=== PATIENT | female | born 1995 | race African-American/Black ===

== ENCOUNTER 2020-11-17 15:39 | Inpatient (IN) | payer OTHER, SELFPAY ==
--- NOTE | ~2020-11-17 | XR_ITS ---
EXAMINATION: XR SHOULDER, LEFT XR WRIST, LEFT CLINICAL INFORMATION: Left shoulder and wrist pain, status post restraints. Limited range of motion. COMPARISON: None TECHNIQUE: Left shoulder, 2 views Left wrist, 2 views FINDINGS: Left shoulder: Alignment is normal at the glenohumeral and acromioclavicular joints. The bones, joints and soft tissues have a normal appearance. No arthritic deformity, fracture or subluxation. The visualized left lung is clear. The visualized left-sided ribs are intact. Left wrist: Bones, joints and soft tissues are normal. No carpal bone fracture or subluxation. No focal soft tissue swelling. XR/XR wrist LT 2V IMPRESSION: * Normal left shoulder. * Normal left wrist. No acute fracture or malalignment.
--- NOTE | ~2020-11-17 | XR_ITS ---
EXAMINATION: XR KNEE, LEFT CLINICAL INFORMATION: Pain COMPARISON: None TECHNIQUE: Four views of the left knee. FINDINGS: Bones and soft tissues are normal. No fracture or joint effusion. Alignment is anatomic. Joint spaces are well maintained. No abnormal soft tissue calcification. XR/XR knee LT 3V IMPRESSION: Normal left knee.
--- NOTE | ~2020-11-17 | CT_ITS ---
EXAMINATION: CT BRAIN AND CERVICAL SPINE WITHOUT CONTRAST CLINICAL INFORMATION: Fall, head trauma. COMPARISON: None TECHNIQUE: 5 mm thin axial and reformatted 2 mm thin sagittal and coronal images of brain were obtained. Subsequently axial 2 mm thin and reformatted 2 mm thin sagittal coronal images of cervical spine were obtained. DLP 1301 FINDINGS: BRAIN: There is no acute intra-axial, extra-axial bleed, masses, collection or midline shift. There is no acute infarction evolution. There is no edema. The lateral ventricles are symmetrical in cortex size and configuration without enlargement. Bone windows reveal no calvarial abnormality except for diffuse thickening of the inner cortex.. There is no scalp soft tissue abnormality either. There is a small polyp or retention cyst in right maxillary sinus. CERVICAL SPINE: There is mild straightening of cervical lordosis. The vertebral heights, alignment and disc heights are normal. The craniovertebral junction and the C1-C2 alignment is normal. The thyroid lobes are symmetrical and normal. The central trachea and the bronchial airway widely patent. The lung apices are clear. Bilateral parotid and submandibular glands are normal. Bilateral TM joints are symmetrical and normal. The prevertebral and paravertebral soft tissues are normal. CT/CT head/brain wo con IMPRESSION: No acute intracranial process seen. Diffuse thickening of the inner table cortex of the calvarium. Mild straightening of cervical lordosis cervical spine without any visible acute fracture, dislocation or subluxation seen.
--- NOTE | ~2020-11-17 | XR_ITS ---
EXAMINATION: XR SHOULDER, LEFT XR WRIST, LEFT CLINICAL INFORMATION: Left shoulder and wrist pain, status post restraints. Limited range of motion. COMPARISON: None TECHNIQUE: Left shoulder, 2 views Left wrist, 2 views FINDINGS: Left shoulder: Alignment is normal at the glenohumeral and acromioclavicular joints. The bones, joints and soft tissues have a normal appearance. No arthritic deformity, fracture or subluxation. The visualized left lung is clear. The visualized left-sided ribs are intact. Left wrist: Bones, joints and soft tissues are normal. No carpal bone fracture or subluxation. No focal soft tissue swelling. XR/XR shoulder LT min 2V IMPRESSION: * Normal left shoulder. * Normal left wrist. No acute fracture or malalignment.
--- NOTE | ~2020-11-17 | CT_ITS ---
EXAMINATION: CT BRAIN AND CERVICAL SPINE WITHOUT CONTRAST CLINICAL INFORMATION: Fall, head trauma. COMPARISON: None TECHNIQUE: 5 mm thin axial and reformatted 2 mm thin sagittal and coronal images of brain were obtained. Subsequently axial 2 mm thin and reformatted 2 mm thin sagittal coronal images of cervical spine were obtained. DLP 1301 FINDINGS: BRAIN: There is no acute intra-axial, extra-axial bleed, masses, collection or midline shift. There is no acute infarction evolution. There is no edema. The lateral ventricles are symmetrical in cortex size and configuration without enlargement. Bone windows reveal no calvarial abnormality except for diffuse thickening of the inner cortex.. There is no scalp soft tissue abnormality either. There is a small polyp or retention cyst in right maxillary sinus. CERVICAL SPINE: There is mild straightening of cervical lordosis. The vertebral heights, alignment and disc heights are normal. The craniovertebral junction and the C1-C2 alignment is normal. The thyroid lobes are symmetrical and normal. The central trachea and the bronchial airway widely patent. The lung apices are clear. Bilateral parotid and submandibular glands are normal. Bilateral TM joints are symmetrical and normal. The prevertebral and paravertebral soft tissues are normal. CT/CT cervical spine wo con IMPRESSION: No acute intracranial process seen. Diffuse thickening of the inner table cortex of the calvarium. Mild straightening of cervical lordosis cervical spine without any visible acute fracture, dislocation or subluxation seen.
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
[2020-11-17 16:00] VITALS: PULSE 136; O2SAT 97; BMI 42.9
[2020-11-17 16:51] LABS: UPreg QC Valid YES; Urine Pregnancy NEGATIVE (NEGATIVE)
[2020-11-17 16:55] LABS: Amphetamine Screen Urine Not Detected (Not Detect); Barbiturates, Urine Not Detected (Not Detect); Benzodiazepines Screen Urine Not Detected (Not Detect); Cannabinoid Screen Urine Not Detected (Not Detect); Cocaine Screen Urine Not Detected (Not Detect); Fentanyl, urine POSITIVE (Not Detect); Opiate Screen Urine Not Detected (Not Detect); Phencyclidine Screen Urine Not Detected (Not Detect)
[2020-11-17 16:56] LABS: COVID-19 Test Negative (Negative)
--- NOTE | 2020-11-17 17:52 | PHA.MEDREC ---
Pharmacy Consult ? Medication Reconciliation Pharmacy has completed the medication reconciliation. Patient is unsure when her last dose of haloperidol decanoate and medroxyprogesterone. Marta Davis, AdamsD
[2020-11-17] MEDS: Benztropine Mesylate 1 MG TABLET PO (19:14)
[2020-11-17] MEDS: chlorproMAZINE HCl 25 MG TABLET 150 MG PO (19:14)
--- NOTE | 2020-11-17 23:33 | PC.NURSE ---
Patient is in bed appears sleeping, no distress observed/reported, patient was seen earlier by Care Team, disposition is section 12 inpatient bed search,, medication compliant, behavior not concerning at this time but may escalate, will continue to monitor
--- NOTE | 2020-11-18 | ECG_ITS ---
Test Reason : MEDCCLEARANCE Blood Pressure : / mmHG Vent. Rate : 095 BPM Atrial Rate : 095 BPM P-R Int : 148 ms QRS Dur : 066 ms QT Int : 374 ms P-R-T Axes : 047 029 030 degrees QTc Int : 469 ms Normal sinus rhythm Normal ECG No previous ECGs available Referred By: [facility] Electronically Signed By:REINALDO DOCKERY
--- NOTE | 2020-11-18 06:26 | PC.NURSE ---
Patient slept through the night, no distress observed/reported, VSS, disposition is section 12 inpatient bed search, labs pending patient not compliant, behavior appropriate at this time, will continue to monitor.
[2020-11-18 06:34] VITALS: RESP 17
--- NOTE | 2020-11-18 07:10 | PC.NURSE ---
patient appears to remain at rest at present respirations even and unlabored patient appears in no distress
[2020-11-18] MEDS: Sertraline HCL 100 MG TABLET 200 MG PO (10:00)
[2020-11-18] MEDS: Benztropine Mesylate 1 MG TABLET PO ×2 (10:00→22:03)
[2020-11-18] MEDS: Naltrexone HCl 50 MG TABLET PO (10:00)
[2020-11-18 10:15] LABS: MANUAL DIFF FLAG NO
[2020-11-18 10:17] LABS: Basophils Percent Auto 0.4 % (0-2); Eosinophils Absolute Auto 0.1 X10*3/uL (0.0-0.4); Eosinophils Percent Auto 2.1 % (0-4); Hematocrit 37.5 % (37-47); Hemoglobin 12.2 g/dl (12.0-16.0); Imm Gran Abs Auto 0.03 X10*3/uL (0.00-0.03); Imm Gran Pct Auto 0.6 % (0.0-0.4); Lymphocytes Absolute Auto 1.7 X10*3/uL (1.2-4.9); Lymphocytes Percent Auto 33.9 % (20-40); Mean Corpuscular HGB Conc 32.5 g/dl (31.0-35.0); Mean Corpuscular Hemoglobin 27.4 pg (27.0-33.0); Mean Corpuscular Volume 84.3 fL (80-98); Mean Platelet Volume 8.9 fL (9.4-12.3); Monocytes Absolute Auto 0.4 X10*3/uL (0.1-1.2); Monocytes Percent Auto 7.4 % (2-11); Neutrophils Absolute Auto 2.9 X10*3/uL (2.0-8.3); Neutrophils Percent Auto 55.6 % (45-73); Platelet Count 250 X10*3/uL (160-400); Red Blood Count 4.45 X10*6/uL (4.20-5.50); Red Cell Distribution Width 13.8 % (11.0-16.0); White Blood Count 5.1 X10*3/uL (4.8-10.8)
[2020-11-18 10:38] VITALS: BP 137/100; PULSE 107; RESP 14; TEMP 36.8; O2SAT 97
[2020-11-18 10:38] LABS: Alanine Aminotransferase 20 U/L (0-31); Alkaline Phosphatase 64 U/L (39-117); Anion Gap 11 (12-20); Aspartate Amino Transferase 24 U/L (5-31); Bilirubin Total 0.4 mg/dL (0.0-1.0); Blood Urea Nitrogen 11 mg/dL (9-16); Carbon Dioxide 21 mmol/L (22-29); Chloride 110 mmol/L (96-108); Creatinine Clr Calc Pharmacy 105.1; Estimated Glomerular Filt Rate > 60; Glucose Random 104 mg/dL (60-115); Sodium 138 mmol/L (135-145); Total Protein 7.2 g/dL (6.5-8.0)
[2020-11-18] MEDS: HaloperidoL 5 MG TABLET 10 MG PO ×2 (11:53→18:31)
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
[2020-11-18] MEDS: hydrOXYzine HCL 50 MG TABLET PO (18:29)
--- NOTE | 2020-11-18 18:56 | PC.NURSE ---
Patient in room, banging head against wall. Able to be redirected with staff support. Staff sitting with patient at this time. Patient accepted PRN medication effects pending.
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
[2020-11-18] MEDS: chlorproMAZINE HCl 25 MG TABLET 150 MG PO (22:03)
[2020-11-18] MEDS: OXcarbazepine 300 MG TABLET PO (22:03)
[2020-11-19 06:00] VITALS: TEMP 37
[2020-11-19] MEDS: Sertraline HCL 100 MG TABLET 200 MG PO (08:43)
[2020-11-19] MEDS: OXcarbazepine 300 MG TABLET PO ×2 (08:43→20:05)
[2020-11-19] MEDS: Benztropine Mesylate 1 MG TABLET PO ×2 (08:43→20:05)
[2020-11-19] MEDS: Naltrexone HCl 50 MG TABLET PO (08:43)
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
[2020-11-19] MEDS: chlorproMAZINE HCl 25 MG TABLET 150 MG PO (20:05)
[2020-11-20 06:00] VITALS: RESP 16
[2020-11-20] MEDS: Naltrexone HCl 50 MG TABLET PO (09:13)
[2020-11-20] MEDS: Sertraline HCL 100 MG TABLET 200 MG PO (09:13)
[2020-11-20] MEDS: Benztropine Mesylate 1 MG TABLET PO ×2 (09:13→21:52)
[2020-11-20] MEDS: OXcarbazepine 300 MG TABLET PO ×2 (09:13→21:52)
--- NOTE | 2020-11-20 13:55 | HO.PSYCHPN ---
Subjective Subjective Date of Service: 11/20/20 Reason For Visit: Psychosis Interim History: pt reports she is doing all right. more awake and alert than yesterday, but does not appear much more interested in engaging with MD. denies any side effects from medications. states she is eating and sleeping OK, getting along with peers OK. adds she is definitely feeling better than when she came in. per staff, visible on eves. cooperative. incr latency of speech. Mental Status Exam Mental Status Exam Narrative: A&O. Lying down, unkempt appearance, overweight. fair eye contact, more attentive, less somnolent. No Tics or Tremors. No abnormal involuntary movements. difficult to engage. Non-pressured speech, more spontaneous with regular rate and rhythm, normal volume and prosody. No prolonged speech latency or dysarthria. affect is more flexible. Has cognitive impairment r/t alcohol syndrome. Insight/ Judgment limited, questionable historian. Diagnostics Vital Signs (24Hr): Vital Signs - 24 hr 11/20/20 06:00 Respiratory Rate 16 Body Mass Index 42.9 Labs Results: 11/18/20 10:11 11/18/20 10:11 Medications Medications Current Medications Acetaminophen (Acetaminophen 325 Mg Tablet) 650 mg PO Q6H PRN PRN Reason: Headache/Pain Mild Scale (1-3) Al Hydroxide/Mg Hydroxide (Magnesium Hydrox/Alum Hydrox 30 Ml Oral.Susp) 30 ml PO Q6H PRN PRN Reason: Heartburn/Nausea Benztropine Mesylate (Benztropine Mesylate 1 Mg Tablet) 1 mg PO BID [facility] Last Admin: 11/20/20 09:13 Dose: 1 mg Documented by: Chlorpromazine HCl (Chlorpromazine Hcl 25 Mg Tablet) 50 mg PO BEDTIME PRN PRN Reason: Insomnia Chlorpromazine HCl (Chlorpromazine Hcl 100 Mg Tablet) 150 mg PO BEDTIME [facility] Last Admin: 11/19/20 20:24 Dose: Not Given Documented by: Haloperidol (Haloperidol 5 Mg Tablet) 10 mg PO BID PRN PRN Reason: Agitation Last Admin: 11/18/20 18:31 Dose: 10 mg Documented by: Hydroxyzine HCl (Hydroxyzine Hcl 50 Mg Tablet) 50 mg PO Q6H PRN PRN Reason: Anxiety Last Admin: 11/18/20 18:29 Dose: 50 mg Documented by: Magnesium Hydroxide (Milk Of Magnesia 30 Ml Oral.Susp) 30 ml PO DAILY PRN PRN Reason: Constipation Naltrexone HCl (Naltrexone Hcl 50 Mg Tablet) 50 mg PO DAILY [facility] Last Admin: 11/20/20 09:13 Dose: 50 mg Documented by: Oxcarbazepine (Oxcarbazepine 300 Mg Tablet) 300 mg PO BID [facility] Last Admin: 11/20/20 09:13 Dose: 300 mg Documented by: Sertraline HCl (Sertraline Hcl 100 Mg Tablet) 200 mg PO DAILY [facility] Last Admin: 11/20/20 09:13 Dose: 200 mg Documented by: Trazodone HCl (Trazodone Hcl 50 Mg Tablet) 50 mg PO BEDTIME PRN PRN Reason: Insomnia Allergies Allergies Allergy/AdvReac Type Severity Reaction Status Date / Time No Known Allergies Allergy Unverified 11/06/19 19:53 [No Known Allergies*] Assessment & Plan Assessment & Plan (1) Borderline personality disorder: Status: Acute Code(s): F60.3 - Borderline personality disorder (2) Schizoaffective disorder, depressive type: Status: Acute Code(s): F25.1 - Schizoaffective disorder, depressive type (3) alcohol syndrome: Status: Acute Code(s): Q86.0 - alcohol syndrome (dysmorphic) Assessment and Plan: Pt is a 25 y.o. Female who carries a dx of schizoaffective do, depressive type, alcohol syndrome, BPD. She does not appear to be a reliable historian but does report feeling worsening sx of depression and irritability. She presents with negative affect, low energy, withdrawn, and agitation. She currently denies assaultive ideation or HI. She endorses urges to self harm but does not have plan or intent, hx of head banging and hitting herself. She reportedly was not adherent with meds but pt denies this, collateral hx needed. Psychiatrist is Dr. Marcial David. On haldol dec, recently increased to 150 mg. Pt states she does not want to change her current med regimen, wants to add a medication to target sx of agitation, mood instability. Plan: started trileptal 300 mg BID for mood stability, reviewed risks and benefits. Continue OP med regimen and monitor for benefit. She is utilizing her PRNs with apparent benefit. Monitor response to medications. Monitor for safety in the milieu. Discharge on stabilization. Patient seen. Chart reviewed. Discussed with team. Obtain collateral contact info?as needed Greater than 50% of the session was spent on counseling and/or coordination of care Reason for contiued inpatient stay Substantial Risk for: harm to others, inability to function and med/psych decompensation
[2020-11-20] MEDS: chlorproMAZINE HCl 100 MG TABLET PO (21:52)
[2020-11-20] MEDS: chlorproMAZINE HCl 25 MG TABLET 50 MG PO (21:52)
[2020-11-21] MEDS: Sertraline HCL 100 MG TABLET 200 MG PO (09:26)
[2020-11-21] MEDS: OXcarbazepine 300 MG TABLET PO ×2 (09:28→19:59)
[2020-11-21] MEDS: Naltrexone HCl 50 MG TABLET PO (09:28)
[2020-11-21] MEDS: Benztropine Mesylate 1 MG TABLET PO ×2 (09:28→19:58)
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
[2020-11-21] MEDS: chlorproMAZINE HCl 25 MG TABLET 50 MG PO (19:58)
[2020-11-21] MEDS: hydrOXYzine HCL 50 MG TABLET PO (19:58)
[2020-11-21] MEDS: chlorproMAZINE HCl 100 MG TABLET PO (19:59)
[2020-11-21 20:21] VITALS: BP 134/88; PULSE 97; RESP 16; TEMP 36.6; O2SAT 100
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
[2020-11-22 09:30] VITALS: BP 130/80; PULSE 109; RESP 18; TEMP 36.8; O2SAT 96
[2020-11-22] MEDS: Benztropine Mesylate 1 MG TABLET PO ×2 (09:31→21:39)
[2020-11-22] MEDS: Sertraline HCL 100 MG TABLET 200 MG PO (09:31)
[2020-11-22] MEDS: Naltrexone HCl 50 MG TABLET PO (09:31)
[2020-11-22] MEDS: OXcarbazepine 300 MG TABLET PO ×2 (09:31→21:39)
--- NOTE | 2020-11-22 11:34 | PC.NURSE ---
Pt refused flu shot
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
[2020-11-22 18:00] VITALS: BP 143/98; PULSE 99; RESP 20; TEMP 36.6; O2SAT 99
[2020-11-22] MEDS: chlorproMAZINE HCl 100 MG TABLET PO (21:39)
[2020-11-22] MEDS: chlorproMAZINE HCl 25 MG TABLET 50 MG PO (21:40)
[2020-11-23 06:00] VITALS: PULSE 108; RESP 18; TEMP 36.8; O2SAT 98
[2020-11-23] MEDS: Sertraline HCL 100 MG TABLET 200 MG PO (09:07)
[2020-11-23] MEDS: OXcarbazepine 300 MG TABLET PO ×2 (09:07→21:15)
[2020-11-23] MEDS: Naltrexone HCl 50 MG TABLET PO (09:07)
[2020-11-23] MEDS: Benztropine Mesylate 1 MG TABLET PO ×2 (09:07→21:15)
--- NOTE | 2020-11-23 13:34 | P.PNPSI_ITS ---
Subjective Subjective Date of Service: 11/23/20 Reason For Visit: Psychosis Interim History: pt visited twice, mid-morning and late morning, sleeping soundly both times. MD felt it would be more therapeutic to allow patient to sleep than to rouse her. sitter in the room. per staff, med-compliant. was in her room most of the morning yesterday, then out for the rest of the day. playing board games with peers. removed strings from her mask once again and tied them tightly around her wrist; ligature was removed by nursing staff. later pt produced a staple and threatened to swallow it. the staple was also obtaine [facility] nursing staff and removed from the milieu. Mental Status Exam Mental Status Exam Narrative: asleep, lying in bed, unkempt appearance, overweight. No abnormal involuntary movements. snoring softly. Diagnostics Vital Signs (24Hr): Vital Signs - 24 hr 11/22/20 18:00 11/23/20 06:00 Temperature 98 F 98.2 F Pulse Rate 99 108 H Respiratory Rate 20 18 Blood Pressure 143/98 H Pulse Oximetry 99 98 Body Mass Index 42.9 Labs Results: 11/18/20 10:11 11/18/20 10:11 Medications Medications Current Medications Acetaminophen (Acetaminophen 325 Mg Tablet) 650 mg PO Q6H PRN PRN Reason: Headache/Pain Mild Scale (1-3) Al Hydroxide/Mg Hydroxide (Magnesium Hydrox/Alum Hydrox 30 Ml Oral.Susp) 30 ml PO Q6H PRN PRN Reason: Heartburn/Nausea Benztropine Mesylate (Benztropine Mesylate 1 Mg Tablet) 1 mg PO BID [facility] Last Admin: 11/23/20 09:07 Dose: 1 mg Documented by: Chlorpromazine HCl (Chlorpromazine Hcl 25 Mg Tablet) 50 mg PO BEDTIME PRN PRN Reason: Insomnia Chlorpromazine HCl (Chlorpromazine Hcl 100 Mg Tablet) 100 mg PO BEDTIME [facility] Last Admin: 11/22/20 21:39 Dose: 100 mg Documented by: Chlorpromazine HCl (Chlorpromazine Hcl 25 Mg Tablet) 50 mg PO BEDTIME [facility] Last Admin: 11/22/20 21:40 Dose: 50 mg Documented by: Haloperidol (Haloperidol 5 Mg Tablet) 10 mg PO BID PRN PRN Reason: Agitation Last Admin: 11/18/20 18:31 Dose: 10 mg Documented by: Hydroxyzine HCl (Hydroxyzine Hcl 50 Mg Tablet) 50 mg PO Q6H PRN PRN Reason: Anxiety Last Admin: 11/21/20 19:58 Dose: 50 mg Documented by: Magnesium Hydroxide (Milk Of Magnesia 30 Ml Oral.Susp) 30 ml PO DAILY PRN PRN Reason: Constipation Naltrexone HCl (Naltrexone Hcl 50 Mg Tablet) 50 mg PO DAILY [facility] Last Admin: 11/23/20 09:07 Dose: 50 mg Documented by: Oxcarbazepine (Oxcarbazepine 300 Mg Tablet) 300 mg PO BID [facility] Last Admin: 11/23/20 09:07 Dose: 300 mg Documented by: Sertraline HCl (Sertraline Hcl 100 Mg Tablet) 200 mg PO DAILY [facility] Last Admin: 11/23/20 09:07 Dose: 200 mg Documented by: Trazodone HCl (Trazodone Hcl 50 Mg Tablet) 50 mg PO BEDTIME PRN PRN Reason: Insomnia Allergies Allergies Allergy/AdvReac Type Severity Reaction Status Date / Time No Known Allergies Allergy Unverified 11/06/19 19:53 [No Known Allergies*] Assessment & Plan Assessment & Plan (1) Borderline personality disorder: Status: Acute Code(s): F60.3 - Borderline personality disorder (2) Schizoaffective disorder, depressive type: Status: Acute Code(s): F25.1 - Schizoaffective disorder, depressive type (3) alcohol syndrome: Status: Acute Code(s): Q86.0 - alcohol syndrome (dysmorphic) Assessment and Plan: Pt is a 25 y.o. Female who carries a dx of schizoaffective do, depressive type, alcohol syndrome, BPD. She does not appear to be a reliable historian but does report feeling worsening sx of depression and irritability. She presents with negative affect, low energy, withdrawn, and agitation. She currently denies assaultive ideation or HI. She endorses urges to self harm but does not have plan or intent, hx of head banging and hitting herself. She reportedly was not adherent with meds but pt denies this, collateral hx needed. Psychiatrist is Dr. Marcial David. On haldol dec, recently increased to 150 mg. Pt states she does not want to change her current med regimen, wants to add a medication to target sx of agitation, mood instability. 11/21 had episode of head-banging, fist pounding, and tied string around neck in response to not being allowed to use her phone. placed on 1:1 for safety 11/21. refused to have discussion with MD about safety on 11/22 and later on 11/22 tied ligature around her wrist and threatened to eat a staple. remains unstable, making self-harming gestures. continue 1:1. Plan: started trileptal 300 mg BID for mood stability, reviewed risks and benefits. Continue OP med regimen and monitor for benefit. She is utilizing her PRNs with apparent benefit. Monitor response to medications. Monitor for safety in the milieu. Discharge on stabilization. Patient seen. Chart reviewed. Discussed with team. Obtain collateral contact info?as needed Greater than 50% of the session was spent on counseling and/or coordination of care Reason for contiued inpatient stay Substantial Risk for: harm to self and harm to others
[2020-11-23] MEDS: HaloperidoL 5 MG TABLET 10 MG PO (18:16)
[2020-11-23] MEDS: hydrOXYzine HCL 50 MG TABLET PO (18:16)
[2020-11-23 20:59] VITALS: BP 146/84; PULSE 103; TEMP 37; O2SAT 100
[2020-11-23] MEDS: chlorproMAZINE HCl 100 MG TABLET PO (21:16)
[2020-11-23] MEDS: chlorproMAZINE HCl 25 MG TABLET 50 MG PO (21:16)
[2020-11-24] MEDS: traZODone HCL 50 MG TABLET PO (01:37)
[2020-11-24] MEDS: chlorproMAZINE HCl 25 MG TABLET 50 MG PO ×2 (01:37→21:44)
[2020-11-24] MEDS: Sertraline HCL 100 MG TABLET 200 MG PO (10:49)
[2020-11-24] MEDS: OXcarbazepine 300 MG TABLET PO ×2 (10:50→21:44)
[2020-11-24] MEDS: Naltrexone HCl 50 MG TABLET PO (10:50)
[2020-11-24] MEDS: Benztropine Mesylate 1 MG TABLET PO ×2 (10:50→21:44)
[2020-11-24 11:14] VITALS: BP 126/77; PULSE 112; RESP 16; TEMP 36.7; O2SAT 97
--- NOTE | 2020-11-24 14:04 | HO.PSYCHPN ---
Subjective Subjective Date of Service: 11/24/20 Reason For Visit: Psychosis Interim History: MD visited pt twice, mid-morning and late morning, pt sleeping soundly both times.? MD felt it would be more therapeutic to allow patient to sleep than to rouse her.? sitter in the room.? per staff, med-compliant.? was in her room most of the morning yesterday, then out for the rest of the day.? at dinner time was reaching over the nursing station trying to grab items from the desk. put a bottle cap in her mouth and said she was trying to kill herself. later relinquished the cap. Mental Status Exam Mental Status Exam Narrative: asleep, lying in bed, unkempt appearance, overweight. No abnormal involuntary movements. snoring softly. Diagnostics Vital Signs (24Hr): Vital Signs - 24 hr 11/23/20 20:59 11/24/20 11:14 Temperature 98.6 F 98.0 F Pulse Rate 103 H 112 H Respiratory Rate 16 Blood Pressure 146/84 H 126/77 Pulse Oximetry 100 97 Body Mass Index 42.9 Labs Results: 11/18/20 10:11 11/18/20 10:11 Medications Medications Current Medications Acetaminophen (Acetaminophen 325 Mg Tablet) 650 mg PO Q6H PRN PRN Reason: Headache/Pain Mild Scale (1-3) Al Hydroxide/Mg Hydroxide (Magnesium Hydrox/Alum Hydrox 30 Ml Oral.Susp) 30 ml PO Q6H PRN PRN Reason: Heartburn/Nausea Benztropine Mesylate (Benztropine Mesylate 1 Mg Tablet) 1 mg PO BID [facility] Last Admin: 11/24/20 10:50 Dose: 1 mg Documented by: Chlorpromazine HCl (Chlorpromazine Hcl 25 Mg Tablet) 50 mg PO BEDTIME PRN PRN Reason: Insomnia Last Admin: 11/24/20 01:37 Dose: 50 mg Documented by: Chlorpromazine HCl (Chlorpromazine Hcl 100 Mg Tablet) 100 mg PO BEDTIME [facility] Last Admin: 11/23/20 21:16 Dose: 100 mg Documented by: Chlorpromazine HCl (Chlorpromazine Hcl 25 Mg Tablet) 50 mg PO BEDTIME [facility] Last Admin: 11/23/20 21:16 Dose: 50 mg Documented by: Haloperidol (Haloperidol 5 Mg Tablet) 10 mg PO BID PRN PRN Reason: Agitation Last Admin: 11/23/20 18:16 Dose: 10 mg Documented by: Hydroxyzine HCl (Hydroxyzine Hcl 50 Mg Tablet) 50 mg PO Q6H PRN PRN Reason: Anxiety Last Admin: 11/23/20 18:16 Dose: 50 mg Documented by: Magnesium Hydroxide (Milk Of Magnesia 30 Ml Oral.Susp) 30 ml PO DAILY PRN PRN Reason: Constipation Naltrexone HCl (Naltrexone Hcl 50 Mg Tablet) 50 mg PO DAILY [facility] Last Admin: 11/24/20 10:50 Dose: 50 mg Documented by: Oxcarbazepine (Oxcarbazepine 300 Mg Tablet) 300 mg PO BID [facility] Last Admin: 11/24/20 10:50 Dose: 300 mg Documented by: Sertraline HCl (Sertraline Hcl 100 Mg Tablet) 200 mg PO DAILY [facility] Last Admin: 11/24/20 10:49 Dose: 200 mg Documented by: Trazodone HCl (Trazodone Hcl 50 Mg Tablet) 50 mg PO BEDTIME PRN PRN Reason: Insomnia Last Admin: 11/24/20 01:37 Dose: 50 mg Documented by: Allergies Allergies Allergy/AdvReac Type Severity Reaction Status Date / Time No Known Allergies Allergy Unverified 11/06/19 19:53 [No Known Allergies*] Assessment & Plan Assessment & Plan (1) Borderline personality disorder: Status: Acute Code(s): F60.3 - Borderline personality disorder (2) Schizoaffective disorder, depressive type: Status: Acute Code(s): F25.1 - Schizoaffective disorder, depressive type (3) alcohol syndrome: Status: Acute Code(s): Q86.0 - alcohol syndrome (dysmorphic) Assessment and Plan: Pt is a 25 y.o. Female who carries a dx of schizoaffective do, depressive type, alcohol syndrome, BPD. She does not appear to be a reliable historian but does report feeling worsening sx of depression and irritability. She presents with negative affect, low energy, withdrawn, and agitation. She currently denies assaultive ideation or HI. She endorses urges to self harm but does not have plan or intent, hx of head banging and hitting herself. She reportedly was not adherent with meds but pt denies this, collateral hx needed. Psychiatrist is Dr. Marcial David. On haldol dec, recently increased to 150 mg. Pt states she does not want to change her current med regimen, wants to add a medication to target sx of agitation, mood instability. 11/21 had episode of head-banging, fist pounding, and tied string around neck in response to not being allowed to use her phone. placed on 1:1 for safety 11/21. refused to have discussion with MD about safety on 11/22 and later on 11/22 tied ligature around her wrist and threatened to eat a staple. remains unstable, making self-harming gestures. continue 1:1. Plan: started trileptal 300 mg BID for mood stability, reviewed risks and benefits. Continue OP med regimen and monitor for benefit. She is utilizing her PRNs with apparent benefit. Monitor response to medications. Monitor for safety in the milieu. Discharge on stabilization. Patient seen. Chart reviewed. Discussed with team. Obtain collateral contact info?as needed check labs 11/25. Greater than 50% of the session was spent on counseling and/or coordination of care Reason for contiued inpatient stay Substantial Risk for: harm to self, harm to others, inability to function and rapid decompensation
[2020-11-24] MEDS: hydrOXYzine HCL 50 MG TABLET PO (16:32)
[2020-11-24] MEDS: HaloperidoL 5 MG TABLET 10 MG PO (16:32)
[2020-11-24 18:00] VITALS: BP 126/76; PULSE 98; TEMP 36.8; O2SAT 97
[2020-11-24] MEDS: chlorproMAZINE HCl 100 MG TABLET PO (21:44)
[2020-11-25 06:08] LABS: MANUAL DIFF FLAG NO
[2020-11-25 06:13] LABS: Basophils Percent Auto 0.3 % (0-2); Eosinophils Absolute Auto 0.2 X10*3/uL (0.0-0.4); Eosinophils Percent Auto 3.7 % (0-4); Hematocrit 34.8 % (37-47); Hemoglobin 11.6 g/dl (12.0-16.0); Imm Gran Abs Auto 0.02 X10*3/uL (0.00-0.03); Imm Gran Pct Auto 0.3 % (0.0-0.4); Lymphocytes Absolute Auto 2.6 X10*3/uL (1.2-4.9); Mean Corpuscular HGB Conc 33.3 g/dl (31.0-35.0); Mean Corpuscular Hemoglobin 28.1 pg (27.0-33.0); Mean Corpuscular Volume 84.3 fL (80-98); Monocytes Absolute Auto 0.6 X10*3/uL (0.1-1.2); Monocytes Percent Auto 9.8 % (2-11); Neutrophils Absolute Auto 2.3 X10*3/uL (2.0-8.3); Neutrophils Percent Auto 39.9 % (45-73); Platelet Count 226 X10*3/uL (160-400); Red Blood Count 4.13 X10*6/uL (4.20-5.50); Red Cell Distribution Width 13.8 % (11.0-16.0); White Blood Count 5.7 X10*3/uL (4.8-10.8)
[2020-11-25 06:32] LABS: Anion Gap 11 (12-20); Blood Urea Nitrogen 10 mg/dL (9-16); Calcium 8.8 mg/dL (8.4-10.2); Carbon Dioxide 20 mmol/L (22-29); Chloride 111 mmol/L (96-108); Creatinine Clr Calc Pharmacy 128.3; Estimated Glomerular Filt Rate > 60; Glucose Random 129 mg/dL (60-115); Sodium 138 mmol/L (135-145)
[2020-11-25 06:34] LABS: Alanine Aminotransferase 20 U/L (0-31); Albumin Level 3.6 g/dL (3.5-5.0); Alkaline Phosphatase 61 U/L (39-117); Aspartate Amino Transferase 19 U/L (5-31); Bilirubin Direct < 0.2 mg/dL (0.0-0.5); Bilirubin Total 0.2 mg/dL (0.0-1.0); Total Protein 6.6 g/dL (6.5-8.0)
[2020-11-25] MEDS: Sertraline HCL 100 MG TABLET 200 MG PO (08:18)
[2020-11-25] MEDS: Benztropine Mesylate 1 MG TABLET PO ×2 (08:18→20:52)
[2020-11-25] MEDS: Naltrexone HCl 50 MG TABLET PO (08:18)
[2020-11-25] MEDS: OXcarbazepine 300 MG TABLET PO (08:18)
--- NOTE | 2020-11-25 12:17 | HO.PSYCHPN ---
Subjective Subjective Date of Service: 11/25/20 Reason For Visit: Psychosis Interim History: pt found sleeping in her room mid-morning. easily rousable to voice, appeared to be less somnolent than in previous days. sitter in room. pt able to say she has not had any SI/SIBI today. reports her mood changes so quickly it is hard for her to give any warning or to control it. indicates she will attempt to contact staff should her mood begin to become troubled, to try to ask for help before she hurts herself or anyone else. willing to give a try to releasing the 1:1. per staff, limited responses to staff. c/o 09/28 depression. denies SI-HI days yesterday. denied AVH. isolative to room. alma unable to describe her mood, withdrawn. slept from 11 pm on. Mental Status Exam Mental Status Exam Narrative: lying in bed unkempt appearance, overweight. fair eye contact, attentive, not terribly somnolent. No Tics or Tremors. No abnormal involuntary movements. difficult to engage. Non-pressured speech, regular rate and rhythm, normal volume and decreased prosody. No prolonged speech latency or dysarthria. affect is constricted. denies SI/SIBI. Has cognitive impairment r/t alcohol syndrome. Insight/ Judgment limited, questionable historian. Diagnostics Vital Signs (24Hr): Vital Signs - 24 hr 11/24/20 18:00 Temperature 98.2 F Pulse Rate 98 Blood Pressure 126/76 Pulse Oximetry 97 Body Mass Index 42.9 Labs Results: 11/25/20 05:57 11/25/20 05:57 Labs: Laboratory Results - last 48 hr 11/25/20 11/25/20 11/25/20 05:57 05:57 05:57 WBC 5.7 RBC 4.13 L Hgb 11.6 L Hct 34.8 L MCV 84.3 MCH 28.1 MCHC 33.3 RDW 13.8 Plt Count 226 MPV 9.0 L Immature Gran % (Auto) 0.3 Neut % (Auto) 39.9 L Lymph % (Auto) 46.0 H [place] % (Auto) 9.8 Eos % (Auto) 3.7 Baso % (Auto) 0.3 Lymph # (Auto) 2.6 [place] # (Auto) 0.6 Eos # (Auto) 0.2 Baso # (Auto) 0.0 Abs Immat Gran (auto) 0.02 Absolute Neuts (auto) 2.3 Absolute Nucleated RBC 0.000 Nucleated RBC % (auto) 0.0 Sodium 138 Potassium 4.0 Chloride 111 H Carbon Dioxide 20 L Anion Gap 11 L BUN 10 Creatinine 0.82 Estim Creat Clear Calc 128.3 Estimated GFR > 60 Random Glucose 129 H Calcium 8.8 Total Bilirubin 0.2 Direct Bilirubin < 0.2 AST 19 ALT 20 Alkaline Phosphatase 61 Total Protein 6.6 Albumin 3.6 Medications Medications Current Medications Acetaminophen (Acetaminophen 325 Mg Tablet) 650 mg PO Q6H PRN PRN Reason: Headache/Pain Mild Scale (1-3) Al Hydroxide/Mg Hydroxide (Magnesium Hydrox/Alum Hydrox 30 Ml Oral.Susp) 30 ml PO Q6H PRN PRN Reason: Heartburn/Nausea Benztropine Mesylate (Benztropine Mesylate 1 Mg Tablet) 1 mg PO BID [facility] Last Admin: 11/25/20 08:18 Dose: 1 mg Documented by: Chlorpromazine HCl (Chlorpromazine Hcl 25 Mg Tablet) 50 mg PO BEDTIME PRN PRN Reason: Insomnia Last Admin: 11/24/20 01:37 Dose: 50 mg Documented by: Chlorpromazine HCl (Chlorpromazine Hcl 100 Mg Tablet) 100 mg PO BEDTIME [facility] Last Admin: 11/24/20 21:44 Dose: 100 mg Documented by: Chlorpromazine HCl (Chlorpromazine Hcl 25 Mg Tablet) 50 mg PO BEDTIME [facility] Last Admin: 11/24/20 21:44 Dose: 50 mg Documented by: Haloperidol (Haloperidol 5 Mg Tablet) 10 mg PO BID PRN PRN Reason: Agitation Last Admin: 11/24/20 16:32 Dose: 10 mg Documented by: Hydroxyzine HCl (Hydroxyzine Hcl 50 Mg Tablet) 50 mg PO Q6H PRN PRN Reason: Anxiety Last Admin: 11/24/20 16:32 Dose: 50 mg Documented by: Magnesium Hydroxide (Milk Of Magnesia 30 Ml Oral.Susp) 30 ml PO DAILY PRN PRN Reason: Constipation Naltrexone HCl (Naltrexone Hcl 50 Mg Tablet) 50 mg PO DAILY [facility] Last Admin: 11/25/20 08:18 Dose: 50 mg Documented by: Oxcarbazepine (Oxcarbazepine 300 Mg Tablet) 300 mg PO BID [facility] Last Admin: 11/25/20 08:18 Dose: 300 mg Documented by: Sertraline HCl (Sertraline Hcl 100 Mg Tablet) 200 mg PO DAILY [facility] Last Admin: 11/25/20 08:18 Dose: 200 mg Documented by: Trazodone HCl (Trazodone Hcl 50 Mg Tablet) 50 mg PO BEDTIME PRN PRN Reason: Insomnia Last Admin: 11/24/20 01:37 Dose: 50 mg Documented by: Allergies Allergies Allergy/AdvReac Type Severity Reaction Status Date / Time No Known Allergies Allergy Unverified 11/06/19 19:53 [No Known Allergies*] Assessment & Plan Assessment & Plan (1) Borderline personality disorder: Status: Acute Code(s): F60.3 - Borderline personality disorder (2) Schizoaffective disorder, depressive type: Status: Acute Code(s): F25.1 - Schizoaffective disorder, depressive type (3) alcohol syndrome: Status: Acute Code(s): Q86.0 - alcohol syndrome (dysmorphic) Assessment and Plan: Pt is a 25 y.o. Female who carries a dx of schizoaffective do, depressive type, alcohol syndrome, BPD. She does not appear to be a reliable historian but does report feeling worsening sx of depression and irritability. She presents with negative affect, low energy, withdrawn, and agitation. She currently denies assaultive ideation or HI. She endorses urges to self harm but does not have plan or intent, hx of head banging and hitting herself. She reportedly was not adherent with meds but pt denies this, collateral hx needed. Psychiatrist is Dr. Marcial David. On haldol dec, recently increased to 150 mg. Pt states she does not want to change her current med regimen, wants to add a medication to target sx of agitation, mood instability. 11/21 had episode of head-banging, fist pounding, and tied string around neck in response to not being allowed to use her phone. placed on 1:1 for safety 11/21. refused to have discussion with MD about safety on 11/22 and later on 11/22 tied ligature around her wrist and threatened to eat a staple. 11/23 threatened efrem put a bottle cap in her mouth in an attempt to choke herself. Plan: started trileptal 300 mg BID for mood stability, reviewed risks and benefits. Continue OP med regimen and monitor for benefit. She is utilizing her PRNs with apparent benefit. trileptal level drawn 11/25, pending. other labs 11/25 not concerning. increase trileptal to 450 BID as of 11/25. Greater than 50% of the session was spent on counseling and/or coordination of care Reason for contiued inpatient stay Substantial Risk for: harm to self, harm to others, inability to function and rapid decompensation
[2020-11-25] MEDS: chlorproMAZINE HCl 25 MG TABLET 50 MG PO ×2 (20:52→21:30)
[2020-11-25] MEDS: chlorproMAZINE HCl 100 MG TABLET PO (20:52)
[2020-11-25] MEDS: OXcarbazepine 150 MG TABLET 450 MG PO (20:57)
[2020-11-25] MEDS: HaloperidoL 5 MG TABLET 10 MG PO (21:30)
--- NOTE | 2020-11-25 22:35 | PC.NURSE ---
At approx. 2130 staff was sitting and talking with pt as pt asked for another jakob and then hid under the covers after receiving it, refusing to come out from under covers per staff request. Pt was then found to be tieing the jakob around her neck. Other staff was notified and security was called to assist; jakob able to be removed, no injuries noted to patient, no difficult breathing reported by pt or noted by staff. Security and staff spoke with pt for some time, prn medications given to pt. Pt also lightly banged her head against the wall a couple of times, no injuries noted. At this time pt was placed back on 1:1 safety status. Shortly after security and other staff left the room, staff was alerted again to the patient trying to swallow the cap from a hospital-provided bottle of lotion; pt coughed cap up, no choking witnessed. At this time security was called to unit again and assisted staff in working with the patient. Pt identified that psych/discussion groups are helpful for her when hospitalized, specifically meditation groups. Staff member sitting with pt offered to play a meditation for pt on their phone which pt was happy and agreeable to. She declined any additional offers for medications at this time. Security was able to leave the unit. Pt was calm and cooperative with staff member listening to meditation. No further incidents. All of pt's belongings were removed from pt's room. Dr. Sullivan notified of incident, pt remains on 1:1.
--- NOTE | 2020-11-26 06:54 | PC.NURSE ---
Addition to charge nurse note; before attempt to strangle self with gown. Pt had asked staff on checks for scissors to cut mask elastic around neck. Behavioral counslor alerted nurse , elatis was cut. Pt was then put on 1:1 for safety. that is when pt tied gown around neck.
[2020-11-26] MEDS: Sertraline HCL 100 MG TABLET 200 MG PO (10:13)
[2020-11-26] MEDS: Benztropine Mesylate 1 MG TABLET PO ×2 (10:13→23:20)
[2020-11-26] MEDS: Naltrexone HCl 50 MG TABLET PO (10:13)
--- NOTE | 2020-11-26 10:26 | P.PNPSI_ITS ---
Subjective Subjective Date of Service: 11/27/20 Reason For Visit: Psychosis Subjective Notes: Conditional Voluntary Interim History: Pt with 1:1 sitter. Pt had incident last night when she wrapped around string around neck very tightly. This morning pt reports she is not sure why she did that. She later asks this expert medical writer not to ask more questions as she does not want to talk about incident. When asked about whether intent was to end life, pt reports I don't know. When asked if she was currently suicidal, pt stated yes and no. When asked to elaborate, but stated I don't know. Pt denied AH/VH. Pt somewhat guarded but appeared calm and in some control. Pt reports that haldol was helpful when given as PRN and would like it schedule. She also reports nausea in morning before and at times after eating. 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 Likely has hx concussion due to head banging but denies LOC. -Denies hx of cardiac issues Yes Unobtainable due to mental condition (refusing to answer questions or participate in exam) Mental Status Exam Mental Status Exam Narrative: Appearance: casually groomed, fair hygiene in NAD Behavior:superficially cooperative psychomotor:no agitation or retardation noted Speech:clear, some delayed response, soft tone, spontaneous Thought process:mostly linear Thought content:feeling tired, with nausea, not wanting to talk about incident Mood: okay Affect: constricted SI: yes and no but would not elaborate. denied any plan or intent at that mo ment HI:none VH/AH:possible internally preoccupied Delusions:no overt delusional content but not offering much information Insight/judgment:impaired x 2 Memory/cog: alert, impaired secondary to psychiatric symptoms. Diagnostics Vital Signs (24Hr): Body Mass Index 42.9 Labs Results: 11/25/20 05:57 11/25/20 05:57 Medications Medications Current Medications Acetaminophen (Acetaminophen 325 Mg Tablet) 650 mg PO Q6H PRN PRN Reason: Headache/Pain Mild Scale (1-3) Last Admin: 11/27/20 05:59 Dose: 650 mg Documented by: Al Hydroxide/Mg Hydroxide (Magnesium Hydrox/Alum Hydrox 30 Ml Oral.Susp) 30 ml PO Q6H PRN PRN Reason: Heartburn/Nausea Benztropine Mesylate (Benztropine Mesylate 1 Mg Tablet) 1 mg PO BID [facility] Last Admin: 11/27/20 08:55 Dose: 1 mg Documented by: Chlorpromazine HCl (Chlorpromazine Hcl 25 Mg Tablet) 50 mg PO BEDTIME PRN PRN Reason: Insomnia Last Admin: 11/25/20 21:30 Dose: 50 mg Documented by: Chlorpromazine HCl (Chlorpromazine Hcl 100 Mg Tablet) 100 mg PO BEDTIME [facility] Last Admin: 11/26/20 23:20 Dose: 100 mg Documented by: Chlorpromazine HCl (Chlorpromazine Hcl 25 Mg Tablet) 50 mg PO BEDTIME [facility] Last Admin: 11/26/20 23:21 Dose: 50 mg Documented by: Famotidine (Famotidine 20 Mg Tablet) 20 mg PO BID [facility] Last Admin: 11/27/20 08:55 Dose: 20 mg Documented by: Haloperidol (Haloperidol 5 Mg Tablet) 5 mg PO BID [facility] Last Admin: 11/27/20 08:55 Dose: 5 mg Documented by: Hydroxyzine HCl (Hydroxyzine Hcl 50 Mg Tablet) 50 mg PO Q6H PRN PRN Reason: Anxiety Last Admin: 11/24/20 16:32 Dose: 50 mg Documented by: Magnesium Hydroxide (Milk Of Magnesia 30 Ml Oral.Susp) 30 ml PO DAILY PRN PRN Reason: Constipation Naltrexone HCl (Naltrexone Hcl 50 Mg Tablet) 50 mg PO DAILY [facility] Last Admin: 11/27/20 08:55 Dose: 50 mg Documented by: Oxcarbazepine (Oxcarbazepine 150 Mg Tablet) 450 mg PO BID [facility] Last Admin: 11/27/20 08:55 Dose: 450 mg Documented by: Sertraline HCl (Sertraline Hcl 100 Mg Tablet) 200 mg PO DAILY [facility] Last Admin: 11/27/20 08:55 Dose: 200 mg Documented by: Trazodone HCl (Trazodone Hcl 50 Mg Tablet) 50 mg PO BEDTIME PRN PRN Reason: Insomnia Last Admin: 11/24/20 01:37 Dose: 50 mg Documented by: Allergies Allergies Allergy/AdvReac Type Severity Reaction Status Date / Time No Known Allergies Allergy Unverified 11/06/19 19:53 [No Known Allergies*] Assessment & Plan Assessment & Plan (1) Borderline personality disorder: Status: Acute Code(s): F60.3 - Borderline personality disorder (2) Schizoaffective disorder, depressive type: Status: Acute Code(s): F25.1 - Schizoaffective disorder, depressive type (3) alcohol syndrome: Status: Acute Code(s): Q86.0 - alcohol syndrome (dysmorphic) Assessment and Plan: Pt is a 25 y.o. Female who carries a dx of schizoaffective do, depressive type, alcohol syndrome, BPD. She does not appear to be a reliable historian but does report feeling worsening sx of depression and irritability. She presents with negative affect, low energy, withdrawn, and agitation. She currently denies assaultive ideation or HI. She endorses urges to self harm but does not have plan or intent, hx of head banging and hitting herself. She reportedly was not adherent with meds but pt denies this, collateral hx needed. Psychiatrist is Dr. Marcial David. On haldol dec, recently increased to 150 mg. Pt states she does not want to change her current med regimen, wants to add a medication to target sx of agitation, mood instability. 11/21 had episode of head-banging, fist pounding, and tied string around neck in response to not being allowed to use her phone. placed on 1:1 for safety 11/21. refused to have discussion with MD about safety on 11/22 and later on 11/22 tied ligature around her wrist and threatened to eat a staple. 11/23 threatened efrem put a bottle cap in her mouth in an attempt to choke herself. Plan: started trileptal 300 mg BID for mood stability, reviewed risks and benefits. Continue OP med regimen and monitor for benefit. She is utilizing her PRNs with apparent benefit. trileptal level drawn 11/25, pending. other labs 11/25 not concerning. increase trileptal to 450 BID as of 11/25. Scheduled Haldol 10mg po qhs. Greater than 50% of the session was spent on counseling and/or coordination of care Reason for contiued inpatient stay Substantial Risk for: harm to others
[2020-11-26] MEDS: OXcarbazepine 150 MG TABLET 450 MG PO ×2 (11:33→23:27)
[2020-11-26] MEDS: Famotidine 20 MG TABLET PO ×2 (17:47→23:21)
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
[2020-11-26] MEDS: OLANZapine 10 MG VIAL IM (22:50)
[2020-11-26] MEDS: chlorproMAZINE HCl 100 MG TABLET PO (23:20)
[2020-11-26] MEDS: chlorproMAZINE HCl 25 MG TABLET 50 MG PO (23:21)
[2020-11-26] MEDS: HaloperidoL 5 MG TABLET PO (23:21)
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
[2020-11-27] MEDS: Acetaminophen 325 MG TABLET 650 MG PO ×2 (05:59→18:44)
[2020-11-27] MEDS: Naltrexone HCl 50 MG TABLET PO (08:55)
[2020-11-27] MEDS: Benztropine Mesylate 1 MG TABLET PO ×2 (08:55→20:59)
[2020-11-27] MEDS: Famotidine 20 MG TABLET PO ×2 (08:55→20:59)
[2020-11-27] MEDS: OXcarbazepine 150 MG TABLET 450 MG PO ×2 (08:55→20:58)
[2020-11-27] MEDS: Sertraline HCL 100 MG TABLET 200 MG PO (08:55)
[2020-11-27] MEDS: HaloperidoL 5 MG TABLET PO ×2 (08:55→20:59)
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
[2020-11-27] MEDS: chlorproMAZINE HCl 25 MG TABLET 50 MG PO (20:58)
[2020-11-27] MEDS: chlorproMAZINE HCl 100 MG TABLET PO (20:59)
[2020-11-28] MEDS: traZODone HCL 50 MG TABLET PO (02:02)
[2020-11-28] MEDS: hydrOXYzine HCL 50 MG TABLET PO (02:02)
--- NOTE | 2020-11-28 10:31 | PC.ADMIT ---
Patient approached regarding morning medications. Refused vital signs, did not take medications at this time. You ask too many questions . Irritable.
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
[2020-11-28] MEDS: OXcarbazepine 150 MG TABLET 450 MG PO ×2 (10:43→21:59)
[2020-11-28] MEDS: Famotidine 20 MG TABLET PO (10:43)
[2020-11-28] MEDS: Sertraline HCL 100 MG TABLET 200 MG PO (10:44)
[2020-11-28] MEDS: Benztropine Mesylate 1 MG TABLET PO ×2 (10:44→21:59)
[2020-11-28] MEDS: HaloperidoL 5 MG TABLET PO ×3 (10:45→21:59)
[2020-11-28] MEDS: Naltrexone HCl 50 MG TABLET PO (10:45)
[2020-11-28 13:31] LABS: Oxcarbazepine 8.9 mcg/mL (8.0-35.0)
[2020-11-28] MEDS: chlorproMAZINE HCl 25 MG TABLET 50 MG PO (21:59)
[2020-11-28] MEDS: chlorproMAZINE HCl 100 MG TABLET PO (21:59)
[2020-11-29] MEDS: HaloperidoL 5 MG TABLET PO ×3 (08:37→19:55)
[2020-11-29] MEDS: OXcarbazepine 150 MG TABLET 450 MG PO ×2 (08:37→19:56)
[2020-11-29] MEDS: Benztropine Mesylate 1 MG TABLET PO ×2 (08:37→19:54)
[2020-11-29] MEDS: Sertraline HCL 100 MG TABLET 200 MG PO (08:37)
[2020-11-29] MEDS: Naltrexone HCl 50 MG TABLET PO (08:37)
[2020-11-29] MEDS: Famotidine 20 MG TABLET PO ×2 (08:38→19:55)
[2020-11-29 09:30] VITALS: RESP 17
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
[2020-11-29] MEDS: chlorproMAZINE HCl 25 MG TABLET 50 MG PO (19:55)
[2020-11-29] MEDS: chlorproMAZINE HCl 100 MG TABLET PO (19:55)
[2020-11-29] MEDS: Magnesium Hydrox/Alum Hydrox 30 ML ORAL.SUSP PO (19:59)
[2020-11-30] MEDS: hydrOXYzine HCL 50 MG TABLET PO (00:11)
[2020-11-30] MEDS: traZODone HCL 50 MG TABLET PO (00:12)
[2020-11-30] MEDS: Famotidine 20 MG TABLET PO ×2 (11:13→20:46)
[2020-11-30] MEDS: Sertraline HCL 100 MG TABLET 200 MG PO (11:13)
[2020-11-30] MEDS: OXcarbazepine 150 MG TABLET 450 MG PO ×2 (11:13→20:46)
[2020-11-30] MEDS: Benztropine Mesylate 1 MG TABLET PO ×2 (11:14→20:46)
[2020-11-30] MEDS: Naltrexone HCl 50 MG TABLET PO (11:14)
[2020-11-30] MEDS: HaloperidoL 5 MG TABLET PO ×3 (11:14→20:47)
[2020-11-30 11:29] VITALS: RESP 16
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
[2020-11-30] MEDS: chlorproMAZINE HCl 25 MG TABLET 50 MG PO (20:46)
[2020-11-30] MEDS: chlorproMAZINE HCl 100 MG TABLET PO (20:46)
[2020-12-01 06:00] VITALS: BP 121/66; PULSE 102; TEMP 36.8; O2SAT 97
[2020-12-01] MEDS: Sertraline HCL 100 MG TABLET 200 MG PO (11:17)
[2020-12-01] MEDS: OXcarbazepine 150 MG TABLET 450 MG PO ×2 (11:17→21:05)
[2020-12-01] MEDS: Benztropine Mesylate 1 MG TABLET PO ×2 (11:18→21:06)
[2020-12-01] MEDS: HaloperidoL 5 MG TABLET PO ×3 (11:18→21:06)
[2020-12-01] MEDS: Naltrexone HCl 50 MG TABLET PO (11:18)
[2020-12-01] MEDS: Famotidine 20 MG TABLET PO ×2 (11:18→21:05)
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
[2020-12-01 18:00] VITALS: BP 121/66; PULSE 104; TEMP 36.8; O2SAT 97
[2020-12-01] MEDS: chlorproMAZINE HCl 25 MG TABLET 50 MG PO ×2 (21:05→21:33)
[2020-12-01] MEDS: chlorproMAZINE HCl 100 MG TABLET PO (21:05)
[2020-12-01] MEDS: hydrOXYzine HCL 50 MG TABLET PO (21:33)
[2020-12-01] MEDS: traZODone HCL 50 MG TABLET PO (21:33)
[2020-12-02 06:00] VITALS: BP 120/78; PULSE 116; RESP 16; TEMP 36.6; O2SAT 96
[2020-12-02] MEDS: Naltrexone HCl 50 MG TABLET PO (09:26)
[2020-12-02] MEDS: Benztropine Mesylate 1 MG TABLET PO ×2 (09:26→20:41)
[2020-12-02] MEDS: Famotidine 20 MG TABLET PO ×2 (09:26→20:41)
[2020-12-02] MEDS: OXcarbazepine 150 MG TABLET 450 MG PO ×2 (09:26→20:40)
[2020-12-02] MEDS: Sertraline HCL 100 MG TABLET 200 MG PO (09:26)
[2020-12-02] MEDS: HaloperidoL 5 MG TABLET PO ×3 (09:27→20:41)
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
[2020-12-02] MEDS: chlorproMAZINE HCl 25 MG TABLET 50 MG PO (20:41)
[2020-12-02] MEDS: chlorproMAZINE HCl 100 MG TABLET PO (20:41)
[2020-12-03] MEDS: hydrOXYzine HCL 50 MG TABLET PO ×2 (01:42→20:00)
[2020-12-03] MEDS: traZODone HCL 50 MG TABLET PO (01:42)
[2020-12-03] MEDS: OXcarbazepine 150 MG TABLET 450 MG PO ×2 (10:07→21:51)
[2020-12-03] MEDS: Sertraline HCL 100 MG TABLET 200 MG PO (10:08)
[2020-12-03] MEDS: HaloperidoL 5 MG TABLET PO ×3 (10:08→20:00)
[2020-12-03] MEDS: Naltrexone HCl 50 MG TABLET PO (10:08)
[2020-12-03] MEDS: Benztropine Mesylate 1 MG TABLET PO ×2 (10:08→21:13)
[2020-12-03] MEDS: Famotidine 20 MG TABLET PO ×2 (10:08→21:13)
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
[2020-12-03] MEDS: chlorproMAZINE HCl 25 MG TABLET 50 MG PO (21:13)
[2020-12-03] MEDS: chlorproMAZINE HCl 100 MG TABLET PO (21:13)
[2020-12-04 07:45] VITALS: BP 133/88; PULSE 109; RESP 18; TEMP 36.7; O2SAT 97
[2020-12-04] MEDS: Famotidine 20 MG TABLET PO ×2 (08:25→22:10)
[2020-12-04] MEDS: Naltrexone HCl 50 MG TABLET PO (08:25)
[2020-12-04] MEDS: Benztropine Mesylate 1 MG TABLET PO ×2 (08:25→22:10)
[2020-12-04] MEDS: Sertraline HCL 100 MG TABLET 200 MG PO (08:25)
[2020-12-04] MEDS: OXcarbazepine 150 MG TABLET 450 MG PO ×2 (09:09→22:09)
[2020-12-04] MEDS: HaloperidoL 5 MG TABLET PO ×2 (16:03→22:10)
--- NOTE | 2020-12-04 17:02 | P.PNPSI_ITS ---
Subjective Subjective Date of Service: 12/04/20 Reason For Visit: Psychosis Interim History: Patient seen and discussed with team. Patient evaluated this morning and upon interview she reports Im doing good. Says sleep was good. Has been refusing recent change in trileptal from 450 mg BID to 300 mg QAM and 600 mg QHS because she says she didnt know about it. Says she slept well last night on the trileptal 450 mg QHS when used with PRN hydroxyzine, would like this scheduled. On evening shift of 12/03 she reportedly took the plastic out of her surgical mask and had thoughts of self harming but was able to ask staff for help, requested that they remove any items in her room that could be used for self harm. She is requesting that the social work lecturer set up a family meeting with her and Shayla, her adult foster caregiver, as she has not spoken to Shayla yet and would like the SW to help mediate. Also says she needs a new day program, feels it would be too painful to return. Lastly she reports she wants to step down to [facility] upon discharge. Complains of dry mouth with medications but no other questions or concerns. In the milieu, patient is safe and appropriate in behavior, playing monopoly with peers. Denies SI/SIB/HI upon inquiry. Denies irritability or assaultive ideation. Says she feels safe. Mental Status Exam Mental Status Exam Narrative: A&O. in hospital attire, overweight, unkempt appearance. Poor eye contact, attentive. No Tics or Tremors. No abnormal involuntary movements. Calm, cooperative, engaged. Non-pressured speech, spontaneous with regular rate and rhythm, normal volume and prosody. No prolonged speech latency or dysarthria. Mood is ?alright,? affect is blunted. Denies SI/SIB/HI upon inquiry. Denies A/VH or delusional thought content. Thoughts are concrete, linear. Has cognitive impairment. Insight/ Judgment limited but adequate. Diagnostics Vital Signs (24Hr): Vital Signs - 24 hr 12/04/20 07:45 Temperature 98.1 F Pulse Rate 109 H Respiratory Rate 18 Blood Pressure 133/88 Pulse Oximetry 97 Body Mass Index 42.9 Labs Results: 11/25/20 05:57 11/25/20 05:57 Imaging Radiology Impressions: ITS Impressions Shoulder X-Ray 11/27/20 11:39 IMPRESSION: * Normal left shoulder. * Normal left wrist. No acute fracture or malalignment. Wrist X-Ray 11/27/20 11:39 IMPRESSION: * Normal left shoulder. * Normal left wrist. No acute fracture or malalignment. Medications Medications Current Medications Acetaminophen (Acetaminophen 325 Mg Tablet) 650 mg PO Q6H PRN PRN Reason: Headache/Pain Mild Scale (1-3) Last Admin: 11/27/20 18:44 Dose: 650 mg Documented by: Al Hydroxide/Mg Hydroxide (Magnesium Hydrox/Alum Hydrox 30 Ml Oral.Susp) 30 ml PO Q6H PRN PRN Reason: Heartburn/Nausea Last Admin: 11/29/20 19:59 Dose: 30 ml Documented by: Benztropine Mesylate (Benztropine Mesylate 1 Mg Tablet) 1 mg PO BID [facility] Last Admin: 12/04/20 08:25 Dose: 1 mg Documented by: Chlorpromazine HCl (Chlorpromazine Hcl 25 Mg Tablet) 50 mg PO BEDTIME PRN PRN Reason: Insomnia Last Admin: 12/01/20 21:33 Dose: 50 mg Documented by: Chlorpromazine HCl (Chlorpromazine Hcl 100 Mg Tablet) 100 mg PO BEDTIME [facility] Last Admin: 12/03/20 21:13 Dose: 100 mg Documented by: Chlorpromazine HCl (Chlorpromazine Hcl 25 Mg Tablet) 50 mg PO BEDTIME [facility] Last Admin: 12/03/20 21:13 Dose: 50 mg Documented by: Famotidine (Famotidine 20 Mg Tablet) 20 mg PO BID [facility] Last Admin: 12/04/20 08:25 Dose: 20 mg Documented by: Haloperidol (Haloperidol 5 Mg Tablet) 5 mg PO 1500 [facility] Last Admin: 12/04/20 16:03 Dose: 5 mg Documented by: Haloperidol (Haloperidol 5 Mg Tablet) 5 mg PO BEDTIME [facility] Last Admin: 12/03/20 20:00 Dose: 5 mg Documented by: Haloperidol Decanoate (Haloperidol Decanoate 50 Mg/Ml Ampul) 150 mg IM Q28D [facility] Hydroxyzine HCl (Hydroxyzine Hcl 50 Mg Tablet) 50 mg PO Q6H PRN PRN Reason: Anxiety Last Admin: 12/03/20 20:00 Dose: 50 mg Documented by: Hydroxyzine HCl (Hydroxyzine Hcl 50 Mg Tablet) 50 mg PO BEDTIME [facility] Magnesium Hydroxide (Milk Of Magnesia 30 Ml Oral.Susp) 30 ml PO DAILY PRN PRN Reason: Constipation Naltrexone HCl (Naltrexone Hcl 50 Mg Tablet) 50 mg PO DAILY [facility] Last Admin: 12/04/20 08:25 Dose: 50 mg Documented by: Patient Own (Medication (Biotene)) 1 each BUCCAL BID PRN PRN Reason: Dry Mouth Oxcarbazepine (Oxcarbazepine 150 Mg Tablet) 450 mg PO BID [facility] Sertraline HCl (Sertraline Hcl 100 Mg Tablet) 200 mg PO DAILY [facility] Last Admin: 12/04/20 08:25 Dose: 200 mg Documented by: Allergies Allergies Allergy/AdvReac Type Severity Reaction Status Date / Time No Known Allergies Allergy Unverified 11/06/19 19:53 [No Known Allergies*] Assessment & Plan Assessment & Plan (1) Borderline personality disorder: Status: Acute Code(s): F60.3 - Borderline personality disorder (2) Schizoaffective disorder, depressive type: Status: Acute Code(s): F25.1 - Schizoaffective disorder, depressive type (3) alcohol syndrome: Status: Acute Code(s): Q86.0 - alcohol syndrome (dysmorphic) Assessment and Plan: Pt is a 25 y.o. Female who carries a dx of schizoaffective do, depressive type, alcohol syndrome, BPD. She does not appear to be a reliable historian but does report feeling worsening sx of depression and irritability. She presents with negative affect, low energy, withdrawn, and agitation. She currently denies assaultive ideation or HI. She endorses urges to self harm but does not have plan or intent, hx of head banging and hitting herself. She reportedly was not adherent with meds but pt denies this, collateral hx needed. Psychiatrist is Dr. Marcial David. On haldol dec, recently increased to 150 mg. Pt states she does not want to change her current med regimen, wants to add a medication to target sx of agitation, mood instability. 11/21 had episode of head-banging, fist danie nding, and tied string around neck in response to not being allowed to use her phone. placed on 1:1 for safety 11/21. refused to have discussion with MD about safety on 11/22 and later on 11/22 tied ligature around her wrist and threatened to eat a staple. 11/23 threatened to put a bottle cap in her mouth in an attempt to choke herself. Plan: started trileptal 300 mg BID for mood stability, reviewed risks and benefits. Continue OP med regimen and monitor for benefit. She is utilizing her PRNs with apparent benefit. trileptal level drawn 11/25 8.9 (target range 8-35), other labs 11/25 not concer jeni. increased trileptal to 450 BID as of 11/25; to reduce daytime sedation will change dosing to 300 mg QAM and 600 mg QHS. haldol decanoate 150 mg next due 12/10; ordered. Scheduled Haldol 5 mg po TID; due to daytime sedation and recent increase in haldol decanoate dosing, will reduce daytime haldol dosing from thrice daily to twice daily, 5 mg each. will plan to discontinue PO haldol entirely in favor of decanoate formulation. Weekend coverage: start biotene PRN for dry mouth. Continue trileptal at 450 mg BID for mood stability, as she has been refusing change to 300 mg QAM and 600 mg QHS. Says she slept well with addition of hydroxyzine PRN, will schedule as she would like to try taking this nightly. Energy is okay today. Says she feels safe. Greater than 50% of the session was spent on counseling and/or coordination of care Reason for contiued inpatient stay Substantial Risk for: harm to self, harm to others and med/psych decompensation
[2020-12-04] MEDS: Magnesium Hydrox/Alum Hydrox 30 ML ORAL.SUSP PO (18:27)
[2020-12-04] MEDS: chlorproMAZINE HCl 25 MG TABLET 50 MG PO (22:10)
[2020-12-04] MEDS: hydrOXYzine HCL 50 MG TABLET PO (22:10)
[2020-12-04] MEDS: chlorproMAZINE HCl 100 MG TABLET PO (22:10)
[2020-12-05] MEDS: Sertraline HCL 100 MG TABLET 200 MG PO (10:00)
[2020-12-05] MEDS: Naltrexone HCl 50 MG TABLET PO (10:01)
[2020-12-05] MEDS: Famotidine 20 MG TABLET PO ×2 (10:01→23:29)
[2020-12-05] MEDS: OXcarbazepine 150 MG TABLET 450 MG PO ×2 (10:01→23:28)
[2020-12-05] MEDS: Benztropine Mesylate 1 MG TABLET PO ×2 (10:01→23:28)
[2020-12-05 10:07] VITALS: RESP 16
[2020-12-05] MEDS: hydrOXYzine HCL 50 MG TABLET PO ×2 (13:23→23:28)
[2020-12-05 13:32] VITALS: BP 123/80; PULSE 121; RESP 16; TEMP 36.7; O2SAT 97
--- NOTE | 2020-12-05 14:41 | HO.PSYCHPN ---
Subjective Subjective Date of Service: 12/05/20 Reason For Visit: Psychosis Interim History: Patient seen and discussed with team. Patient evaluated this morning and upon interview she reports she is feeling bad, unable to attribute this to any triggers or precipitating factors, I just woke up like this. Says sleep was okay, no nightmares, continues to report benefit on hydroxyzine for sleep. Unable to identify coping skills other than talking to her 1:1 sitter. Continues to report urges to self harm but on 12/03 she was able to advocate for items that she could use to harm herself to be removed from her room after removing plastic from her surgical mask with plan to self harm. Appetite is good. Denies having questions or concerns with her medications. In the milieu, patient is safe but isolative and withdrawn in behavior. Denies irritability or assaultive ideation. Says she feels safe. Mental Status Exam Mental Status Exam Narrative: A&O. in hospital attire, overweight, unkempt appearance. Poor eye contact, attentive. No Tics or Tremors. No abnormal involuntary movements. Calm, cooperative, engaged. Non-pressured speech, spontaneous with regular rate and rhythm, normal volume and prosody. No prolonged speech latency or dysarthria. Mood is ?bad,? affect is blunted. Endorses urges to self harm but denies SI/HI upon inquiry. Denies A/VH or delusional thought content. Thoughts are concrete, linear. Has cognitive impairment. Insight/ Judgment limited but adequate. Diagnostics Vital Signs (24Hr): Vital Signs - 24 hr 12/05/20 10:07 12/05/20 13:32 Temperature 98.0 F Pulse Rate 121 H Respiratory Rate 16 16 Blood Pressure 123/80 Pulse Oximetry 97 Body Mass Index 42.9 Labs Results: 11/25/20 05:57 11/25/20 05:57 Imaging Radiology Impressions: ITS Impressions Shoulder X-Ray 11/27/20 11:39 IMPRESSION: * Normal left shoulder. * Normal left wrist. No acute fracture or malalignment. Wrist X-Ray 11/27/20 11:39 IMPRESSION: * Normal left shoulder. * Normal left wrist. No acute fracture or malalignment. Medications Medications Current Medications Acetaminophen (Acetaminophen 325 Mg Tablet) 650 mg PO Q6H PRN PRN Reason: Headache/Pain Mild Scale (1-3) Last Admin: 11/27/20 18:44 Dose: 650 mg Documented by: Al Hydroxide/Mg Hydroxide (Magnesium Hydrox/Alum Hydrox 30 Ml Oral.Susp) 30 ml PO Q6H PRN PRN Reason: Heartburn/Nausea Last Admin: 12/04/20 18:27 Dose: 30 ml Documented by: Benztropine Mesylate (Benztropine Mesylate 1 Mg Tablet) 1 mg PO BID [facility] Last Admin: 12/05/20 10:01 Dose: 1 mg Documented by: Chlorpromazine HCl (Chlorpromazine Hcl 25 Mg Tablet) 50 mg PO BEDTIME PRN PRN Reason: Insomnia Last Admin: 12/01/20 21:33 Dose: 50 mg Documented by: Chlorpromazine HCl (Chlorpromazine Hcl 100 Mg Tablet) 100 mg PO BEDTIME [facility] Last Admin: 12/04/20 22:10 Dose: 100 mg Documented by: Chlorpromazine HCl (Chlorpromazine Hcl 25 Mg Tablet) 50 mg PO BEDTIME [facility] Last Admin: 12/04/20 22:10 Dose: 50 mg Documented by: Famotidine (Famotidine 20 Mg Tablet) 20 mg PO BID [facility] Last Admin: 12/05/20 10:01 Dose: 20 mg Documented by: Haloperidol (Haloperidol 5 Mg Tablet) 5 mg PO 1500 [facility] Last Admin: 12/04/20 16:03 Dose: 5 mg Documented by: Haloperidol (Haloperidol 5 Mg Tablet) 5 mg PO BEDTIME [facility] Last Admin: 12/04/20 22:10 Dose: 5 mg Documented by: Haloperidol Decanoate (Haloperidol Decanoate 50 Mg/Ml Ampul) 150 mg IM Q28D [facility] Hydroxyzine HCl (Hydroxyzine Hcl 50 Mg Tablet) 50 mg PO Q6H PRN PRN Reason: Anxiety Last Admin: 12/05/20 13:23 Dose: 50 mg Documented by: Hydroxyzine HCl (Hydroxyzine Hcl 50 Mg Tablet) 50 mg PO BEDTIME [facility] Last Admin: 12/04/20 22:10 Dose: 50 mg Documented by: Magnesium Hydroxide (Milk Of Magnesia 30 Ml Oral.Susp) 30 ml PO DAILY PRN PRN Reason: Constipation Naltrexone HCl (Naltrexone Hcl 50 Mg Tablet) 50 mg PO DAILY [facility] Last Admin: 12/05/20 10:01 Dose: 50 mg Documented by: Patient Own (Medication (Biotene)) 1 each BUCCAL BID PRN PRN Reason: Dry Mouth Oxcarbazepine (Oxcarbazepine 150 Mg Tablet) 450 mg PO BID [facility] Last Admin: 12/05/20 10:01 Dose: 450 mg Documented by: Sertraline HCl (Sertraline Hcl 100 Mg Tablet) 200 mg PO DAILY [facility] Last Admin: 12/05/20 10:00 Dose: 200 mg Documented by: Allergies Allergies Allergy/AdvReac Type Severity Reaction Status Date / Time No Known Allergies Allergy Unverified 11/06/19 19:53 [No Known Allergies*] Assessment & Plan Assessment & Plan (1) Borderline personality disorder: Status: Acute Code(s): F60.3 - Borderline personality disorder (2) Schizoaffective disorder, depressive type: Status: Acute Code(s): F25.1 - Schizoaffective disorder, depressive type (3) alcohol syndrome: Status: Acute Code(s): Q86.0 - alcohol syndrome (dysmorphic) Assessment and Plan: Pt is a 25 y.o. Female who carries a dx of schizoaffective do, depressive type, alcohol syndrome, BPD. She does not appear to be a reliable historian but does report feeling worsening sx of depression and irritability. She presents with negative affect, low energy, withdrawn, and agitation. She currently denies assaultive ideation or HI. She endorses urges to self harm but does not have plan or intent, hx of head banging and hitting herself. She reportedly was not adherent with meds but pt denies this, collateral hx needed. Psychiatrist is Dr. Marcial David. On haldol dec, recently increased to 150 mg. Pt states she does not want to change her current med regimen, wants to add a medication to target sx of agitation, mood instability. 11/21 had episode of head-banging, fist pounding, and tied string around neck in response to not being allowed to use her phone. placed on 1:1 for safety 11/21. refused to have discussion with MD about safety on 11/22 and later on 11/22 tied ligature around her wrist and threatened to eat a staple. 11/23 threatened to put a bottle cap in her mouth in an attempt to choke herself. Plan: started trileptal 300 mg BID for mood stability, reviewed risks and benefits. Continue OP med regimen and monitor for benefit. She is utilizing her PRNs with apparent benefit. trileptal level drawn 11/25 8.9 (target range 8-35), other labs 11/25 not concerning. increased trileptal to 450 BID as of 11/25; to reduce daytime sedation will change dosing to 300 mg QAM and 600 mg QHS. haldol decanoate 150 mg next due 12/10; ordered. Scheduled Haldol 5 mg po TID; due to daytime sedation and recent increase in haldol decanoate dosing, will reduce daytime haldol dosing from thrice daily to twice daily, 5 mg each. will plan to discontinue PO haldol entirely in favor of decanoate formulation. Weekend coverage: Continue trileptal at 450 mg BID as pt refused change to 300 mg QAM and 600 mg QHS. Continue hydroxzyine scheduled as adjunct for sleep, anxiety. Pt is requesting for to help with setting up family meeting, obtaining new day program, and helping with referral to [facility] upon discharge. Continues on 1:1 safety checks today due to urges to self harm. Greater than 50% of the session was spent on counseling and/or coordination of care Reason for contiued inpatient stay Substantial Risk for: harm to self, harm to others and med/psych decompensation
[2020-12-05] MEDS: HaloperidoL 5 MG TABLET PO ×2 (16:03→23:29)
[2020-12-05] MEDS: chlorproMAZINE HCl 100 MG TABLET PO (23:28)
[2020-12-05] MEDS: chlorproMAZINE HCl 25 MG TABLET 50 MG PO (23:29)
[2020-12-06] MEDS: hydrOXYzine HCL 50 MG TABLET PO ×3 (01:19→20:22)
[2020-12-06] MEDS: chlorproMAZINE HCl 25 MG TABLET 50 MG PO ×3 (01:19→20:21)
[2020-12-06 11:00] VITALS: BP 121/71; PULSE 130; RESP 18; TEMP 36.6; O2SAT 96
[2020-12-06] MEDS: Sertraline HCL 100 MG TABLET 200 MG PO (11:10)
[2020-12-06] MEDS: Naltrexone HCl 50 MG TABLET PO (11:10)
[2020-12-06] MEDS: Benztropine Mesylate 1 MG TABLET PO ×2 (11:11→20:21)
[2020-12-06] MEDS: OXcarbazepine 150 MG TABLET 450 MG PO ×2 (11:12→20:21)
[2020-12-06] MEDS: Famotidine 20 MG TABLET PO ×2 (11:13→20:21)
--- NOTE | 2020-12-06 11:28 | P.PNPSI_ITS ---
Subjective Subjective Date of Service: 12/06/20 Reason For Visit: Psychosis Interim History: pt found sleeping in her bed, rousable to speech. MD explained rationale for med changes on sunday, noted her objection to them and their subsequent change back. MD also noted other med changes to encourage her being awake during the day rather than at night. pt then stated she was not in the mood to meet with MD and asked MD to terminate the interview and leave, which MD did. per staff, remains on 1:1. isolative days. did not have a good day yesterday, had reported to 1:1 staff that she was feeling depressed. denies SI/SIBI, however. up at midnight, showered. fell asleep at 0200. up at 0745 this morning, back asleep at time of report. Mental Status Exam Mental Status Exam Narrative: lying in bed, unkempt appearance, overweight. Poor eye contact, attentive. No Tics or Tremors. No abnormal involuntary movements. difficult to engage. Mood is not good, affect is constricted. Has cognitive impairment r/t alcohol syndrome. Insight/ Judgment limited, questionable historian. no SI/HI/AVH expressed. Diagnostics Vital Signs (24Hr): Vital Signs - 24 hr 12/05/20 13:32 12/06/20 11:00 Temperature 98.0 F 97.9 F Pulse Rate 121 H 130 H Respiratory Rate 16 18 Blood Pressure 123/80 121/71 Pulse Oximetry 97 96 Body Mass Index 42.9 Labs Results: 11/25/20 05:57 11/25/20 05:57 Imaging Radiology Impressions: ITS Impressions Shoulder X-Ray 11/27/20 11:39 IMPRESSION: * Normal left shoulder. * Normal left wrist. No acute fracture or malalignment. Wrist X-Ray 11/27/20 11:39 IMPRESSION: * Normal left shoulder. * Normal left wrist. No acute fracture or malalignment. Medications Medications Current Medications Acetaminophen (Acetaminophen 325 Mg Tablet) 650 mg PO Q6H PRN PRN Reason: Headache/Pain Mild Scale (1-3) Last Admin: 11/27/20 18:44 Dose: 650 mg Documented by: Al Hydroxide/Mg Hydroxide (Magnesium Hydrox/Alum Hydrox 30 Ml Oral.Susp) 30 ml PO Q6H PRN PRN Reason: Heartburn/Nausea Last Admin: 12/04/20 18:27 Dose: 30 ml Documented by: Benztropine Mesylate (Benztropine Mesylate 1 Mg Tablet) 1 mg PO BID [facility] Last Admin: 12/06/20 11:11 Dose: 1 mg Documented by: Chlorpromazine HCl (Chlorpromazine Hcl 25 Mg Tablet) 50 mg PO BEDTIME PRN PRN Reason: Insomnia Last Admin: 12/06/20 01:19 Dose: 50 mg Documented by: Chlorpromazine HCl (Chlorpromazine Hcl 100 Mg Tablet) 100 mg PO BEDTIME [facility] Last Admin: 12/05/20 23:28 Dose: 100 mg Documented by: Chlorpromazine HCl (Chlorpromazine Hcl 25 Mg Tablet) 50 mg PO BEDTIME [facility] Last Admin: 12/05/20 23:29 Dose: 50 mg Documented by: Famotidine (Famotidine 20 Mg Tablet) 20 mg PO BID [facility] Last Admin: 12/06/20 11:13 Dose: 20 mg Documented by: Haloperidol (Haloperidol 5 Mg Tablet) 5 mg PO 1500 [facility] Last Admin: 12/05/20 16:03 Dose: 5 mg Documented by: Haloperidol (Haloperidol 5 Mg Tablet) 5 mg PO BEDTIME [facility] Last Admin: 12/05/20 23:29 Dose: 5 mg Documented by: Haloperidol Decanoate (Haloperidol Decanoate 50 Mg/Ml Ampul) 150 mg IM Q28D [facility] Hydroxyzine HCl (Hydroxyzine Hcl 50 Mg Tablet) 50 mg PO Q6H PRN PRN Reason: Anxiety Last Admin: 12/06/20 01:19 Dose: 50 mg Documented by: Hydroxyzine HCl (Hydroxyzine Hcl 50 Mg Tablet) 50 mg PO BEDTIME [facility] Last Admin: 12/05/20 23:28 Dose: 50 mg Documented by: Magnesium Hydroxide (Milk Of Magnesia 30 Ml Oral.Susp) 30 ml PO DAILY PRN PRN Reason: Constipation Naltrexone HCl (Naltrexone Hcl 50 Mg Tablet) 50 mg PO DAILY [facility] Last Admin: 12/06/20 11:10 Dose: 50 mg Documented by: Patient Own (Medication (Biotene)) 1 each BUCCAL BID PRN PRN Reason: Dry Mouth Oxcarbazepine (Oxcarbazepine 150 Mg Tablet) 450 mg PO BID [facility] Last Admin: 12/06/20 11:12 Dose: 450 mg Documented by: Sertraline HCl (Sertraline Hcl 100 Mg Tablet) 200 mg PO DAILY [facility] Last Admin: 12/06/20 11:10 Dose: 200 mg Documented by: Allergies Allergies Allergy/AdvReac Type Severity Reaction Status Date / Time No Known Allergies Allergy Unverified 11/06/19 19:53 [No Known Allergies*] Assessment & Plan Assessment & Plan (1) Borderline personality disorder: Status: Acute Code(s): F60.3 - Borderline personality disorder (2) Schizoaffective disorder, depressive type: Status: Acute Code(s): F25.1 - Schizoaffective disorder, depressive type (3) alcohol syndrome: Status: Acute Code(s): Q86.0 - alcohol syndrome (dysmorphic) Assessment and Plan: Pt is a 25 y.o. Female who carries a dx of schizoaffective do, depressive type, alcohol syndrome, BPD. She does not appear to be a reliable historian but does report feeling worsening sx of depression and irritability. She presents with negative affect, low energy, withdrawn, and agitation. She currently denies assaultive ideation or HI. She endorses urges to self harm but does not have guille n or intent, hx of head banging and hitting herself. She reportedly was not adherent with meds but pt denies this, collateral hx needed. Psychiatrist is Dr. Marcial David. On haldol dec, recently increased to 150 mg. Pt states she does not want to change her current med regimen, wants to add a medication to target sx of agitation, mood instability. 11/21 had episode of head-banging, fist pounding, and tied string around neck in response to not being allowed to use her phone. placed on 1:1 for safety 11/21. refused to have discussion with MD about safety on 11/22 and later on 11/22 tied ligature around her wrist and threatened to eat a staple. 11/23 threatened to put a bottle cap in her mouth in an attempt to choke herself. Plan: started trileptal 300 mg BID for mood stability, reviewed risks and benefits. Continue OP med regimen and monitor for benefit. She is utilizing her PRNs with apparent benefit. trileptal level drawn 11/25 8.9 (target range 8-35), other labs 11/25 not concerning. increased trileptal to 450 BID as of 11/25. haldol decanoate 150 mg next due 12/10; ordered. Scheduled Haldol 5 mg po TID; due to daytime sedation and recent increase in haldol decanoate dosing, will reduce daytime haldol dosing from thrice daily to twice daily, 5 mg each. will plan to discontinue PO haldol entirely in favor of decanoate formulation. trial of Q5 min checks as pt is future-oriented, thinking about discharge and future living setting. Greater than 50% of the session was spent on counseling and/or coordination of care Reason for contiued inpatient stay Substantial Risk for: harm to self and harm to others
[2020-12-06] MEDS: HaloperidoL 5 MG TABLET PO ×2 (15:54→20:21)
[2020-12-06] MEDS: chlorproMAZINE HCl 100 MG TABLET PO (20:21)
--- NOTE | 2020-12-06 20:54 | PC.NURSE ---
Patient punching self in arms and legs, reporting elevated anxiety and depression and some thoughts to self harm. Patient given scheduled medications and prn medications. Patient placed back on 1:1 for safety.
--- NOTE | 2020-12-07 10:21 | PC.NURSE ---
Patient refused medication upon approach, stated not right now . Rolled over in bed, did not respond to verbal prompting/encouragement.
[2020-12-07] MEDS: OXcarbazepine 150 MG TABLET 450 MG PO ×2 (11:16→20:34)
[2020-12-07] MEDS: buPROPion HCl XL 150 MG TAB.ER.24H PO (11:17)
[2020-12-07] MEDS: Sertraline HCL 100 MG TABLET 200 MG PO (11:17)
[2020-12-07] MEDS: Famotidine 20 MG TABLET PO ×2 (11:17→20:33)
[2020-12-07] MEDS: Benztropine Mesylate 1 MG TABLET PO ×2 (11:17→20:34)
[2020-12-07] MEDS: Naltrexone HCl 50 MG TABLET PO (11:17)
--- NOTE | 2020-12-07 13:11 | P.PNPSI_ITS ---
Subjective Subjective Date of Service: 12/07/20 Reason For Visit: Psychosis Interim History: substantial conversation had with pt today, without a doubt the longest time spent conversing with this pt since admission. pt reports her mood over the past couple of days has been particularly bad, but she is feeling better today. unable to supply any more reason for her self-harming behavior yesterday. reviews discharge plan with her, her plan to attend a [facility] after D/C and then to start to work with a different day program from what she was engaged with before. also discuss her sense that her mood is not particularly reactive, despite the events of yesterday, and that the mood stabilizer is currently at adequate dosing. she described persistent depressed mood, however, and agreed to start wellbutrin. R/B were discussed, including Sz, anxiety, agitation, insomnia. upcoming haldol decanoate also discussed, which she denied was set at 150 mg Q4 wks but which she rather said was up to her to be either 100 or 150. she asked that the dosing be changed to 100 mg for now, which was done. also informed labs would be drawn this . no other notable complaints or requests. per staff, put back on 1:1 from Q5 min checks after started head banging and hitting self in the face. excessive daytime sleeping. sad and withdrawn. denied SI/HI during the day, reported anxiety 8/10 and depression 9/10 later. not eating breakfast, eating about 60% of lunch and dinner. Mental Status Exam Mental Status Exam Narrative: lying in bed, unkempt appearance, overweight. fair eye contact, attentive. No Tics or Tremors. No abnormal involuntary movements. easier to engage than yesterday. Mood is depressed, affect is constricted. Has cognitive impairment r/t alcohol syndrome. Insight/ Judgment limited, questionable historian. no SI/HI/AVH expressed. Diagnostics Vital Signs (24Hr): Body Mass Index 42.9 Labs Results: 11/25/20 05:57 11/25/20 05:57 Imaging Radiology Impressions: ITS Impressions Shoulder X-Ray 11/27/20 11:39 IMPRESSION: * Normal left shoulder. * Normal left wrist. No acute fracture or malalignment. Wrist X-Ray 11/27/20 11:39 IMPRESSION: * Normal left shoulder. * Normal left wrist. No acute fracture or malalignment. Medications Medications Current Medications Acetaminophen (Acetaminophen 325 Mg Tablet) 650 mg PO Q6H PRN PRN Reason: Headache/Pain Mild Scale (1-3) Last Admin: 11/27/20 18:44 Dose: 650 mg Documented by: Al Hydroxide/Mg Hydroxide (Magnesium Hydrox/Alum Hydrox 30 Ml Oral.Susp) 30 ml PO Q6H PRN PRN Reason: Heartburn/Nausea Last Admin: 12/04/20 18:27 Dose: 30 ml Documented by: Benztropine Mesylate (Benztropine Mesylate 1 Mg Tablet) 1 mg PO BID [facility] Last Admin: 12/07/20 11:17 Dose: 1 mg Documented by: Bupropion HCl (Bupropion Hcl Xl 150 Mg Tab.Er.24h) 150 mg PO DAILY [facility] Chlorpromazine HCl (Chlorpromazine Hcl 25 Mg Tablet) 50 mg PO BEDTIME PRN PRN Reason: Insomnia Last Admin: 12/06/20 20:21 Dose: 50 mg Documented by: Chlorpromazine HCl (Chlorpromazine Hcl 100 Mg Tablet) 100 mg PO BEDTIME [facility] Last Admin: 12/06/20 20:21 Dose: 100 mg Documented by: Chlorpromazine HCl (Chlorpromazine Hcl 25 Mg Tablet) 50 mg PO BEDTIME [facility] Last Admin: 12/06/20 20:21 Dose: 50 mg Documented by: Famotidine (Famotidine 20 Mg Tablet) 20 mg PO BID [facility] Last Admin: 12/07/20 11:17 Dose: 20 mg Documented by: Haloperidol (Haloperidol 5 Mg Tablet) 5 mg PO 1500 [facility] Last Admin: 12/06/20 15:54 Dose: 5 mg Documented by: Haloperidol (Haloperidol 5 Mg Tablet) 5 mg PO BEDTIME [facility] Last Admin: 12/06/20 20:21 Dose: 5 mg Documented by: Haloperidol Decanoate (Haloperidol Decanoate 50 Mg/Ml Ampul) 100 mg IM Q28D [facility] Hydroxyzine HCl (Hydroxyzine Hcl 50 Mg Tablet) 50 mg PO Q6H PRN PRN Reason: Anxiety Last Admin: 12/06/20 20:22 Dose: 50 mg Documented by: Hydroxyzine HCl (Hydroxyzine Hcl 50 Mg Tablet) 50 mg PO BEDTIME [facility] Last Admin: 12/06/20 20:22 Dose: 50 mg Documented by: Magnesium Hydroxide (Milk Of Magnesia 30 Ml Oral.Susp) 30 ml PO DAILY PRN PRN Reason: Constipation Naltrexone HCl (Naltrexone Hcl 50 Mg Tablet) 50 mg PO DAILY [facility] Last Admin: 12/07/20 11:17 Dose: 50 mg Documented by: Patient Own (Medication (Biotene)) 1 each BUCCAL BID PRN PRN Reason: Dry Mouth Oxcarbazepine (Oxcarbazepine 150 Mg Tablet) 450 mg PO BID [facility] Last Admin: 12/07/20 11:16 Dose: 450 mg Documented by: Sertraline HCl (Sertraline Hcl 100 Mg Tablet) 200 mg PO DAILY [facility] Last Admin: 12/07/20 11:17 Dose: 200 mg Documented by: Allergies Allergies Allergy/AdvReac Type Severity Reaction Status Date / Time No Known Allergies Allergy Unverified 11/06/19 19:53 [No Known Allergies*] Assessment & Plan Assessment & Plan (1) Borderline personality disorder: Status: Acute Code(s): F60.3 - Borderline personality disorder (2) Schizoaffective disorder, depressive type: Status: Acute Code(s): F25.1 - Schizoaffective disorder, depressive type (3) alcohol syndrome: Status: Acute Code(s): Q86.0 - alcohol syndrome (dysmorphic) Assessment and Plan: Pt is a 25 y.o. Female who carries a dx of schizoaffective do, depressive type, alcohol syndrome, BPD. She does not appear to be a reliable historian but does report feeling worsening sx of depression and irritability. She presents with negative affect, low energy, withdrawn, and agitation. She currently denies assaultive ideation or HI. She endorses urges to self harm but does not have plan or intent, hx of head banging and hitting herself. She reportedly was not adherent with meds but pt denies this, collateral hx needed. Psychiatrist is Dr. Marcial David. On haldol dec, recently increased to 150 mg. Pt states she does not want to change her current med regimen, wants to add a medication to target sx of agitation, mood instability. 11/21 had episode of head-banging, fist pounding, and tied string around neck in response to not being allowed to use her phone. placed on 1:1 for safety 11/21. refused to have discussion with MD about safety on 11/22 and later on 11/22 tied ligature around her wrist and threatened to eat a staple. 11/23 threatened to put a bottle cap in her mouth in an attempt to choke herself. Plan: started trileptal 300 mg BID for mood stability, reviewed risks and benefits. Continue OP med regimen and monitor for benefit. She is utilizing her PRNs with apparent benefit. trileptal level drawn 11/25 8.9 (target range 8-35), other labs 11/25 not concerning. increased trileptal to 450 BID as of 11/25. haldol decanoate 150 mg next due 12/10; ordered. pt then said dosing is at her discretion and asked for 100 mg, so order changed to 100 mg. Scheduled Haldol 5 mg po TID; due to daytime sedation and recent increase in haldol decanoate dosing, reduced daytime haldol dosing from thrice daily to twice daily, 5 mg each. will plan to discontinue PO haldol entirely in favor of decanoate formulation. wellbutrin XL 150 started for depression. increase to 300 mg daily as of 12/10. trial of Q5 min checks 12/06 ended quickly once pt began head-banging and hitting self in face the same day. labs 12/09. I spent minutes with the patient and/or on the patient floor today, greater than?50% of which was spent counseling/coordinating care. Reason for contiued inpatient stay Substantial Risk for: harm to self, harm to others, inability to function and rapid decompensation
[2020-12-07] MEDS: HaloperidoL 5 MG TABLET PO ×2 (15:37→20:34)
--- NOTE | 2020-12-07 16:11 | PC.NURSE ---
Patient approached insurance writer reporting hip discomfort. Reports I have a hard time explaining but it doesn't feel right . Reports it happened in the past about 1 year ago when I was on M5. They were going to order some tests but I don't know what . States it feels like it could give out or buckle when walking. Dr. Moran notified via tiger text.
--- NOTE | 2020-12-07 17:07 | P.CONIM_ITS ---
History of Present Illness Data of Consult Service Date: 12/07/20 Requesting physician: Warren Moran Primary Care Provider: Lolita Physician [facility] Social History Household Members: Caregiver Household Members Other:: 1 Housing: House Do you presently have visiting nurse or other home services: Yes (once a month) Patient Tobacco Use Status: Never used Tobacco Smoked in Last 30 Days: No e-Cigarette/Vaping Use: Never Used Patient Interested in Nicotine Replacement: No Use of substances other than those prescribed or required for medical reasons: No Currently Displaying Signs/Symptoms of Drug Intoxication Withdrawal: No Any prior treatment program specific to substance use: No Have you been hit, kicked, punched, or otherwise hurt by someone within the past year? If so, by whom?: No Do you feel safe in your current relationship?: Yes Is there a partner from a previous relationship who is making you feel unsafe now?: No Are you made to feel afraid or neglected: No Advance Directives: No Advance Directives Information Provided: Yes Healthcare Proxy: No Guardian: No Do you have thoughts of harming others: None Do you have a plan to hurt others: No Plan Recently lost weight without trying: No Eating poorly because of decreased appetite: No Nutrition Risks: No Nutritional Risk Patient : No : No Poor oral hygiene: No service: No Sexual orientation: Did not discuss. Meds Allergies Allergy/AdvReac Type Severity Reaction Status Date / Time No Known Allergies Allergy Unverified 11/06/19 19:53 [No Known Allergies*] Active Medications: Current Medications Acetaminophen (Acetaminophen 325 Mg Tablet) 650 mg PO Q6H PRN PRN Reason: Headache/Pain Mild Scale (1-3) Last Admin: 11/27/20 18:44 Dose: 650 mg Documented by: Al Hydroxide/Mg Hydroxide (Magnesium Hydrox/Alum Hydrox 30 Ml Oral.Susp) 30 ml PO Q6H PRN PRN Reason: Heartburn/Nausea Last Admin: 12/04/20 18:27 Dose: 30 ml Documented by: Benztropine Mesylate (Benztropine Mesylate 1 Mg Tablet) 1 mg PO BID [facility] Last Admin: 12/07/20 11:17 Dose: 1 mg Documented by: Bupropion HCl (Bupropion Hcl Xl 150 Mg Tab.Er.24h) 150 mg PO DAILY [facility] Chlorpromazine HCl (Chlorpromazine Hcl 25 Mg Tablet) 50 mg PO BEDTIME PRN PRN Reason: Insomnia Last Admin: 12/06/20 20:21 Dose: 50 mg Documented by: Chlorpromazine HCl (Chlorpromazine Hcl 100 Mg Tablet) 100 mg PO BEDTIME [facility] Last Admin: 12/06/20 20:21 Dose: 100 mg Documented by: Chlorpromazine HCl (Chlorpromazine Hcl 25 Mg Tablet) 50 mg PO BEDTIME [facility] Last Admin: 12/06/20 20:21 Dose: 50 mg Documented by: Famotidine (Famotidine 20 Mg Tablet) 20 mg PO BID [facility] Last Admin: 12/07/20 11:17 Dose: 20 mg Documented by: Haloperidol (Haloperidol 5 Mg Tablet) 5 mg PO 1500 [facility] Last Admin: 12/07/20 15:37 Dose: 5 mg Documented by: Haloperidol (Haloperidol 5 Mg Tablet) 5 mg PO BEDTIME [facility] Last Admin: 12/06/20 20:21 Dose: 5 mg Documented by: Haloperidol Decanoate (Haloperidol Decanoate 50 Mg/Ml Ampul) 100 mg IM Q28D [facility] Hydroxyzine HCl (Hydroxyzine Hcl 50 Mg Tablet) 50 mg PO Q6H PRN PRN Reason: Anxiety Last Admin: 12/06/20 20:22 Dose: 50 mg Documented by: Hydroxyzine HCl (Hydroxyzine Hcl 50 Mg Tablet) 50 mg PO BEDTIME [facility] Last Admin: 12/06/20 20:22 Dose: 50 mg Documented by: Magnesium Hydroxide (Milk Of Magnesia 30 Ml Oral.Susp) 30 ml PO DAILY PRN PRN Reason: Constipation Naltrexone HCl (Naltrexone Hcl 50 Mg Tablet) 50 mg PO DAILY [facility] Last Admin: 12/07/20 11:17 Dose: 50 mg Documented by: Patient Own (Medication (Biotene)) 1 each BUCCAL BID PRN PRN Reason: Dry Mouth Oxcarbazepine (Oxcarbazepine 150 Mg Tablet) 450 mg PO BID [facility] Last Admin: 12/07/20 11:16 Dose: 450 mg Documented by: Sertraline HCl (Sertraline Hcl 100 Mg Tablet) 200 mg PO DAILY [facility] Last Admin: 12/07/20 11:17 Dose: 200 mg Documented by: Home Medications Medication Instructions Recorded Confirmed Last Taken Type benztropine 1 mg tablet 1 tab PO BID 09/29/21 09/29/21 Unknown History chlorpromazine 50 mg tablet 50 mg PO BEDTIME PRN 11/17/20 11/17/20 Unknown History chlorpromazine 50 mg tablet 150 mg PO BEDTIME 11/17/20 11/17/20 Unknown History haloperidol 10 mg tablet 1 tab PO BID PRN 11/17/20 11/17/20 Unknown History haloperidol decanoate 50 mg/mL 3 ml IM QMONTH 11/17/20 11/17/20 Unknown History intramuscular solution medroxyprogesterone 150 mg/mL 1 ml IM [id number] 11/17/20 11/17/20 Unknown History intramuscular suspension naltrexone 50 mg tablet 1 tab PO BEDTIME 11/17/20 11/17/20 Unknown History sertraline 100 mg tablet 2 tab PO QAM 11/17/20 11/17/20 Unknown History Physical Exam Vital Signs and Narrative: Vital Signs: Last Vital Signs Temp 97.9 F 12/06/20 11:00 Pulse 130 H 12/06/20 11:00 Resp 18 12/06/20 11:00 BP 121/71 12/06/20 11:00 Pulse Ox 96 12/06/20 11:00 Body Mass Index 42.9 Results Labs CBC and Chem 7: 11/25/20 05:57 11/25/20 05:57
--- NOTE | 2020-12-07 17:54 | PC.NURSE ---
Patient appears agitated. Visible in milieu for brief period. Retreated to room, laying down at this time. Psych counselor approached this bid writer stating she seemed to be agitating patient requested change in 1:1. Change accommodated. Multiple attempts to engage patient were made to no avail. Patient offered 1:1, PRN medication, coloring, game, Monopoly all of which patient refused. I just want to be left alone . Patient stated sometimes it is difficult to describe how she is feeling. Support and validation offered. 1:1 maintained.
[2020-12-07] MEDS: chlorproMAZINE HCl 25 MG TABLET 50 MG PO (20:34)
[2020-12-07] MEDS: chlorproMAZINE HCl 100 MG TABLET PO (20:34)
[2020-12-07] MEDS: hydrOXYzine HCL 50 MG TABLET PO (20:35)
--- NOTE | 2020-12-07 22:19 | PC.NURSE ---
refused HS vital signs
[2020-12-08] MEDS: Famotidine 20 MG TABLET PO ×2 (10:18→22:02)
[2020-12-08] MEDS: Sertraline HCL 100 MG TABLET 200 MG PO (10:18)
[2020-12-08] MEDS: Naltrexone HCl 50 MG TABLET PO (10:18)
[2020-12-08] MEDS: buPROPion HCl XL 150 MG TAB.ER.24H PO (10:19)
[2020-12-08] MEDS: OXcarbazepine 150 MG TABLET 450 MG PO ×2 (10:19→21:56)
[2020-12-08] MEDS: Benztropine Mesylate 1 MG TABLET PO ×2 (10:19→21:56)
--- NOTE | 2020-12-08 13:14 | P.PNPSI_ITS ---
Subjective Subjective Date of Service: 12/08/20 Reason For Visit: Psychosis Interim History: pt found to be sleeping in her room. she was easily roused by 1:1 staff calling her name. she was sleepy but attempted to engage with MD. she denied any side effects or problems from starting wellbutrin. she indicated her mood was OK and did not express any SI or HI. she declined to change her medications to attempt to reduce daytime sleepiness. she had no other questions or complaints for MD. per staff, showered yesterday. started wellbutrin. denies anx/dep/SI in the morning. afternoon was scratching at herself and attempting to tie mask strings around neck. eves playing monopoly, which she appeared to enjoy. slept from 0300 through the morning. Mental Status Exam Mental Status Exam Narrative: lying in bed, unkempt appearance, overweight. somnolent. poor eye contact, inattentive. No Tics or Tremors. No abnormal involuntary movements. easier to engage than prior. reports mood is OK. affect is constricted. Has cognitive impairment r/t alcohol syndrome. Insight/ Judgment limited, questionable historian. no SI/HI/AVH expressed. Diagnostics Vital Signs (24Hr): Body Mass Index 42.9 Labs Results: 11/25/20 05:57 11/25/20 05:57 Imaging Radiology Impressions: ITS Impressions Shoulder X-Ray 11/27/20 11:39 IMPRESSION: * Normal left shoulder. * Normal left wrist. No acute fracture or malalignment. Wrist X-Ray 11/27/20 11:39 IMPRESSION: * Normal left shoulder. * Normal left wrist. No acute fracture or malalignment. Medications Medications Current Medications Acetaminophen (Acetaminophen 325 Mg Tablet) 650 mg PO Q6H PRN PRN Reason: Headache/Pain Mild Scale (1-3) Last Admin: 11/27/20 18:44 Dose: 650 mg Documented by: Al Hydroxide/Mg Hydroxide (Magnesium Hydrox/Alum Hydrox 30 Ml Oral.Susp) 30 ml PO Q6H PRN PRN Reason: Heartburn/Nausea Last Admin: 12/04/20 18:27 Dose: 30 ml Documented by: Benztropine Mesylate (Benztropine Mesylate 1 Mg Tablet) 1 mg PO BID [facility] Last Admin: 12/08/20 10:19 Dose: 1 mg Documented by: Bupropion HCl (Bupropion Hcl Xl 150 Mg Tab.Er.24h) 150 mg PO DAILY [facility] Last Admin: 12/08/20 10:19 Dose: 150 mg Documented by: Chlorpromazine HCl (Chlorpromazine Hcl 25 Mg Tablet) 50 mg PO BEDTIME PRN PRN Reason: Insomnia Last Admin: 12/06/20 20:21 Dose: 50 mg Documented by: Chlorpromazine HCl (Chlorpromazine Hcl 100 Mg Tablet) 100 mg PO BEDTIME [facility] Last Admin: 12/07/20 20:34 Dose: 100 mg Documented by: Chlorpromazine HCl (Chlorpromazine Hcl 25 Mg Tablet) 50 mg PO BEDTIME [facility] Last Admin: 12/07/20 20:34 Dose: 50 mg Documented by: Famotidine (Famotidine 20 Mg Tablet) 20 mg PO BID [facility] Last Admin: 12/08/20 10:18 Dose: 20 mg Documented by: Haloperidol (Haloperidol 5 Mg Tablet) 5 mg PO 1500 [facility] Last Admin: 12/07/20 15:37 Dose: 5 mg Documented by: Haloperidol (Haloperidol 5 Mg Tablet) 5 mg PO BEDTIME [facility] Last Admin: 12/07/20 20:34 Dose: 5 mg Documented by: Haloperidol Decanoate (Haloperidol Decanoate 50 Mg/Ml Ampul) 100 mg IM Q28D [facility] Hydroxyzine HCl (Hydroxyzine Hcl 50 Mg Tablet) 50 mg PO Q6H PRN PRN Reason: Anxiety Last Admin: 12/06/20 20:22 Dose: 50 mg Documented by: Hydroxyzine HCl (Hydroxyzine Hcl 50 Mg Tablet) 50 mg PO BEDTIME [facility] Last Admin: 12/07/20 20:35 Dose: 50 mg Documented by: Magnesium Hydroxide (Milk Of Magnesia 30 Ml Oral.Susp) 30 ml PO DAILY PRN PRN Reason: Constipation Naltrexone HCl (Naltrexone Hcl 50 Mg Tablet) 50 mg PO DAILY [facility] Last Admin: 12/08/20 10:18 Dose: 50 mg Documented by: Patient Own (Medication (Biotene)) 1 each BUCCAL BID PRN PRN Reason: Dry Mouth Oxcarbazepine (Oxcarbazepine 150 Mg Tablet) 450 mg PO BID [facility] Last Admin: 12/08/20 10:19 Dose: 450 mg Documented by: Sertraline HCl (Sertraline Hcl 100 Mg Tablet) 200 mg PO DAILY [facility] Last Admin: 12/08/20 10:18 Dose: 200 mg Documented by: Allergies Allergies Allergy/AdvReac Type Severity Reaction Status Date / Time No Known Allergies Allergy Unverified 11/06/19 19:53 [No Known Allergies*] Assessment & Plan Assessment & Plan (1) Borderline personality disorder: Status: Acute Code(s): F60.3 - Borderline personality disorder (2) Schizoaffective disorder, depressive type: Status: Acute Code(s): F25.1 - Schizoaffective disorder, depressive type (3) alcohol syndrome: Status: Acute Code(s): Q86.0 - alcohol syndrome (dysmorphic) Assessment and Plan: Pt is a 25 y.o. Female who carries a dx of schizoaffective do, depressive type, alcohol syndrome, BPD. She does not appear to be a reliable historian but does report feeling worsening sx of depression and irritability. She presents with negative affect, low energy, withdrawn, and agitation. She currently denies assaultive ideation or HI. She endorses urges to self harm but does not have plan or intent, hx of head banging and hitting herself. She reportedly was not adherent with meds but pt denies this, collateral hx needed. Psychiatrist is Dr. Marcial David. On haldol dec, recently increased to 150 mg. Pt states she does not want to change her current med regimen, wants to add a medication to target sx of agitation, mood instability. 11/21 had episode of head-banging, fist pounding, and tied string around neck in response to not being allowed to use her phone. placed on 1:1 for safety 11/21. refused to have discussion with MD about safety on 11/22 and later on 11/22 tied ligature around her wrist and threatened to eat a staple. 11/23 threatened to put a bottle cap in her mouth in an attempt to choke herself. Plan: started trileptal 300 mg BID for mood stability, reviewed risks and benefits. Continue OP med regimen and monitor for benefit. She is utilizing her PRNs with apparent benefit. trileptal level drawn 11/25 8.9 (target range 8-35), other labs 11/25 not concerning. increased trileptal to 450 BID as of 11/25. haldol decanoate 150 mg next due 12/10; ordered. pt then said dosing is at her discretion and asked for 100 mg, so order changed to 100 mg. Scheduled Haldol 5 mg po TID; due to daytime sedation and recent increase in haldol decanoate dosing, reduced daytime haldol dosing from thrice daily to twice daily, 5 mg each. will plan to discontinue PO haldol entirely in favor of decanoate formulation. wellbutrin XL 150 started 12/07 for depression. increase to 300 mg daily as of 12/10. trial of Q5 min checks 12/06 ended quickly once pt began head-banging and hitting self in face the same day. labs 12/09. I spent minutes with the patient and/or on the patient floor today, greater than?50% of which was spent counseling/coordinating care. Reason for contiued inpatient stay Substantial Risk for: harm to self, harm to others, inability to function and rapid decompensation
[2020-12-08] MEDS: HaloperidoL 5 MG TABLET PO ×2 (15:46→21:56)
[2020-12-08] MEDS: hydrOXYzine HCL 50 MG TABLET PO (21:56)
[2020-12-08] MEDS: chlorproMAZINE HCl 25 MG TABLET 50 MG PO (21:56)
[2020-12-08] MEDS: chlorproMAZINE HCl 100 MG TABLET PO (21:56)
--- NOTE | 2020-12-08 23:34 | PC.NURSE ---
As pt was playing Monopoly in the kitchen as change of shift approached, t/w informed all present in the kitchen that staff would be closing the common areas for bedtime. Pt loudly objected, We aren't closing down. Pt then muttered, If he tries to close this down, I'm going to punch him in the face. T/w informed pt that violence on this unit is not acceptable. Pt became belligerent and said, Shut the fuck up! You're going to have to put me in restraints tonight. However, pt did go to bed without further incident.
[2020-12-09 07:21] LABS: MANUAL DIFF FLAG NO
[2020-12-09 07:23] LABS: Basophils Percent Auto 0.3 % (0-2); Eosinophils Absolute Auto 0.3 X10*3/uL (0.0-0.4); Eosinophils Percent Auto 4.1 % (0-4); Hematocrit 34.6 % (37-47); Hemoglobin 11.8 g/dl (12.0-16.0); Imm Gran Abs Auto 0.04 X10*3/uL (0.00-0.03); Imm Gran Pct Auto 0.7 % (0.0-0.4); Lymphocytes Absolute Auto 2.7 X10*3/uL (1.2-4.9); Lymphocytes Percent Auto 43.5 % (20-40); Mean Corpuscular HGB Conc 34.1 g/dl (31.0-35.0); Mean Corpuscular Hemoglobin 28.5 pg (27.0-33.0); Mean Corpuscular Volume 83.6 fL (80-98); Mean Platelet Volume 8.6 fL (9.4-12.3); Monocytes Absolute Auto 0.7 X10*3/uL (0.1-1.2); Monocytes Percent Auto 11.7 % (2-11); Neutrophils Absolute Auto 2.4 X10*3/uL (2.0-8.3); Neutrophils Percent Auto 39.7 % (45-73); Platelet Count 224 X10*3/uL (160-400); Red Blood Count 4.14 X10*6/uL (4.20-5.50); Red Cell Distribution Width 13.2 % (11.0-16.0); White Blood Count 6.1 X10*3/uL (4.8-10.8)
[2020-12-09 07:39] LABS: Anion Gap 12 (12-20); Blood Urea Nitrogen 10 mg/dL (9-16); Calcium 9.1 mg/dL (8.4-10.2); Carbon Dioxide 22 mmol/L (22-29); Chloride 108 mmol/L (96-108); Cholesterol 189 mg/dL; Creatinine Clr Calc Pharmacy 122.3; Estimated Glomerular Filt Rate > 60; Glucose Random 125 mg/dL (60-115); HDL Cholesterol 25 mg/dL; Potassium 4.1 mmol/L (3.3-5.1); Sodium 138 mmol/L (135-145); Triglycerides 533 mg/dL
[2020-12-09 08:16] LABS: Estimated Average Glucose 126 mg/dL
[2020-12-09] MEDS: Famotidine 20 MG TABLET PO ×2 (10:12→21:10)
[2020-12-09] MEDS: Naltrexone HCl 50 MG TABLET PO (10:13)
[2020-12-09] MEDS: OXcarbazepine 150 MG TABLET 450 MG PO ×2 (10:13→21:10)
[2020-12-09] MEDS: Sertraline HCL 100 MG TABLET 200 MG PO (10:13)
[2020-12-09] MEDS: buPROPion HCl XL 150 MG TAB.ER.24H PO (10:14)
[2020-12-09] MEDS: Benztropine Mesylate 1 MG TABLET PO ×2 (10:14→21:10)
--- NOTE | 2020-12-09 13:36 | P.PNPSI_ITS ---
Subjective Subjective Date of Service: 12/09/20 Reason For Visit: Psychosis Interim History: pt reports she is doing fine today, declines to discuss the events of yesterday evening. appears irritable, seemed to think this song writer was being obtuse when he suggested that she might have worse or better emotional state depending on the time of the day. asked about mood stability in light of the behavior last night and pt stated she thought her mood state was fine and did not want to increase trileptal. MD stated he would review level drawn today. pt agreed with plan to increase wellbutrin dosing to 300 mg daily as of tomorrow. Mental Status Exam Mental Status Exam Narrative: lying in bed, unkempt appearance, overweight. awake and alert. good eye contact, attentive. No Tics or Tremors. No abnormal involuntary movements. stand-offish; difficult to engage. reports mood is fine. affect is constricted. Has cognitive impairment r/t alcohol syndrome. Insight/ Judgment limited, questionable historian. no SI/HI/AVH expressed. Diagnostics Vital Signs (24Hr): Body Mass Index 42.9 Labs Results: 12/09/20 07:17 12/09/20 07:17 Labs: Laboratory Results - last 48 hr 12/09/20 12/09/20 12/09/20 07:17 07:17 07:17 WBC 6.1 RBC 4.14 L Hgb 11.8 L Hct 34.6 L MCV 83.6 MCH 28.5 MCHC 34.1 RDW 13.2 Plt Count 224 MPV 8.6 L Immature Gran % (Auto) 0.7 H Neut % (Auto) 39.7 L Lymph % (Auto) 43.5 H [place] % (Auto) 11.7 H Eos % (Auto) 4.1 H Baso % (Auto) 0.3 Lymph # (Auto) 2.7 [place] # (Auto) 0.7 Eos # (Auto) 0.3 Baso # (Auto) 0.0 Abs Immat Gran (auto) 0.04 H Absolute Neuts (auto) 2.4 Absolute Nucleated RBC 0.000 Nucleated RBC % (auto) 0.0 Sodium 138 Potassium 4.1 Chloride 108 Carbon Dioxide 22 Anion Gap 12 BUN 10 Creatinine 0.86 Estim Creat Clear Calc 122.3 Estimated GFR > 60 Random Glucose 125 H Estimat Average Glucose 126 Hemoglobin A1c % 6.0 Calcium 9.1 Triglycerides 533 Cholesterol 189 LDL Cholesterol, Calc TNP HDL Cholesterol 25 Imaging Radiology Impressions: ITS Impressions Shoulder X-Ray 11/27/20 11:39 IMPRESSION: * Normal left shoulder. * Normal left wrist. No acute fracture or malalignment. Wrist X-Ray 11/27/20 11:39 IMPRESSION: * Normal left shoulder. * Normal left wrist. No acute fracture or malalignment. Medications Medications Current Medications Acetaminophen (Acetaminophen 325 Mg Tablet) 650 mg PO Q6H PRN PRN Reason: Headache/Pain Mild Scale (1-3) Last Admin: 11/27/20 18:44 Dose: 650 mg Documented by: Al Hydroxide/Mg Hydroxide (Magnesium Hydrox/Alum Hydrox 30 Ml Oral.Susp) 30 ml PO Q6H PRN PRN Reason: Heartburn/Nausea Last Admin: 12/04/20 18:27 Dose: 30 ml Documented by: Benztropine Mesylate (Benztropine Mesylate 1 Mg Tablet) 1 mg PO BID [facility] Last Admin: 12/09/20 10:14 Dose: 1 mg Documented by: Bupropion HCl (Bupropion Hcl Xl 150 Mg Tab.Er.24h) 150 mg PO DAILY [facility] Last Admin: 12/09/20 10:14 Dose: 150 mg Documented by: Chlorpromazine HCl (Chlorpromazine Hcl 25 Mg Tablet) 50 mg PO BEDTIME PRN PRN Reason: Insomnia Last Admin: 12/06/20 20:21 Dose: 50 mg Documented by: Chlorpromazine HCl (Chlorpromazine Hcl 100 Mg Tablet) 100 mg PO BEDTIME [facility] Last Admin: 12/08/20 21:56 Dose: 100 mg Documented by: Chlorpromazine HCl (Chlorpromazine Hcl 25 Mg Tablet) 50 mg PO BEDTIME [facility] Last Admin: 12/08/20 21:56 Dose: 50 mg Documented by: Famotidine (Famotidine 20 Mg Tablet) 20 mg PO BID [facility] Last Admin: 12/09/20 10:12 Dose: 20 mg Documented by: Haloperidol (Haloperidol 5 Mg Tablet) 5 mg PO 1500 [facility] Last Admin: 12/08/20 15:46 Dose: 5 mg Documented by: Haloperidol (Haloperidol 5 Mg Tablet) 5 mg PO BEDTIME [facility] Last Admin: 12/08/20 21:56 Dose: 5 mg Documented by: Haloperidol Decanoate (Haloperidol Decanoate 50 Mg/Ml Ampul) 100 mg IM Q28D [facility] Hydroxyzine HCl (Hydroxyzine Hcl 50 Mg Tablet) 50 mg PO Q6H PRN PRN Reason: Anxiety Last Admin: 12/06/20 20:22 Dose: 50 mg Documented by: Hydroxyzine HCl (Hydroxyzine Hcl 50 Mg Tablet) 50 mg PO BEDTIME [facility] Last Admin: 12/08/20 21:56 Dose: 50 mg Documented by: Magnesium Hydroxide (Milk Of Magnesia 30 Ml Oral.Susp) 30 ml PO DAILY PRN PRN Reason: Constipation Naltrexone HCl (Naltrexone Hcl 50 Mg Tablet) 50 mg PO DAILY [facility] Last Admin: 12/09/20 10:13 Dose: 50 mg Documented by: Patient Own (Medication (Biotene)) 1 each BUCCAL BID PRN PRN Reason: Dry Mouth Oxcarbazepine (Oxcarbazepine 150 Mg Tablet) 450 mg PO BID [facility] Last Admin: 12/09/20 10:13 Dose: 450 mg Documented by: Sertraline HCl (Sertraline Hcl 100 Mg Tablet) 200 mg PO DAILY [facility] Last Admin: 12/09/20 10:13 Dose: 200 mg Documented by: Allergies Allergies Allergy/AdvReac Type Severity Reaction Status Date / Time No Known Allergies Allergy Unverified 11/06/19 19:53 [No Known Allergies*] Assessment & Plan Assessment & Plan (1) Borderline personality disorder: Status: Acute Code(s): F60.3 - Borderline personality disorder (2) Schizoaffective disorder, depressive type: Status: Acute Code(s): F25.1 - Schizoaffective disorder, depressive type (3) alcohol syndrome: Status: Acute Code(s): Q86.0 - alcohol syndrome (dysmorphic) Assessment and Plan: Pt is a 25 y.o. Female who carries a dx of schizoaffective do, depressive type, alcohol syndrome, BPD. She does not appear to be a reliable historian but does report feeling worsening sx of depression and irritability. She presents with negative affect, low energy, withdrawn, and agitation. She currently denies assaultive ideation or HI. She endorses urges to self harm but does not have plan or intent, hx of head banging and hitting herself. She reportedly was not adherent with meds but pt denies this, collateral hx needed. Psychiatrist is Dr. Marcial David. On haldol dec, recently increased to 150 mg. Pt states she does not want to change her current med regimen, wants to add a medication to target sx of agitation, mood instability. 11/21 had episode of head-banging, fist pounding, and tied string around neck in response to not being allowed to use her phone. placed on 1:1 for safety 11/21. refused to have discussion with MD about safety on 11/22 and later on 11/22 tied ligature around her wrist and threatened to eat a staple. 11/23 threatened to put a bottle cap in her mouth in an attempt to choke herself. Plan: started trileptal 300 mg BID for mood stability, reviewed risks and benefits. Continue OP med regimen and monitor for benefit. She is utilizing her PRNs with apparent benefit. trileptal level drawn 11/25 8.9 (target range 8-35), other labs 11/25 not concerning. increased trileptal to 450 BID as of 11/25. level drawn 12/09 - results pending. haldol decanoate 150 mg next due 12/10; ordered. pt then said dosing is at her discretion and asked for 100 mg, so order changed to 100 mg. Scheduled Haldol 5 mg po TID; due to daytime sedation and recent increase in haldol decanoate dosing, reduced daytime haldol dosing from thrice daily to twice daily, 5 mg each. will plan to discontinue PO haldol entirely in favor of decanoate formulation. wellbutrin XL 150 started 12/07 for depression. increase to 300 mg daily as of 12/10. trial of Q5 min checks 12/06 ended quickly once pt began head-banging and hitting self in face the same day. labs 12/09 unremarkable. I spent minutes with the patient and/or on the patient floor today, greater than?50% of which was spent counseling/coordinating care. Reason for contiued inpatient stay Substantial Risk for: harm to self, harm to others, inability to function and rapid decompensation
[2020-12-09] MEDS: HaloperidoL 5 MG TABLET PO ×2 (15:51→21:10)
[2020-12-09] MEDS: hydrOXYzine HCL 50 MG TABLET PO (21:10)
[2020-12-09] MEDS: chlorproMAZINE HCl 25 MG TABLET 50 MG PO (21:10)
[2020-12-09] MEDS: chlorproMAZINE HCl 100 MG TABLET PO (21:10)
--- NOTE | 2020-12-10 06:37 | PC.NURSE ---
Pt reported a constant feeling of needing to swallow. Denied hypersalivation, reporting instead dry mouth. Denied pain or feeling that her throat is swollen, denied difficulty breathing. Pt did report at times feeling her food was getting stuck in her throat and not passing easily through her esophagus, causing her to feel that she needed to chew her food more and eat slower to prevent herself from choking. Pt denied pain on palpation of lymph nodes, no swelling noted on palpation. Pt stated that she has had this problem for a long time.
[2020-12-10] MEDS: Benztropine Mesylate 1 MG TABLET PO ×2 (09:40→22:04)
[2020-12-10] MEDS: Naltrexone HCl 50 MG TABLET PO (09:40)
[2020-12-10] MEDS: buPROPion HCl XL 300 MG TAB.ER.24H PO (09:40)
[2020-12-10] MEDS: Sertraline HCL 100 MG TABLET 200 MG PO (09:40)
[2020-12-10] MEDS: OXcarbazepine 150 MG TABLET 450 MG PO ×2 (09:40→22:05)
[2020-12-10] MEDS: Famotidine 20 MG TABLET PO ×2 (09:40→22:05)
[2020-12-10 11:57] VITALS: RESP 16
--- NOTE | 2020-12-10 12:25 | HO.PSYCHPN ---
Subjective Subjective Date of Service: 12/10/20 Reason For Visit: Psychosis Interim History: Pt in bed. Pt reports doing fine. Pt reports she wants to be in bed in morning and only going out in 2nd shift. Pt denies SI/HI. Pt reports planning to play monopoly after. She reports sleeping well. Pt taking medications as prescribed. Somewhat guarded. Pt denies AH/VH. Triglycerides elevated-533- ordered serum amylase,lipase, cbc, cmp, crp r/o acute pancreatitis- consult to hospitalist pending Medication Compliance: Yes Side effects from medications: No Attending Groups: No Review of Systems Acute medical concerns: Yes elevated triglycerides on 12/09 533- hospitalist consult, preliminary blood work ordered for amylase, lipase, crp, cbc, cmp r/o acute pancreatitis. Review of Systems Review of Systems Yes all other systems are reviewed and are negative and Unobtainable due to mental condition (refusing to answer questions or participate in exam) Reports behavioral changes Psychiatric: Reports behavioral changes, Reports irritability, Reports mood swings, Reports paranoia, Reports homicidal ideation and Reports suicidal ideation (denies) Mental Status Exam Mental Status Exam Narrative: lying in bed, unkempt appearance, overweight. awake and alert. good eye contact, attentive. No Tics or Tremors. No abnormal involuntary movements. superficially cooperative. reports mood is fine. affect is constricted. Has cognitive impairment r/t alcohol syndrome. Insight/ Judgment limited. no SI/HI/AVH expressed. Diagnostics Vital Signs (24Hr): Vital Signs - 24 hr 12/10/20 11:57 Respiratory Rate 16 Body Mass Index 42.9 Labs Results: 12/09/20 07:17 12/09/20 07:17 Labs: Laboratory Results - last 48 hr 12/09/20 12/09/20 12/09/20 07:17 07:17 07:17 WBC 6.1 RBC 4.14 L Hgb 11.8 L Hct 34.6 L MCV 83.6 MCH 28.5 MCHC 34.1 RDW 13.2 Plt Count 224 MPV 8.6 L Immature Gran % (Auto) 0.7 H Neut % (Auto) 39.7 L Lymph % (Auto) 43.5 H [place] % (Auto) 11.7 H Eos % (Auto) 4.1 H Baso % (Auto) 0.3 Lymph # (Auto) 2.7 [place] # (Auto) 0.7 Eos # (Auto) 0.3 Baso # (Auto) 0.0 Abs Immat Gran (auto) 0.04 H Absolute Neuts (auto) 2.4 Absolute Nucleated RBC 0.000 Nucleated RBC % (auto) 0.0 Sodium 138 Potassium 4.1 Chloride 108 Carbon Dioxide 22 Anion Gap 12 BUN 10 Creatinine 0.86 Estim Creat Clear Calc 122.3 Estimated GFR > 60 Random Glucose 125 H Estimat Average Glucose 126 Hemoglobin A1c % 6.0 Calcium 9.1 Triglycerides 533 Cholesterol 189 LDL Cholesterol, Calc TNP HDL Cholesterol 25 Imaging Radiology Impressions: ITS Impressions Shoulder X-Ray 11/27/20 11:39 IMPRESSION: * Normal left shoulder. * Normal left wrist. No acute fracture or malalignment. Wrist X-Ray 11/27/20 11:39 IMPRESSION: * Normal left shoulder. * Normal left wrist. No acute fracture or malalignment. Medications Medications Current Medications Acetaminophen (Acetaminophen 325 Mg Tablet) 650 mg PO Q6H PRN PRN Reason: Headache/Pain Mild Scale (1-3) Last Admin: 11/27/20 18:44 Dose: 650 mg Documented by: Al Hydroxide/Mg Hydroxide (Magnesium Hydrox/Alum Hydrox 30 Ml Oral.Susp) 30 ml PO Q6H PRN PRN Reason: Heartburn/Nausea Last Admin: 12/04/20 18:27 Dose: 30 ml Documented by: Benztropine Mesylate (Benztropine Mesylate 1 Mg Tablet) 1 mg PO BID [facility] Last Admin: 12/10/20 09:40 Dose: 1 mg Documented by: Bupropion HCl (Bupropion Hcl Xl 300 Mg Tab.Er.24h) 300 mg PO DAILY [facility] Last Admin: 12/10/20 09:40 Dose: 300 mg Documented by: Chlorpromazine HCl (Chlorpromazine Hcl 25 Mg Tablet) 50 mg PO BEDTIME PRN PRN Reason: Insomnia Last Admin: 12/06/20 20:21 Dose: 50 mg Documented by: Chlorpromazine HCl (Chlorpromazine Hcl 100 Mg Tablet) 100 mg PO BEDTIME [facility] Last Admin: 12/09/20 21:10 Dose: 100 mg Documented by: Chlorpromazine HCl (Chlorpromazine Hcl 25 Mg Tablet) 50 mg PO BEDTIME [facility] Last Admin: 12/09/20 21:10 Dose: 50 mg Documented by: Famotidine (Famotidine 20 Mg Tablet) 20 mg PO BID [facility] Last Admin: 12/10/20 09:40 Dose: 20 mg Documented by: Haloperidol (Haloperidol 5 Mg Tablet) 5 mg PO 1500 [facility] Last Admin: 12/09/20 15:51 Dose: 5 mg Documented by: Haloperidol (Haloperidol 5 Mg Tablet) 5 mg PO BEDTIME [facility] Last Admin: 12/09/20 21:10 Dose: 5 mg Documented by: Haloperidol Decanoate (Haloperidol Decanoate 50 Mg/Ml Ampul) 100 mg IM Q28D [facility] Hydroxyzine HCl (Hydroxyzine Hcl 50 Mg Tablet) 50 mg PO Q6H PRN PRN Reason: Anxiety Last Admin: 12/06/20 20:22 Dose: 50 mg Documented by: Hydroxyzine HCl (Hydroxyzine Hcl 50 Mg Tablet) 50 mg PO BEDTIME [facility] Last Admin: 12/09/20 21:10 Dose: 50 mg Documented by: Magnesium Hydroxide (Milk Of Magnesia 30 Ml Oral.Susp) 30 ml PO DAILY PRN PRN Reason: Constipation Naltrexone HCl (Naltrexone Hcl 50 Mg Tablet) 50 mg PO DAILY [facility] Last Admin: 12/10/20 09:40 Dose: 50 mg Documented by: Patient Own (Medication (Biotene)) 1 each BUCCAL BID PRN PRN Reason: Dry Mouth Last Admin: 12/09/20 16:58 Dose: 1 each Documented by: Oxcarbazepine (Oxcarbazepine 150 Mg Tablet) 450 mg PO BID [facility] Last Admin: 12/10/20 09:40 Dose: 450 mg Documented by: Sertraline HCl (Sertraline Hcl 100 Mg Tablet) 200 mg PO DAILY [facility] Last Admin: 12/10/20 09:40 Dose: 200 mg Documented by: Allergies Allergies Allergy/AdvReac Type Severity Reaction Status Date / Time No Known Allergies Allergy Unverified 11/06/19 19:53 [No Known Allergies*] Assessment & Plan Assessment & Plan (1) Borderline personality disorder: Status: Acute Code(s): F60.3 - Borderline personality disorder (2) Schizoaffective disorder, depressive type: Status: Acute Code(s): F25.1 - Schizoaffective disorder, depressive type (3) alcohol syndrome: Status: Acute Code(s): Q86.0 - alcohol syndrome (dysmorphic) Assessment and Plan: Pt is a 25 y.o. Female who carries a dx of schizoaffective do, depressive type, alcohol syndrome, BPD. She does not appear to be a reliable historian but does report feeling worsening sx of depression and irritability. She presents with negative affect, low energy, withdrawn, and agitation. She currently denies assaultive ideation or HI. She endorses urges to self harm but does not have plan or intent, hx of head banging and hitting herself. She reportedly was not adherent with meds but pt denies this, collateral hx needed. Psychiatrist is Dr. Marcial David. On haldol dec, recently increased to 150 mg. Pt states she does not want to change her current med regimen, wants to add a medication to target sx of agitation, mood instability. 11/21 had episode of head-banging, fist pounding, and tied string around neck in response to not being allowed to use her phone. placed on 1:1 for safety 11/21. refused to have discussion with MD about safety on 11/22 and later on 11/22 tied ligature around her wrist and threatened to eat a staple. 11/23 threatened to put a bottle cap in her mouth in an attempt to choke herself. Plan: started trileptal 300 mg BID for mood stability, reviewed risks and benefits. Continue OP med regimen and monitor for benefit. She is utilizing her PRNs with apparent benefit. trileptal level drawn 11/25 8.9 (target range 8-35), other labs 11/25 not concerning. increased trileptal to 450 BID as of 11/25. level drawn 12/09 - results pending. haldol decanoate 150 mg next due 12/10; ordered. pt then said dosing is at her discretion and asked for 100 mg, so order changed to 100 mg. Scheduled Haldol 5 mg po TID; due to daytime sedation and recent increase in haldol decanoate dosing, reduced daytime haldol dosing from thrice daily to twice daily, 5 mg each. will plan to discontinue PO haldol entirely in favor of decanoate formulation. wellbutrin XL 150 started 12/07 for depression. increase to 300 mg daily as of 12/10. trial of Q5 min checks 12/06 ended quickly once pt began head-banging and hitting self in face the same day. 12/10- hypertriglycerides 533, ordered amylase, lipase, crp, cbc w diff, cmp r/o acute pancreatitis, consult to hospitalist pending I spent minutes with the patient and/or on the patient floor today, greater than?50% of which was spent counseling/coordinating care. Reason for contiued inpatient stay Substantial Risk for: harm to self and harm to others
[2020-12-10 13:17] LABS: Basophils Percent Auto 0.6 % (0-2); Eosinophils Absolute Auto 0.2 X10*3/uL (0.0-0.4); Eosinophils Percent Auto 3.6 % (0-4); Hematocrit 37.4 % (37-47); Hemoglobin 12.4 g/dl (12.0-16.0); Imm Gran Abs Auto 0.02 X10*3/uL (0.00-0.03); Imm Gran Pct Auto 0.4 % (0.0-0.4); Lymphocytes Absolute Auto 1.9 X10*3/uL (1.2-4.9); MANUAL DIFF FLAG NO; Mean Corpuscular HGB Conc 33.2 g/dl (31.0-35.0); Mean Corpuscular Hemoglobin 27.6 pg (27.0-33.0); Mean Corpuscular Volume 83.3 fL (80-98); Mean Platelet Volume 9.1 fL (9.4-12.3); Monocytes Absolute Auto 0.5 X10*3/uL (0.1-1.2); Monocytes Percent Auto 9.7 % (2-11); Neutrophils Absolute Auto 2.1 X10*3/uL (2.0-8.3); Neutrophils Percent Auto 44.7 % (45-73); Platelet Count 247 X10*3/uL (160-400); Red Blood Count 4.49 X10*6/uL (4.20-5.50); Red Cell Distribution Width 13.2 % (11.0-16.0); White Blood Count 4.7 X10*3/uL (4.8-10.8)
[2020-12-10 13:34] LABS: Alanine Aminotransferase 21 U/L (0-31); Alkaline Phosphatase 70 U/L (39-117); Anion Gap 10 (12-20); Aspartate Amino Transferase 21 U/L (5-31); Bilirubin Total 0.3 mg/dL (0.0-1.0); Blood Urea Nitrogen 10 mg/dL (9-16); Calcium 9.4 mg/dL (8.4-10.2); Carbon Dioxide 22 mmol/L (22-29); Chloride 109 mmol/L (96-108); Creatinine Clr Calc Pharmacy 119.5; Estimated Glomerular Filt Rate > 60; Glucose Random 158 mg/dL (60-115); Lipase 24 U/L (8-78); Potassium 4.1 mmol/L (3.3-5.1); Sodium 137 mmol/L (135-145); Total Protein 7.4 g/dL (6.5-8.0)
[2020-12-10 13:38] LABS: Amylase 65 U/L (28-100)
--- NOTE | 2020-12-10 14:15 | P.CONHOSP_ITS ---
History of Present Illness Data of Consult Service Date: 12/10/20 Primary Care Provider: Unknown Physician HPI Reason for consult: medical evaluation 25 year old morbidly obese, borderline personality, schizophrenia. She has been in the unit since 11/18 and consult is requested gabriela of report of patient having left hip pain. At the time of my evaluation, she offered no complaint of hip pain and rather stated sometimes she feels like food get stock in her throat and this has been ongoing for more than a year and has not changed. She has no trouble eating. As for hip pain, she says it bothers her sometimes, not today, she has been up and ambulating without difficulty. Review of Systems Review of Systems: Gen: no fever Resp: no sob, no cough CV: no chest, no CARLOS, no leg edema GI: No n/v, no abd pain Neuro: No confusion, SI MSK: No hip pain at the moment. Yes all other systems are reviewed and are negative [facility] Medical History (Updated 12/10/20 @ 14:17 by Jairon Nugent MD) Borderline personality disorder alcohol syndrome Obesities, morbid Schizoaffective disorder Schizoaffective disorder, depressive type Pertinent family history: she offered no family history of diabetes, heart disease or chronic mental illness Social History Household Members: Caregiver Household Members Other:: 1 Housing: House Do you presently have visiting nurse or other home services: Yes (once a month) Patient Tobacco Use Status: Never used Tobacco Smoked in Last 30 Days: No e-Cigarette/Vaping Use: Never Used Patient Interested in Nicotine Replacement: No Use of substances other than those prescribed or required for medical reasons: No Currently Displaying Signs/Symptoms of Drug Intoxication Withdrawal: No Any prior treatment program specific to substance use: No Have you been hit, kicked, punched, or otherwise hurt by someone within the past year? If so, by whom?: No Do you feel safe in your current relationship?: Yes Is there a partner from a previous relationship who is making you feel unsafe now?: No Are you made to feel afraid or neglected: No Advance Directives: No Advance Directives Information Provided: Yes Healthcare Proxy: No Guardian: No Do you have thoughts of harming others: None Do you have a plan to hurt others: No Plan Recently lost weight without trying: No Eating poorly because of decreased appetite: No Nutrition Risks: No Nutritional Risk Patient : No : No Poor oral hygiene: No service: No Sexual orientation: Did not discuss. Meds Allergies Allergy/AdvReac Type Severity Reaction Status Date / Time No Known Allergies Allergy Unverified 11/06/19 19:53 [No Known Allergies*] Active Medications: Current Medications Acetaminophen (Acetaminophen 325 Mg Tablet) 650 mg PO Q6H PRN PRN Reason: Headache/Pain Mild Scale (1-3) Last Admin: 11/27/20 18:44 Dose: 650 mg Documented by: Al Hydroxide/Mg Hydroxide (Magnesium Hydrox/Alum Hydrox 30 Ml Oral.Susp) 30 ml PO Q6H PRN PRN Reason: Heartburn/Nausea Last Admin: 12/04/20 18:27 Dose: 30 ml Documented by: Benztropine Mesylate (Benztropine Mesylate 1 Mg Tablet) 1 mg PO BID [facility] Last Admin: 12/10/20 09:40 Dose: 1 mg Documented by: Bupropion HCl (Bupropion Hcl Xl 300 Mg Tab.Er.24h) 300 mg PO DAILY [facility] Last Admin: 12/10/20 09:40 Dose: 300 mg Documented by: Chlorpromazine HCl (Chlorpromazine Hcl 25 Mg Tablet) 50 mg PO BEDTIME PRN PRN Reason: Insomnia Last Admin: 12/06/20 20:21 Dose: 50 mg Documented by: Chlorpromazine HCl (Chlorpromazine Hcl 100 Mg Tablet) 100 mg PO BEDTIME [facility] Last Admin: 12/09/20 21:10 Dose: 100 mg Documented by: Chlorpromazine HCl (Chlorpromazine Hcl 25 Mg Tablet) 50 mg PO BEDTIME [facility] Last Admin: 12/09/20 21:10 Dose: 50 mg Documented by: Famotidine (Famotidine 20 Mg Tablet) 20 mg PO BID [facility] Last Admin: 12/10/20 09:40 Dose: 20 mg Documented by: Haloperidol (Haloperidol 5 Mg Tablet) 5 mg PO 1500 [facility] Last Admin: 12/09/20 15:51 Dose: 5 mg Documented by: Haloperidol (Haloperidol 5 Mg Tablet) 5 mg PO BEDTIME [facility] Last Admin: 12/09/20 21:10 Dose: 5 mg Documented by: Haloperidol Decanoate (Haloperidol Decanoate 50 Mg/Ml Ampul) 100 mg IM Q28D [facility] Hydroxyzine HCl (Hydroxyzine Hcl 50 Mg Tablet) 50 mg PO Q6H PRN PRN Reason: Anxiety Last Admin: 12/06/20 20:22 Dose: 50 mg Documented by: Hydroxyzine HCl (Hydroxyzine Hcl 50 Mg Tablet) 50 mg PO BEDTIME [facility] Last Admin: 12/09/20 21:10 Dose: 50 mg Documented by: Magnesium Hydroxide (Milk Of Magnesia 30 Ml Oral.Susp) 30 ml PO DAILY PRN PRN Reason: Constipation Naltrexone HCl (Naltrexone Hcl 50 Mg Tablet) 50 mg PO DAILY [facility] Last Admin: 12/10/20 09:40 Dose: 50 mg Documented by: Patient Own (Medication (Biotene)) 1 each BUCCAL BID PRN PRN Reason: Dry Mouth Last Admin: 12/09/20 16:58 Dose: 1 each Documented by: Oxcarbazepine (Oxcarbazepine 150 Mg Tablet) 450 mg PO BID [facility] Last Admin: 12/10/20 09:40 Dose: 450 mg Documented by: Sertraline HCl (Sertraline Hcl 100 Mg Tablet) 200 mg PO DAILY [facility] Last Admin: 12/10/20 09:40 Dose: 200 mg Documented by: Home Medications Medication Instructions Recorded Confirmed Last Taken Type benztropine 1 mg tablet 1 tab PO BID 11/17/20 11/17/20 Unknown History chlorpromazine 50 mg tablet 50 mg PO BEDTIME PRN 11/17/20 11/17/20 Unknown History chlorpromazine 50 mg tablet 150 mg PO BEDTIME 11/17/20 11/17/20 Unknown History haloperidol 10 mg tablet 1 tab PO BID PRN 11/17/20 11/17/20 Unknown History haloperidol decanoate 50 mg/mL 3 ml IM QMONTH 11/17/20 11/17/20 Unknown History intramuscular solution medroxyprogesterone 150 mg/mL 1 ml IM [id number] 11/17/20 11/17/20 Unknown History intramuscular suspension naltrexone 50 mg tablet 1 tab PO BEDTIME 11/17/20 11/17/20 Unknown History sertraline 100 mg tablet 2 tab PO QAM 11/17/20 11/17/20 Unknown History Physical Exam Vital Signs and Narrative: Vital Signs: Last Vital Signs Temp 97.9 F 12/06/20 11:00 Pulse 130 H 12/06/20 11:00 Resp 16 12/10/20 11:57 BP 121/71 12/06/20 11:00 Pulse Ox 96 12/06/20 11:00 Body Mass Index 42.9 Constitutional: Alert, in no distress, overweight. Mental Status: Oriented to person, place and time. Eyes: Pupils are equal, round and reactive to light. Ear, Nose and Throat: Oropharynx clear, mucous membranes moist. Ears and nose without eformities. Trachea midline Respiratory: Clear to auscultation. No wheezing, rales or rhonchi. Cardiovascular: S1 S2 regular. No murmurs, rubs or gallops. Gastrointestinal: Abdomen soft, non-tender, non-distended. Normal bowel sounds.? Neurologic: Cranial nerves II-XII grossly intact. No focal neurological deficit s. Moves all extremities spontaneously.? MSK: normal hip movment Skin: No rashes or lesions.? Musculoskeletal: No cyanosis or clubbing. Psychiatric: Normal mood and affect? Results Labs CBC and Chem 7: 12/10/20 13:09 12/10/20 13:09 Labs: Laboratory Results - last 24 hr 12/10/20 12/10/20 13:09 13:09 MCV 83.3 MCH 27.6 MCHC 33.2 RDW 13.2 Plt Count 247 MPV 9.1 L Immature Gran % (Auto) 0.4 Neut % (Auto) 44.7 L Lymph % (Auto) 41.0 H [place] % (Auto) 9.7 Eos % (Auto) 3.6 Baso % (Auto) 0.6 Lymph # (Auto) 1.9 [place] # (Auto) 0.5 Eos # (Auto) 0.2 Baso # (Auto) 0.0 Abs Immat Gran (auto) 0.02 Absolute Neuts (auto) 2.1 Absolute Nucleated RBC 0.000 Nucleated RBC % (auto) 0.0 Anion Gap 10 L Estim Creat Clear Calc 119.5 Estimated GFR > 60 Random Glucose 158 H Calcium 9.4 Total Bilirubin 0.3 AST 21 ALT 21 Alkaline Phosphatase 70 Total Protein 7.4 Albumin 4.0 Amylase 65 Lipase 24 Assessment and Plan (1) Schizoaffective disorder, depressive type: Status: Acute (2) Borderline personality disorder: Status: Acute / with morbesity, schizophrenia, personality desorder, presently admitted to inpatient 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 c/o of occasional hip and feeling of food getting stuck in throat 1/hip pain occasional--possibly arthritis, presently no issue and should be watch and if continues to be an issues, get xray 2/occasional food getting stuck, chronic issues, and not affecting eating should be on PPI and can be evaluated further on outpatient basis by GI
--- NOTE | 2020-12-10 17:10 | PC.NURSE ---
PT asking to switch her haldol deconate to 150mg. provider notified
[2020-12-10 18:40] VITALS: BP 137/90; PULSE 121; RESP 18; TEMP 37.1; O2SAT 97
--- NOTE | 2020-12-10 18:41 | PC.NURSE ---
PT reported feeling weird medically , was unable to explain what she meant. PT states that she feels like she just ran a marathon, vital signs assessed, pt noted to be tachycardic and hypertensive. PT given water, fluids encouraged. Provider notified.
--- NOTE | 2020-12-10 19:23 | PM.EVENT ---
Event Note Date of Service: 12/10/20 Event Note: Pt reports vague sx of not feeling good but unable to articulate what was physically concerning her. Says she is feeling weak but denies blurred vision, able to ambulate. Denies dizziness, ataxia, diaphoresis. Vitals wnl except HR, 121, however this has been consistently elevated. Denies feeling anxiety. Denies GI distress. Reports normal bowel movements and urination. Unsure if she has been drinking enough water, this was encouraged. Has dry mouth/ throat but this is baseline, med related. Appetite has been good. Says she has had incidents of feeling like this before and staying still helps. CBC showed WBC L 4.7, neut % L 39.7- due to white count trending down, concers for leukopenia and lyphocytosis, neutropenia T/W consulted with hospitalist who recommended repeat lab work, Chest CT and U/A. Will hold haldol dec 150 mg as pt is not feeling well.
[2020-12-10] MEDS: chlorproMAZINE HCl 100 MG TABLET PO (22:04)
[2020-12-10] MEDS: chlorproMAZINE HCl 25 MG TABLET 50 MG PO (22:04)
[2020-12-10] MEDS: hydrOXYzine HCL 50 MG TABLET PO (22:04)
[2020-12-10] MEDS: HaloperidoL 5 MG TABLET PO ×2 (22:05→22:33)
[2020-12-11] MEDS: chlorproMAZINE HCl 25 MG TABLET 50 MG PO ×2 (00:09→23:04)
[2020-12-11] MEDS: hydrOXYzine HCL 50 MG TABLET PO ×2 (00:09→23:04)
[2020-12-11 00:37] LABS: Appearance Urine CLEAR; Color Urine YELLOW; Glucose Urine UA NEG (NEG); Leukocyte Esterase Urine NEG (NEG); Nitrite Urine NEG (NEG); Specific Gravity - Urine 1.025 (1.005-1.025); Urine Blood NEG (NEG); Urine Ketones NEG (NEG); Urine Protein NEG (NEG-TRACE)
[2020-12-11 01:09] LABS: Mucus Urine TRACE /LPF; RBC Urine 0-2 /HPF (0); Squamous Epithelial Cell Urine 2+ /LPF; WBC Urine 0-2 /HPF (0-4)
[2020-12-11 07:23] LABS: MANUAL DIFF FLAG NO
[2020-12-11 07:35] LABS: Basophils Percent Auto 0.5 % (0-2); Eosinophils Absolute Auto 0.2 X10*3/uL (0.0-0.4); Eosinophils Percent Auto 4.1 % (0-4); Hematocrit 36.4 % (37-47); Hemoglobin 11.6 g/dl (12.0-16.0); Imm Gran Abs Auto 0.03 X10*3/uL (0.00-0.03); Imm Gran Pct Auto 0.5 % (0.0-0.4); Lymphocytes Absolute Auto 2.7 X10*3/uL (1.2-4.9); Lymphocytes Percent Auto 46.2 % (20-40); Mean Corpuscular HGB Conc 31.9 g/dl (31.0-35.0); Mean Corpuscular Hemoglobin 27.4 pg (27.0-33.0); Mean Corpuscular Volume 86.1 fL (80-98); Mean Platelet Volume 9.2 fL (9.4-12.3); Monocytes Absolute Auto 0.7 X10*3/uL (0.1-1.2); Monocytes Percent Auto 12.1 % (2-11); Neutrophils Absolute Auto 2.1 X10*3/uL (2.0-8.3); Neutrophils Percent Auto 36.6 % (45-73); Platelet Count 232 X10*3/uL (160-400); Red Blood Count 4.23 X10*6/uL (4.20-5.50); Red Cell Distribution Width 13.2 % (11.0-16.0); White Blood Count 5.9 X10*3/uL (4.8-10.8)
[2020-12-11] MEDS: OXcarbazepine 150 MG TABLET 450 MG PO ×2 (11:11→23:04)
[2020-12-11] MEDS: Famotidine 20 MG TABLET PO ×2 (11:12→23:04)
[2020-12-11] MEDS: Naltrexone HCl 50 MG TABLET PO (11:12)
[2020-12-11] MEDS: buPROPion HCl XL 300 MG TAB.ER.24H PO (11:12)
[2020-12-11] MEDS: Benztropine Mesylate 1 MG TABLET PO ×2 (11:12→23:04)
[2020-12-11] MEDS: Sertraline HCL 100 MG TABLET 200 MG PO (11:12)
--- NOTE | 2020-12-11 11:26 | PC.NURSE ---
Patient denied CT scan of chest, patient stated I just don't think it's necessary right now.
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
[2020-12-11] MEDS: chlorproMAZINE HCl 100 MG TABLET PO (23:04)
[2020-12-11] MEDS: HaloperidoL 5 MG TABLET PO ×2 (23:04→23:05)
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
[2020-12-12 04:52] LABS: CRP High Sensitivity >10.0 mg/L
[2020-12-12] MEDS: Benztropine Mesylate 1 MG TABLET PO ×2 (09:38→22:44)
[2020-12-12] MEDS: Famotidine 20 MG TABLET PO ×2 (09:38→22:43)
[2020-12-12] MEDS: OXcarbazepine 150 MG TABLET 450 MG PO ×2 (09:38→22:43)
[2020-12-12] MEDS: buPROPion HCl XL 300 MG TAB.ER.24H PO (09:38)
[2020-12-12] MEDS: Sertraline HCL 100 MG TABLET 200 MG PO (09:38)
[2020-12-12] MEDS: Naltrexone HCl 50 MG TABLET PO (09:38)
--- NOTE | 2020-12-12 16:49 | PC.ADMIT ---
Patient c/o muscle spasm in arms, showed play writer twitches in both arms. Reported it is not medication related . Offered PRN medication, or engaging in physical activity with staff although states it is not distraction, or medicine related . Warmed blanket offered and accepted. Shortly following patient complained of tingling in arm, upon clarification states it starts on side, goes through back and all over . Dr. Barr notified, consult requested.
--- NOTE | 2020-12-12 20:38 | HO.PSYCHPN ---
Subjective Subjective Date of Service: 12/12/20 Reason For Visit: Psychosis Interim History: Pt seen. Last night threatened to eat a safety pin. She had asked a staff member to play chess with her but staff couldn't right away and she resorted to this. She gave the pin up. Today, she was in the day room. Appears bright. No concerns. She offered no complaints in AM. Later in the day, she complained of variable symptoms to RN including generalized numbness, stiffness and uncontrolled arm movements. She refused medications (for EPS) or distractions. RN contacted this MD. Patient has no complaints of lateralized weakness. It is difficult to piece her different and variable symptoms together. Also reporting is variable. Given her elevated CRP and her various neurological complaints, will ask medicine to weigh in. She has no evidence of pancreatitis. Her CBC is positive for lymphocytosis. Pt denies SI/HI. Pt taking medications as prescribed. Somewhat guarded. Pt denies AH/VH. Her Haldol dec was held on 12/10. Will defer to primary team giving 100 mg vs 150 mg IM. Review of Systems Review of Systems Gen: no fever Resp: no sob, no cough CV: no chest, no CARLOS, no leg edema GI: No n/v, no abd pain Neuro: No confusion, SI MSK: No hip pain at the moment. Yes all other systems are reviewed and are negative and Unobtainable due to mental condition (refusing to answer questions or participate in exam) Reports behavioral changes Psychiatric: Reports behavioral changes, Reports irritability, Reports mood swings, Reports paranoia, Reports homicidal ideation and Reports suicidal ideation (denies) Mental Status Exam Mental Status Exam Narrative: lying in bed, unkempt appearance, overweight. awake and alert. good eye contact, attentive. No Tics or Tremors. No abnormal involuntary movements. superficially cooperative. reports mood is fine. affect is constricted. Has cognitive impairment r/t alcohol syndrome. Insight/ Judgment limited. no SI/HI/AVH expressed. Patient Appearance: Appropriate Patient Orientation: Person and Place Level of Consciousness: Awake and Alert Patient Behavior: Appropriate, Talkative and Good Eye Contact Mood Description: Withdrawn and Constricted Affect Description: Flat Patient Cognition Impaired: Yes Ability to Follow Directions: Fair Speech Pattern: Spontaneous Speech Memory Description: Episodic Impaired Diagnostics Vital Signs (24Hr): Body Mass Index 42.9 Labs Results: 10/23/21 06:55 12/10/20 13:09 Labs: Laboratory Results - last 48 hr 12/10/20 12/10/20 12/11/20 13:09 23:50 06:55 WBC 5.9 RBC 4.23 Hgb 11.6 L Hct 36.4 L MCV 86.1 MCH 27.4 MCHC 31.9 RDW 13.2 Plt Count 232 MPV 9.2 L Immature Gran % (Auto) 0.5 H Neut % (Auto) 36.6 L Lymph % (Auto) 46.2 H [place] % (Auto) 12.1 H Eos % (Auto) 4.1 H Baso % (Auto) 0.5 Lymph # (Auto) 2.7 [place] # (Auto) 0.7 Eos # (Auto) 0.2 Baso # (Auto) 0.0 Abs Immat Gran (auto) 0.03 Absolute Neuts (auto) 2.1 Absolute Nucleated RBC 0.000 Nucleated RBC % (auto) 0.0 C-React Prot High Sens >10.0 H Urine Color YELLOW Urine Appearance CLEAR Urine pH 6.0 Ur Specific [place] 1.025 Urine Protein NEG Urine Glucose (UA) NEG Urine Ketones NEG Urine Blood NEG Urine Nitrite NEG Ur Leukocyte Esterase NEG Urine RBC 0-2 Urine WBC 0-2 Ur Squamous Epith Cells 2+ Urine Bacteria NONE Urine Mucus TRACE Imaging Radiology Impressions: ITS Impressions Shoulder X-Ray 11/27/20 11:39 IMPRESSION: * Normal left shoulder. * Normal left wrist. No acute fracture or malalignment. Wrist X-Ray 11/27/20 11:39 IMPRESSION: * Normal left shoulder. * Normal left wrist. No acute fracture or malalignment. Medications Medications Current Medications Acetaminophen (Acetaminophen 325 Mg Tablet) 650 mg PO Q6H PRN PRN Reason: Headache/Pain Mild Scale (1-3) Last Admin: 11/27/20 18:44 Dose: 650 mg Documented by: Al Hydroxide/Mg Hydroxide (Magnesium Hydrox/Alum Hydrox 30 Ml Oral.Susp) 30 ml PO Q6H PRN PRN Reason: Heartburn/Nausea Last Admin: 12/04/20 18:27 Dose: 30 ml Documented by: Benztropine Mesylate (Benztropine Mesylate 1 Mg Tablet) 1 mg PO BID [facility] Last Admin: 12/12/20 09:38 Dose: 1 mg Documented by: Bupropion HCl (Bupropion Hcl Xl 300 Mg Tab.Er.24h) 300 mg PO DAILY [facility] Last Admin: 12/12/20 09:38 Dose: 300 mg Documented by: Chlorpromazine HCl (Chlorpromazine Hcl 25 Mg Tablet) 50 mg PO BEDTIME PRN PRN Reason: Insomnia Last Admin: 12/11/20 00:09 Dose: 50 mg Documented by: Chlorpromazine HCl (Chlorpromazine Hcl 100 Mg Tablet) 100 mg PO BEDTIME [facility] Last Admin: 12/11/20 23:04 Dose: 100 mg Documented by: Chlorpromazine HCl (Chlorpromazine Hcl 25 Mg Tablet) 50 mg PO BEDTIME [facility] Last Admin: 12/11/20 23:04 Dose: 50 mg Documented by: Famotidine (Famotidine 20 Mg Tablet) 20 mg PO BID [facility] Last Admin: 12/12/20 09:38 Dose: 20 mg Documented by: Haloperidol (Haloperidol 5 Mg Tablet) 5 mg PO 1500 [facility] Last Admin: 12/11/20 23:04 Dose: 5 mg Documented by: Haloperidol (Haloperidol 5 Mg Tablet) 5 mg PO BEDTIME [facility] Last Admin: 12/11/20 23:05 Dose: 5 mg Documented by: Haloperidol Decanoate (Haloperidol Decanoate 50 Mg/Ml Ampul) 150 mg IM Q28D [facility] Hydroxyzine HCl (Hydroxyzine Hcl 50 Mg Tablet) 50 mg PO Q6H PRN PRN Reason: Anxiety Last Admin: 12/06/20 20:22 Dose: 50 mg Documented by: Hydroxyzine HCl (Hydroxyzine Hcl 50 Mg Tablet) 50 mg PO BEDTIME [facility] Last Admin: 12/11/20 23:04 Dose: 50 mg Documented by: Magnesium Hydroxide (Milk Of Magnesia 30 Ml Oral.Susp) 30 ml PO DAILY PRN PRN Reason: Constipation Naltrexone HCl (Naltrexone Hcl 50 Mg Tablet) 50 mg PO DAILY [facility] Last Admin: 12/12/20 09:38 Dose: 50 mg Documented by: Patient Own (Medication (Biotene)) 1 each BUCCAL BID PRN PRN Reason: Dry Mouth Last Admin: 12/09/20 16:58 Dose: 1 each Documented by: Oxcarbazepine (Oxcarbazepine 150 Mg Tablet) 450 mg PO BID [facility] Last Admin: 12/12/20 09:38 Dose: 450 mg Documented by: Sertraline HCl (Sertraline Hcl 100 Mg Tablet) 200 mg PO DAILY [facility] Last Admin: 12/12/20 09:38 Dose: 200 mg Documented by: Allergies Allergies Allergy/AdvReac Type Severity Reaction Status Date / Time No Known Allergies Allergy Unverified 11/06/19 19:53 [No Known Allergies*] Assessment & Plan Assessment & Plan (1) Schizoaffective disorder, depressive type: Status: Acute Code(s): F25.1 - Schizoaffective disorder, depressive type Assessment and Plan: Pt is a 25 y.o. Female who carries a dx of schizoaffective do, depressive type, alcohol syndrome, BPD. She does not appear to be a reliable historian but does report feeling worsening sx of depression and irritability. She presents with negative affect, low energy, withdrawn, and agitation. She currently denies assaultive ideation or HI. She endorses urges to self harm but does not have plan or intent, hx of head banging and hitting herself. She reportedly was not adherent with meds but pt denies this, collateral hx needed. Psychiatrist is Dr. Marcial David. On haldol dec, recently increased to 150 mg. Pt states she does not want to change her current med regimen, wants to add a medication to target sx of agitation, mood instability.? 11/21 had episode of head-banging, fist pounding, and tied string around neck in response to not being allowed to use her phone.? placed on 1:1 for safety 11/21.? refused to have discussion with MD about safety on 11/22 and later on 11/22 tied ligature around her wrist and threatened to eat a staple.? 11/23 threatened to put a bottle cap in her mouth in an attempt to choke herself. Plan: started trileptal 300 mg BID for mood stability, reviewed risks and benefits. Continue OP med regimen and monitor for benefit. She is utilizing her PRNs with apparent benefit. trileptal level drawn 11/25 8.9 (target range 8-35),? other labs 11/25 not concerning. increased trileptal to 450 BID as of 11/25.? level drawn 12/09 - results pending. haldol decanoate 150 mg next due 12/10; ordered.? pt then said dosing is at her discretion and asked for 100 mg, so order changed to 100 mg. Scheduled Haldol 5 mg po TID; due to daytime sedation and recent increase in haldol decanoate dosing, reduced daytime haldol dosing from thrice daily to twice daily, 5 mg each.? will plan to discontinue PO haldol entirely in favor of decanoate formulation. wellbutrin XL 150 started 12/07 for depression.? increase to 300 mg daily as of 12/10. trial of Q5 min checks 12/06 ended quickly once pt began head-banging and hitting self in face the same day. 12/10- hypertriglycerides 533, ordered amylase, lipase, crp, cbc w diff, cmp r/o acute pancreatitis, consult to hospitalist pending 12/12/20 Her Haldol dec was held on 12/10. Will defer to primary team clarifying and administering 100 mg vs 150 mg IM. FU on patient's non-specific neurological symptoms, elevated CRP and CBC findings of lymphocytosis (2) Borderline personality disorder: Status: Acute Code(s): F60.3 - Borderline personality disorder Assessment and Plan: with morbesity, schizophrenia, personality desorder, presently admitted to inpatient 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 c/o of occasional hip and feeling of food getting stuck in throat 1/hip pain occasional--possibly arthritis, presently no issue and should be watch and if continues to be an issues, get xray 2/occasional food getting stuck, chronic issues, and not affecting eating should be on PPI and can be evaluated further on outpatient basis by GI I spent minutes with the patient and/or on the patient floor today, greater than?50% of which was spent counseling/coordinating care. Reason for contiued inpatient stay Substantial Risk for: harm to self, harm to others, inability to function and rapid decompensation
[2020-12-12] MEDS: hydrOXYzine HCL 50 MG TABLET PO (22:43)
[2020-12-12] MEDS: HaloperidoL 5 MG TABLET PO (22:44)
[2020-12-12] MEDS: chlorproMAZINE HCl 100 MG TABLET PO (22:44)
[2020-12-12] MEDS: chlorproMAZINE HCl 25 MG TABLET 50 MG PO (22:44)
[2020-12-13] MEDS: hydrOXYzine HCL 50 MG TABLET PO ×2 (00:07→23:27)
[2020-12-13] MEDS: chlorproMAZINE HCl 25 MG TABLET 50 MG PO ×3 (00:07→23:27)
[2020-12-13] MEDS: Naltrexone HCl 50 MG TABLET PO (11:06)
[2020-12-13] MEDS: OXcarbazepine 150 MG TABLET 450 MG PO ×2 (11:06→22:18)
[2020-12-13] MEDS: Sertraline HCL 100 MG TABLET 200 MG PO (11:06)
[2020-12-13] MEDS: Benztropine Mesylate 1 MG TABLET PO ×2 (11:07→22:18)
[2020-12-13] MEDS: Famotidine 20 MG TABLET PO ×2 (11:07→22:18)
[2020-12-13] MEDS: buPROPion HCl XL 300 MG TAB.ER.24H PO (11:07)
[2020-12-13 11:17] VITALS: RESP 17
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
[2020-12-13] MEDS: HaloperidoL 5 MG TABLET PO ×2 (15:14→22:18)
[2020-12-13] MEDS: chlorproMAZINE HCl 100 MG TABLET PO (22:18)
[2020-12-14 10:31] LABS: Oxcarbazepine 12.9 mcg/mL (8.0-35.0)
[2020-12-14] MEDS: OXcarbazepine 150 MG TABLET 450 MG PO ×2 (12:36→22:20)
[2020-12-14] MEDS: Famotidine 20 MG TABLET PO ×2 (12:36→22:24)
[2020-12-14] MEDS: Fenofibrate 54 MG TABLET PO (12:36)
[2020-12-14] MEDS: Naltrexone HCl 50 MG TABLET PO (12:36)
[2020-12-14] MEDS: buPROPion HCl XL 300 MG TAB.ER.24H PO (12:36)
[2020-12-14] MEDS: Sertraline HCL 100 MG TABLET 200 MG PO (12:36)
[2020-12-14] MEDS: Benztropine Mesylate 1 MG TABLET PO ×2 (12:37→22:22)
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
[2020-12-14] MEDS: HaloperidoL 5 MG TABLET PO ×2 (16:31→22:22)
[2020-12-14] MEDS: chlorproMAZINE HCl 100 MG TABLET PO (22:21)
[2020-12-14] MEDS: hydrOXYzine HCL 50 MG TABLET PO (22:21)
[2020-12-14] MEDS: chlorproMAZINE HCl 25 MG TABLET 50 MG PO (22:22)
--- NOTE | 2020-12-14 23:15 | PC.NURSE ---
Patient refused Haldol Dec injection. Patient stated she wanted the injection in one arm only. Explained to patient that I would have to separate injection and give in both arms due to hospital polity of only 2mg injection in deltoid muscle. Patient refused injection and stated she would no longer speak with nurse.
[2020-12-15] MEDS: OXcarbazepine 150 MG TABLET 450 MG PO ×2 (10:27→19:57)
[2020-12-15] MEDS: Benztropine Mesylate 1 MG TABLET PO ×2 (10:27→19:58)
[2020-12-15] MEDS: buPROPion HCl XL 300 MG TAB.ER.24H PO (10:27)
[2020-12-15] MEDS: Naltrexone HCl 50 MG TABLET PO (10:28)
[2020-12-15] MEDS: Famotidine 20 MG TABLET PO ×2 (10:28→19:58)
[2020-12-15] MEDS: Sertraline HCL 100 MG TABLET 200 MG PO (10:28)
--- NOTE | 2020-12-15 11:26 | HO.PSYCHPN ---
Subjective Subjective Date of Service: 12/15/20 Reason For Visit: Psychosis Interim History: pt found lying awake in bed mid-morning, sitter at bedside. discussed pt's refusal of haldol dec yesterday bcse the 150 mg would have required 2 shots per hospital injections policy due to volume of fluid above 2 cc. pt wants only one shot, states she does not 100 mg now and 50 mg in two weeks or even 100 mg now. she states she will have no shot now and take 150 mg once she discharges, as her home health nurse is able to give all 150 mg in one shot. pt appeared much more irritable with MD today, which was broached by . she expressed that the reason was her perception that MD was trying to give her two haldol dec shots monthly. MD clarified MD accepted pt's position of one shot monthly and no shot now. MD informed pt of meeting occurring with JAIRO, tracey, and day program to establish care in [facility]. per staff, 1:1 WA and Q5 min checks when asleep. denies SI/HI/AVH to staff. aggravated with nurse yesterday for his adherence to facility policy of limiting single injection volume to 2 mL; she declined to receive her haldol dec 150 mg in 2 shots and therefore at all. Mental Status Exam Mental Status Exam Narrative: lying in bed, unkempt appearance, overweight. awake. fair eye contact, attentive. No Tics or Tremors. No abnormal involuntary movements. difficult to engage. affect is constricted, irritable. moderately labile. no SI/HI/AVH expressed. Has cognitive impairment r/t alcohol syndrome. Insight/ Judgment limited, questionable historian. no SI/HI/AVH expressed. Diagnostics Vital Signs (24Hr): Body Mass Index 42.9 Labs Results: 12/11/20 06:55 12/10/20 13:09 Labs: Laboratory Results - last 48 hr 12/09/20 07:17 Oxcarbazepine 12.9 Imaging Radiology Impressions: ITS Impressions Shoulder X-Ray 11/27/20 11:39 IMPRESSION: * Normal left shoulder. * Normal left wrist. No acute fracture or malalignment. Wrist X-Ray 11/27/20 11:39 IMPRESSION: * Normal left shoulder. * Normal left wrist. No acute fracture or malalignment. Medications Medications Current Medications Acetaminophen (Acetaminophen 325 Mg Tablet) 650 mg PO Q6H PRN PRN Reason: Headache/Pain Mild Scale (1-3) Last Admin: 11/27/20 18:44 Dose: 650 mg Documented by: Al Hydroxide/Mg Hydroxide (Magnesium Hydrox/Alum Hydrox 30 Ml Oral.Susp) 30 ml PO Q6H PRN PRN Reason: Heartburn/Nausea Last Admin: 12/04/20 18:27 Dose: 30 ml Documented by: Benztropine Mesylate (Benztropine Mesylate 1 Mg Tablet) 1 mg PO BID [facility] Last Admin: 12/15/20 10:27 Dose: 1 mg Documented by: Bupropion HCl (Bupropion Hcl Xl 300 Mg Tab.Er.24h) 300 mg PO DAILY [facility] Last Admin: 12/15/20 10:27 Dose: 300 mg Documented by: Chlorpromazine HCl (Chlorpromazine Hcl 25 Mg Tablet) 50 mg PO BEDTIME PRN PRN Reason: Insomnia Last Admin: 12/13/20 23:27 Dose: 50 mg Documented by: Chlorpromazine HCl (Chlorpromazine Hcl 100 Mg Tablet) 100 mg PO BEDTIME [facility] Last Admin: 12/14/20 22:21 Dose: 100 mg Documented by: Chlorpromazine HCl (Chlorpromazine Hcl 25 Mg Tablet) 50 mg PO BEDTIME [facility] Last Admin: 12/14/20 22:22 Dose: 50 mg Documented by: Famotidine (Famotidine 20 Mg Tablet) 20 mg PO BID [facility] Last Admin: 12/15/20 10:28 Dose: 20 mg Documented by: Fenofibrate (Fenofibrate 54 Mg Tablet) 54 mg PO DAILY [facility] Last Admin: 12/15/20 10:29 Dose: Not Given Documented by: Haloperidol (Haloperidol 5 Mg Tablet) 5 mg PO 1500 [facility] Last Admin: 12/14/20 16:31 Dose: 5 mg Documented by: Haloperidol (Haloperidol 5 Mg Tablet) 5 mg PO BEDTIME [facility] Last Admin: 12/14/20 22:22 Dose: 5 mg Documented by: Haloperidol Decanoate (Haloperidol Decanoate 50 Mg/Ml Ampul) 150 mg IM Q28D [facility] Hydroxyzine HCl (Hydroxyzine Hcl 50 Mg Tablet) 50 mg PO Q6H PRN PRN Reason: Anxiety Last Admin: 12/13/20 23:27 Dose: 50 mg Documented by: Hydroxyzine HCl (Hydroxyzine Hcl 50 Mg Tablet) 50 mg PO BEDTIME [facility] Last Admin: 12/14/20 22:21 Dose: 50 mg Documented by: Magnesium Hydroxide (Milk Of Magnesia 30 Ml Oral.Susp) 30 ml PO DAILY PRN PRN Reason: Constipation Naltrexone HCl (Naltrexone Hcl 50 Mg Tablet) 50 mg PO DAILY [facility] Last Admin: 12/15/20 10:28 Dose: 50 mg Documented by: Patient Own (Medication (Biotene)) 1 each BUCCAL BID PRN PRN Reason: Dry Mouth Last Admin: 12/09/20 16:58 Dose: 1 each Documented by: Oxcarbazepine (Oxcarbazepine 150 Mg Tablet) 450 mg PO BID [facility] Last Admin: 12/15/20 10:27 Dose: 450 mg Documented by: Sertraline HCl (Sertraline Hcl 100 Mg Tablet) 200 mg PO DAILY [facility] Last Admin: 12/15/20 10:28 Dose: 200 mg Documented by: Allergies Allergies Allergy/AdvReac Type Severity Reaction Status Date / Time No Known Allergies Allergy Unverified 11/06/19 19:53 [No Known Allergies*] Assessment & Plan Assessment & Plan (1) Schizoaffective disorder, depressive type: Status: Acute Code(s): F25.1 - Schizoaffective disorder, depressive type Assessment and Plan: Pt is a 25 y.o. Female who carries a dx of schizoaffective do, depressive type, alcohol syndrome, BPD. She does not appear to be a reliable historian but does report feeling worsening sx of depression and irritability. She presents with negative affect, low energy, withdrawn, and agitation. She currently denies assaultive ideation or HI. She endorses urges to self harm but does not have plan or intent, hx of head banging and hitting herself. She reportedly was not adherent with meds but pt denies this, collateral hx needed. Psychiatrist is Dr. Marcial David. On haldol dec, recently increased to 150 mg. Pt states she does not want to change her current med regimen, wants to add a medication to target sx of agitation, mood instability.? 11/21 had episode of head-banging, fist pounding, and tied string around neck in response to not being allowed to use her phone.? placed on 1:1 for safety 11/21.? refused to have discussion with MD about safety on 11/22 and later on 11/22 tied ligature around her wrist and threatened to eat a staple.? 11/23 threatened to put a bottle cap in her mouth in an attempt to choke herself. Plan: started trileptal 300 mg BID for mood stability, reviewed risks and benefits. Continue OP med regimen and monitor for benefit. She is utilizing her PRNs with apparent benefit. trileptal level drawn 11/25 8.9 (target range 8-35),? other labs 11/25 not concerning. increased trileptal to 450 BID as of 11/25.? level drawn 12/09: 12.9. will discuss increasing dose with pt. haldol decanoate 150 mg next due 12/10; ordered.? pt then said dosing is at her discretion and asked for 100 mg, so order changed to 100 mg. order returned to 150 mg for 12/14, as it was not given earlier. pt refused the shot 12/14 bcse it would have had to have been given as two separate shots. 12/15 she also refused to have 100 mg, which could have been given as 1 shot, stating she will wait for discharge and then have her home health nurse give all 150 mg in one shot. Scheduled Haldol 5 mg po TID; due to daytime sedation and recent increase in haldol decanoate dosing, reduced daytime haldol dosing from thrice daily to twice daily, 5 mg each.? unsure of plan to discontinue PO haldol entirely in favor of decanoate formulation as pt has been refusing adequater haldol dec dosing. wellbutrin XL 150 started 12/07 for depression.? increased to 300 mg daily as of 12/10. trial of Q5 min checks 12/06 ended quickly once pt began head-banging and hitting self in face the same day. 12/10- hypertriglycerides 533, ordered amylase, lipase, crp, cbc w diff, cmp r/o acute pancreatitis, consult to hospitalist pending 12/12/20 FU on patient's non-specific neurological symptoms, elevated CRP and CBC findings of lymphocytosis 12/14 fenofibrate started. (2) Borderline personality disorder: Status: Acute Code(s): F60.3 - Borderline personality disorder I spent minutes with the patient and/or on the patient floor today, greater than?50% of which was spent counseling/coordinating care. Reason for contiued inpatient stay Substantial Risk for: harm to self, harm to others, inability to function and rapid decompensation
[2020-12-15] MEDS: HaloperidoL 5 MG TABLET PO ×2 (14:39→19:58)
--- NOTE | 2020-12-15 17:22 | PC.NURSE ---
At 1506 I administered Haldol Decanoate 150MG IM - 75mg in right deltoid and 75mg in left deltoid. She tolerated the injections well. At 1520 she reported to this job specification writer that she had some numbness in her left lower arm. This was relayed to Dr Moran with no further orders. Patient was offered warm compress and or tylenol, which she declined. Will continue to monitor.
[2020-12-15 18:00] VITALS: TEMP 36.6
--- NOTE | 2020-12-15 19:31 | PC.NURSE ---
Patient approached senior grant writer asking for medication. Informed patient meds could be given at 8pm. Patient stated she was not waiting until 8pm dude if I am sleeping I am not taking any meds .
[2020-12-15] MEDS: chlorproMAZINE HCl 100 MG TABLET PO (19:56)
[2020-12-15] MEDS: chlorproMAZINE HCl 25 MG TABLET 50 MG PO ×2 (19:57→23:23)
[2020-12-15] MEDS: hydrOXYzine HCL 50 MG TABLET PO ×2 (19:57→23:20)
--- NOTE | 2020-12-15 23:42 | PC.NURSE ---
WHEN QUESTIONED ABOUT SAFETY AND PLACEMENT ON 5 MINUTE CHECKS REPORTED ''SURE, I FEEL FINE RIGHT NOW'' IS CURRENTLY IN BED. REVIEWED WITH PATIENT 5 MINUTE CHECK STATUS AND HOW TO ACCESS HELP IF NEEDED. ABLE TO VERBALIZE PROCESS BACK HOW TO OBTAIN HELP IF NEEDED.
[2020-12-16] MEDS: Sertraline HCL 100 MG TABLET 200 MG PO (10:42)
[2020-12-16] MEDS: Naltrexone HCl 50 MG TABLET PO (10:42)
[2020-12-16] MEDS: OXcarbazepine 150 MG TABLET 450 MG PO ×2 (10:42→21:07)
[2020-12-16] MEDS: Benztropine Mesylate 1 MG TABLET PO ×2 (10:42→21:08)
[2020-12-16] MEDS: Famotidine 20 MG TABLET PO ×2 (10:43→21:08)
[2020-12-16] MEDS: buPROPion HCl XL 300 MG TAB.ER.24H PO (10:43)
--- NOTE | 2020-12-16 11:49 | P.PNPSI_ITS ---
Subjective Subjective Date of Service: 12/16/20 Reason For Visit: Psychosis Interim History: pt found resting in bed late morning, engageable. terse, not wanting to get into details of much, but nevertheless willing to engage with MD. reports she thought meeting went OK with team yesterday. the meeting is what changed her mind to take the haldol dec 150 mg, but she declined to say how. she declined to take a higher dose of trileptal. she was agreeable to move to Q5 minute checks during the day as well as while she is sleeping. no other complaints or requests. per staff, did well off of 1:1 while sleeping. accepted the haldol decanoate 150 mg. no SI/HI/dep. pleased about meeting, seen playing board games in the milieu in the evening. slept through the night. Mental Status Exam Mental Status Exam Narrative: lying in bed, unkempt appearance, overweight. awake. fair eye contact, attentive. No Tics or Tremors. No abnormal involuntary movements. easier to engage than yesterday. affect is constricted, not so irritable. min- labile. no SI/HI/AVH expressed. Has cognitive impairment r/t alcohol syndrome. Insight/ Judgment limited, questionable historian. Diagnostics Vital Signs (24Hr): Vital Signs - 24 hr 12/15/20 18:00 Temperature 97.8 F Body Mass Index 42.9 Labs Results: 12/11/20 06:55 12/10/20 13:09 Imaging Radiology Impressions: ITS Impressions Shoulder X-Ray 11/27/20 11:39 IMPRESSION: * Normal left shoulder. * Normal left wrist. No acute fracture or malalignment. Wrist X-Ray 11/27/20 11:39 IMPRESSION: * Normal left shoulder. * Normal left wrist. No acute fracture or malalignment. Medications Medications Current Medications Acetaminophen (Acetaminophen 325 Mg Tablet) 650 mg PO Q6H PRN PRN Reason: Headache/Pain Mild Scale (1-3) Last Admin: 11/27/20 18:44 Dose: 650 mg Documented by: Al Hydroxide/Mg Hydroxide (Magnesium Hydrox/Alum Hydrox 30 Ml Oral.Susp) 30 ml PO Q6H PRN PRN Reason: Heartburn/Nausea Last Admin: 12/04/20 18:27 Dose: 30 ml Documented by: Benztropine Mesylate (Benztropine Mesylate 1 Mg Tablet) 1 mg PO BID [facility] Last Admin: 12/16/20 10:42 Dose: 1 mg Documented by: Bupropion HCl (Bupropion Hcl Xl 300 Mg Tab.Er.24h) 300 mg PO DAILY [facility] Last Admin: 12/16/20 10:43 Dose: 300 mg Documented by: Chlorpromazine HCl (Chlorpromazine Hcl 25 Mg Tablet) 50 mg PO BEDTIME PRN PRN Reason: Insomnia Last Admin: 12/15/20 23:23 Dose: 50 mg Documented by: Chlorpromazine HCl (Chlorpromazine Hcl 100 Mg Tablet) 100 mg PO BEDTIME [facility] Last Admin: 12/15/20 19:56 Dose: 100 mg Documented by: Chlorpromazine HCl (Chlorpromazine Hcl 25 Mg Tablet) 50 mg PO BEDTIME [facility] Last Admin: 12/15/20 19:57 Dose: 50 mg Documented by: Famotidine (Famotidine 20 Mg Tablet) 20 mg PO BID [facility] Last Admin: 12/16/20 10:43 Dose: 20 mg Documented by: Fenofibrate (Fenofibrate 54 Mg Tablet) 54 mg PO DAILY [facility] Last Admin: 12/16/20 10:43 Dose: Not Given Documented by: Haloperidol (Haloperidol 5 Mg Tablet) 5 mg PO 1500 [facility] Last Admin: 12/15/20 14:39 Dose: 5 mg Documented by: Haloperidol (Haloperidol 5 Mg Tablet) 5 mg PO BEDTIME [facility] Last Admin: 12/15/20 19:58 Dose: 5 mg Documented by: Haloperidol Decanoate (Haloperidol Decanoate 50 Mg/Ml Ampul) 150 mg IM Q28D [facility] Last Admin: 12/15/20 15:06 Dose: 150 mg Documented by: Hydroxyzine HCl (Hydroxyzine Hcl 50 Mg Tablet) 50 mg PO Q6H PRN PRN Reason: Anxiety Last Admin: 12/15/20 23:20 Dose: 50 mg Documented by: Hydroxyzine HCl (Hydroxyzine Hcl 50 Mg Tablet) 50 mg PO BEDTIME [facility] Last Admin: 12/15/20 19:57 Dose: 50 mg Documented by: Magnesium Hydroxide (Milk Of Magnesia 30 Ml Oral.Susp) 30 ml PO DAILY PRN PRN Reason: Constipation Naltrexone HCl (Naltrexone Hcl 50 Mg Tablet) 50 mg PO DAILY [facility] Last Admin: 12/16/20 10:42 Dose: 50 mg Documented by: Patient Own (Medication (Biotene)) 1 each BUCCAL BID PRN PRN Reason: Dry Mouth Last Admin: 12/09/20 16:58 Dose: 1 each Documented by: Oxcarbazepine (Oxcarbazepine 150 Mg Tablet) 450 mg PO BID [facility] Last Admin: 12/16/20 10:42 Dose: 450 mg Documented by: Sertraline HCl (Sertraline Hcl 100 Mg Tablet) 200 mg PO DAILY [facility] Last Admin: 12/16/20 10:42 Dose: 200 mg Documented by: Allergies Allergies Allergy/AdvReac Type Severity Reaction Status Date / Time No Known Allergies Allergy Unverified 11/06/19 19:53 [No Known Allergies*] Assessment & Plan Assessment & Plan (1) Schizoaffective disorder, depressive type: Status: Acute Code(s): F25.1 - Schizoaffective disorder, depressive type Assessment and Plan: Pt is a 25 y.o. Female who carries a dx of schizoaffective do, depressive type, alcohol syndrome, BPD. She does not appear to be a reliable historian but does report feeling worsening sx of depression and irritability. She presents with negative affect, low energy, withdrawn, and agitation. She currently denies assaultive ideation or HI. She endorses urges to self harm but does not have plan or intent, hx of head banging and hitting herself. She reportedly was not adherent with meds but pt denies this, collateral hx needed. Psychiatrist is Dr. Marcial David. On haldol dec, recently increased to 150 mg. Pt states she does not want to change her current med regimen, wants to add a medication to target sx of agitation, mood instability.? 11/21 had episode of head-banging, fist pounding, and tied string around neck in response to not being allowed to use her phone.? placed on 1:1 for safety 11/21.? refused to have discussion with MD about safety on 11/22 and later on 11/22 tied ligature around her wrist and threat ened to eat a staple.? 11/23 threatened to put a bottle cap in her mouth in an attempt to choke herself. Plan: started trileptal 300 mg BID for mood stability, reviewed risks and benefits. Continue OP med regimen and monitor for benefit. She is utilizing her PRNs with apparent benefit. trileptal level drawn 11/25 8.9 (target range 8-35),? other labs 11/25 not concerning. increased trileptal to 450 BID as of 11/25.? level drawn 12/09: 12.9. will discuss increasing dose with pt. haldol decanoate 150 mg next due 12/10; ordered.? pt then said dosing is at her discretion and asked for 100 mg, so order changed to 100 mg. order returned to 150 mg for 12/14, as it was not given earlier. pt refused the shot 12/14 bcse it would have had to have been given as two separate shots. 12/15 she also refused to have 100 mg, which could have been given as 1 shot, stating she will wait for discharge and then have her home health nurse give all 150 mg in one shot. Scheduled Haldol 5 mg po TID; due to daytime sedation and recent increase in haldol decanoate dosing, reduced daytime haldol dosing from thrice daily to twice daily, 5 mg each.? unsure of plan to discontinue PO haldol entirely in favor of decanoate formulation as pt has been refusing adequater haldol dec dosing. wellbutrin XL 150 started 12/07 for depression.? increased to 300 mg daily as of 12/10. trial of Q5 min checks 12/06 ended quickly once pt began head-banging and hitting self in face the same day. 12/10- hypertriglycerides 533, ordered amylase, lipase, crp, cbc w diff, cmp r/o acute pancreatitis, consult to hospitalist pending 12/12/20 FU on patient's non-specific neurological symptoms, elevated CRP and CBC findings of lymphocytosis 12/14 fenofibrate started. 12/15 accepted haldol dec 150 mg after meeting with outpt providers. 12/16 declined trileptal dosing increase. (2) Borderline personality disorder: Status: Acute Code(s): F60.3 - Borderline personality disorder I spent minutes with the patient and/or on the patient floor today, greater than?50% of which was spent counseling/coordinating care. Reason for contiued inpatient stay Substantial Risk for: inability to function and rapid decompensation
[2020-12-16] MEDS: HaloperidoL 5 MG TABLET PO ×2 (16:29→21:08)
[2020-12-16 18:00] VITALS: BP 114/72; PULSE 119; TEMP 36.6; O2SAT 95
[2020-12-16] MEDS: chlorproMAZINE HCl 25 MG TABLET 50 MG PO (21:07)
[2020-12-16] MEDS: hydrOXYzine HCL 50 MG TABLET PO (21:07)
[2020-12-16] MEDS: chlorproMAZINE HCl 100 MG TABLET PO (21:08)
[2020-12-17] MEDS: OXcarbazepine 150 MG TABLET 450 MG PO ×2 (09:29→21:50)
[2020-12-17] MEDS: Benztropine Mesylate 1 MG TABLET PO ×2 (09:30→21:50)
[2020-12-17] MEDS: buPROPion HCl XL 300 MG TAB.ER.24H PO (09:30)
[2020-12-17] MEDS: Famotidine 20 MG TABLET PO ×2 (09:30→21:50)
[2020-12-17] MEDS: Sertraline HCL 100 MG TABLET 200 MG PO (09:30)
[2020-12-17] MEDS: Naltrexone HCl 50 MG TABLET PO (09:30)
--- NOTE | 2020-12-17 13:07 | HO.PSYCHPN ---
Subjective Subjective Date of Service: 12/17/20 Reason For Visit: Psychosis Interim History: pt [id number] to be awake mid-morning, first eating breakfast and then lying in bed. receptive to brief interview, although evasive in answering any questions about her thoughts in any substantive way. provides feedback that mikki and case management specialist were concerned she is not at her baseline and are not supportive of discharge planning presently. pt had minimal reaction. she had no complaints or requests otherwise. informed pt he would be speaking with mikki and rn case management as well. per staff, maintained on Q5 minute checks. slept well overnight but also a lot during the day. declined 1:1 meeting with staff. tearfulness in the afternoon, anx 5, dep 10. denies SI/HI, feeling safe on the unit. did not take any PRNs for sleep, which is unusual. Mental Status Exam Mental Status Exam Narrative: lying in bed, unkempt appearance, overweight. awake. fair eye contact, attentive. No Tics or Tremors. No abnormal involuntary movements. remains easier to engage. affect is constricted, not irritable. non-labile. denies depressed mood. no SI/HI/AVH expressed. Has cognitive impairment r/t alcohol syndrome. Insight/ Judgment limited, questionable historian. Diagnostics Vital Signs (24Hr): Vital Signs - 24 hr 12/16/20 18:00 Temperature 97.8 F Pulse Rate 119 H Blood Pressure 114/72 Pulse Oximetry 95 Body Mass Index 42.9 Labs Results: 12/11/20 06:55 12/10/20 13:09 Imaging Radiology Impressions: ITS Impressions Shoulder X-Ray 11/27/20 11:39 IMPRESSION: * Normal left shoulder. * Normal left wrist. No acute fracture or malalignment. Wrist X-Ray 11/27/20 11:39 IMPRESSION: * Normal left shoulder. * Normal left wrist. No acute fracture or malalignment. Medications Medications Current Medications Acetaminophen (Acetaminophen 325 Mg Tablet) 650 mg PO Q6H PRN PRN Reason: Headache/Pain Mild Scale (1-3) Last Admin: 11/27/20 18:44 Dose: 650 mg Documented by: Al Hydroxide/Mg Hydroxide (Magnesium Hydrox/Alum Hydrox 30 Ml Oral.Susp) 30 ml PO Q6H PRN PRN Reason: Heartburn/Nausea Last Admin: 12/04/20 18:27 Dose: 30 ml Documented by: Benztropine Mesylate (Benztropine Mesylate 1 Mg Tablet) 1 mg PO BID [facility] Last Admin: 12/17/20 09:30 Dose: 1 mg Documented by: Bupropion HCl (Bupropion Hcl Xl 300 Mg Tab.Er.24h) 300 mg PO DAILY [facility] Last Admin: 12/17/20 09:30 Dose: 300 mg Documented by: Chlorpromazine HCl (Chlorpromazine Hcl 25 Mg Tablet) 50 mg PO BEDTIME PRN PRN Reason: Insomnia Last Admin: 12/15/20 23:23 Dose: 50 mg Documented by: Chlorpromazine HCl (Chlorpromazine Hcl 100 Mg Tablet) 100 mg PO BEDTIME [facility] Last Admin: 12/16/20 21:08 Dose: 100 mg Documented by: Chlorpromazine HCl (Chlorpromazine Hcl 25 Mg Tablet) 50 mg PO BEDTIME [facility] Last Admin: 12/16/20 21:07 Dose: 50 mg Documented by: Famotidine (Famotidine 20 Mg Tablet) 20 mg PO BID [facility] Last Admin: 12/17/20 09:30 Dose: 20 mg Documented by: Fenofibrate (Fenofibrate 54 Mg Tablet) 54 mg PO DAILY [facility] Last Admin: 12/17/20 09:40 Dose: Not Given Documented by: Haloperidol (Haloperidol 5 Mg Tablet) 5 mg PO 1500 [facility] Last Admin: 12/16/20 16:29 Dose: 5 mg Documented by: Haloperidol (Haloperidol 5 Mg Tablet) 5 mg PO BEDTIME [facility] Last Admin: 12/16/20 21:08 Dose: 5 mg Documented by: Haloperidol Decanoate (Haloperidol Decanoate 50 Mg/Ml Ampul) 150 mg IM Q28D [facility] Last Admin: 12/15/20 15:06 Dose: 150 mg Documented by: Hydroxyzine HCl (Hydroxyzine Hcl 50 Mg Tablet) 50 mg PO Q6H PRN PRN Reason: Anxiety Last Admin: 12/15/20 23:20 Dose: 50 mg Documented by: Hydroxyzine HCl (Hydroxyzine Hcl 50 Mg Tablet) 50 mg PO BEDTIME [facility] Last Admin: 12/16/20 21:07 Dose: 50 mg Documented by: Magnesium Hydroxide (Milk Of Magnesia 30 Ml Oral.Susp) 30 ml PO DAILY PRN PRN Reason: Constipation Naltrexone HCl (Naltrexone Hcl 50 Mg Tablet) 50 mg PO DAILY [facility] Last Admin: 12/17/20 09:30 Dose: 50 mg Documented by: Patient Own (Medication (Biotene)) 1 each BUCCAL BID PRN PRN Reason: Dry Mouth Last Admin: 12/09/20 16:58 Dose: 1 each Documented by: Oxcarbazepine (Oxcarbazepine 150 Mg Tablet) 450 mg PO BID [facility] Last Admin: 12/17/20 09:29 Dose: 450 mg Documented by: Sertraline HCl (Sertraline Hcl 100 Mg Tablet) 200 mg PO DAILY [facility] Last Admin: 12/17/20 09:30 Dose: 200 mg Documented by: Allergies Allergies Allergy/AdvReac Type Severity Reaction Status Date / Time No Known Allergies Allergy Unverified 11/06/19 19:53 [No Known Allergies*] Assessment & Plan Assessment & Plan (1) Schizoaffective disorder, depressive type: Status: Acute Code(s): F25.1 - Schizoaffective disorder, depressive type Assessment and Plan: Pt is a 25 y.o. Female who carries a dx of schizoaffective do, depressive type, alcohol syndrome, BPD. She does not appear to be a reliable historian but does report feeling worsening sx of depression and irritability. She presents with negative affect, low energy, withdrawn, and agitation. She currently denies assaultive ideation or HI. She endorses urges to self harm but does not have plan or intent, hx of head banging and hitting herself. She reportedly was not adherent with meds but pt denies this, collateral hx needed. Psychiatrist is Dr. Marcial David. On haldol dec, recently increased to 150 mg. Pt states she does not want to change her current med regimen, wants to add a medication to target sx of agitation, mood instability.? 11/21 had episode of head-banging, fist pounding, and tied string around neck in response to not being allowed to use her phone.? placed on 1:1 for safety 11/21.? refused to have discussion with MD about safety on 11/22 and later on 11/22 tied ligature around her wrist and threatened to eat a staple.? 11/23 threatened to put a bottle cap in her mouth in an attempt to choke herself. Plan: started trileptal 300 mg BID for mood stability, reviewed risks and benefits. Continue OP med regimen and monitor for benefit. She is utilizing her PRNs with apparent benefit. trileptal level drawn 11/25 8.9 (target range 8-35),? other labs 11/25 not concerning. increased trileptal to 450 BID as of 11/25.? level drawn 12/09: 12.9. will discuss increasing dose with pt. haldol decanoate 150 mg next due 12/10; ordered.? pt then said dosing is at her discretion and asked for 100 mg, so order changed to 100 mg. order returned to 150 mg for 12/14, as it was not given earlier. pt refused the shot 12/14 bcse it would have had to have been given as two separate shots. 12/15 she also refused to have 100 mg, which could have been given as 1 shot, stating she will wait for discharge and then have her home health nurse give all 150 mg in one shot. Scheduled Haldol 5 mg po TID; due to daytime sedation and recent increase in haldol decanoate dosing, reduced daytime haldol dosing from thrice daily to twice daily, 5 mg each.? unsure of plan to discontinue PO haldol entirely in favor of decanoate formulation as pt has been refusing adequater haldol dec dosing. wellbutrin XL 150 started 12/07 for depression.? increased to 300 mg daily as of 12/10. trial of Q5 min checks 12/06 ended quickly once pt began head-banging and hitting self in face the same day. 12/10- hypertriglycerides 533, ordered amylase, lipase, crp, cbc w diff, cmp r/o acute pancreatitis, consult to hospitalist pending 12/12/20 FU on patient's non-specific neurological symptoms, elevated CRP and CBC findings of lymphocytosis 12/14 fenofibrate started. 12/15 accepted haldol dec 150 mg after meeting with outpt providers. 12/16 declined trileptal dosing increase. (2) Borderline personality disorder: Status: Acute Code(s): F60.3 - Borderline personality disorder I spent minutes with the patient and/or on the patient floor today, greater than?50% of which was spent counseling/coordinating care. Reason for contiued inpatient stay Substantial Risk for: harm to self, harm to others, inability to function and rapid decompensation
[2020-12-17] MEDS: HaloperidoL 5 MG TABLET PO ×2 (16:42→21:50)
[2020-12-17 19:50] VITALS: BP 140/90; PULSE 121; TEMP 36.6; O2SAT 99
[2020-12-17] MEDS: chlorproMAZINE HCl 100 MG TABLET PO (21:48)
[2020-12-17] MEDS: hydrOXYzine HCL 50 MG TABLET PO (21:49)
[2020-12-17] MEDS: chlorproMAZINE HCl 25 MG TABLET 50 MG PO (21:49)
[2020-12-18] MEDS: Fenofibrate 54 MG TABLET PO (10:13)
[2020-12-18] MEDS: OXcarbazepine 150 MG TABLET 450 MG PO ×2 (10:13→21:51)
[2020-12-18] MEDS: buPROPion HCl XL 300 MG TAB.ER.24H PO (10:13)
[2020-12-18] MEDS: Benztropine Mesylate 1 MG TABLET PO ×2 (10:13→21:50)
[2020-12-18] MEDS: Sertraline HCL 100 MG TABLET 200 MG PO (10:13)
[2020-12-18] MEDS: Famotidine 20 MG TABLET PO ×2 (10:13→21:50)
[2020-12-18] MEDS: Naltrexone HCl 50 MG TABLET PO (10:13)
[2020-12-18 10:18] VITALS: RESP 18
[2020-12-18] MEDS: HaloperidoL 5 MG TABLET PO ×2 (15:19→21:51)
--- NOTE | 2020-12-18 15:46 | P.PNPSI_ITS ---
Subjective Subjective Date of Service: 12/18/20 Reason For Visit: Psychosis Interim History: pt found resting in bed at lunch time, amenable to a few minutes of conversation with MD. she reported she is feeling fine, denied any anger or lability, declined any med changes. MD inquired as to her intent on breaking apart plastic objects yesterday and she replied that she had no intent, she just wanted to break them apart. per staff, was social and engaging with peers yesterday. on alma was reaching over the nursing station barrier trying to grab things off the countertop. breakking up plastic lids in her room, yielded them to staff. denied any anxiety or anger, wa sin bed from midnight to late morning. Mental Status Exam Mental Status Exam Narrative: lying in bed, unkempt appearance, overweight. awake. fair eye contact, attentive. No Tics or Tremors. No abnormal involuntary movements. remains easier to engage. affect is constricted, not irritable. non-labile. denies depressed, angry, or labile mood. no SI/HI/AVH expressed. Has cognitive impairment r/t alcohol syndrome. Insight/ Judgment limited, questionable historian. Diagnostics Vital Signs (24Hr): Vital Signs - 24 hr 12/17/20 19:50 12/18/20 10:18 Temperature 97.9 F Pulse Rate 121 H Respiratory Rate 18 Blood Pressure 140/90 H Pulse Oximetry 99 Body Mass Index 42.9 Labs Results: 12/11/20 06:55 12/10/20 13:09 Imaging Radiology Impressions: ITS Impressions Shoulder X-Ray 11/27/20 11:39 IMPRESSION: * Normal left shoulder. * Normal left wrist. No acute fracture or malalignment. Wrist X-Ray 11/27/20 11:39 IMPRESSION: * Normal left shoulder. * Normal left wrist. No acute fracture or malalignment. Medications Medications Current Medications Acetaminophen (Acetaminophen 325 Mg Tablet) 650 mg PO Q6H PRN PRN Reason: Headache/Pain Mild Scale (1-3) Last Admin: 11/27/20 18:44 Dose: 650 mg Documented by: Al Hydroxide/Mg Hydroxide (Magnesium Hydrox/Alum Hydrox 30 Ml Oral.Susp) 30 ml PO Q6H PRN PRN Reason: Heartburn/Nausea Last Admin: 12/04/20 18:27 Dose: 30 ml Documented by: Benztropine Mesylate (Benztropine Mesylate 1 Mg Tablet) 1 mg PO BID [facility] Last Admin: 12/18/20 10:13 Dose: 1 mg Documented by: Bupropion HCl (Bupropion Hcl Xl 300 Mg Tab.Er.24h) 300 mg PO DAILY [facility] Last Admin: 12/18/20 10:13 Dose: 300 mg Documented by: Chlorpromazine HCl (Chlorpromazine Hcl 25 Mg Tablet) 50 mg PO BEDTIME PRN PRN Reason: Insomnia Last Admin: 12/15/20 23:23 Dose: 50 mg Documented by: Chlorpromazine HCl (Chlorpromazine Hcl 100 Mg Tablet) 100 mg PO BEDTIME [facility] Last Admin: 12/17/20 21:48 Dose: 100 mg Documented by: Chlorpromazine HCl (Chlorpromazine Hcl 25 Mg Tablet) 50 mg PO BEDTIME [facility] Last Admin: 12/17/20 21:49 Dose: 50 mg Documented by: Famotidine (Famotidine 20 Mg Tablet) 20 mg PO BID [facility] Last Admin: 12/18/20 10:13 Dose: 20 mg Documented by: Fenofibrate (Fenofibrate 54 Mg Tablet) 54 mg PO DAILY [facility] Last Admin: 12/18/20 10:13 Dose: 54 mg Documented by: Haloperidol (Haloperidol 5 Mg Tablet) 5 mg PO 1500 [facility] Last Admin: 12/18/20 15:19 Dose: 5 mg Documented by: Haloperidol (Haloperidol 5 Mg Tablet) 5 mg PO BEDTIME [facility] Last Admin: 12/17/20 21:50 Dose: 5 mg Documented by: Haloperidol Decanoate (Haloperidol Decanoate 50 Mg/Ml Ampul) 150 mg IM Q28D [facility] Last Admin: 12/15/20 15:06 Dose: 150 mg Documented by: Hydroxyzine HCl (Hydroxyzine Hcl 50 Mg Tablet) 50 mg PO Q6H PRN PRN Reason: Anxiety Last Admin: 12/15/20 23:20 Dose: 50 mg Documented by: Hydroxyzine HCl (Hydroxyzine Hcl 50 Mg Tablet) 50 mg PO BEDTIME [facility] Last Admin: 12/17/20 21:49 Dose: 50 mg Documented by: Magnesium Hydroxide (Milk Of Magnesia 30 Ml Oral.Susp) 30 ml PO DAILY PRN PRN Reason: Constipation Naltrexone HCl (Naltrexone Hcl 50 Mg Tablet) 50 mg PO DAILY [facility] Last Admin: 12/18/20 10:13 Dose: 50 mg Documented by: Patient Own (Medication (Biotene)) 1 each BUCCAL BID PRN PRN Reason: Dry Mouth Last Admin: 12/09/20 16:58 Dose: 1 each Documented by: Oxcarbazepine (Oxcarbazepine 150 Mg Tablet) 450 mg PO BID [facility] Last Admin: 12/18/20 10:13 Dose: 450 mg Documented by: Sertraline HCl (Sertraline Hcl 100 Mg Tablet) 200 mg PO DAILY [facility] Last Admin: 12/18/20 10:13 Dose: 200 mg Documented by: Allergies Allergies Allergy/AdvReac Type Severity Reaction Status Date / Time No Known Allergies Allergy Unverified 11/06/19 19:53 [No Known Allergies*] Assessment & Plan Assessment & Plan (1) Schizoaffective disorder, depressive type: Status: Acute Code(s): F25.1 - Schizoaffective disorder, depressive type Assessment and Plan: Pt is a 25 y.o. Female who carries a dx of schizoaffective do, depressive type, alcohol syndrome, BPD. She does not appear to be a reliable historian but does report feeling worsening sx of depression and irritability. She presents with negative affect, low energy, withdrawn, and agitation. She currently denies assaultive ideation or HI. She endorses urges to self harm but does not have plan or intent, hx of head banging and hitting herself. She reportedly was not adherent with meds but pt denies this, collateral hx needed. Psychiatrist is Dr. Marcial David. On haldol dec, recently increased to 150 mg. Pt states she does not want to change her current med regimen, wants to add a medication to target sx of agitation, mood instability.? 11/21 had episode of head-banging, fist pounding, and tied string around neck in response to not being allowed to use her phone.? placed on 1:1 for safety 11/21.? refused to have discussion with MD about safety on 11/22 and later on 11/22 tied ligature around her wrist and threatened to eat a staple.? 11/23 threatened to put a bottle cap in her mouth in an attempt to choke herself. Plan: started trileptal 300 mg BID for mood stability, reviewed risks and benefits. Continue OP med regimen and monitor for benefit. She is utilizing her PRNs with apparent benefit. trileptal level drawn 11/25 8.9 (target range 8-35),? other labs 11/25 not concerning. increased trileptal to 450 BID as of 11/25.? level drawn 12/09: 12.9. will discuss increasing dose with pt. haldol decanoate 150 mg next due 12/10; ordered.? pt then said dosing is at her discretion and asked for 100 mg, so order changed to 100 mg. order returned to 150 mg for 12/14, as it was not given earlier. pt refused the shot 12/14 bcse it would have had to have been given as two separate shots. 12/15 she also refused to have 100 mg, which could have been given as 1 shot, stating she will wait for discharge and then have her home health nurse give all 150 mg in one shot. Scheduled Haldol 5 mg po TID; due to daytime sedation and recent increase in haldol decanoate dosing, reduced daytime haldol dosing from thrice daily to twice daily, 5 mg each.? unsure of plan to discontinue PO haldol entirely in favor of decanoate formulation as pt has been refusing adequater haldol dec dosing. wellbutrin XL 150 started 12/07 for depression.? increased to 300 mg daily as of 12/10. trial of Q5 min checks 12/06 ended quickly once pt began head-banging and hitting self in face the same day. 12/10- hypertriglycerides 533, ordered amylase, lipase, crp, cbc w diff, cmp r/o acute pancreatitis, consult to hospitalist pending 12/12/20 FU on patient's non-specific neurological symptoms, elevated CRP and CBC findings of lymphocytosis 12/14 fenofibrate started. 12/15 accepted haldol dec 150 mg after meeting with outpt providers. 12/16 declined trileptal dosing increase. (2) Borderline personality disorder: Status: Acute Code(s): F60.3 - Borderline personality disorder I spent minutes with the patient and/or on the patient floor today, greater than?50% of which was spent counseling/coordinating care. Reason for contiued inpatient stay Substantial Risk for: harm to self, harm to others, inability to function and rapid decompensation
[2020-12-18] MEDS: chlorproMAZINE HCl 100 MG TABLET PO (21:51)
[2020-12-18] MEDS: chlorproMAZINE HCl 25 MG TABLET 50 MG PO (21:51)
[2020-12-18] MEDS: hydrOXYzine HCL 50 MG TABLET PO (21:51)
[2020-12-19] MEDS: Sertraline HCL 100 MG TABLET 200 MG PO (11:34)
[2020-12-19] MEDS: buPROPion HCl XL 300 MG TAB.ER.24H PO (11:34)
[2020-12-19] MEDS: Benztropine Mesylate 1 MG TABLET PO ×2 (11:34→19:47)
[2020-12-19] MEDS: OXcarbazepine 150 MG TABLET 450 MG PO ×2 (11:34→19:46)
[2020-12-19] MEDS: Famotidine 20 MG TABLET PO ×2 (11:34→19:47)
[2020-12-19] MEDS: Naltrexone HCl 50 MG TABLET PO (11:34)
[2020-12-19] MEDS: HaloperidoL 5 MG TABLET PO ×2 (15:53→19:47)
[2020-12-19] MEDS: hydrOXYzine HCL 50 MG TABLET PO ×2 (16:38→19:47)
--- NOTE | 2020-12-19 18:29 | HO.PSYCHPN ---
Subjective Subjective Date of Service: 12/19/20 Reason For Visit: Psychosis Interim History: pt seen in her room, lying in bed but not asleep. characteristically minimized any symptomatology and declined to explain what happened last night when she became agitated and was punching the wall. stated her mood was OK and even. declined any changes in mgmt. per staff, slept most of the day yesterday. denied SI/HI. did not eat any breakfast or lunch. at 730 pm - shift change - pt became non-responsive to staff, staring blankly. did respond to someone at some point to say, i'm fine, i'm not going to do anything. at 8:45 was punching the wall, said she was going to spaz out. was able to be redirected by court operations clerk to play monopoly until the around 0100. per staff report this afternoon, pt barricaded her door and attempted to fashion something out of a mask with which to choke herself. she eventually relented and let staff in and gave up the mask. Mental Status Exam Mental Status Exam Narrative: lying in bed, unkempt appearance, overweight. awake. fair eye contact, attentive. No Tics or Tremors. No abnormal involuntary movements. remains somewhat easier to engage. affect is constricted, not irritable. non-labile. denies depressed, angry, or labile mood. no SI/HI/AVH expressed. Has cognitive impairment r/t alcohol syndrome. Insight/ Judgment limited, questionable historian. Diagnostics Vital Signs (24Hr): Body Mass Index 42.9 Labs Results: 12/11/20 06:55 12/10/20 13:09 Imaging Radiology Impressions: ITS Impressions Shoulder X-Ray 11/27/20 11:39 IMPRESSION: * Normal left shoulder. * Normal left wrist. No acute fracture or malalignment. Wrist X-Ray 11/27/20 11:39 IMPRESSION: * Normal left shoulder. * Normal left wrist. No acute fracture or malalignment. Medications Medications Current Medications Acetaminophen (Acetaminophen 325 Mg Tablet) 650 mg PO Q6H PRN PRN Reason: Headache/Pain Mild Scale (1-3) Last Admin: 11/27/20 18:44 Dose: 650 mg Documented by: Al Hydroxide/Mg Hydroxide (Magnesium Hydrox/Alum Hydrox 30 Ml Oral.Susp) 30 ml PO Q6H PRN PRN Reason: Heartburn/Nausea Last Admin: 12/04/20 18:27 Dose: 30 ml Documented by: Benztropine Mesylate (Benztropine Mesylate 1 Mg Tablet) 1 mg PO BID [facility] Last Admin: 12/19/20 11:34 Dose: 1 mg Documented by: Bupropion HCl (Bupropion Hcl Xl 300 Mg Tab.Er.24h) 300 mg PO DAILY [facility] Last Admin: 12/19/20 11:34 Dose: 300 mg Documented by: Chlorpromazine HCl (Chlorpromazine Hcl 25 Mg Tablet) 50 mg PO BEDTIME PRN PRN Reason: Insomnia Last Admin: 12/15/20 23:23 Dose: 50 mg Documented by: Chlorpromazine HCl (Chlorpromazine Hcl 100 Mg Tablet) 100 mg PO BEDTIME [facility] Last Admin: 12/18/20 21:51 Dose: 100 mg Documented by: Chlorpromazine HCl (Chlorpromazine Hcl 25 Mg Tablet) 50 mg PO BEDTIME [facility] Last Admin: 12/18/20 21:51 Dose: 50 mg Documented by: Famotidine (Famotidine 20 Mg Tablet) 20 mg PO BID [facility] Last Admin: 12/19/20 11:34 Dose: 20 mg Documented by: Fenofibrate (Fenofibrate 54 Mg Tablet) 54 mg PO DAILY [facility] Last Admin: 12/19/20 11:35 Dose: Not Given Documented by: Haloperidol (Haloperidol 5 Mg Tablet) 5 mg PO 1500 [facility] Last Admin: 12/19/20 15:53 Dose: 5 mg Documented by: Haloperidol (Haloperidol 5 Mg Tablet) 5 mg PO BEDTIME [facility] Last Admin: 12/18/20 21:51 Dose: 5 mg Documented by: Haloperidol Decanoate (Haloperidol Decanoate 50 Mg/Ml Ampul) 150 mg IM Q28D [facility] Last Admin: 12/15/20 15:06 Dose: 150 mg Documented by: Hydroxyzine HCl (Hydroxyzine Hcl 50 Mg Tablet) 50 mg PO Q6H PRN PRN Reason: Anxiety Last Admin: 12/19/20 16:38 Dose: 50 mg Documented by: Hydroxyzine HCl (Hydroxyzine Hcl 50 Mg Tablet) 50 mg PO BEDTIME [facility] Last Admin: 12/18/20 21:51 Dose: 50 mg Documented by: Magnesium Hydroxide (Milk Of Magnesia 30 Ml Oral.Susp) 30 ml PO DAILY PRN PRN Reason: Constipation Naltrexone HCl (Naltrexone Hcl 50 Mg Tablet) 50 mg PO DAILY [facility] Last Admin: 12/19/20 11:34 Dose: 50 mg Documented by: Patient Own (Medication (Biotene)) 1 each BUCCAL BID PRN PRN Reason: Dry Mouth Last Admin: 12/09/20 16:58 Dose: 1 each Documented by: Oxcarbazepine (Oxcarbazepine 150 Mg Tablet) 450 mg PO BID [facility] Last Admin: 12/19/20 11:34 Dose: 450 mg Documented by: Sertraline HCl (Sertraline Hcl 100 Mg Tablet) 200 mg PO DAILY [facility] Last Admin: 12/19/20 11:34 Dose: 200 mg Documented by: Allergies Allergies Allergy/AdvReac Type Severity Reaction Status Date / Time No Known Allergies Allergy Unverified 11/06/19 19:53 [No Known Allergies*] Assessment & Plan Assessment & Plan (1) Schizoaffective disorder, depressive type: Status: Acute Code(s): F25.1 - Schizoaffective disorder, depressive type Assessment and Plan: Pt is a 25 y.o. Female who carries a dx of schizoaffective do, depressive type, alcohol syndrome, BPD. She does not appear to be a reliable historian but does report feeling worsening sx of depression and irritability. She presents with negative affect, low energy, withdrawn, and agitation. She currently denies assaultive ideation or HI. She endorses urges to self harm but does not have plan or intent, hx of head banging and hitting herself. She reportedly was not adherent with meds but pt denies this, collateral hx needed. Psychiatrist is Dr. Marcial David. On haldol dec, recently increased to 150 mg. Pt states she does not want to change her current med regimen, wants to add a medication to target sx of agitation, mood instability.? 11/21 had episode of head-banging, fist pounding, and tied string around neck in response to not being allowed to use her phone.? placed on 1:1 for safety 11/21.? refused to have discussion with MD about safety on 11/22 and later on 11/22 tied ligature around her wrist and threatened to eat a staple.? 11/23 threatened to put a bottle cap in her mouth in an attempt to choke herself. Plan: started trileptal 300 mg BID for mood stability, reviewed risks and benefits. Continue OP med regimen and monitor for benefit. She is utilizing her PRNs with apparent benefit. trileptal level drawn 11/25 8.9 (target range 8-35),? other labs 11/25 not concerning. increased trileptal to 450 BID as of 11/25.? level drawn 12/09: 12.9. will discuss increasing dose with pt. haldol decanoate 150 mg next due 12/10; ordered.? pt then said dosing is at her discretion and asked for 100 mg, so order changed to 100 mg. order returned to 150 mg for 12/14, as it was not given earlier. pt refused the shot 12/14 bcse it would have had to have been given as two separate shots. 12/15 she also refused to have 100 mg, which could have been given as 1 shot, stating she will wait for discharge and then have her home health nurse give all 150 mg in one shot. Scheduled Haldol 5 mg po TID; due to daytime sedation and recent increase in haldol decanoate dosing, reduced daytime haldol dosing from thrice daily to twice daily, 5 mg each.? unsure of plan to discontinue PO haldol entirely in favor of decanoate formulation as pt has been refusing adequater haldol dec dosing. wellbutrin XL 150 started 12/07 for depression.? increased to 300 mg daily as of 12/10. trial of Q5 min checks 12/06 ended quickly once pt began head-banging and hitting self in face the same day. intermittent attempts at self-harm and/or agitation continue as of 12/19, while pt maintained on 5 min checks. 12/10- hypertriglycerides 533, ordered amylase, lipase, crp, cbc w diff, cmp r/o acute pancreatitis, consult to hospitalist pending 12/12/20 FU on patient's non-specific neurological symptoms, elevated CRP and CBC findings of lymphocytosis 12/14 fenofibrate started. 12/15 accepted haldol dec 150 mg after meeting with outpt providers. 12/16 declined trileptal dosing increase. (2) Borderline personality disorder: Status: Acute Code(s): F60.3 - Borderline personality disorder I spent minutes with the patient and/or on the patient floor today, greater than?50% of which was spent counseling/coordinating care. Reason for contiued inpatient stay Substantial Risk for: harm to self, harm to others and inability to function
[2020-12-19] MEDS: chlorproMAZINE HCl 25 MG TABLET 50 MG PO (19:47)
[2020-12-19] MEDS: chlorproMAZINE HCl 100 MG TABLET PO (19:47)
[2020-12-20 10:11] VITALS: BP 124/81; PULSE 108; RESP 16; TEMP 36.7; O2SAT 97
[2020-12-20] MEDS: Naltrexone HCl 50 MG TABLET PO (10:13)
[2020-12-20] MEDS: OXcarbazepine 150 MG TABLET 450 MG PO (10:14)
[2020-12-20] MEDS: Benztropine Mesylate 1 MG TABLET PO ×2 (10:14→20:02)
[2020-12-20] MEDS: buPROPion HCl XL 300 MG TAB.ER.24H PO (10:14)
[2020-12-20] MEDS: Famotidine 20 MG TABLET PO ×2 (10:14→20:02)
[2020-12-20] MEDS: Sertraline HCL 100 MG TABLET 200 MG PO (10:15)
[2020-12-20] MEDS: HaloperidoL 5 MG TABLET PO ×2 (14:56→22:44)
--- NOTE | 2020-12-20 16:00 | HO.PSYCHPN ---
Subjective Subjective Date of Service: 12/20/20 Reason For Visit: Psychosis Interim History: pt seen up and about this morning, took shower. seen after noon, came to group room for interview. pt stated she feels better when she doesn't sleep all day. she is aware she should try to stay out of bed more. she apologized to MD for her stand-offish behaviors thus far. she was able to see she would like to leave the hospital but is not ready to, that her behaviors remain not her usual baseline. she describes feeling her emotions are roiling inside despite a calm exterior. she agrees to increase trileptal dosing. per staff, provocative yesterday when she arose for the day. barricaded herself in her room, threatened to strangle self with face mask. ultimately yielded the barricade and face mask. later in the evening playing monopoly as if nothing had happened. Mental Status Exam Mental Status Exam Narrative: up and about the unit, unkempt appearance, overweight. awake. good eye contact, attentive. No Tics or Tremors. No abnormal involuntary movements. much easier to engage. affect is somewhat flexible, not irritable. non-labile. denies depressed, angry, or labile mood at the moment, but does endorse periods of disturbed emotions when she appears calm on the exterior. no SI/HI/AVH expressed. Has cognitive impairment r/t alcohol syndrome. Insight/ Judgment limited, questionable historian. Diagnostics Vital Signs (24Hr): Vital Signs - 24 hr 12/20/20 10:11 Temperature 98.0 F Pulse Rate 108 H Respiratory Rate 16 Blood Pressure 124/81 Pulse Oximetry 97 Body Mass Index 42.9 Labs Results: 12/11/20 06:55 12/10/20 13:09 Imaging Radiology Impressions: ITS Impressions Shoulder X-Ray 11/27/20 11:39 IMPRESSION: * Normal left shoulder. * Normal left wrist. No acute fracture or malalignment. Wrist X-Ray 11/27/20 11:39 IMPRESSION: * Normal left shoulder. * Normal left wrist. No acute fracture or malalignment. Medications Medications Current Medications Acetaminophen (Acetaminophen 325 Mg Tablet) 650 mg PO Q6H PRN PRN Reason: Headache/Pain Mild Scale (1-3) Last Admin: 11/27/20 18:44 Dose: 650 mg Documented by: Al Hydroxide/Mg Hydroxide (Magnesium Hydrox/Alum Hydrox 30 Ml Oral.Susp) 30 ml PO Q6H PRN PRN Reason: Heartburn/Nausea Last Admin: 12/04/20 18:27 Dose: 30 ml Documented by: Benztropine Mesylate (Benztropine Mesylate 1 Mg Tablet) 1 mg PO BID [facility] Last Admin: 12/20/20 10:14 Dose: 1 mg Documented by: Bupropion HCl (Bupropion Hcl Xl 300 Mg Tab.Er.24h) 300 mg PO DAILY [facility] Last Admin: 12/20/20 10:14 Dose: 300 mg Documented by: Chlorpromazine HCl (Chlorpromazine Hcl 25 Mg Tablet) 50 mg PO BEDTIME PRN PRN Reason: Insomnia Last Admin: 12/15/20 23:23 Dose: 50 mg Documented by: Chlorpromazine HCl (Chlorpromazine Hcl 100 Mg Tablet) 100 mg PO BEDTIME [facility] Last Admin: 12/19/20 19:47 Dose: 100 mg Documented by: Chlorpromazine HCl (Chlorpromazine Hcl 25 Mg Tablet) 50 mg PO BEDTIME [facility] Last Admin: 12/19/20 19:47 Dose: 50 mg Documented by: Famotidine (Famotidine 20 Mg Tablet) 20 mg PO BID [facility] Last Admin: 12/20/20 10:14 Dose: 20 mg Documented by: Fenofibrate (Fenofibrate 54 Mg Tablet) 54 mg PO DAILY [facility] Last Admin: 12/20/20 10:16 Dose: Not Given Documented by: Haloperidol (Haloperidol 5 Mg Tablet) 5 mg PO 1500 [facility] Last Admin: 12/20/20 14:56 Dose: 5 mg Documented by: Haloperidol (Haloperidol 5 Mg Tablet) 5 mg PO BEDTIME [facility] Last Admin: 12/19/20 19:47 Dose: 5 mg Documented by: Haloperidol Decanoate (Haloperidol Decanoate 50 Mg/Ml Ampul) 150 mg IM Q28D [facility] Last Admin: 12/15/20 15:06 Dose: 150 mg Documented by: Hydroxyzine HCl (Hydroxyzine Hcl 50 Mg Tablet) 50 mg PO Q6H PRN PRN Reason: Anxiety Last Admin: 12/19/20 16:38 Dose: 50 mg Documented by: Hydroxyzine HCl (Hydroxyzine Hcl 50 Mg Tablet) 50 mg PO BEDTIME [facility] Last Admin: 12/19/20 19:47 Dose: 50 mg Documented by: Magnesium Hydroxide (Milk Of Magnesia 30 Ml Oral.Susp) 30 ml PO DAILY PRN PRN Reason: Constipation Naltrexone HCl (Naltrexone Hcl 50 Mg Tablet) 50 mg PO DAILY [facility] Last Admin: 12/20/20 10:13 Dose: 50 mg Documented by: Patient Own (Medication (Biotene)) 1 each BUCCAL BID PRN PRN Reason: Dry Mouth Last Admin: 12/09/20 16:58 Dose: 1 each Documented by: Oxcarbazepine (Oxcarbazepine 150 Mg Tablet) 450 mg PO BID [facility] Last Admin: 12/20/20 10:14 Dose: 450 mg Documented by: Sertraline HCl (Sertraline Hcl 100 Mg Tablet) 200 mg PO DAILY [facility] Last Admin: 12/20/20 10:15 Dose: 200 mg Documented by: Allergies Allergies Allergy/AdvReac Type Severity Reaction Status Date / Time No Known Allergies Allergy Unverified 11/06/19 19:53 [No Known Allergies*] Assessment & Plan Assessment & Plan (1) Schizoaffective disorder, depressive type: Status: Acute Code(s): F25.1 - Schizoaffective disorder, depressive type Assessment and Plan: Pt is a 25 y.o. Female who carries a dx of schizoaffective do, depressive type, alcohol syndrome, BPD. She does not appear to be a reliable historian but does report feeling worsening sx of depression and irritability. She presents with negative affect, low energy, withdrawn, and agitation. She currently denies assaultive ideation or HI. She endorses urges to self harm but does not have plan or intent, hx of head banging and hitting herself. She reportedly was not adherent with meds but pt denies this, collateral hx needed. Psychiatrist is Dr. Marcial David. On haldol dec, recently increased to 150 mg. Pt states she does not want to change her current med regimen, wants to add a medication to target sx of agitation, mood instability.? 11/21 had episode of head-banging, fist pounding, and tied string around neck in response to not being allowed to use her phone.? placed on 1:1 for safety 11/21.? refused to have discussion with MD about safety on 11/22 and later on 11/22 tied ligature around her wrist and threatened to eat a staple.? 11/23 threatened to put a bottle cap in her mouth in an attempt to choke herself. Plan: started trileptal 300 mg BID for mood stability, reviewed risks and benefits. Continue OP med regimen and monitor for benefit. She is utilizing her PRNs with apparent benefit. trileptal level drawn 11/25 8.9 (target range 8-35),? other labs 11/25 not concerning. increased trileptal to 450 BID as of 11/25.? level drawn 12/09: 12.9. pt declined to increase trileptal dosing until 12/20, when it was increased to 600 BID. haldol decanoate 150 mg next due 12/10; ordered.? pt then said dosing is at her discretion and asked for 100 mg, so order changed to 100 mg. order returned to 150 mg for 12/14, as it was not given earlier. pt refused the shot 12/14 bcse it would have had to have been given as two separate shots. 12/15 she also refused to have 100 mg, which could have been given as 1 shot, stating she will wait for discharge and then have her home health nurse give all 150 mg in one shot. Scheduled Haldol 5 mg po TID; due to daytime sedation and recent increase in haldol decanoate dosing, reduced daytime haldol dosing from thrice daily to twice daily, 5 mg each.? unsure of plan to discontinue PO haldol entirely in favor of decanoate formulation as pt has been refusing adequate haldol dec dosing. wellbutrin XL 150 started 12/07 for depression.? increased to 300 mg daily as of 12/10. trial of Q5 min checks 12/06 ended quickly once pt began head-banging and hitting self in face the same day. intermittent attempts at self-harm and/or agitation continue as of 12/19, while pt maintained on 5 min checks. 12/10- hypertriglycerides 533, ordered amylase, lipase, crp, cbc w diff, cmp r/o acute pancreatitis, consult to hospitalist pending 12/12/20 FU on patient's non-specific neurological symptoms, elevated CRP and CBC findings of lymphocytosis 12/14 fenofibrate started. 12/15 accepted haldol dec 150 mg after meeting with outpt providers. 12/16 declined trileptal dosing increase. 12/20 accepted trileptal increase. (2) Borderline personality disorder: Status: Acute Code(s): F60.3 - Borderline personality disorder I spent minutes with the patient and/or on the patient floor today, greater than?50% of which was spent counseling/coordinating care. Reason for contiued inpatient stay Substantial Risk for: harm to self, harm to others, inability to function and rapid decompensation
--- NOTE | 2020-12-20 19:42 | PM.EVENT ---
Event Note Date of Service: 12/20/20 Event Note: Pt asked to speak to staff development manager and prescriber, T/W went and sat with patient in room with RN present. Pt reported her thoughts are moving fast and opposite. staff development manager left the room to attend to another pt and T/W sat with pt and attempted distraction techniques, i.e. talked about favorite television show, activities pt likes. Pt was ultimately not redirectable and unscrewed bottle cap from their lotion bottle and deoderant bottle and placed them in their mouth as an attempt to choke on them. T/W asked for staff to provide assistance and pt willingly spit out bottle caps with verbal direction. She was accepting of staff taking objects out of her room that she could potentially use to self harm. Pt was accepting of PO ativan 1 mg to help with racing thoughts and anxiety. Pt spoke with T/W after the event and stated I have negative thoughts and thoughts that tell me to kill myself but I dont want to kill myself. She reported feeling calmer after the PO ativan and asked for staff to sit with her. Discussed changing safety checks to but patient reported feeling safe with 5 min safety checks. Per chart, she has a hx of?intermittent attempts at self-harm and/or agitation continue as of 12/19, while pt maintained on 5 min checks. T/W reviewed with pt 5 minute check status and how to access help if needed. Pt was able to verbalize process back how to obtain help if needed. She denied having continued urges to self harm. Appeared ready to go to bed after taking her HS medications.
[2020-12-20] MEDS: LORazepam 1 MG TABLET PO (19:49)
[2020-12-20] MEDS: OXcarbazepine 300 MG TABLET 600 MG PO (20:01)
[2020-12-20] MEDS: chlorproMAZINE HCl 25 MG TABLET 50 MG PO (20:02)
[2020-12-20] MEDS: hydrOXYzine HCL 50 MG TABLET PO (20:02)
[2020-12-20] MEDS: chlorproMAZINE HCl 100 MG TABLET PO (20:02)
[2020-12-21 06:00] VITALS: BP 131/78; PULSE 108; RESP 18; TEMP 36.6; O2SAT 96
[2020-12-21] MEDS: buPROPion HCl XL 300 MG TAB.ER.24H PO (10:28)
[2020-12-21] MEDS: OXcarbazepine 300 MG TABLET 600 MG PO ×2 (10:28→20:04)
[2020-12-21] MEDS: Sertraline HCL 100 MG TABLET 200 MG PO (10:28)
[2020-12-21] MEDS: Fenofibrate 54 MG TABLET PO (10:28)
[2020-12-21] MEDS: Benztropine Mesylate 1 MG TABLET PO ×2 (10:28→20:05)
[2020-12-21] MEDS: hydrOXYzine HCL 50 MG TABLET PO ×2 (10:29→20:04)
[2020-12-21] MEDS: Famotidine 20 MG TABLET PO ×2 (10:29→20:05)
[2020-12-21] MEDS: Naltrexone HCl 50 MG TABLET PO (10:29)
--- NOTE | 2020-12-21 13:51 | P.PNPSI_ITS ---
Subjective Subjective Date of Service: 12/21/20 Reason For Visit: Psychosis Interim History: pt up and about on the unit again this morning. discusses her feeling that in order to be in a better mood she needs to get up and out of bed each morning. supports this plan. pt reports she would normally get up at 0700 and then take a shower and get ready to go to her day program, which s tarted around 9. we plan to ask nursing staff to wake her up at 0700 and encourage her to take a shower at that time. she endorses this plan. MD broaches event last evening wherein she attempted to swallow a bottle cap. she reports it was an instance of feeling very emotionally roiled while appearing calm on the outside. she denies anything environmental as influencing her behavior. MD suggests coping techniques, such as social contact, exercise, watching TV, or taking PRN thorazine. thorazine 25 mg PRN Q4H added to regimen for such occasions. per staff, pt was placed on 1:1 after self-harm behaviors last NOC. trying to swallow bottle caps and threatening to burn self with hot water. slept after 0130. Mental Status Exam Mental Status Exam Narrative: up and about the unit, unkempt appearance, overweight. awake. good eye contact, attentive. No Tics or Tremors. No abnormal involuntary movements. much easier to engage. affect is somewhat flexible, not irritable. non-labile. denies depressed mood at the moment, but does endorse periods of disturbed emotions when she appears calm on the exterior. no SI/HI/AVH expressed. Has cognitive impairment r/t alcohol syndrome. Insight/ Judgment limited, questionable historian. Diagnostics Vital Signs (24Hr): Vital Signs - 24 hr 12/21/20 06:00 Temperature 97.8 F Pulse Rate 108 H Respiratory Rate 18 Blood Pressure 131/78 Pulse Oximetry 96 Body Mass Index 42.9 Labs Results: 12/11/20 06:55 12/10/20 13:09 Imaging Radiology Impressions: ITS Impressions Shoulder X-Ray 11/27/20 11:39 IMPRESSION: * Normal left shoulder. * Normal left wrist. No acute fracture or malalignment. Wrist X-Ray 11/27/20 11:39 IMPRESSION: * Normal left shoulder. * Normal left wrist. No acute fracture or malalignment. Medications Medications Current Medications Acetaminophen (Acetaminophen 325 Mg Tablet) 650 mg PO Q6H PRN PRN Reason: Headache/Pain Mild Scale (1-3) Last Admin: 11/27/20 18:44 Dose: 650 mg Documented by: Al Hydroxide/Mg Hydroxide (Magnesium Hydrox/Alum Hydrox 30 Ml Oral.Susp) 30 ml PO Q6H PRN PRN Reason: Heartburn/Nausea Last Admin: 12/04/20 18:27 Dose: 30 ml Documented by: Benztropine Mesylate (Benztropine Mesylate 1 Mg Tablet) 1 mg PO BID [facility] Last Admin: 12/21/20 10:28 Dose: 1 mg Documented by: Bupropion HCl (Bupropion Hcl Xl 300 Mg Tab.Er.24h) 300 mg PO DAILY [facility] Last Admin: 12/21/20 10:28 Dose: 300 mg Documented by: Chlorpromazine HCl (Chlorpromazine Hcl 25 Mg Tablet) 50 mg PO BEDTIME PRN PRN Reason: Insomnia Last Admin: 12/15/20 23:23 Dose: 50 mg Documented by: Chlorpromazine HCl (Chlorpromazine Hcl 100 Mg Tablet) 100 mg PO BEDTIME [facility] Last Admin: 12/20/20 20:02 Dose: 100 mg Documented by: Chlorpromazine HCl (Chlorpromazine Hcl 25 Mg Tablet) 50 mg PO BEDTIME [facility] Last Admin: 12/20/20 20:02 Dose: 50 mg Documented by: Chlorpromazine HCl (Chlorpromazine Hcl 25 Mg Tablet) 25 mg PO Q4H PRN PRN Reason: agitation Famotidine (Famotidine 20 Mg Tablet) 20 mg PO BID [facility] Last Admin: 12/21/20 10:29 Dose: 20 mg Documented by: Fenofibrate (Fenofibrate 54 Mg Tablet) 54 mg PO DAILY [facility] Last Admin: 12/21/20 10:28 Dose: 54 mg Documented by: Haloperidol (Haloperidol 5 Mg Tablet) 5 mg PO 1500 [facility] Last Admin: 12/20/20 14:56 Dose: 5 mg Documented by: Haloperidol (Haloperidol 5 Mg Tablet) 5 mg PO BEDTIME [facility] Last Admin: 12/20/20 22:44 Dose: 5 mg Documented by: Haloperidol Decanoate (Haloperidol Decanoate 50 Mg/Ml Ampul) 150 mg IM Q28D [facility] Last Admin: 12/15/20 15:06 Dose: 150 mg Documented by: Hydroxyzine HCl (Hydroxyzine Hcl 50 Mg Tablet) 50 mg PO Q6H PRN PRN Reason: Anxiety Last Admin: 12/21/20 10:29 Dose: 50 mg Documented by: Hydroxyzine HCl (Hydroxyzine Hcl 50 Mg Tablet) 50 mg PO BEDTIME [facility] Last Admin: 12/20/20 20:02 Dose: 50 mg Documented by: Magnesium Hydroxide (Milk Of Magnesia 30 Ml Oral.Susp) 30 ml PO DAILY PRN PRN Reason: Constipation Naltrexone HCl (Naltrexone Hcl 50 Mg Tablet) 50 mg PO DAILY [facility] Last Admin: 12/21/20 10:29 Dose: 50 mg Documented by: Patient Own (Medication (Biotene)) 1 each BUCCAL BID PRN PRN Reason: Dry Mouth Last Admin: 12/09/20 16:58 Dose: 1 each Documented by: Oxcarbazepine (Oxcarbazepine 300 Mg Tablet) 600 mg PO BID [facility] Last Admin: 12/21/20 10:28 Dose: 600 mg Documented by: Sertraline HCl (Sertraline Hcl 100 Mg Tablet) 200 mg PO DAILY [facility] Last Admin: 12/21/20 10:28 Dose: 200 mg Documented by: Allergies Allergies Allergy/AdvReac Type Severity Reaction Status Date / Time No Known Allergies Allergy Unverified 11/06/19 19:53 [No Known Allergies*] Assessment & Plan Assessment & Plan (1) Schizoaffective disorder, depressive type: Status: Acute Code(s): F25.1 - Schizoaffective disorder, depressive type Assessment and Plan: Pt is a 25 y.o. Female who carries a dx of schizoaffective do, depressive type, alcohol syndrome, BPD. She does not appear to be a reliable historian but does report feeling worsening sx of depression and irritability. She presents with negative affect, low energy, withdrawn, and agitation. She currently denies assaultive ideation or HI. She endorses urges to self harm but does not have plan or intent, hx of head banging and hitting herself. She reportedly was not adherent with meds but pt denies this, collateral hx needed. Psychiatrist is Dr. Marcial David. On haldol dec, recently increased to 150 mg. Pt states she does not want to change her current med regimen, wants to add a medication to target sx of agitation, mood instability.? 10/3 had episode of head-banging, fist pounding, and tied string around neck in response to not being allowed to use her phone.? placed on 1:1 for safety 11/21.? refused to have discussion with MD about safety on 11/22 and later on 11/22 tied ligature around her wrist and threatened to eat a staple.? 11/23 threatened to put a bottle cap in her mouth in an attempt to choke herself. Plan: started trileptal 300 mg BID for mood stability, reviewed risks and benefits. Continue OP med regimen and monitor for benefit. She is utilizing her PRNs with apparent benefit. trileptal level drawn 11/25 8.9 (target range 8-35),? other labs 11/25 not concerning. increased trileptal to 450 BID as of 11/25.? level drawn 12/09: 12.9. pt declined to increase trileptal dosing until 12/20, when it was increased to 600 BID. haldol decanoate 150 mg next due 12/10; ordered.? pt then said dosing is at her discretion and asked for 100 mg, so order changed to 100 mg. order returned to 150 mg for 12/14, as it was not given earlier. pt refused the shot 12/14 bcse it would have had to have been given as two separate shots. 12/15 she also refused to have 100 mg, which could have been given as 1 shot, stating she will wait for discharge and then have her home health nurse give all 150 mg in one shot. Scheduled Haldol 5 mg po TID; due to daytime sedation and recent increase in haldol decanoate dosing, reduced daytime haldol dosing from thrice daily to twice daily, 5 mg each.? unsure of plan to discontinue PO haldol entirely in favor of decanoate formulation as pt has been refusing adequate haldol dec dosing. wellbutrin XL 150 started 12/07 for depression.? increased to 300 mg daily as of 12/10. trial of Q5 min checks 12/06 ended quickly once pt began head-banging and hitting self in face the same day. intermittent attempts at self-harm and/or agitation continue as of 12/20, while pt maintained on 5 min checks. 12/10- hypertriglycerides 533, ordered amylase, lipase, crp, cbc w diff, cmp r/o acute pancreatitis, consult to hospitalist pending 12/12/20 FU on patient's non-specific neurological symptoms, elevated CRP and CBC findings of lymphocytosis 12/14 fenofibrate started. 12/15 accepted haldol dec 150 mg after meeting with outpt providers. 12/16 declined trileptal dosing increase. 12/20 accepted trileptal increase. (2) Borderline personality disorder: Status: Acute Code(s): F60.3 - Borderline personality disorder I spent minutes with the patient and/or on the patient floor today, greater than?50% of which was spent counseling/coordinating care. Reason for contiued inpatient stay Substantial Risk for: harm to self, harm to others, inability to function and rapid decompensation
[2020-12-21] MEDS: HaloperidoL 5 MG TABLET PO ×2 (14:04→20:05)
[2020-12-21] MEDS: chlorproMAZINE HCl 25 MG TABLET PO (14:04)
--- NOTE | 2020-12-21 14:41 | PC.NURSE ---
Patient stated that she was starting to hear voices which were telling her she was no good . Given PRN medication, which the patient repsponded well to.
--- NOTE | 2020-12-21 14:45 | PC.NURSE ---
Pt. was in art group painting a picture when she became frustrated on how the picture looked. this sucks, it looks horrible . After art group ended and Pt. and myself went over to play monopoly. Pt. began to cry and said I'm hearing bad things in my head . When questioning pt. relied to bang my head . Pt. and I continued to talk and she said I don't want to hurt myself . Pt. agreed for me to take PRN from RN to help calm the thoughts in her head. Pt. was able to get through the negative voices without harming herself.
--- NOTE | 2020-12-21 17:06 | PC.NURSE ---
Addendum entered by TONY Narvaez 12/21/20 17:36: The pt. reported that in the moment of wanting to break the board to harm herself, that the pt. saw herself harming herself rather than hearing/being told to hurt herself. Original Note: At beginning of second shift, the pt. reported being bored to the clinician. The clinician gave many options such as coloring, playing different board and card games, writing, watching TV, etc., which the pt. declined. The pt. then participated in a conversation with the clinician about finding tools to utilize when the pt. is having thoughts to harm herself and how to utilize staff. The pt. then played a board game with staff and appeared to be in a bright space. The pt. was then observed to be digging her nails into her fingers then got a wooden board from the [employer] game and was observed to be banging it slightly on the table in the milieu. The clinician asked the pt. what was wrong and what was bothering the pt. but the pt. reported nothing being wrong. The pt. was observed trying to break the board and became nonverbal. The clinician grabbed the board and asked for it, but the pt. refused to let go. The clinician spoke to the pt. and discussed the pts. dogs and how the pt. reported her dogs needing her and that in order to go home to them, the pt. has to fight the thoughts to harm herself. The clinician also told the pt. that the pt. is worth so much and does not deserve to be hurt and that the staff see her and understand that she is going through a hard time and that the staff know she is working very hard but the pt. has to use her tools and coping skills to overcome these thoughts. The pt. then released the board and sat with the clinician. The pt. then requested to speak with the clinician and reported that sometimes the pt. does not hear things telling her to hurt herself, but sees herself hurting herself. The clinician asked what are tools that the pt. thinks would work to help reground the pt. and bring her back to the present and the pt. reported not knowing but would like to discuss tools. The pt. reported that she does not know if it is herself telling her to harm herself and making herself see herself harming or if it is something/someone else. The pt. discussed coping skills she has outside the hospital that helps her such as playing guitar, singing, and calling her aunt and the clinician reported that those are good skills but to think of some we can utilize inside the hospital such as grounding techniques and utilizing staff. The pt. was receptive to the conversation and requested to sing in another room.
[2020-12-21] MEDS: chlorproMAZINE HCl 25 MG TABLET 50 MG PO (20:02)
[2020-12-21] MEDS: chlorproMAZINE HCl 100 MG TABLET PO (20:04)
[2020-12-22] MEDS: OXcarbazepine 300 MG TABLET 600 MG PO ×2 (09:03→20:07)
[2020-12-22] MEDS: Famotidine 20 MG TABLET PO ×2 (09:04→20:07)
[2020-12-22] MEDS: Naltrexone HCl 50 MG TABLET PO (09:04)
[2020-12-22] MEDS: buPROPion HCl XL 300 MG TAB.ER.24H PO (09:04)
[2020-12-22] MEDS: Benztropine Mesylate 1 MG TABLET PO ×2 (09:04→20:08)
[2020-12-22] MEDS: Sertraline HCL 100 MG TABLET 200 MG PO (09:04)
[2020-12-22 11:48] VITALS: BP 138/89; PULSE 104; RESP 16; TEMP 36.4; O2SAT 99
--- NOTE | 2020-12-22 13:27 | P.PNPSI_ITS ---
Subjective Subjective Date of Service: 12/22/20 Reason For Visit: Psychosis Interim History: pt found in the milieu mid-morning, awake and interactive. she came to the interview room for interview. she reported she was up at 0700 and showered this morning and that she was practising coping skills last evening. she did have an episode where she had thoughts of hitting herself in her head with a chess board but she did not do it and she wasn't going to try to break it into small pieces to harm herself with. she acknowledged the dogs at [employer] might be inducements to motivate her to regulate her behavior here so she can discharge home to be with them. she asked that fenofibrate be discontinued bcse she wants to be on fewer medications. it was explained that the medication was for TGs and that stopping the medication would increase her risk of heart attack or stroke. she acknowledged and accepted the risk. per staff, pt was having thoughts last night of, you're no good. she reported thorazine 25 mg PRN helped (and reported to this advertising writer that that dose did not make her sleepy). she was reported to have broken a chess board and was planning to harm herself with it but was talked down by staff. she was working on coping strategies last night. went to sleep at 0100 and got up at 0700. Mental Status Exam Mental Status Exam Narrative: up and about the unit, unkempt appearance, overweight. awake. good eye contact, attentive. No Tics or Tremors. No abnormal involuntary movements. much easier to engage. affect is full range, and pt laughs multiple times during the interview. non-labile. no mood complaints expressed. no SI/HI/AVH expressed. Has cognitive impairment r/t alcohol syndrome. Insight/ Judgment limited, questionable historian. Diagnostics Vital Signs (24Hr): Vital Signs - 24 hr 12/22/20 11:48 Temperature 97.5 F Pulse Rate 104 H Respiratory Rate 16 Blood Pressure 138/89 Pulse Oximetry 99 Body Mass Index 42.9 Labs Results: 12/11/20 06:55 12/10/20 13:09 Imaging Radiology Impressions: ITS Impressions Shoulder X-Ray 11/27/20 11:39 IMPRESSION: * Normal left shoulder. * Normal left wrist. No acute fracture or malalignment. Wrist X-Ray 11/27/20 11:39 IMPRESSION: * Normal left shoulder. * Normal left wrist. No acute fracture or malalignment. Medications Medications Current Medications Acetaminophen (Acetaminophen 325 Mg Tablet) 650 mg PO Q6H PRN PRN Reason: Headache/Pain Mild Scale (1-3) Last Admin: 11/27/20 18:44 Dose: 650 mg Documented by: Al Hydroxide/Mg Hydroxide (Magnesium Hydrox/Alum Hydrox 30 Ml Oral.Susp) 30 ml PO Q6H PRN PRN Reason: Heartburn/Nausea Last Admin: 12/04/20 18:27 Dose: 30 ml Documented by: Benztropine Mesylate (Benztropine Mesylate 1 Mg Tablet) 1 mg PO BID COUNTS INCLUDE 234 BEDS AT THE [facility] Last Admin: 12/22/20 09:04 Dose: 1 mg Documented by: Bupropion HCl (Bupropion Hcl Xl 300 Mg Tab.Er.24h) 300 mg PO DAILY COUNTS INCLUDE 234 BEDS AT THE [facility] Last Admin: 12/22/20 09:04 Dose: 300 mg Documented by: Chlorpromazine HCl (Chlorpromazine Hcl 25 Mg Tablet) 50 mg PO BEDTIME PRN PRN Reason: Insomnia Last Admin: 12/15/20 23:23 Dose: 50 mg Documented by: Chlorpromazine HCl (Chlorpromazine Hcl 100 Mg Tablet) 100 mg PO BEDTIME COUNTS INCLUDE 234 BEDS AT THE [facility] Last Admin: 12/21/20 20:04 Dose: 100 mg Documented by: Chlorpromazine HCl (Chlorpromazine Hcl 25 Mg Tablet) 50 mg PO BEDTIME COUNTS INCLUDE 234 BEDS AT THE [facility] Last Admin: 12/21/20 20:02 Dose: 50 mg Documented by: Chlorpromazine HCl (Chlorpromazine Hcl 25 Mg Tablet) 25 mg PO Q4H PRN PRN Reason: agitation Last Admin: 12/21/20 14:04 Dose: 25 mg Documented by: Famotidine (Famotidine 20 Mg Tablet) 20 mg PO BID COUNTS INCLUDE 234 BEDS AT THE [facility] Last Admin: 12/22/20 09:04 Dose: 20 mg Documented by: Haloperidol (Haloperidol 5 Mg Tablet) 5 mg PO 1500 COUNTS INCLUDE 234 BEDS AT THE [facility] Last Admin: 12/21/20 14:04 Dose: 5 mg Documented by: Haloperidol (Haloperidol 5 Mg Tablet) 5 mg PO BEDTIME COUNTS INCLUDE 234 BEDS AT THE [facility] Last Admin: 12/21/20 20:05 Dose: 5 mg Documented by: Haloperidol Decanoate (Haloperidol Decanoate 50 Mg/Ml Ampul) 150 mg IM Q28D COUNTS INCLUDE 234 BEDS AT THE [facility] Last Admin: 12/15/20 15:06 Dose: 150 mg Documented by: Hydroxyzine HCl (Hydroxyzine Hcl 50 Mg Tablet) 50 mg PO Q6H PRN PRN Reason: Anxiety Last Admin: 12/21/20 10:29 Dose: 50 mg Documented by: Hydroxyzine HCl (Hydroxyzine Hcl 50 Mg Tablet) 50 mg PO BEDTIME COUNTS INCLUDE 234 BEDS AT THE [facility] Last Admin: 12/21/20 20:04 Dose: 50 mg Documented by: Magnesium Hydroxide (Milk Of Magnesia 30 Ml Oral.Susp) 30 ml PO DAILY PRN PRN Reason: Constipation Naltrexone HCl (Naltrexone Hcl 50 Mg Tablet) 50 mg PO DAILY COUNTS INCLUDE 234 BEDS AT THE [facility] Last Admin: 12/22/20 09:04 Dose: 50 mg Documented by: Patient Own (Medication (Biotene)) 1 each BUCCAL BID PRN PRN Reason: Dry Mouth Last Admin: 12/09/20 16:58 Dose: 1 each Documented by: Oxcarbazepine (Oxcarbazepine 300 Mg Tablet) 600 mg PO BID COUNTS INCLUDE 234 BEDS AT THE [facility] Last Admin: 12/22/20 09:03 Dose: 600 mg Documented by: Sertraline HCl (Sertraline Hcl 100 Mg Tablet) 200 mg PO DAILY COUNTS INCLUDE 234 BEDS AT THE [facility] Last Admin: 12/22/20 09:04 Dose: 200 mg Documented by: Allergies Allergies Allergy/AdvReac Type Severity Reaction Status Date / Time No Known Allergies Allergy Unverified 11/06/19 19:53 [No Known Allergies*] Assessment & Plan Assessment & Plan (1) Schizoaffective disorder, depressive type: Status: Acute Code(s): F25.1 - Schizoaffective disorder, depressive type Assessment and Plan: Pt is a 25 y.o. Female who carries a dx of schizoaffective do, depressive type, alcohol syndrome, BPD. She does not appear to be a reliable historian but does report feeling worsening sx of depression and irritability. She presents with negative affect, low energy, withdrawn, and agitation. She currently denies assaultive ideation or HI. She endorses urges to self harm but does not have plan or intent, hx of head banging and hitting herself. She reportedly was not adherent with meds but pt denies this, collateral hx needed. Psychiatrist is Dr. Marcial David. On haldol dec, recently increased to 150 mg. Pt states she does not want to change her current med regimen, wants to add a medication to target sx of agitation, mood instability.? 11/21 had episode of head-banging, fist pounding, and tied string around neck in response to not being allowed to use her phone.? placed on 1:1 for safety 11/21.? refused to have discussion with MD about safety on 11/22 and later on 11/22 tied ligature around her wrist and threatened to eat a staple.? 11/23 threatened to put a bottle cap in her mouth in an attempt to choke herself. Plan: started trileptal 300 mg BID for mood stability, reviewed risks and benefits. Continue OP med regimen and monitor for benefit. She is utilizing her PRNs with apparent benefit. trileptal level drawn 11/25 8.9 (target range 8-35),? other labs 11/25 not concerning. increased trileptal to 450 BID as of 11/25.? level drawn 12/09: 12.9. pt declined to increase trileptal dosing until 12/20, when it was increased to 600 BID. haldol decanoate 150 mg next due 12/10; ordered.? pt then said dosing is at her discretion and asked for 100 mg, so order changed to 100 mg. order returned to 150 mg for 12/14, as it was not given earlier. pt refused the shot 12/14 bcse it would have had to have been given as two separate shots. 12/15 she also refused to have 100 mg, which could have been given as 1 shot, stating she will wait for discharge and then have her home health nurse give all 150 mg in one shot. Scheduled Haldol 5 mg po TID; due to daytime sedation and recent increase in haldol decanoate dosing, reduced daytime haldol dosing from thrice daily to twice daily, 5 mg each.? unsure of plan to discontinue PO haldol entirely in favor of decanoate formulation as pt has been refusing adequate haldol dec dosing. wellbutrin XL 150 started 12/07 for depression.? increased to 300 mg daily as of 12/10. trial of Q5 min checks 12/06 ended quickly once pt began head-banging and hitting self in face the same day. intermittent attempts at self-harm and/or agitation continue as of 12/20, while pt maintained on 5 min checks. 12/10- hypertriglycerides 533, ordered amylase, lipase, crp, cbc w diff, cmp r/o acute pancreatitis, consult to hospitalist pending 12/12/20 FU on patient's non-specific neurological symptoms, elevated CRP and CBC findings of lymphocytosis 12/14 fenofibrate started. 12/15 accepted haldol dec 150 mg after meeting with outpt providers. 12/16 declined trileptal dosing increase. 12/20 accepted trileptal increase. (2) Borderline personality disorder: Status: Acute Code(s): F60.3 - Borderline personality disorder I spent minutes with the patient and/or on the patient floor today, greater than?50% of which was spent counseling/coordinating care. Reason for contiued inpatient stay Substantial Risk for: harm to self, inability to function and rapid decompen sation
[2020-12-22] MEDS: HaloperidoL 5 MG TABLET PO ×2 (15:40→20:07)
[2020-12-22] MEDS: hydrOXYzine HCL 50 MG TABLET PO ×2 (17:38→20:08)
[2020-12-22] MEDS: chlorproMAZINE HCl 25 MG TABLET PO (17:38)
[2020-12-22] MEDS: chlorproMAZINE HCl 100 MG TABLET PO (20:07)
[2020-12-22] MEDS: chlorproMAZINE HCl 25 MG TABLET 50 MG PO (20:07)
[2020-12-22 20:13] VITALS: BP 161/88; PULSE 110; TEMP 36.8; O2SAT 100
[2020-12-23] MEDS: Naltrexone HCl 50 MG TABLET PO (08:23)
[2020-12-23] MEDS: buPROPion HCl XL 300 MG TAB.ER.24H PO (08:23)
[2020-12-23] MEDS: Sertraline HCL 100 MG TABLET 200 MG PO (08:23)
[2020-12-23] MEDS: OXcarbazepine 300 MG TABLET 600 MG PO ×2 (08:23→22:36)
[2020-12-23] MEDS: Famotidine 20 MG TABLET PO ×2 (08:23→22:36)
[2020-12-23] MEDS: Benztropine Mesylate 1 MG TABLET PO ×2 (08:23→22:36)
[2020-12-23 11:13] VITALS: BP 161/88; PULSE 110; O2SAT 100
--- NOTE | 2020-12-23 12:01 | P.PNPSI_ITS ---
Subjective Subjective Date of Service: 12/23/20 Reason For Visit: Psychosis Interim History: pt found in the milieu doing art project, with 1:1 staff nearby. came to interview room for interview. c/o pain in right hip and around knee with standing, chronic intermittent. she was prevented from getting up from the table in the milieu for several minutes due to this pain. agreeable to PT consult for the pain. states she does not wish to discuss what happened last night, but ultimately opens up that she had been assigned staff that doesn't normally work on [employer] and doesn't know her well last evening; she asserted that such staff don't know how to help her de-escalate. this was in the context of MD's encouraging her to discuss her emotions with staff and work on coping skills with them even if she did not wish to do so with MD. discussed identifying the escalating steps for her and finding places to intervene. pt indicated willingness to work on coping skills, noted she was up at 070 0and showered this morning, behavior for which MD praised her. per staff, spent days playing monopoly. entitled re not having a roommate. 5 pm was pacing, hypervigilant. got thorazine. 10 minutes later started pulling signs off the wall; staff assessment was that her preferred 1:1 staff was seeing another pt. hira asked for that staff, who was then assigned to be her 1:1. Mental Status Exam Mental Status Exam Narrative: up and about the unit, adequate hygiene, overweight. awake. fair eye contact, inattentive. No Tics or Tremors. No abnormal involuntary movements. easier to engage. affect is constricted. non-labile. no mood complaints expressed. no SI/HI/AVH expressed. Has cognitive impairment r/t alcohol syndrome. Insight/ Judgment limited, questionable historian. Diagnostics Vital Signs (24Hr): Vital Signs - 24 hr 12/22/20 20:13 12/23/20 11:13 Temperature 98.3 F Pulse Rate 110 H 110 H Blood Pressure 161/88 H 161/88 H Pulse Oximetry 100 100 Body Mass Index 42.9 Labs Results: 12/11/20 06:55 12/10/20 13:09 Imaging Radiology Impressions: ITS Impressions Shoulder X-Ray 11/27/20 11:39 IMPRESSION: * Normal left shoulder. * Normal left wrist. No acute fracture or malalignment. Wrist X-Ray 11/27/20 11:39 IMPRESSION: * Normal left shoulder. * Normal left wrist. No acute fracture or malalignment. Medications Medications Current Medications Acetaminophen (Acetaminophen 325 Mg Tablet) 650 mg PO Q6H PRN PRN Reason: Headache/Pain Mild Scale (1-3) Last Admin: 11/27/20 18:44 Dose: 650 mg Documented by: Al Hydroxide/Mg Hydroxide (Magnesium Hydrox/Alum Hydrox 30 Ml Oral.Susp) 30 ml PO Q6H PRN PRN Reason: Heartburn/Nausea Last Admin: 12/04/20 18:27 Dose: 30 ml Documented by: Benztropine Mesylate (Benztropine Mesylate 1 Mg Tablet) 1 mg PO BID [facility] Last Admin: 12/23/20 08:23 Dose: 1 mg Documented by: Bupropion HCl (Bupropion Hcl Xl 300 Mg Tab.Er.24h) 300 mg PO DAILY [facility] Last Admin: 12/23/20 08:23 Dose: 300 mg Documented by: Chlorpromazine HCl (Chlorpromazine Hcl 25 Mg Tablet) 50 mg PO BEDTIME PRN PRN Reason: Insomnia Last Admin: 12/15/20 23:23 Dose: 50 mg Documented by: Chlorpromazine HCl (Chlorpromazine Hcl 100 Mg Tablet) 100 mg PO BEDTIME [facility] Last Admin: 12/22/20 20:07 Dose: 100 mg Documented by: Chlorpromazine HCl (Chlorpromazine Hcl 25 Mg Tablet) 50 mg PO BEDTIME [facility] Last Admin: 12/22/20 20:07 Dose: 50 mg Documented by: Chlorpromazine HCl (Chlorpromazine Hcl 25 Mg Tablet) 25 mg PO Q4H PRN PRN Reason: agitation Last Admin: 12/22/20 17:38 Dose: 25 mg Documented by: Famotidine (Famotidine 20 Mg Tablet) 20 mg PO BID [facility] Last Admin: 12/23/20 08:23 Dose: 20 mg Documented by: Haloperidol (Haloperidol 5 Mg Tablet) 5 mg PO 1500 [facility] Last Admin: 12/22/20 15:40 Dose: 5 mg Documented by: Haloperidol (Haloperidol 5 Mg Tablet) 5 mg PO BEDTIME [facility] Last Admin: 12/22/20 20:07 Dose: 5 mg Documented by: Haloperidol Decanoate (Haloperidol Decanoate 50 Mg/Ml Ampul) 150 mg IM Q28D [facility] Last Admin: 12/15/20 15:06 Dose: 150 mg Documented by: Hydroxyzine HCl (Hydroxyzine Hcl 50 Mg Tablet) 50 mg PO Q6H PRN PRN Reason: Anxiety Last Admin: 12/22/20 17:38 Dose: 50 mg Documented by: Hydroxyzine HCl (Hydroxyzine Hcl 50 Mg Tablet) 50 mg PO BEDTIME [facility] Last Admin: 12/22/20 20:08 Dose: 50 mg Documented by: Magnesium Hydroxide (Milk Of Magnesia 30 Ml Oral.Susp) 30 ml PO DAILY PRN PRN Reason: Constipation Naltrexone HCl (Naltrexone Hcl 50 Mg Tablet) 50 mg PO DAILY [facility] Last Admin: 12/23/20 08:23 Dose: 50 mg Documented by: Patient Own (Medication (Biotene)) 1 each BUCCAL BID PRN PRN Reason: Dry Mouth Last Admin: 12/09/20 16:58 Dose: 1 each Documented by: Oxcarbazepine (Oxcarbazepine 300 Mg Tablet) 600 mg PO BID [facility] Last Admin: 12/23/20 08:23 Dose: 600 mg Documented by: Sertraline HCl (Sertraline Hcl 100 Mg Tablet) 200 mg PO DAILY [facility] Last Admin: 12/23/20 08:23 Dose: 200 mg Documented by: Allergies Allergies Allergy/AdvReac Type Severity Reaction Status Date / Time No Known Allergies Allergy Unverified 11/06/19 19:53 [No Known Allergies*] Assessment & Plan Assessment & Plan (1) Schizoaffective disorder, depressive type: Status: Acute Code(s): F25.1 - Schizoaffective disorder, depressive type Assessment and Plan: Pt is a 25 y.o. Female who carries a dx of schizoaffective do, depressive type, alcohol syndrome, BPD. She does not appear to be a reliable historian but does report feeling worsening sx of depression and irritability. She presents with negative affect, low energy, withdrawn, and agitation. She currently denies assaultive ideation or HI. She endorses urges to self harm but does not have plan or intent, hx of head banging and hitting herself. She reportedly was not adherent with meds but pt denies this, collateral hx needed. Psychiatrist is Dr. Marcial David. On haldol dec, recently increased to 150 mg. Pt states she does not want to change her current med regimen, wants to add a medication to target sx of agitation, mood instability.? 11/21 had episode of head-banging, fist pounding, and tied string around neck in response to not being allowed to use her phone.? placed on 1:1 for safety 11/21.? refused to have discussion with MD about safety on 11/22 and later on 11/22 tied ligature around her wrist and threatened to eat a staple.? 11/23 threatened to put a bottle cap in her mouth in an attempt to choke herself. Plan: started trileptal 300 mg BID for mood stability, reviewed risks and benefits. Continue OP med regimen and monitor for benefit. She is utilizing her PRNs with apparent benefit. trileptal level drawn 11/25 8.9 (target range 8-35),? other labs 11/25 not concerning. increased trileptal to 450 BID as of 11/25.? level drawn 12/09: 12.9. pt declined to increase trileptal dosing until 12/20, when it was increased to 600 BID. haldol decanoate 150 mg next due 12/10; ordered.? pt then said dosing is at her discretion and asked for 100 mg, so order changed to 100 mg. order returned to 150 mg for 12/14, as it was not given earlier. pt refused the shot 12/14 bcse it would have had to have been given as two separate shots. 12/15 she also refused to have 100 mg, which could have been given as 1 shot, stating she will wait for discharge and then have her home health nurse give all 150 mg in one shot. Scheduled Haldol 5 mg po TID; due to daytime sedation and recent increase in haldol decanoate dosing, reduced daytime haldol dosing from thrice daily to twice daily, 5 mg each.? unsure of plan to discontinue PO haldol entirely in favor of decanoate formulation as pt has been refusing adequate haldol dec dosing. wellbutrin XL 150 started 12/07 for depression.? increased to 300 mg daily as of 12/10. trial of Q5 min checks 12/06 ended quickly once pt began head-banging and hitting self in face the same day. intermittent attempts at self-harm and/or agitation continue as of 12/20, while pt maintained on 5 min checks. 12/10- hypertriglycerides 533, ordered amylase, lipase, crp, cbc w diff, cmp r/o acute pancreatitis, consult to hospitalist pending 12/12/20 FU on patient's non-specific neurological symptoms, elevated CRP and CBC findings of lymphocytosis 12/14 fenofibrate started. 12/15 accepted haldol dec 150 mg after meeting with outpt providers. 12/16 declined trileptal dosing increase. 12/20 accepted trileptal increase. (2) Borderline personality disorder: Status: Acute Code(s): F60.3 - Borderline personality disorder I spent minutes with the patient and/or on the patient floor today, greater than?50% of which was spent counseling/coordinating care. Reason for contiued inpatient stay Substantial Risk for: harm to self, harm to others, inability to function and rapid decompensation
[2020-12-23] MEDS: HaloperidoL 5 MG TABLET PO ×2 (15:08→22:36)
[2020-12-23] MEDS: chlorproMAZINE HCl 25 MG TABLET 50 MG PO (22:36)
[2020-12-23] MEDS: chlorproMAZINE HCl 100 MG TABLET PO (22:36)
[2020-12-23] MEDS: hydrOXYzine HCL 50 MG TABLET PO (22:36)
[2020-12-23 23:45] VITALS: BP 136/92; PULSE 111; TEMP 36.3; O2SAT 97
[2020-12-24] MEDS: Famotidine 20 MG TABLET PO ×2 (08:48→20:35)
[2020-12-24] MEDS: Benztropine Mesylate 1 MG TABLET PO ×2 (08:48→20:36)
[2020-12-24] MEDS: Sertraline HCL 100 MG TABLET 200 MG PO (08:49)
[2020-12-24] MEDS: OXcarbazepine 300 MG TABLET 600 MG PO ×2 (08:49→20:35)
[2020-12-24] MEDS: buPROPion HCl XL 300 MG TAB.ER.24H PO (08:50)
[2020-12-24] MEDS: Naltrexone HCl 50 MG TABLET PO (08:50)
--- NOTE | 2020-12-24 10:05 | HO.PSYCHPN ---
Subjective Subjective Date of Service: 12/24/20 Reason For Visit: Psychosis Subjective Notes: Conditional Voluntary Interim History: Pt seen with clinician Cinda. Pt was in bed. She reports sleeping well but also reports feeling tired in morning and not wanting to get out of bed. She denies SI/HI. She reports she does not want to go to groups. SHe denies VH/AH. This senior copywriter spoke with shared living provider Margaret- per request of team as they have questions about medications and pt's status- this senior copywriter provided update on current medications- recent changes including increase of trileptal to target explosive/impulsive behaviors, thorazine as needed in addition to standing dose of haldol and po haldol TID. Review of Systems Review of Systems Gen: no fever Resp: no sob, no cough CV: no chest, no CARLOS, no leg edema GI: No n/v, no abd pain Neuro: No confusion, SI MSK: No hip pain at the moment. Yes all other systems are reviewed and are negative and Unobtainable due to mental condition (refusing to answer questions or participate in exam) Reports behavioral changes Psychiatric: Reports behavioral changes, Reports irritability, Reports mood swings, Reports paranoia, Reports homicidal ideation and Reports suicidal ideation (denies) Mental Status Exam Mental Status Exam Narrative: up and about the unit, adequate hygiene, overweight. awake. fair eye contact, inattentive. No Tics or Tremors. No abnormal involuntary movements. easier to engage. affect is constricted. non-labile. no mood complaints expressed. no SI/HI/AVH expressed. Has cognitive impairment r/t alcohol syndrome. Insight/ Judgment limited, questionable historian. Patient Appearance: Appropriate Patient Orientation: Person and Place Level of Consciousness: Awake and Alert Patient Behavior: Appropriate, Talkative and Good Eye Contact Mood Description: Withdrawn and Constricted Affect Description: Flat Patient Cognition Impaired: Yes Ability to Follow Directions: Fair Speech Pattern: Spontaneous Speech Memory Description: Episodic Impaired Diagnostics Vital Signs (24Hr): Vital Signs - 24 hr 12/23/20 23:45 Temperature 97.3 F Pulse Rate 111 H Blood Pressure 136/92 H Pulse Oximetry 97 Body Mass Index 42.9 Labs Results: 12/11/20 06:55 12/10/20 13:09 Imaging Radiology Impressions: ITS Impressions Shoulder X-Ray 11/27/20 11:39 IMPRESSION: * Normal left shoulder. * Normal left wrist. No acute fracture or malalignment. Wrist X-Ray 11/27/20 11:39 IMPRESSION: * Normal left shoulder. * Normal left wrist. No acute fracture or malalignment. Medications Medications Current Medications Acetaminophen (Acetaminophen 325 Mg Tablet) 650 mg PO Q6H PRN PRN Reason: Headache/Pain Mild Scale (1-3) Last Admin: 11/27/20 18:44 Dose: 650 mg Documented by: Al Hydroxide/Mg Hydroxide (Magnesium Hydrox/Alum Hydrox 30 Ml Oral.Susp) 30 ml PO Q6H PRN PRN Reason: Heartburn/Nausea Last Admin: 12/04/20 18:27 Dose: 30 ml Documented by: Benztropine Mesylate (Benztropine Mesylate 1 Mg Tablet) 1 mg PO BID [facility] Last Admin: 12/24/20 08:48 Dose: 1 mg Documented by: Bupropion HCl (Bupropion Hcl Xl 300 Mg Tab.Er.24h) 300 mg PO DAILY [facility] Last Admin: 12/24/20 08:50 Dose: 300 mg Documented by: Chlorpromazine HCl (Chlorpromazine Hcl 100 Mg Tablet) 100 mg PO BEDTIME [facility] Last Admin: 12/23/20 22:36 Dose: 100 mg Documented by: Chlorpromazine HCl (Chlorpromazine Hcl 25 Mg Tablet) 25 mg PO Q4H PRN PRN Reason: agitation Last Admin: 12/22/20 17:38 Dose: 25 mg Documented by: Chlorpromazine HCl (Chlorpromazine Hcl 10 Mg Tablet) 50 mg PO BEDTIME [facility] Chlorpromazine HCl (Chlorpromazine Hcl 10 Mg Tablet) 50 mg PO BEDTIME PRN PRN Reason: Insomnia Famotidine (Famotidine 20 Mg Tablet) 20 mg PO BID [facility] Last Admin: 12/24/20 08:48 Dose: 20 mg Documented by: Haloperidol (Haloperidol 5 Mg Tablet) 5 mg PO 1500 [facility] Last Admin: 12/23/20 15:08 Dose: 5 mg Documented by: Haloperidol (Haloperidol 5 Mg Tablet) 5 mg PO BEDTIME [facility] Last Admin: 12/23/20 22:36 Dose: 5 mg Documented by: Haloperidol Decanoate (Haloperidol Decanoate 50 Mg/Ml Ampul) 150 mg IM Q28D [facility] [place] Last Admin: 12/15/20 15:06 Dose: 150 mg Documented by: Hydroxyzine HCl (Hydroxyzine Hcl 50 Mg Tablet) 50 mg PO Q6H PRN PRN Reason: Anxiety Last Admin: 12/22/20 17:38 Dose: 50 mg Documented by: Hydroxyzine HCl (Hydroxyzine Hcl 50 Mg Tablet) 50 mg PO BEDTIME [facility] Last Admin: 12/23/20 22:36 Dose: 50 mg Documented by: Magnesium Hydroxide (Milk Of Magnesia 30 Ml Oral.Susp) 30 ml PO DAILY PRN PRN Reason: Constipation Naltrexone HCl (Naltrexone Hcl 50 Mg Tablet) 50 mg PO DAILY [facility] [place] Last Admin: 12/24/20 08:50 Dose: 50 mg Documented by: Patient Own (Medication (Biotene)) 1 each BUCCAL BID PRN PRN Reason: Dry Mouth Last Admin: 12/09/20 16:58 Dose: 1 each Documented by: Oxcarbazepine (Oxcarbazepine 300 Mg Tablet) 600 mg PO BID [facility] [place] Last Admin: 12/24/20 08:49 Dose: 600 mg Documented by: Sertraline HCl (Sertraline Hcl 100 Mg Tablet) 200 mg PO DAILY [facility] [place] Last Admin: 12/24/20 08:49 Dose: 200 mg Documented by: Allergies Allergies Allergy/AdvReac Type Severity Reaction Status Date / Time No Known Allergies Allergy Unverified 11/06/19 19:53 [No Known Allergies*] Assessment & Plan Assessment & Plan (1) Schizoaffective disorder, depressive type: Status: Acute Code(s): F25.1 - Schizoaffective disorder, depressive type Assessment and Plan: Pt is a 25 y.o. Female who carries a dx of schizoaffective do, depressive type, alcohol syndrome, BPD. She does not appear to be a reliable historian but does report feeling worsening sx of depression and irritability. She presents with negative affect, low energy, withdrawn, and agitation. She currently denies assaultive ideation or HI. She endorses urges to self harm but does not have plan or intent, hx of head banging and hitting herself. She reportedly was not adherent with meds but pt denies this, collateral hx needed. Psychiatrist is Dr. Marcial David. On haldol dec, recently increased to 150 mg. Pt states she does not want to change her current med regimen, wants to add a medication to target sx of agitation, mood instability.? 11/21 had episode of head-banging, fist pounding, and tied string around neck in response to not being allowed to use her phone.? placed on 1:1 for safety 11/21.? refused to have discussion with MD about safety on 11/22 and later on 11/22 tied ligature around her wrist and threatened to eat a staple.? 11/23 threatened to put a bottle cap in her mouth in an attempt to choke herself. Plan: started trileptal 300 mg BID for mood stability, reviewed risks and benefits. Continue OP med regimen and monitor for benefit. She is utilizing her PRNs with apparent benefit. trileptal level drawn 11/25 8.9 (target range 8-35),? other labs 11/25 not concerning. increased trileptal to 450 BID as of 11/25.? level drawn 12/09: 12.9. pt declined to increase trileptal dosing until 12/20, when it was increased to 600 BID. haldol decanoate 150 mg next due 12/10; ordered.? pt then said dosing is at her discretion and asked for 100 mg, so order changed to 100 mg. order returned to 150 mg for 12/14, as it was not given earlier. pt refused the shot 12/14 bcse it would have had to have been given as two separate shots. 12/15 she also refused to have 100 mg, which could have been given as 1 shot, stating she will wait for discharge and then have her home health nurse give all 150 mg in one shot. Scheduled Haldol 5 mg po TID; due to daytime sedation and recent increase in haldol decanoate dosing, reduced daytime haldol dosing from thrice daily to twice daily, 5 mg each.? unsure of plan to discontinue PO haldol entirely in favor of decanoate formulation as pt has been refusing adequate haldol dec dosing. wellbutrin XL 150 started 12/07 for depression.? increased to 300 mg daily as of 12/10. trial of Q5 min checks 12/06 ended quickly once pt began head-banging and hitting self in face the same day. intermittent attempts at self-harm and/or agitation continue as of 12/20, while pt maintained on 5 min checks. 12/10- hypertriglycerides 533, ordered amylase, lipase, crp, cbc w diff, cmp r/o acute pancreatitis, consult to hospitalist pending 12/12/20 FU on patient's non-specific neurological symptoms, elevated CRP and CBC findings of lymphocytosis 12/14 fenofibrate started. 12/15 accepted haldol dec 150 mg after meeting with outpt providers. 12/16 declined trileptal dosing increase. 12/20 accepted trileptal increase. (2) Borderline personality disorder: Status: Acute Code(s): F60.3 - Borderline personality disorder I spent minutes with the patient and/or on the patient floor today, greater than?50% of which was spent counseling/coordinating care. Reason for contiued inpatient stay Substantial Risk for: harm to self, harm to others and inability to function
[2020-12-24] MEDS: HaloperidoL 5 MG TABLET PO ×2 (16:37→20:36)
[2020-12-24 18:00] VITALS: RESP 14
[2020-12-24] MEDS: chlorproMAZINE HCl 10 MG TABLET 50 MG PO (20:34)
[2020-12-24] MEDS: chlorproMAZINE HCl 100 MG TABLET PO (20:35)
[2020-12-24] MEDS: hydrOXYzine HCL 50 MG TABLET PO (20:35)
[2020-12-25] MEDS: Benztropine Mesylate 1 MG TABLET PO ×2 (11:14→21:48)
[2020-12-25] MEDS: OXcarbazepine 300 MG TABLET 600 MG PO ×2 (11:14→21:47)
[2020-12-25] MEDS: Naltrexone HCl 50 MG TABLET PO (11:14)
[2020-12-25] MEDS: buPROPion HCl XL 300 MG TAB.ER.24H PO (11:14)
[2020-12-25] MEDS: Sertraline HCL 100 MG TABLET 200 MG PO (11:15)
[2020-12-25] MEDS: Famotidine 20 MG TABLET PO ×2 (11:15→21:47)
--- NOTE | 2020-12-25 13:12 | P.PNPSI_ITS ---
Subjective Subjective Date of Service: 12/25/20 Reason For Visit: Psychosis Interim History: The nursing staff reported that she verbalized bad thoughts but refused to elaborate. No active agitation. Today, she took a shower, no new symptoms Mental Status Exam Mental Status Exam Patient Appearance: Well Grooomed Patient Orientation: Person Level of Consciousness: Awake Patient Behavior: Guarded and Suspicious Mood Description: Depressed Affect Description: Constricted Patient Cognition Impaired: Yes Ability to Follow Directions: Fair Speech Pattern: Clear Hallucinations: None Delusions: Paranoid Ideation Thought Process: Linear Thought Content: positive for Circumstantial Judgement: Poor Diagnostics Vital Signs (24Hr): Vital Signs - 24 hr 12/24/20 18:00 Respiratory Rate 14 Body Mass Index 42.9 Labs Results: 12/11/20 06:55 12/10/20 13:09 Imaging Radiology Impressions: ITS Impressions Shoulder X-Ray 11/27/20 11:39 IMPRESSION: * Normal left shoulder. * Normal left wrist. No acute fracture or malalignment. Wrist X-Ray 11/27/20 11:39 IMPRESSION: * Normal left shoulder. * Normal left wrist. No acute fracture or malalignment. Medications Medications Current Medications Acetaminophen (Acetaminophen 325 Mg Tablet) 650 mg PO Q6H PRN PRN Reason: Headache/Pain Mild Scale (1-3) Last Admin: 11/27/20 18:44 Dose: 650 mg Documented by: Al Hydroxide/Mg Hydroxide (Magnesium Hydrox/Alum Hydrox 30 Ml Oral.Susp) 30 ml PO Q6H PRN PRN Reason: Heartburn/Nausea Last Admin: 12/04/20 18:27 Dose: 30 ml Documented by: Benztropine Mesylate (Benztropine Mesylate 1 Mg Tablet) 1 mg PO BID [facility] Last Admin: 12/25/20 11:14 Dose: 1 mg Documented by: Bupropion HCl (Bupropion Hcl Xl 300 Mg Tab.Er.24h) 300 mg PO DAILY [facility] Last Admin: 12/25/20 11:14 Dose: 300 mg Documented by: Chlorpromazine HCl (Chlorpromazine Hcl 100 Mg Tablet) 100 mg PO BEDTIME [facility] Last Admin: 12/24/20 20:35 Dose: 100 mg Documented by: Chlorpromazine HCl (Chlorpromazine Hcl 25 Mg Tablet) 25 mg PO Q4H PRN PRN Reason: agitation Last Admin: 12/22/20 17:38 Dose: 25 mg Documented by: Chlorpromazine HCl (Chlorpromazine Hcl 10 Mg Tablet) 50 mg PO BEDTIME [facility] Last Admin: 12/24/20 20:34 Dose: 50 mg Documented by: Chlorpromazine HCl (Chlorpromazine Hcl 10 Mg Tablet) 50 mg PO BEDTIME PRN PRN Reason: Insomnia Famotidine (Famotidine 20 Mg Tablet) 20 mg PO BID [facility] Last Admin: 12/25/20 11:15 Dose: 20 mg Documented by: Haloperidol (Haloperidol 5 Mg Tablet) 5 mg PO 1500 [facility] Last Admin: 12/24/20 16:37 Dose: 5 mg Documented by: Haloperidol (Haloperidol 5 Mg Tablet) 5 mg PO BEDTIME [facility] Last Admin: 12/24/20 20:36 Dose: 5 mg Documented by: Haloperidol Decanoate (Haloperidol Decanoate 50 Mg/Ml Ampul) 150 mg IM Q28D [facility] Last Admin: 12/15/20 15:06 Dose: 150 mg Documented by: Hydroxyzine HCl (Hydroxyzine Hcl 50 Mg Tablet) 50 mg PO Q6H PRN PRN Reason: Anxiety Last Admin: 12/22/20 17:38 Dose: 50 mg Documented by: Hydroxyzine HCl (Hydroxyzine Hcl 50 Mg Tablet) 50 mg PO BEDTIME [facility] Last Admin: 12/24/20 20:35 Dose: 50 mg Documented by: Magnesium Hydroxide (Milk Of Magnesia 30 Ml Oral.Susp) 30 ml PO DAILY PRN PRN Reason: Constipation Multi-Ingred Cream/Lotion/Oil/Oint (Mineral Oil/Petrolatum,White 106 Gm Tube) 1 appl TOPICAL TID PRN; Protocol PRN Reason: itching Naltrexone HCl (Naltrexone Hcl 50 Mg Tablet) 50 mg PO DAILY [facility] Last Admin: 12/25/20 11:14 Dose: 50 mg Documented by: Patient Own (Medication (Biotene)) 1 each BUCCAL BID PRN PRN Reason: Dry Mouth Last Admin: 12/09/20 16:58 Dose: 1 each Documented by: Oxcarbazepine (Oxcarbazepine 300 Mg Tablet) 600 mg PO BID [facility] Last Admin: 12/25/20 11:14 Dose: 600 mg Documented by: Sertraline HCl (Sertraline Hcl 100 Mg Tablet) 200 mg PO DAILY [facility] Last Admin: 12/25/20 11:15 Dose: 200 mg Documented by: Allergies Allergies Allergy/AdvReac Type Severity Reaction Status Date / Time No Known Allergies Allergy Unverified 11/06/19 19:53 [No Known Allergies*] Assessment & Plan Assessment & Plan (1) Schizoaffective disorder, depressive type: Status: Acute Code(s): F25.1 - Schizoaffective disorder, depressive type Assessment and Plan: Pt is a 25 y.o. Female who carries a dx of schizoaffective do, depressive type, alcohol syndrome, BPD. She does not appear to be a reliable historian but does report feeling worsening sx of depression and irritability. She presents with negative affect, low energy, withdrawn, and agitation. She currently denies assaultive ideation or HI. She endorses urges to self harm but does not have plan or intent, hx of head banging and hitting herself. She reportedly was not adherent with meds but pt denies this, collateral hx needed. Psychiatrist is Dr. Marcial David. On haldol dec, recently increased to 150 mg. Pt states she does not want to change her current med regimen, wants to add a medication to target sx of agitation, mood instability.? 11/21 had episode of head-banging, fist pounding, and tied string around neck in response to not being allowed to use her phone.? placed on 1:1 for safety 11/21.? refused to have discussion with MD about safety on 11/22 and later on 11/22 tied ligature around her wrist and threatened to eat a staple.? 11/23 threatened to put a bottle cap in her mouth in an attempt to choke herself. Plan: started trileptal 300 mg BID for mood stability, reviewed risks and benefits. Continue OP med regimen and monitor for benefit. She is utilizing her PRNs with apparent benefit. trileptal level drawn 11/25 8.9 (target range 8-35),? other labs 11/25 not concerning. increased trileptal to 450 BID as of 11/25.? level drawn 12/09: 12.9. pt declined to increase trileptal dosing until 12/20, when it was increased to 600 BID. haldol decanoate 150 mg next due 12/10; ordered.? pt then said dosing is at her discretion and asked for 100 mg, so order changed to 100 mg. order returned to 150 mg for 12/14, as it was not given earlier. pt refused the shot 12/14 bcse it would have had to have been given as two separate shots. 12/15 she also refused to have 100 mg, which could have been given as 1 shot, stating she will wait for discharge and then have her home health nurse give all 150 mg in one shot. Scheduled Haldol 5 mg po TID; due to daytime sedation and recent increase in haldol decanoate dosing, reduced daytime haldol dosing from thrice daily to twice daily, 5 mg each.? unsure of plan to discontinue PO haldol entirely in favor of decanoate formulation as pt has been refusing adequate haldol dec dosing. wellbutrin XL 150 started 12/07 for depression.? increased to 300 mg daily as of 12/10. trial of Q5 min checks 12/06 ended quickly once pt began head-banging and hitting self in face the same day. intermittent attempts at self-harm and/or agitation continue as of 12/20, while pt maintained on 5 min checks. 12/10- hypertriglycerides 533, ordered amylase, lipase, crp, cbc w diff, cmp r/o acute pancreatitis, consult to hospitalist pending 12/12/20 FU on patient's non-specific neurological symptoms, elevated CRP and CBC findings of lymphocytosis 12/14 fenofibrate started. 12/15 accepted haldol dec 150 mg after meeting with outpt providers. 12/16 declined trileptal dosing increase. 12/20 accepted trileptal increase. 12/25 no changes (2) Borderline personality disorder: Status: Acute Code(s): F60.3 - Borderline personality disorder I spent minutes with the patient and/or on the patient floor today, greater than?50% of which was spent counseling/coordinating care. Reason for contiued inpatient stay Substantial Risk for: inability to function, rapid decompensation and med/psych decompensation
[2020-12-25] MEDS: HaloperidoL 5 MG TABLET PO ×2 (14:52→21:48)
[2020-12-25 20:10] VITALS: BP 133/80; PULSE 110; TEMP 36.6; O2SAT 98
[2020-12-25] MEDS: Mineral Oil/Petrolatum,White 106 GM Tube 1 APPL TOPICAL (21:47)
[2020-12-25] MEDS: hydrOXYzine HCL 50 MG TABLET PO (21:48)
[2020-12-25] MEDS: chlorproMAZINE HCl 10 MG TABLET 50 MG PO (21:48)
[2020-12-25] MEDS: chlorproMAZINE HCl 100 MG TABLET PO (21:48)
[2020-12-26] MEDS: OXcarbazepine 300 MG TABLET 600 MG PO ×2 (08:44→20:08)
[2020-12-26] MEDS: Benztropine Mesylate 1 MG TABLET PO ×2 (08:44→20:08)
[2020-12-26] MEDS: Famotidine 20 MG TABLET PO ×2 (08:44→20:08)
[2020-12-26] MEDS: buPROPion HCl XL 300 MG TAB.ER.24H PO (08:44)
[2020-12-26] MEDS: Sertraline HCL 100 MG TABLET 200 MG PO (08:44)
[2020-12-26] MEDS: Naltrexone HCl 50 MG TABLET PO (08:44)
--- NOTE | 2020-12-26 13:04 | HO.PSYCHPN ---
Subjective Subjective Date of Service: 12/26/20 Reason For Visit: Psychosis Interim History: The nursing staff reported that yesterday she had a hard time in the evening but responded well to grounding. She is on bed most of the time and today she was minimally verbal. Mental Status Exam Mental Status Exam Patient Appearance: Disheveled Patient Orientation: Person Level of Consciousness: Awake Patient Behavior: Guarded, Passive and Good Eye Contact Affect Description: Constricted Patient Cognition Impaired: Yes Ability to Follow Directions: Fair Speech Pattern: Clear Hallucinations: None Delusions: Not Present Thought Content: positive for Circumstantial Judgement: Fair Diagnostics Vital Signs (24Hr): Vital Signs - 24 hr 12/25/20 20:10 Temperature 97.8 F Pulse Rate 110 H Blood Pressure 133/80 Pulse Oximetry 98 Body Mass Index 42.9 Labs Results: 12/11/20 06:55 12/10/20 13:09 Imaging Radiology Impressions: ITS Impressions Shoulder X-Ray 11/27/20 11:39 IMPRESSION: * Normal left shoulder. * Normal left wrist. No acute fracture or malalignment. Wrist X-Ray 11/27/20 11:39 IMPRESSION: * Normal left shoulder. * Normal left wrist. No acute fracture or malalignment. Medications Medications Current Medications Acetaminophen (Acetaminophen 325 Mg Tablet) 650 mg PO Q6H PRN PRN Reason: Headache/Pain Mild Scale (1-3) Last Admin: 11/27/20 18:44 Dose: 650 mg Documented by: Al Hydroxide/Mg Hydroxide (Magnesium Hydrox/Alum Hydrox 30 Ml Oral.Susp) 30 ml PO Q6H PRN PRN Reason: Heartburn/Nausea Last Admin: 12/04/20 18:27 Dose: 30 ml Documented by: Benztropine Mesylate (Benztropine Mesylate 1 Mg Tablet) 1 mg PO BID [facility] Last Admin: 12/26/20 08:44 Dose: 1 mg Documented by: Bupropion HCl (Bupropion Hcl Xl 300 Mg Tab.Er.24h) 300 mg PO DAILY [facility] Last Admin: 12/26/20 08:44 Dose: 300 mg Documented by: Chlorpromazine HCl (Chlorpromazine Hcl 100 Mg Tablet) 100 mg PO BEDTIME [facility] Last Admin: 12/25/20 21:48 Dose: 100 mg Documented by: Chlorpromazine HCl (Chlorpromazine Hcl 25 Mg Tablet) 25 mg PO Q4H PRN PRN Reason: agitation Last Admin: 12/22/20 17:38 Dose: 25 mg Documented by: Chlorpromazine HCl (Chlorpromazine Hcl 10 Mg Tablet) 50 mg PO BEDTIME [facility] Last Admin: 12/25/20 21:48 Dose: 50 mg Documented by: Chlorpromazine HCl (Chlorpromazine Hcl 10 Mg Tablet) 50 mg PO BEDTIME PRN PRN Reason: Insomnia Famotidine (Famotidine 20 Mg Tablet) 20 mg PO BID [facility] Last Admin: 12/26/20 08:44 Dose: 20 mg Documented by: Haloperidol (Haloperidol 5 Mg Tablet) 5 mg PO 1500 [facility] Last Admin: 12/25/20 14:52 Dose: 5 mg Documented by: Haloperidol (Haloperidol 5 Mg Tablet) 5 mg PO BEDTIME [facility] Last Admin: 12/25/20 21:48 Dose: 5 mg Documented by: Haloperidol Decanoate (Haloperidol Decanoate 50 Mg/Ml Ampul) 150 mg IM Q28D [facility] Last Admin: 12/15/20 15:06 Dose: 150 mg Documented by: Hydroxyzine HCl (Hydroxyzine Hcl 50 Mg Tablet) 50 mg PO Q6H PRN PRN Reason: Anxiety Last Admin: 12/22/20 17:38 Dose: 50 mg Documented by: Hydroxyzine HCl (Hydroxyzine Hcl 50 Mg Tablet) 50 mg PO BEDTIME [facility] Last Admin: 12/25/20 21:48 Dose: 50 mg Documented by: Magnesium Hydroxide (Milk Of Magnesia 30 Ml Oral.Susp) 30 ml PO DAILY PRN PRN Reason: Constipation Multi-Ingred Cream/Lotion/Oil/Oint (Mineral Oil/Petrolatum,White 106 Gm Tube) 1 appl TOPICAL TID PRN; Protocol PRN Reason: itching Last Admin: 12/25/20 21:47 Dose: 1 appl Documented by: Naltrexone HCl (Naltrexone Hcl 50 Mg Tablet) 50 mg PO DAILY [facility] Last Admin: 12/26/20 08:44 Dose: 50 mg Documented by: Patient Own (Medication (Biotene)) 1 each BUCCAL BID PRN PRN Reason: Dry Mouth Last Admin: 12/09/20 16:58 Dose: 1 each Documented by: Oxcarbazepine (Oxcarbazepine 300 Mg Tablet) 600 mg PO BID [facility] Last Admin: 12/26/20 08:44 Dose: 600 mg Documented by: Sertraline HCl (Sertraline Hcl 100 Mg Tablet) 200 mg PO DAILY [facility] Last Admin: 12/26/20 08:44 Dose: 200 mg Documented by: Allergies Allergies Allergy/AdvReac Type Severity Reaction Status Date / Time No Known Allergies Allergy Unverified 11/06/19 19:53 [No Known Allergies*] Assessment & Plan Assessment & Plan (1) Schizoaffective disorder, depressive type: Status: Acute Code(s): F25.1 - Schizoaffective disorder, depressive type Assessment and Plan: Pt is a 25 y.o. Female who carries a dx of schizoaffective do, depressive type, alcohol syndrome, BPD. She does not appear to be a reliable historian but does report feeling worsening sx of depression and irritability. She presents with negative affect, low energy, withdrawn, and agitation. She currently denies assaultive ideation or HI. She endorses urges to self harm but does not have plan or intent, hx of head banging and hitting herself. She reportedly was not adherent with meds but pt denies this, collateral hx needed. Psychiatrist is Dr. Marcial David. On haldol dec, recently increased to 150 mg. Pt states she does not want to change her current med regimen, wants to add a medication to target sx of agitation, mood instability.? 11/21 had episode of head-banging, fist pounding, and tied string around neck in response to not being allowed to use her phone.? placed on 1:1 for safety 11/21.? refused to have discussion with MD about safety on 11/22 and later on 11/22 tied ligature around her wrist and threatened to eat a staple.? 11/23 threatened to put a bottle cap in her mouth in an attempt to choke herself. Plan: started trileptal 300 mg BID for mood stability, reviewed risks and benefits. Continue OP med regimen and monitor for benefit. She is utilizing her PRNs with apparent benefit. trileptal level drawn 11/25 8.9 (target range 8-35),? other labs 11/25 not concerning. increased trileptal to 450 BID as of 11/25.? level drawn 12/09: 12.9. pt declined to increase trileptal dosing until 12/20, when it was increased to 600 BID. haldol decanoate 150 mg next due 12/10; ordered.? pt then said dosing is at her discretion and asked for 100 mg, so order changed to 100 mg. order returned to 150 mg for 12/14, as it was not given earlier. pt refused the shot 12/14 bcse it would have had to have been given as two separate shots. 12/15 she also refused to have 100 mg, which could have been given as 1 shot, stating she will wait for discharge and then have her home health nurse give all 150 mg in one shot. Scheduled Haldol 5 mg po TID; due to daytime sedation and recent increase in haldol decanoate dosing, reduced daytime haldol dosing from thrice daily to twice daily, 5 mg each.? unsure of plan to discontinue PO haldol entirely in favor of decanoate formulation as pt has been refusing adequate haldol dec dosing. wellbutrin XL 150 started 12/07 for depression.? increased to 300 mg daily as of 12/10. trial of Q5 min checks 12/06 ended quickly once pt began head-banging and hitting self in face the same day. intermittent attempts at self-harm and/or agitation continue as of 12/20, while pt maintained on 5 min checks. 12/10- hypertriglycerides 533, ordered amylase, lipase, crp, cbc w diff, cmp r/o acute pancreatitis, consult to hospitalist pending 12/12/20 FU on patient's non-specific neurological symptoms, elevated CRP and CBC findings of lymphocytosis 12/14 fenofibrate started. 12/15 accepted haldol dec 150 mg after meeting with outpt providers. 12/16 declined trileptal dosing increase. 12/20 accepted trileptal increase. 12/25 amd 12/26 no changes (2) Borderline personality disorder: Status: Acute Code(s): F60.3 - Borderline personality disorder I spent minutes with the patient and/or on the patient floor today, greater than?50% of which was spent counseling/coordinating care. Reason for contiued inpatient stay Substantial Risk for: inability to function, rapid decompensation and med/psych decompensation
[2020-12-26] MEDS: HaloperidoL 5 MG TABLET PO ×2 (14:56→20:08)
[2020-12-26] MEDS: chlorproMAZINE HCl 10 MG TABLET 50 MG PO (20:08)
[2020-12-26] MEDS: chlorproMAZINE HCl 100 MG TABLET PO (20:08)
[2020-12-26] MEDS: hydrOXYzine HCL 50 MG TABLET PO (20:08)
[2020-12-26 20:19] VITALS: RESP 14
[2020-12-27] MEDS: Sertraline HCL 100 MG TABLET 200 MG PO (10:00)
[2020-12-27] MEDS: Naltrexone HCl 50 MG TABLET PO (10:00)
[2020-12-27] MEDS: buPROPion HCl XL 300 MG TAB.ER.24H PO (10:00)
[2020-12-27] MEDS: Famotidine 20 MG TABLET PO ×2 (10:00→20:14)
[2020-12-27] MEDS: Benztropine Mesylate 1 MG TABLET PO ×2 (10:00→20:15)
[2020-12-27] MEDS: OXcarbazepine 300 MG TABLET 600 MG PO ×2 (10:01→20:15)
--- NOTE | 2020-12-27 13:44 | P.PNPSI_ITS ---
Subjective Subjective Date of Service: 12/27/20 Reason For Visit: Psychosis Interim History: patient found mid-morning in the milieu working on an art project. she declines to come for interview, citing her work on the art project. she is informed trileptal level will be drawn some time this week; she asks to know the result once it is in. interview is truncated. per staff, Q5 min checks continue. refused 1:1 mtg with staff yesterday. had one episode of shutting down yesterday wherein she became non-responsive verbally, had reduced eye contact. sunday was gregarious, sunday the opposite. someone dropped clothes off for her but did not visit with her, which appeared to affect her greatly. very irritable after that. Mental Status Exam Mental Status Exam Narrative: up and about the unit, adequate hygiene, overweight. awake. fair eye contact, inattentive. No Tics or Tremors. No abnormal involuntary movements. difficult to engage. affect is constricted. non-labile. no mood complaints expressed. no SI/HI/AVH expressed. Has cognitive impairment r/t alcohol syndrome. Insight/ Judgment limited, questionable historian. Diagnostics Vital Signs (24Hr): Vital Signs - 24 hr 12/26/20 20:19 Respiratory Rate 14 Body Mass Index 42.9 Labs Results: 12/11/20 06:55 12/10/20 13:09 Imaging Radiology Impressions: ITS Impressions Shoulder X-Ray 11/27/20 11:39 IMPRESSION: * Normal left shoulder. * Normal left wrist. No acute fracture or malalignment. Wrist X-Ray 11/27/20 11:39 IMPRESSION: * Normal left shoulder. * Normal left wrist. No acute fracture or malalignment. Medications Medications Current Medications Acetaminophen (Acetaminophen 325 Mg Tablet) 650 mg PO Q6H PRN PRN Reason: Headache/Pain Mild Scale (1-3) Last Admin: 11/27/20 18:44 Dose: 650 mg Documented by: Al Hydroxide/Mg Hydroxide (Magnesium Hydrox/Alum Hydrox 30 Ml Oral.Susp) 30 ml PO Q6H PRN PRN Reason: Heartburn/Nausea Last Admin: 12/04/20 18:27 Dose: 30 ml Documented by: Benztropine Mesylate (Benztropine Mesylate 1 Mg Tablet) 1 mg PO BID [facility] Last Admin: 12/27/20 10:00 Dose: 1 mg Documented by: Bupropion HCl (Bupropion Hcl Xl 300 Mg Tab.Er.24h) 300 mg PO DAILY [facility] Last Admin: 12/27/20 10:00 Dose: 300 mg Documented by: Chlorpromazine HCl (Chlorpromazine Hcl 100 Mg Tablet) 100 mg PO BEDTIME [facility] Last Admin: 12/26/20 20:08 Dose: 100 mg Documented by: Chlorpromazine HCl (Chlorpromazine Hcl 25 Mg Tablet) 25 mg PO Q4H PRN PRN Reason: agitation Last Admin: 12/22/20 17:38 Dose: 25 mg Documented by: Chlorpromazine HCl (Chlorpromazine Hcl 10 Mg Tablet) 50 mg PO BEDTIME [facility] Last Admin: 12/26/20 20:08 Dose: 50 mg Documented by: Chlorpromazine HCl (Chlorpromazine Hcl 10 Mg Tablet) 50 mg PO BEDTIME PRN PRN Reason: Insomnia Famotidine (Famotidine 20 Mg Tablet) 20 mg PO BID [facility] Last Admin: 12/27/20 10:00 Dose: 20 mg Documented by: Haloperidol (Haloperidol 5 Mg Tablet) 5 mg PO 1500 [facility] Last Admin: 12/26/20 14:56 Dose: 5 mg Documented by: Haloperidol (Haloperidol 5 Mg Tablet) 5 mg PO BEDTIME [facility] Last Admin: 12/26/20 20:08 Dose: 5 mg Documented by: Haloperidol Decanoate (Haloperidol Decanoate 50 Mg/Ml Ampul) 150 mg IM Q28D [facility] Last Admin: 12/15/20 15:06 Dose: 150 mg Documented by: Hydroxyzine HCl (Hydroxyzine Hcl 50 Mg Tablet) 50 mg PO Q6H PRN PRN Reason: Anxiety Last Admin: 12/22/20 17:38 Dose: 50 mg Documented by: Hydroxyzine HCl (Hydroxyzine Hcl 50 Mg Tablet) 50 mg PO BEDTIME [facility] Last Admin: 12/26/20 20:08 Dose: 50 mg Documented by: Magnesium Hydroxide (Milk Of Magnesia 30 Ml Oral.Susp) 30 ml PO DAILY PRN PRN Reason: Constipation Multi-Ingred Cream/Lotion/Oil/Oint (Mineral Oil/Petrolatum,White 106 Gm Tube) 1 appl TOPICAL TID PRN; Protocol PRN Reason: itching Last Admin: 12/25/20 21:47 Dose: 1 appl Documented by: Naltrexone HCl (Naltrexone Hcl 50 Mg Tablet) 50 mg PO DAILY [facility] Last Admin: 12/27/20 10:00 Dose: 50 mg Documented by: Patient Own (Medication (Biotene)) 1 each BUCCAL BID PRN PRN Reason: Dry Mouth Last Admin: 12/09/20 16:58 Dose: 1 each Documented by: Oxcarbazepine (Oxcarbazepine 300 Mg Tablet) 600 mg PO BID [facility] Last Admin: 12/27/20 10:01 Dose: 600 mg Documented by: Sertraline HCl (Sertraline Hcl 100 Mg Tablet) 200 mg PO DAILY [facility] Last Admin: 12/27/20 10:00 Dose: 200 mg Documented by: Allergies Allergies Allergy/AdvReac Type Severity Reaction Status Date / Time No Known Allergies Allergy Unverified 11/06/19 19:53 [No Known Allergies*] Assessment & Plan Assessment & Plan (1) Schizoaffective disorder, depressive type: Status: Acute Code(s): F25.1 - Schizoaffective disorder, depressive type Assessment and Plan: Pt is a 25 y.o. Female who carries a dx of schizoaffective do, depressive type, alcohol syndrome, BPD. She does not appear to be a reliable historian but does report feeling worsening sx of depression and irritability. She presents with negative affect, low energy, withdrawn, and agitation. She currently denies assaultive ideation or HI. She endorses urges to self harm but does not have plan or intent, hx of head banging and hitting herself. She reportedly was not adherent with meds but pt denies this, collateral hx needed. Psychiatrist is Dr. Marcial David. On haldol dec, recently increased to 150 mg. Pt states she does not want to change her current med regimen, wants to add a medication to target sx of agitation, mood instability.? 11/21 had episode of head-banging, fist pounding, and tied string around neck in response to not being allowed to use her phone.? placed on 1:1 for safety 11/21.? refused to have discussion with MD about safety on 11/22 and later on 11/22 tied ligature around her wrist and threatened to eat a staple.? 11/23 threatened to put a bottle cap in her mouth in an attempt to choke herself. Plan: started trileptal 300 mg BID for mood stability, reviewed risks and benefits. Continue OP med regimen and monitor for benefit. She is utilizing her PRNs with apparent benefit. trileptal level drawn 11/25 8.9 (target range 8-35),? other labs 11/25 not concerning. increased trileptal to 450 BID as of 11/25.? level drawn 12/09: 12.9. pt declined to increase trileptal dosing until 12/20, when it was increased to 600 BID. haldol decanoate 150 mg next due 12/10; ordered.? pt then said dosing is at her discretion and asked for 100 mg, so order changed to 100 mg. order returned to 150 mg for 12/14, as it was not given earlier. pt refused the shot 12/14 bcse it would have had to have been given as two separate shots. 12/15 she also refused to have 100 mg, which could have been given as 1 shot, stating she will wait for discharge and then have her home health nurse give all 150 mg in one shot. Scheduled Haldol 5 mg po TID; due to daytime sedation and recent increase in haldol decanoate dosing, reduced daytime haldol dosing from thrice daily to twice daily, 5 mg each.? unsure of plan to discontinue PO haldol entirely in favor of decanoate formulation as pt has been refusing adequate haldol dec dosing. wellbutrin XL 150 started 12/07 for depression.? increased to 300 mg daily as of 12/10. trial of Q5 min checks 12/06 ended quickly once pt began head-banging and hitting self in face the same day. intermittent attempts at self-harm and/or agitation continue as of 12/20, while pt maintained on 5 min checks. 12/10- hypertriglycerides 533, ordered amylase, lipase, crp, cbc w diff, cmp r/o acute pancreatitis, consult to hospitalist pending 12/12/20 FU on patient's non-specific neurological symptoms, elevated CRP and CBC findings of lymphocytosis 12/14 fenofibrate started. 12/15 accepted haldol dec 150 mg after meeting with outpt providers. 12/16 declined trileptal dosing increase. 12/20 accepted trileptal increase. 12/25 to 12/27 no changes 12/28: labs ordered (2) Borderline personality disorder: Status: Acute Code(s): F60.3 - Borderline personality disorder I spent minutes with the patient and/or on the patient floor today, greater than?50% of which was spent counseling/coordinating care. Reason for contiued inpatient stay Substantial Risk for: harm to self, harm to others, inability to function and rapid decompensation
[2020-12-27] MEDS: HaloperidoL 5 MG TABLET PO ×2 (15:23→20:14)
[2020-12-27] MEDS: hydrOXYzine HCL 50 MG TABLET PO (20:15)
[2020-12-27] MEDS: chlorproMAZINE HCl 100 MG TABLET PO (20:15)
[2020-12-27] MEDS: chlorproMAZINE HCl 10 MG TABLET 50 MG PO (20:15)
[2020-12-28 09:03] LABS: MANUAL DIFF FLAG NO
[2020-12-28 09:07] LABS: Basophils Percent Auto 0.4 % (0-2); Eosinophils Absolute Auto 0.1 X10*3/uL (0.0-0.4); Eosinophils Percent Auto 2.9 % (0-4); Hematocrit 36.9 % (37.0-47.0); Hemoglobin 12.2 g/dl (12.0-16.0); Imm Gran Abs Auto 0.03 X10*3/uL (0.00-0.03); Imm Gran Pct Auto 0.6 % (0.0-0.4); Lymphocytes Percent Auto 40.3 % (20-40); Mean Corpuscular HGB Conc 33.1 g/dl (31.0-35.0); Mean Corpuscular Hemoglobin 27.7 pg (27.0-33.0); Mean Corpuscular Volume 83.7 fL (80.0-98.0); Mean Platelet Volume 8.8 fL (9.4-12.3); Monocytes Absolute Auto 0.5 X10*3/uL (0.1-1.2); Monocytes Percent Auto 10.4 % (2-11); Neutrophils Absolute Auto 2.2 x10*3/uL (2.0-8.3); Neutrophils Percent Auto 45.4 % (45-73); Platelet Count 242 X10*3/uL (160-400); Red Blood Count 4.41 X10*6/uL (4.20-5.50); Red Cell Distribution Width 12.5 % (11.0-16.0); White Blood Count 4.9 X10*3/uL (4.8-10.8)
[2020-12-28 09:26] LABS: Anion Gap 10 (12-20); Blood Urea Nitrogen 11 mg/dL (9-16); Calcium 9.1 mg/dL (8.4-10.2); Carbon Dioxide 22 mmol/L (22-29); Chloride 110 mmol/L (96-108); Creatinine Clr Calc Pharmacy 104.1; Estimated Glomerular Filt Rate > 60; Glucose Random 129 mg/dL (60-115); Potassium 4.2 mmol/L (3.3-5.1); Sodium 138 mmol/L (135-145)
[2020-12-28] MEDS: buPROPion HCl XL 300 MG TAB.ER.24H PO (09:48)
[2020-12-28] MEDS: Famotidine 20 MG TABLET PO ×2 (09:48→20:36)
[2020-12-28] MEDS: Naltrexone HCl 50 MG TABLET PO (09:48)
[2020-12-28] MEDS: Sertraline HCL 100 MG TABLET 200 MG PO (09:48)
[2020-12-28] MEDS: OXcarbazepine 300 MG TABLET 600 MG PO ×2 (09:48→20:36)
[2020-12-28] MEDS: Benztropine Mesylate 1 MG TABLET PO ×2 (09:48→20:36)
[2020-12-28 10:43] VITALS: RESP 16
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
[2020-12-28] MEDS: HaloperidoL 5 MG TABLET PO ×2 (14:56→20:36)
--- NOTE | 2020-12-28 19:27 | PM.EVENT ---
Event Note Date of Service: 01/10/21 Event Note: Chemical restraint [id number] evaluation: RN at around 5:41 p.m. patient was agitated and started staff and was given Thorazine IM. Notified the psychiatrist on-call. Amended for [id number] evaluation, patient denied any complaints. Patient currently calm and cooperative. Patient's sitter at bedside. Off note: RN Paged late [id number] evaluation. Sent a text to me at 6:59 p.m.. I came to the hospital at 7:00 p.m. I went in and signed the form at 7:24 p.m.
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
[2020-12-28] MEDS: chlorproMAZINE HCl 10 MG TABLET 50 MG PO (20:36)
[2020-12-28] MEDS: chlorproMAZINE HCl 100 MG TABLET PO (20:36)
[2020-12-28] MEDS: hydrOXYzine HCL 50 MG TABLET PO (20:36)
[2020-12-29] MEDS: Benztropine Mesylate 1 MG TABLET PO ×2 (09:39→20:00)
[2020-12-29] MEDS: OXcarbazepine 300 MG TABLET 600 MG PO (09:39)
[2020-12-29] MEDS: Sertraline HCL 100 MG TABLET 200 MG PO (09:39)
[2020-12-29] MEDS: buPROPion HCl XL 300 MG TAB.ER.24H PO (09:40)
[2020-12-29] MEDS: Famotidine 20 MG TABLET PO ×2 (09:40→20:00)
[2020-12-29] MEDS: Naltrexone HCl 50 MG TABLET PO (09:40)
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
[2020-12-29] MEDS: HaloperidoL 5 MG TABLET PO ×2 (15:04→20:00)
[2020-12-29 18:00] VITALS: BP 133/85; PULSE 103; RESP 18; TEMP 36.3; O2SAT 99
[2020-12-29] MEDS: chlorproMAZINE HCl 10 MG TABLET 50 MG PO (19:59)
[2020-12-29] MEDS: chlorproMAZINE HCl 100 MG TABLET PO (20:00)
[2020-12-29] MEDS: carBAMazepine ER 200 MG TAB.ER.12H 400 MG PO (20:00)
[2020-12-29] MEDS: hydrOXYzine HCL 50 MG TABLET PO (20:00)
[2020-12-30] MEDS: Sertraline HCL 100 MG TABLET 200 MG PO (08:45)
[2020-12-30] MEDS: Naltrexone HCl 50 MG TABLET PO (08:46)
[2020-12-30] MEDS: carBAMazepine ER 200 MG TAB.ER.12H 400 MG PO ×2 (08:46→21:16)
[2020-12-30] MEDS: Famotidine 20 MG TABLET PO ×2 (08:46→21:17)
[2020-12-30] MEDS: buPROPion HCl XL 300 MG TAB.ER.24H PO (08:46)
[2020-12-30] MEDS: Benztropine Mesylate 1 MG TABLET PO ×2 (08:46→21:16)
[2020-12-30 08:50] VITALS: BP 124/73; PULSE 114; RESP 18; TEMP 36.7; O2SAT 97
[2020-12-30] MEDS: HaloperidoL 5 MG TABLET PO ×2 (14:52→21:16)
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
[2020-12-30 18:00] VITALS: BP 139/88; PULSE 105; TEMP 36.7; O2SAT 100
[2020-12-30] MEDS: chlorproMAZINE HCl 10 MG TABLET 50 MG PO (21:12)
[2020-12-30] MEDS: chlorproMAZINE HCl 100 MG TABLET PO (21:13)
[2020-12-30] MEDS: hydrOXYzine HCL 50 MG TABLET PO (21:14)
[2020-12-31] MEDS: Sertraline HCL 100 MG TABLET 200 MG PO (11:30)
[2020-12-31] MEDS: carBAMazepine ER 200 MG TAB.ER.12H 400 MG PO ×2 (11:30→21:26)
[2020-12-31] MEDS: Benztropine Mesylate 1 MG TABLET PO ×2 (11:30→21:27)
[2020-12-31] MEDS: Famotidine 20 MG TABLET PO ×2 (11:30→21:27)
[2020-12-31] MEDS: Naltrexone HCl 50 MG TABLET PO (11:30)
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
[2020-12-31] MEDS: HaloperidoL 5 MG TABLET PO ×2 (16:11→21:27)
[2020-12-31] MEDS: chlorproMAZINE HCl 10 MG TABLET 50 MG PO (21:26)
[2020-12-31] MEDS: chlorproMAZINE HCl 100 MG TABLET PO (21:26)
[2020-12-31] MEDS: hydrOXYzine HCL 50 MG TABLET PO (21:27)
[2021-01-01] MEDS: Sertraline HCL 100 MG TABLET 200 MG PO (09:21)
[2021-01-01] MEDS: Naltrexone HCl 50 MG TABLET PO (09:21)
[2021-01-01] MEDS: Famotidine 20 MG TABLET PO ×2 (09:21→21:54)
[2021-01-01] MEDS: carBAMazepine ER 200 MG TAB.ER.12H 400 MG PO ×2 (09:21→21:54)
[2021-01-01] MEDS: Benztropine Mesylate 1 MG TABLET PO ×2 (09:21→21:54)
[2021-01-01] MEDS: HaloperidoL 5 MG TABLET PO ×2 (15:06→21:54)
[2021-01-01 18:00] VITALS: BP 133/88; PULSE 104; RESP 20; TEMP 36.3; O2SAT 98
[2021-01-01] MEDS: Mineral Oil/Petrolatum,White 106 GM Tube 1 APPL TOPICAL (21:52)
[2021-01-01] MEDS: hydrOXYzine HCL 50 MG TABLET PO (21:53)
[2021-01-01] MEDS: chlorproMAZINE HCl 100 MG TABLET PO (21:54)
[2021-01-01] MEDS: chlorproMAZINE HCl 10 MG TABLET 50 MG PO (21:56)
[2021-01-02 02:22] LABS: Oxcarbazepine 17.7 mcg/mL (8.0-35.0)
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
[2021-01-02] MEDS: Benztropine Mesylate 1 MG TABLET PO ×2 (09:25→20:13)
[2021-01-02] MEDS: Sertraline HCL 100 MG TABLET 200 MG PO (09:26)
[2021-01-02] MEDS: carBAMazepine ER 200 MG TAB.ER.12H 400 MG PO ×2 (09:26→20:12)
[2021-01-02] MEDS: Famotidine 20 MG TABLET PO ×2 (09:26→20:13)
[2021-01-02] MEDS: Naltrexone HCl 50 MG TABLET PO (09:26)
[2021-01-02] MEDS: HaloperidoL 5 MG TABLET PO ×2 (15:06→20:14)
[2021-01-02 18:00] VITALS: RESP 18
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
[2021-01-02] MEDS: chlorproMAZINE HCl 10 MG TABLET 50 MG PO (20:11)
[2021-01-02] MEDS: chlorproMAZINE HCl 100 MG TABLET PO (20:12)
[2021-01-02] MEDS: hydrOXYzine HCL 50 MG TABLET PO (20:12)
[2021-01-03] MEDS: carBAMazepine ER 200 MG TAB.ER.12H 400 MG PO ×2 (08:17→21:05)
[2021-01-03] MEDS: Sertraline HCL 100 MG TABLET 200 MG PO (08:18)
[2021-01-03] MEDS: Benztropine Mesylate 1 MG TABLET PO ×2 (08:18→21:05)
[2021-01-03] MEDS: Famotidine 20 MG TABLET PO ×2 (08:18→21:06)
[2021-01-03] MEDS: Naltrexone HCl 50 MG TABLET PO (08:18)
[2021-01-03] MEDS: Mineral Oil/Petrolatum,White 106 GM Tube 1 APPL TOPICAL (10:06)
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
[2021-01-03] MEDS: HaloperidoL 5 MG TABLET PO ×2 (15:40→21:06)
[2021-01-03] MEDS: chlorproMAZINE HCl 100 MG TABLET PO (21:05)
[2021-01-03] MEDS: hydrOXYzine HCL 50 MG TABLET PO (21:06)
[2021-01-03] MEDS: chlorproMAZINE HCl 10 MG TABLET 50 MG PO (21:06)
[2021-01-04] MEDS: Sertraline HCL 100 MG TABLET 200 MG PO (11:06)
[2021-01-04] MEDS: Benztropine Mesylate 1 MG TABLET PO ×2 (11:07→20:34)
[2021-01-04] MEDS: Naltrexone HCl 50 MG TABLET PO (11:07)
[2021-01-04] MEDS: Famotidine 20 MG TABLET PO ×2 (11:07→20:24)
[2021-01-04] MEDS: carBAMazepine ER 200 MG TAB.ER.12H 400 MG PO ×2 (11:07→20:25)
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
[2021-01-04] MEDS: HaloperidoL 5 MG TABLET PO ×2 (15:11→20:25)
[2021-01-04] MEDS: chlorproMAZINE HCl 10 MG TABLET 50 MG PO (20:24)
[2021-01-04] MEDS: chlorproMAZINE HCl 100 MG TABLET PO (20:24)
[2021-01-04] MEDS: hydrOXYzine HCL 50 MG TABLET PO (20:25)
[2021-01-04 20:37] VITALS: BP 133/93; PULSE 107; TEMP 36.5; O2SAT 99
--- NOTE | 2021-01-05 08:22 | PC.NURSE ---
Patients 1:1 observer attempted to wake patient up at 08:00, and patient stated Wake me up at 09:00 .
--- NOTE | 2021-01-05 09:24 | PC.NURSE ---
At 09:00 patient observer attempted to wake patient up. Patient observed stated Gabrielle it is time to get up . There was no response from the patient. Patient observer then stated [place] lets get up, breakfast is here . Patient then stated I want to sleep still . Patient continuing to sleep at this time.
[2021-01-05 10:43] VITALS: BP 120/77; PULSE 117; RESP 17; TEMP 36.7; O2SAT 98
[2021-01-05] MEDS: carBAMazepine ER 200 MG TAB.ER.12H 400 MG PO ×2 (10:44→21:13)
[2021-01-05] MEDS: Sertraline HCL 100 MG TABLET 200 MG PO (10:44)
[2021-01-05] MEDS: Naltrexone HCl 50 MG TABLET PO (10:45)
[2021-01-05] MEDS: Benztropine Mesylate 1 MG TABLET PO ×2 (10:45→21:12)
[2021-01-05] MEDS: Famotidine 20 MG TABLET PO ×2 (10:45→21:12)
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
[2021-01-05] MEDS: HaloperidoL 5 MG TABLET PO ×2 (15:06→21:14)
[2021-01-05] MEDS: hydrOXYzine HCL 50 MG TABLET PO ×2 (16:39→21:14)
[2021-01-05] MEDS: chlorproMAZINE HCl 25 MG TABLET PO (17:13)
[2021-01-05 20:00] VITALS: BP 140/83; PULSE 106; TEMP 36.4; O2SAT 100
[2021-01-05] MEDS: chlorproMAZINE HCl 10 MG TABLET 50 MG PO (21:12)
[2021-01-05] MEDS: chlorproMAZINE HCl 100 MG TABLET PO (21:14)
--- NOTE | 2021-01-06 10:03 | PC.NURSE ---
Pt declined morning medications and declined to adhere to AM schedule. PT yelled leave me alone when RN attempted to wake her for medications. Provider aware.
[2021-01-06 10:04] VITALS: RESP 16
[2021-01-06] MEDS: carBAMazepine ER 200 MG TAB.ER.12H 400 MG PO ×2 (11:09→21:44)
[2021-01-06] MEDS: Naltrexone HCl 50 MG TABLET PO (11:09)
[2021-01-06] MEDS: Famotidine 20 MG TABLET PO ×2 (11:09→21:44)
[2021-01-06] MEDS: Sertraline HCL 100 MG TABLET 200 MG PO (11:09)
[2021-01-06] MEDS: Benztropine Mesylate 1 MG TABLET PO ×2 (11:10→21:44)
[2021-01-06] MEDS: HaloperidoL 5 MG TABLET PO ×2 (14:49→21:44)
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
[2021-01-06 20:49] VITALS: RESP 16
[2021-01-06] MEDS: hydrOXYzine HCL 50 MG TABLET PO (21:44)
[2021-01-06] MEDS: chlorproMAZINE HCl 10 MG TABLET 50 MG PO (21:44)
[2021-01-06] MEDS: chlorproMAZINE HCl 100 MG TABLET PO (21:44)
[2021-01-07 10:00] VITALS: RESP 16
[2021-01-07] MEDS: Famotidine 20 MG TABLET PO ×2 (10:30→20:04)
[2021-01-07] MEDS: carBAMazepine ER 200 MG TAB.ER.12H 400 MG PO ×2 (10:31→20:04)
[2021-01-07] MEDS: Benztropine Mesylate 1 MG TABLET PO ×2 (10:31→20:04)
[2021-01-07] MEDS: Sertraline HCL 100 MG TABLET 200 MG PO (10:31)
[2021-01-07] MEDS: Naltrexone HCl 50 MG TABLET PO (10:31)
[2021-01-07 10:41] LABS: MANUAL DIFF FLAG NO
[2021-01-07 10:43] LABS: Basophils Percent Auto 0.4 % (0-2); Eosinophils Absolute Auto 0.3 X10*3/uL (0.0-0.4); Eosinophils Percent Auto 5.2 % (0-4); Hematocrit 36.6 % (37.0-47.0); Hemoglobin 12.5 g/dl (12.0-16.0); Imm Gran Abs Auto 0.02 X10*3/uL (0.00-0.03); Imm Gran Pct Auto 0.4 % (0.0-0.4); Lymphocytes Absolute Auto 2.2 X10*3/uL (1.2-4.9); Lymphocytes Percent Auto 41.1 % (20-40); Mean Corpuscular HGB Conc 34.2 g/dl (31.0-35.0); Mean Corpuscular Hemoglobin 28.3 pg (27.0-33.0); Mean Corpuscular Volume 82.8 fL (80.0-98.0); Mean Platelet Volume 9.2 fL (9.4-12.3); Monocytes Absolute Auto 0.5 X10*3/uL (0.1-1.2); Monocytes Percent Auto 9.8 % (2-11); Neutrophils Absolute Auto 2.3 x10*3/uL (2.0-8.3); Neutrophils Percent Auto 43.1 % (45-73); Platelet Count 246 X10*3/uL (160-400); Red Blood Count 4.42 X10*6/uL (4.20-5.50); Red Cell Distribution Width 12.3 % (11.0-16.0); White Blood Count 5.4 X10*3/uL (4.8-10.8)
[2021-01-07 12:12] LABS: Carbamazepine Tegretol 8.5 mcg/mL (5.0-12.0)
[2021-01-07 12:39] LABS: Alanine Aminotransferase 15 U/L (0-31); Albumin Level 3.9 g/dL (3.5-5.0); Alkaline Phosphatase 75 U/L (39-117); Anion Gap 10 (12-20); Aspartate Amino Transferase 17 U/L (5-31); Bilirubin Direct < 0.2 mg/dL (0.0-0.5); Bilirubin Total 0.2 mg/dL (0.0-1.0); Blood Urea Nitrogen 9 mg/dL (9-16); C Reactive Protein 1.14 mg/dL (< or = 0.50); Carbon Dioxide 23 mmol/L (22-29); Chloride 107 mmol/L (96-108); Creatinine Clr Calc Pharmacy 125.2; Estimated Glomerular Filt Rate > 60; Glucose Random 114 mg/dL (60-115); Potassium 4.1 mmol/L (3.3-5.1); Sodium 136 mmol/L (135-145); Total Protein 7.7 g/dL (6.5-8.0)
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
[2021-01-07] MEDS: HaloperidoL 5 MG TABLET PO ×2 (16:58→20:04)
[2021-01-07 18:00] VITALS: RESP 14
[2021-01-07] MEDS: hydrOXYzine HCL 50 MG TABLET PO (20:04)
[2021-01-07] MEDS: chlorproMAZINE HCl 100 MG TABLET PO (20:04)
[2021-01-07] MEDS: chlorproMAZINE HCl 25 MG TABLET 50 MG PO (20:04)
[2021-01-07 21:11] VITALS: BP 139/89; PULSE 107; TEMP 36.7; O2SAT 99
[2021-01-08] MEDS: carBAMazepine ER 200 MG TAB.ER.12H 400 MG PO ×2 (08:59→21:21)
[2021-01-08] MEDS: Sertraline HCL 100 MG TABLET 200 MG PO (08:59)
[2021-01-08] MEDS: Benztropine Mesylate 1 MG TABLET PO ×2 (09:00→21:22)
[2021-01-08] MEDS: Famotidine 20 MG TABLET PO ×2 (09:00→21:22)
[2021-01-08] MEDS: Naltrexone HCl 50 MG TABLET PO (09:00)
[2021-01-08] MEDS: HaloperidoL 5 MG TABLET PO ×2 (16:01→21:22)
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
[2021-01-08] MEDS: hydrOXYzine HCL 50 MG TABLET PO (21:21)
[2021-01-08] MEDS: chlorproMAZINE HCl 25 MG TABLET 50 MG PO (21:21)
[2021-01-08] MEDS: chlorproMAZINE HCl 100 MG TABLET PO (21:21)
[2021-01-08 21:27] VITALS: BP 134/89; PULSE 106; TEMP 36.2; O2SAT 98
[2021-01-09] MEDS: hydrOXYzine HCL 50 MG TABLET PO ×2 (00:54→22:06)
[2021-01-09] MEDS: chlorproMAZINE HCl 25 MG TABLET 50 MG PO ×2 (00:55→22:06)
[2021-01-09] MEDS: Acetaminophen 325 MG TABLET 650 MG PO (00:55)
[2021-01-09] MEDS: carBAMazepine ER 200 MG TAB.ER.12H 400 MG PO ×2 (09:05→22:06)
[2021-01-09] MEDS: Benztropine Mesylate 1 MG TABLET PO ×2 (09:05→22:06)
[2021-01-09] MEDS: Sertraline HCL 100 MG TABLET 200 MG PO (09:05)
[2021-01-09] MEDS: Naltrexone HCl 50 MG TABLET PO (09:05)
[2021-01-09] MEDS: Famotidine 20 MG TABLET PO ×2 (09:05→22:07)
[2021-01-09] MEDS: HaloperidoL 5 MG TABLET PO ×2 (14:58→22:07)
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
[2021-01-09] MEDS: chlorproMAZINE HCl 100 MG TABLET PO (22:07)
[2021-01-09 22:11] VITALS: RESP 16
[2021-01-09] MEDS: Mineral Oil/Petrolatum,White 106 GM Tube 1 APPL TOPICAL (22:40)
[2021-01-10] MEDS: Sertraline HCL 100 MG TABLET 200 MG PO (10:36)
[2021-01-10] MEDS: Naltrexone HCl 50 MG TABLET PO (10:36)
[2021-01-10] MEDS: carBAMazepine ER 200 MG TAB.ER.12H 400 MG PO ×2 (10:36→20:44)
[2021-01-10] MEDS: Benztropine Mesylate 1 MG TABLET PO ×2 (10:36→20:44)
[2021-01-10] MEDS: Famotidine 20 MG TABLET PO ×2 (10:36→20:45)
[2021-01-10 12:19] VITALS: RESP 17
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
[2021-01-10] MEDS: HaloperidoL 5 MG TABLET PO ×2 (15:48→20:44)
[2021-01-10] MEDS: hydrOXYzine HCL 50 MG TABLET PO (20:44)
[2021-01-10] MEDS: chlorproMAZINE HCl 25 MG TABLET PO (20:44)
[2021-01-10] MEDS: chlorproMAZINE HCl 100 MG TABLET PO (20:44)
[2021-01-10] MEDS: chlorproMAZINE HCl 25 MG TABLET 50 MG PO (20:45)
[2021-01-10] MEDS: LORazepam 1 MG TABLET PO ×2 (20:45→23:43)
--- NOTE | 2021-01-11 | ECG_ITS ---
Test Reason : check qtc Blood Pressure : / mmHG Vent. Rate : 095 BPM Atrial Rate : 095 BPM P-R Int : 168 ms QRS Dur : 072 ms QT Int : 374 ms P-R-T Axes : 057 015 037 degrees QTc Int : 469 ms Normal sinus rhythm Normal ECG No significant changes seen Referred By: Sharon Farley Electronically Signed By:JUAN RICKS MD
[2021-01-11] MEDS: Famotidine 20 MG TABLET PO ×2 (10:27→23:19)
[2021-01-11] MEDS: Naltrexone HCl 50 MG TABLET PO (10:27)
[2021-01-11] MEDS: Sertraline HCL 100 MG TABLET 200 MG PO (10:27)
[2021-01-11] MEDS: carBAMazepine ER 200 MG TAB.ER.12H 400 MG PO ×2 (10:27→23:19)
[2021-01-11] MEDS: Benztropine Mesylate 1 MG TABLET PO ×2 (10:27→23:19)
[2021-01-11 12:17] VITALS: RESP 16
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
[2021-01-11] MEDS: HaloperidoL 5 MG TABLET PO ×2 (15:50→23:19)
[2021-01-11 18:29] VITALS: BP 138/90; PULSE 121; RESP 16; TEMP 36.7; O2SAT 95
[2021-01-11 18:41] LABS: Glucose, Whole Blood 109 mg/dL (60-115)
[2021-01-11 18:47] VITALS: BP 138/90; PULSE 118
--- NOTE | 2021-01-11 19:09 | PC.NURSE ---
Pt walked to the nurses station and while standing there fell to the floor. Pt braced herself and landed on her butt. PT stood on her own and was alert and oriented. Pt states she felt weak for a second prior to falling. Vital signs assessed, stable. power shovel engineer provider notified. POC asssed - 109. Pt given fluids, fluids and food encouraged. Pt denied pain and other complaints, requested a shower. Pt ambulated back to her room with steady gait. 1:[address]
[2021-01-11] MEDS: Simethicone 80 MG TAB.CHEW PO (22:53)
[2021-01-11] MEDS: chlorproMAZINE HCl 100 MG TABLET PO (23:19)
[2021-01-11] MEDS: hydrOXYzine HCL 50 MG TABLET PO (23:19)
[2021-01-11] MEDS: chlorproMAZINE HCl 25 MG TABLET 50 MG PO (23:19)
[2021-01-12] MEDS: hydrOXYzine HCL 50 MG TABLET PO ×2 (00:23→21:07)
--- NOTE | 2021-01-12 02:41 | PC.NURSE ---
Pt c/o nausea this evening and not feeling herself . Declined offer of maalox, but requested zofran for nausea. Dr. Hwang notified, EKG ordered as pt's previous QTC 469. Pt compliant with test. Provider notified of results. Simethicone prn ordered and administered with some effect.
[2021-01-12] MEDS: carBAMazepine ER 200 MG TAB.ER.12H 400 MG PO ×2 (08:02→21:08)
[2021-01-12] MEDS: Benztropine Mesylate 1 MG TABLET PO ×2 (08:03→21:09)
[2021-01-12] MEDS: Naltrexone HCl 50 MG TABLET PO (08:03)
[2021-01-12] MEDS: Famotidine 20 MG TABLET PO ×2 (08:03→21:09)
[2021-01-12] MEDS: Sertraline HCL 100 MG TABLET 200 MG PO (08:03)
[2021-01-12 08:06] VITALS: BP 130/86; PULSE 96; RESP 16; TEMP 36.6; O2SAT 96
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
[2021-01-12] MEDS: HaloperidoL 5 MG TABLET PO ×2 (15:53→21:09)
[2021-01-12] MEDS: chlorproMAZINE HCl 100 MG TABLET PO (21:09)
[2021-01-12] MEDS: chlorproMAZINE HCl 25 MG TABLET 50 MG PO (21:09)
[2021-01-12 21:38] VITALS: RESP 14
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
[2021-01-13] MEDS: Benztropine Mesylate 1 MG TABLET PO ×2 (09:20→21:07)
[2021-01-13] MEDS: Sertraline HCL 100 MG TABLET 200 MG PO (09:20)
[2021-01-13] MEDS: Famotidine 20 MG TABLET PO ×2 (09:20→21:08)
[2021-01-13] MEDS: carBAMazepine ER 200 MG TAB.ER.12H 400 MG PO ×2 (09:20→21:08)
[2021-01-13] MEDS: Naltrexone HCl 50 MG TABLET PO (09:20)
[2021-01-13] MEDS: HaloperidoL 5 MG TABLET PO ×2 (15:23→21:08)
[2021-01-13 18:00] VITALS: BP 127/79; PULSE 108; TEMP 36.3; O2SAT 100
[2021-01-13] MEDS: hydrOXYzine HCL 50 MG TABLET PO (21:07)
[2021-01-13] MEDS: chlorproMAZINE HCl 100 MG TABLET PO (21:08)
[2021-01-13] MEDS: chlorproMAZINE HCl 25 MG TABLET 50 MG PO (21:08)
[2021-01-14] MEDS: chlorproMAZINE HCl 25 MG TABLET PO (01:09)
[2021-01-14] MEDS: hydrOXYzine HCL 50 MG TABLET PO ×2 (01:09→23:26)
[2021-01-14] MEDS: Sertraline HCL 100 MG TABLET 200 MG PO (12:00)
[2021-01-14] MEDS: Naltrexone HCl 50 MG TABLET PO (12:00)
[2021-01-14] MEDS: Benztropine Mesylate 1 MG TABLET PO ×2 (12:01→23:26)
[2021-01-14] MEDS: carBAMazepine ER 200 MG TAB.ER.12H 400 MG PO ×2 (12:01→23:26)
[2021-01-14] MEDS: Famotidine 20 MG TABLET PO ×2 (12:01→23:26)
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
[2021-01-14] MEDS: HaloperidoL 5 MG TABLET PO ×2 (14:51→23:26)
[2021-01-14] MEDS: Mineral Oil/Petrolatum,White 106 GM Tube 1 APPL TOPICAL (22:30)
[2021-01-14] MEDS: chlorproMAZINE HCl 100 MG TABLET PO (23:26)
[2021-01-14] MEDS: chlorproMAZINE HCl 25 MG TABLET 50 MG PO (23:26)
[2021-01-15] MEDS: carBAMazepine ER 200 MG TAB.ER.12H 400 MG PO ×2 (10:11→21:42)
[2021-01-15] MEDS: Famotidine 20 MG TABLET PO ×2 (10:11→21:42)
[2021-01-15] MEDS: Benztropine Mesylate 1 MG TABLET PO ×2 (10:11→21:42)
[2021-01-15] MEDS: Naltrexone HCl 50 MG TABLET PO (10:11)
[2021-01-15] MEDS: Sertraline HCL 100 MG TABLET 200 MG PO (10:11)
[2021-01-15 10:27] VITALS: RESP 17
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
[2021-01-15] MEDS: HaloperidoL 5 MG TABLET PO ×2 (15:48→21:42)
[2021-01-15] MEDS: hydrOXYzine HCL 50 MG TABLET PO (21:42)
[2021-01-15] MEDS: chlorproMAZINE HCl 100 MG TABLET PO (21:42)
[2021-01-15] MEDS: chlorproMAZINE HCl 25 MG TABLET 50 MG PO (21:42)
[2021-01-15] MEDS: Mineral Oil/Petrolatum,White 106 GM Tube 1 APPL TOPICAL (21:44)
[2021-01-15 21:54] VITALS: RESP 16
[2021-01-16] MEDS: carBAMazepine ER 200 MG TAB.ER.12H 400 MG PO ×2 (09:42→22:41)
[2021-01-16] MEDS: Benztropine Mesylate 1 MG TABLET PO ×2 (09:42→22:41)
[2021-01-16] MEDS: Naltrexone HCl 50 MG TABLET PO (09:42)
[2021-01-16] MEDS: Sertraline HCL 100 MG TABLET 200 MG PO (09:42)
[2021-01-16] MEDS: Famotidine 20 MG TABLET PO ×2 (09:42→22:40)
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
[2021-01-16] MEDS: HaloperidoL 5 MG TABLET PO ×2 (16:07→22:41)
[2021-01-16 18:00] VITALS: RESP 18
[2021-01-16] MEDS: chlorproMAZINE HCl 100 MG TABLET PO (22:40)
[2021-01-16] MEDS: chlorproMAZINE HCl 25 MG TABLET 50 MG PO (22:40)
[2021-01-16] MEDS: hydrOXYzine HCL 50 MG TABLET PO (22:41)
[2021-01-17] MEDS: Naltrexone HCl 50 MG TABLET PO (08:38)
[2021-01-17] MEDS: Famotidine 20 MG TABLET PO ×2 (08:38→20:44)
[2021-01-17] MEDS: Sertraline HCL 100 MG TABLET 200 MG PO (08:38)
[2021-01-17] MEDS: Benztropine Mesylate 1 MG TABLET PO ×2 (08:39→20:44)
[2021-01-17] MEDS: carBAMazepine ER 200 MG TAB.ER.12H 400 MG PO ×2 (08:39→20:43)
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
[2021-01-17] MEDS: HaloperidoL 5 MG TABLET PO ×2 (15:41→20:44)
[2021-01-17 18:00] VITALS: RESP 16
[2021-01-17] MEDS: hydrOXYzine HCL 50 MG TABLET PO (20:43)
[2021-01-17] MEDS: chlorproMAZINE HCl 100 MG TABLET PO (20:43)
[2021-01-17] MEDS: chlorproMAZINE HCl 25 MG TABLET 50 MG PO (20:44)
[2021-01-17] MEDS: LORazepam 1 MG TABLET PO (22:43)
--- NOTE | 2021-01-18 12:13 | PC.NURSE ---
Attempted to wake pt up at 8:30am, 8:45am, and 11:30am to administer AM medications, pt remained asleep and did not take her medications after several attempts of getting her out of bed.
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
[2021-01-18] MEDS: Sertraline HCL 100 MG TABLET 200 MG PO (15:49)
[2021-01-18] MEDS: Benztropine Mesylate 1 MG TABLET PO ×2 (15:50→21:40)
[2021-01-18] MEDS: carBAMazepine ER 200 MG TAB.ER.12H 400 MG PO ×2 (15:50→21:40)
[2021-01-18] MEDS: Famotidine 20 MG TABLET PO ×2 (15:50→21:40)
[2021-01-18] MEDS: Naltrexone HCl 50 MG TABLET PO (15:50)
[2021-01-18 18:00] VITALS: RESP 14
[2021-01-18] MEDS: hydrOXYzine HCL 50 MG TABLET PO (21:39)
[2021-01-18] MEDS: chlorproMAZINE HCl 25 MG TABLET 50 MG PO (21:39)
[2021-01-18] MEDS: chlorproMAZINE HCl 100 MG TABLET PO (21:40)
[2021-01-18] MEDS: HaloperidoL 5 MG TABLET PO (21:40)
--- NOTE | 2021-01-19 00:31 | PC.NURSE ---
FOR 01/18-MISSED 1500 HALDOL DUE TO LATE ADMINISTRATION OF AM MEDICATIONS.
[2021-01-19] MEDS: Sertraline HCL 100 MG TABLET 200 MG PO (11:23)
[2021-01-19] MEDS: Naltrexone HCl 50 MG TABLET PO (11:23)
[2021-01-19] MEDS: carBAMazepine ER 200 MG TAB.ER.12H 400 MG PO ×3 (11:23→21:55)
[2021-01-19] MEDS: Famotidine 20 MG TABLET PO ×2 (11:24→21:55)
[2021-01-19] MEDS: Benztropine Mesylate 1 MG TABLET PO ×2 (11:24→21:55)
[2021-01-19 11:38] VITALS: RESP 17
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
[2021-01-19] MEDS: HaloperidoL 5 MG TABLET PO ×2 (15:01→21:55)
[2021-01-19] MEDS: hydrOXYzine HCL 50 MG TABLET PO (21:55)
[2021-01-19] MEDS: chlorproMAZINE HCl 100 MG TABLET PO (21:55)
[2021-01-19] MEDS: chlorproMAZINE HCl 25 MG TABLET 50 MG PO (21:55)
[2021-01-19 22:06] VITALS: RESP 14
--- NOTE | 2021-01-19 23:30 | PC.NURSE ---
Pt c/o feeling as if she needs to urinate, but then either is not able to do so or needs to push . Also c/o occasional lower abdominal pain and burning when urinating, as well as an odor. Pt reports feeling as though her bladder is not fully emptying. States that this has been going on for an extended period of time. Willing to give urine sample. Reports a history of UTI's with minimal symptoms.
--- NOTE | 2021-01-20 10:34 | PC.NURSE ---
RN attempted to wake patient multiple times (0800, 0845, 0930, 1000, 1030) offered medications at these times. Pt snoring, not waking to loud calling of her name. Will continue to offer medications.
[2021-01-20 10:38] VITALS: RESP 16
[2021-01-20] MEDS: carBAMazepine ER 200 MG TAB.ER.12H 400 MG PO ×3 (10:59→20:15)
[2021-01-20] MEDS: Famotidine 20 MG TABLET PO ×2 (10:59→20:14)
[2021-01-20] MEDS: Benztropine Mesylate 1 MG TABLET PO ×2 (10:59→20:15)
[2021-01-20] MEDS: Naltrexone HCl 50 MG TABLET PO (10:59)
[2021-01-20] MEDS: Sertraline HCL 100 MG TABLET 200 MG PO (10:59)
[2021-01-20] MEDS: HaloperidoL 5 MG TABLET PO ×2 (15:35→20:15)
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
[2021-01-20 20:04] VITALS: RESP 16
[2021-01-20] MEDS: chlorproMAZINE HCl 100 MG TABLET PO (20:15)
[2021-01-20] MEDS: chlorproMAZINE HCl 25 MG TABLET 50 MG PO (20:15)
[2021-01-20] MEDS: hydrOXYzine HCL 50 MG TABLET PO (20:15)
[2021-01-21] MEDS: carBAMazepine ER 200 MG TAB.ER.12H 400 MG PO ×3 (09:58→19:42)
[2021-01-21] MEDS: Naltrexone HCl 50 MG TABLET PO (09:59)
[2021-01-21] MEDS: Sertraline HCL 100 MG TABLET 200 MG PO (09:59)
[2021-01-21] MEDS: Benztropine Mesylate 1 MG TABLET PO ×2 (10:00→19:42)
[2021-01-21] MEDS: Famotidine 20 MG TABLET PO ×2 (10:00→19:43)
[2021-01-21] MEDS: Acetaminophen 325 MG TABLET 650 MG PO ×2 (12:17→20:34)
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
[2021-01-21] MEDS: HaloperidoL 5 MG TABLET PO ×2 (14:43→19:42)
[2021-01-21 18:00] VITALS: RESP 14
[2021-01-21] MEDS: chlorproMAZINE HCl 25 MG TABLET 50 MG PO (19:42)
[2021-01-21] MEDS: hydrOXYzine HCL 50 MG TABLET PO (19:42)
[2021-01-21] MEDS: chlorproMAZINE HCl 100 MG TABLET PO (19:43)
[2021-01-22 02:06] LABS: Appearance Urine CLOUDY; Color Urine YELLOW; Glucose Urine UA NEG (NEG); Leukocyte Esterase Urine NEG (NEG); Nitrite Urine NEG (NEG); PH 7.5 (5.0-8.0); Specific Gravity - Urine 1.015 (1.005-1.025); Urine Blood NEG (NEG); Urine Ketones NEG (NEG); Urine Protein NEG (NEG-TRACE)
--- NOTE | 2021-01-22 05:08 | PC.NURSE ---
urine obtained. initial results wnl with cloudy urine noted.
[2021-01-22] MEDS: carBAMazepine ER 200 MG TAB.ER.12H 400 MG PO ×3 (08:37→23:28)
[2021-01-22] MEDS: Sertraline HCL 100 MG TABLET 200 MG PO (08:37)
[2021-01-22] MEDS: Benztropine Mesylate 1 MG TABLET PO ×2 (08:37→23:27)
[2021-01-22] MEDS: Naltrexone HCl 50 MG TABLET PO (08:37)
[2021-01-22] MEDS: Famotidine 20 MG TABLET PO ×2 (08:37→23:28)
[2021-01-22] MEDS: Capsaicin 0.025% Cream 60 GM TUBE 1 APPL TOPICAL (09:15)
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
[2021-01-22] MEDS: HaloperidoL 5 MG TABLET PO ×2 (15:43→23:29)
[2021-01-22 18:00] VITALS: RESP 18
[2021-01-22] MEDS: hydrOXYzine HCL 50 MG TABLET PO (23:28)
[2021-01-22] MEDS: chlorproMAZINE HCl 25 MG TABLET 50 MG PO (23:28)
[2021-01-22] MEDS: chlorproMAZINE HCl 100 MG TABLET PO (23:29)
--- NOTE | 2021-01-23 10:44 | PC.NURSE ---
RN attempted to wake up patient for AM meds at 9:00, 10:05, and 10:45am. Pt continues to remain asleep.
[2021-01-23] MEDS: Benztropine Mesylate 1 MG TABLET PO ×2 (11:37→21:32)
[2021-01-23] MEDS: carBAMazepine ER 200 MG TAB.ER.12H 400 MG PO ×3 (11:37→21:32)
[2021-01-23] MEDS: Famotidine 20 MG TABLET PO ×2 (11:37→21:33)
[2021-01-23] MEDS: Naltrexone HCl 50 MG TABLET PO (11:37)
[2021-01-23] MEDS: Sertraline HCL 100 MG TABLET 200 MG PO (11:37)
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
[2021-01-23] MEDS: HaloperidoL 5 MG TABLET PO ×2 (15:53→21:31)
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
[2021-01-23] MEDS: chlorproMAZINE HCl 25 MG TABLET 50 MG PO (21:30)
[2021-01-23] MEDS: hydrOXYzine HCL 50 MG TABLET PO (21:33)
[2021-01-23] MEDS: chlorproMAZINE HCl 100 MG TABLET PO (21:33)
[2021-01-24] MEDS: Naltrexone HCl 50 MG TABLET PO (11:37)
[2021-01-24] MEDS: carBAMazepine ER 200 MG TAB.ER.12H 400 MG PO ×3 (11:37→20:37)
[2021-01-24] MEDS: Famotidine 20 MG TABLET PO ×2 (11:38→20:37)
[2021-01-24] MEDS: Sertraline HCL 100 MG TABLET 200 MG PO (11:38)
[2021-01-24] MEDS: Benztropine Mesylate 1 MG TABLET PO ×2 (11:39→20:37)
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
[2021-01-24] MEDS: HaloperidoL 5 MG TABLET PO ×2 (16:47→20:37)
[2021-01-24 20:34] VITALS: RESP 16
[2021-01-24] MEDS: chlorproMAZINE HCl 100 MG TABLET PO (20:36)
[2021-01-24] MEDS: chlorproMAZINE HCl 25 MG TABLET 50 MG PO (20:37)
[2021-01-24] MEDS: hydrOXYzine HCL 50 MG TABLET PO (20:37)
[2021-01-25] MEDS: Famotidine 20 MG TABLET PO ×2 (10:42→20:25)
[2021-01-25] MEDS: carBAMazepine ER 200 MG TAB.ER.12H 400 MG PO ×3 (10:42→20:25)
[2021-01-25] MEDS: Sertraline HCL 100 MG TABLET 200 MG PO (10:42)
[2021-01-25] MEDS: Naltrexone HCl 50 MG TABLET PO (10:42)
[2021-01-25] MEDS: Benztropine Mesylate 1 MG TABLET PO ×2 (10:42→20:25)
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
[2021-01-25] MEDS: HaloperidoL 5 MG TABLET PO ×2 (15:53→20:25)
[2021-01-25] MEDS: chlorproMAZINE HCl 100 MG TABLET PO (20:25)
[2021-01-25] MEDS: hydrOXYzine HCL 50 MG TABLET PO ×2 (20:25→23:56)
[2021-01-25] MEDS: chlorproMAZINE HCl 25 MG TABLET 50 MG PO ×2 (20:25→23:56)
[2021-01-26 09:58] VITALS: RESP 17
[2021-01-26] MEDS: carBAMazepine ER 200 MG TAB.ER.12H 400 MG PO ×3 (10:30→21:43)
[2021-01-26] MEDS: Famotidine 20 MG TABLET PO ×2 (10:30→21:43)
[2021-01-26] MEDS: Benztropine Mesylate 1 MG TABLET PO ×2 (10:30→21:43)
[2021-01-26] MEDS: Naltrexone HCl 50 MG TABLET PO (10:30)
[2021-01-26] MEDS: Sertraline HCL 100 MG TABLET 200 MG PO (10:30)
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
[2021-01-26] MEDS: HaloperidoL 5 MG TABLET PO ×2 (16:11→21:44)
[2021-01-26 19:57] VITALS: RESP 16
[2021-01-26] MEDS: chlorproMAZINE HCl 100 MG TABLET PO (21:43)
[2021-01-26] MEDS: hydrOXYzine HCL 50 MG TABLET PO (21:43)
[2021-01-26] MEDS: chlorproMAZINE HCl 25 MG TABLET 50 MG PO (21:43)
[2021-01-27] VITALS (8 sets, daily range): BP systolic 119–148; BP diastolic 64–92; PULSE 90–108; RESP 16–17; TEMP 36.6; O2SAT 98–100
[2021-01-27] MEDS: chlorproMAZINE HCl 25 MG TABLET PO (00:06)
[2021-01-27] MEDS: hydrOXYzine HCL 50 MG TABLET PO ×2 (00:06→23:11)
[2021-01-27 08:37] LABS: MANUAL DIFF FLAG NO
[2021-01-27 08:40] LABS: Basophils Percent Auto 0.6 % (0-2); Eosinophils Absolute Auto 0.2 X10*3/uL (0.0-0.4); Eosinophils Percent Auto 3.7 % (0-4); Hematocrit 35.9 % (37.0-47.0); Hemoglobin 11.7 g/dl (12.0-16.0); Imm Gran Abs Auto 0.02 X10*3/uL (0.00-0.03); Imm Gran Pct Auto 0.4 % (0.0-0.4); Lymphocytes Absolute Auto 2.5 X10*3/uL (1.2-4.9); Lymphocytes Percent Auto 47.8 % (20-40); Mean Corpuscular HGB Conc 32.6 g/dl (31.0-35.0); Mean Corpuscular Volume 82.7 fL (80.0-98.0); Monocytes Absolute Auto 0.5 X10*3/uL (0.1-1.2); Monocytes Percent Auto 10.3 % (2-11); Neutrophils Absolute Auto 1.9 x10*3/uL (2.0-8.3); Neutrophils Percent Auto 37.2 % (45-73); Platelet Count 250 X10*3/uL (160-400); Red Blood Count 4.34 X10*6/uL (4.20-5.50); Red Cell Distribution Width 12.6 % (11.0-16.0); White Blood Count 5.2 X10*3/uL (4.8-10.8)
[2021-01-27 09:13] LABS: Alanine Aminotransferase 17 U/L (0-31); Albumin Level 3.9 g/dL (3.5-5.0); Alkaline Phosphatase 71 U/L (39-117); Anion Gap 11 (12-20); Aspartate Amino Transferase 17 U/L (5-31); Bilirubin Direct < 0.2 mg/dL (0.0-0.5); Bilirubin Total 0.4 mg/dL (0.0-1.0); Blood Urea Nitrogen 12 mg/dL (9-16); C Reactive Protein 0.93 mg/dL (< or = 0.50); Calcium 9.5 mg/dL (8.4-10.2); Carbon Dioxide 23 mmol/L (22-29); Chloride 109 mmol/L (96-108); Creatinine Clr Calc Pharmacy 114.3; Estimated Glomerular Filt Rate > 60; Glucose Fasting 99 mg/dL (60-99); Potassium 4.2 mmol/L (3.3-5.1); Sodium 139 mmol/L (135-145)
[2021-01-27 10:05] LABS: Carbamazepine Tegretol 9.2 mcg/mL (5.0-12.0)
[2021-01-27] MEDS: Benztropine Mesylate 1 MG TABLET PO ×2 (10:16→23:10)
[2021-01-27] MEDS: Sertraline HCL 100 MG TABLET 200 MG PO (10:16)
[2021-01-27] MEDS: Naltrexone HCl 50 MG TABLET PO (10:16)
[2021-01-27] MEDS: Famotidine 20 MG TABLET PO ×2 (10:16→23:10)
[2021-01-27] MEDS: carBAMazepine ER 200 MG TAB.ER.12H 400 MG PO ×3 (10:16→23:11)
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
--- NOTE | 2021-01-27 14:14 | PC.NURSE ---
Pt reports not feeling well, temp 97.8, decliend other vital sign assessment. PT states that she has not eaten or had anything to drink today. Pt given gingerale, encouraged to sip and try a snack. PT currently sitting in kitchen area.
--- NOTE | 2021-01-27 15:48 | PM.EVENT ---
Event Note Date of Service: 01/27/21 Event Note: rapid response for fall. witnessed, no clear LOC. hit back of head. c/o head and neck pain. AO times 3, no obvious neuro defecits, but groggy, unclear picture given flat affect and antispychotics on board. POC 96, SBP 150s, sat 97% will check CTH and neck.
[2021-01-27 15:49] LABS: Glucose, Whole Blood 92 mg/dL (60-115)
--- NOTE | 2021-01-27 15:52 | PC.NURSE ---
[place] fell to the floor and struck her head, observed by Linda JIMENEZ at approximately 1535. Rapid Response was called. Blood Pressure 158/91, Heart Rate 99, RBS 92, O2 sat 97%. CAT Scan ordered. AT [id number] was transported to CT scan
[2021-01-27] MEDS: Acetaminophen 325 MG TABLET 650 MG PO (16:17)
[2021-01-27] MEDS: HaloperidoL 5 MG TABLET PO ×2 (16:18→23:11)
[2021-01-27] MEDS: Magnesium Hydrox/Alum Hydrox 30 ML ORAL.SUSP PO (18:25)
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
[2021-01-27] MEDS: chlorproMAZINE HCl 25 MG TABLET 50 MG PO (23:10)
[2021-01-27] MEDS: chlorproMAZINE HCl 100 MG TABLET PO (23:11)
[2021-01-28] MEDS: Naltrexone HCl 50 MG TABLET PO (09:29)
[2021-01-28] MEDS: Famotidine 20 MG TABLET PO ×2 (09:30→22:33)
[2021-01-28] MEDS: Benztropine Mesylate 1 MG TABLET PO ×2 (09:30→22:33)
[2021-01-28] MEDS: carBAMazepine ER 200 MG TAB.ER.12H 400 MG PO ×3 (09:30→22:33)
[2021-01-28] MEDS: Sertraline HCL 100 MG TABLET 200 MG PO (09:30)
[2021-01-28] MEDS: chlorproMAZINE HCl 25 MG TABLET PO (11:02)
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
[2021-01-28] MEDS: HaloperidoL 5 MG TABLET PO ×2 (16:03→22:33)
[2021-01-28] MEDS: chlorproMAZINE HCl 25 MG TABLET 50 MG PO (22:32)
[2021-01-28] MEDS: chlorproMAZINE HCl 100 MG TABLET PO (22:32)
[2021-01-28] MEDS: hydrOXYzine HCL 50 MG TABLET PO (22:33)
[2021-01-28 22:45] VITALS: RESP 16
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
[2021-01-29] MEDS: Benztropine Mesylate 1 MG TABLET PO ×2 (10:29→22:15)
[2021-01-29] MEDS: Famotidine 20 MG TABLET PO ×2 (10:30→22:14)
[2021-01-29] MEDS: Naltrexone HCl 50 MG TABLET PO (10:30)
[2021-01-29] MEDS: Sertraline HCL 100 MG TABLET 200 MG PO (10:30)
[2021-01-29] MEDS: carBAMazepine ER 200 MG TAB.ER.12H 400 MG PO ×3 (10:30→22:15)
[2021-01-29] MEDS: HaloperidoL 5 MG TABLET PO ×2 (16:27→22:15)
[2021-01-29] MEDS: chlorproMAZINE HCl 25 MG TABLET 50 MG PO (22:14)
[2021-01-29] MEDS: hydrOXYzine HCL 50 MG TABLET PO (22:15)
[2021-01-29] MEDS: chlorproMAZINE HCl 100 MG TABLET PO (22:15)
[2021-01-29 22:40] VITALS: RESP 16
[2021-01-30] MEDS: Benztropine Mesylate 1 MG TABLET PO ×2 (10:13→20:04)
[2021-01-30] MEDS: carBAMazepine ER 200 MG TAB.ER.12H 400 MG PO ×3 (10:13→20:04)
[2021-01-30] MEDS: Sertraline HCL 100 MG TABLET 200 MG PO (10:13)
[2021-01-30] MEDS: Famotidine 20 MG TABLET PO ×2 (10:13→20:04)
[2021-01-30] MEDS: Naltrexone HCl 50 MG TABLET PO (10:13)
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
[2021-01-30] MEDS: HaloperidoL 5 MG TABLET PO ×2 (17:30→20:04)
[2021-01-30] MEDS: chlorproMAZINE HCl 25 MG TABLET 50 MG PO (20:04)
[2021-01-30] MEDS: chlorproMAZINE HCl 100 MG TABLET PO (20:04)
[2021-01-30] MEDS: hydrOXYzine HCL 50 MG TABLET PO (20:05)
[2021-01-31] MEDS: carBAMazepine ER 200 MG TAB.ER.12H 400 MG PO ×3 (09:01→22:02)
[2021-01-31] MEDS: Naltrexone HCl 50 MG TABLET PO (09:01)
[2021-01-31] MEDS: Sertraline HCL 100 MG TABLET 200 MG PO (09:01)
[2021-01-31] MEDS: Famotidine 20 MG TABLET PO ×2 (09:01→22:03)
[2021-01-31] MEDS: Benztropine Mesylate 1 MG TABLET PO ×2 (09:01→22:02)
[2021-01-31] MEDS: chlorproMAZINE HCl 25 MG TABLET PO (10:55)
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
[2021-01-31] MEDS: HaloperidoL 5 MG TABLET PO ×2 (16:53→22:03)
[2021-01-31] MEDS: chlorproMAZINE HCl 100 MG TABLET PO (22:02)
[2021-01-31] MEDS: chlorproMAZINE HCl 25 MG TABLET 50 MG PO (22:02)
[2021-01-31] MEDS: hydrOXYzine HCL 50 MG TABLET PO (22:03)
[2021-02-01] MEDS: Famotidine 20 MG TABLET PO ×2 (10:48→22:18)
[2021-02-01] MEDS: Sertraline HCL 100 MG TABLET 200 MG PO (10:48)
[2021-02-01] MEDS: Naltrexone HCl 50 MG TABLET PO (10:49)
[2021-02-01] MEDS: Benztropine Mesylate 1 MG TABLET PO ×2 (10:49→22:18)
[2021-02-01] MEDS: carBAMazepine ER 200 MG TAB.ER.12H 400 MG PO ×3 (10:49→22:17)
[2021-02-01] MEDS: HaloperidoL 5 MG TABLET PO ×2 (16:01→22:19)
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
[2021-02-01] MEDS: hydrOXYzine HCL 50 MG TABLET PO (22:18)
[2021-02-01] MEDS: chlorproMAZINE HCl 100 MG TABLET PO (22:18)
[2021-02-01] MEDS: chlorproMAZINE HCl 25 MG TABLET 50 MG PO (22:19)
[2021-02-01 22:30] VITALS: RESP 14
[2021-02-02] MEDS: carBAMazepine ER 200 MG TAB.ER.12H 400 MG PO ×2 (09:22→15:19)
[2021-02-02] MEDS: Benztropine Mesylate 1 MG TABLET PO (09:22)
[2021-02-02] MEDS: Naltrexone HCl 50 MG TABLET PO (09:22)
[2021-02-02] MEDS: Famotidine 20 MG TABLET PO (09:22)
[2021-02-02] MEDS: Sertraline HCL 100 MG TABLET 200 MG PO (09:22)
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
--- NOTE | 2021-02-02 14:22 | PC.NURSE ---
Patient is alert, fully oriented, pleasant and cooperative with discharge process. Following teaching patient and caregiver deny questions about dc plan. Patient denies ideation, plan or intent to harm self or others at present. She denies physical complaint.
[2021-02-02] MEDS: HaloperidoL 5 MG TABLET PO (15:20)
== END 2021-02-02 18:35 | disposition home or self-care (01) | DRG 885 ==
LOC: HO.ED 16:42 → HO.PADLT16 11-18 09:39
PROVIDERS: Nurse Practitioner Family; Physician Assistant; Registered Nurse; Social Worker; Admitting Provider Psychiatry & Neurology Psychiatry; Emergency Provider Internal Medicine; Visit Provider Psychiatry & Neurology Psychiatry
DX: F25.1 Schizoaffective disorder, depressive type (principal); F60.3 Borderline personality disorder; Q86.0 Fetal alcohol syndrome (dysmorphic); E86.0 Dehydration; I95.1 Orthostatic hypotension; Z20.822 Contact with and (suspected) exposure to COVID-19; Z79.899 Other long term (current) drug therapy
CPT/HCPCS: 36415; 70450; 72125; 73030; 73100; 73562; 80048; 80053; 80061; 80076; 80156; 80307; 80339; 81001; 81003; 81025; 82150; 82947; 83036; 83690; 85025; 86140; 86141; 87635; 93005; 97161; 99285; J3230

== ENCOUNTER 2021-06-21 16:31 | Inpatient (IN) | payer OTHER, SELFPAY ==
[2021-06-21] MEDS: diphenhydrAMINE HCL 50 MG/ML VIAL IM (16:58)
[2021-06-21] MEDS: LORazepam 2 MG/ML VIAL IM (16:58)
[2021-06-21] MEDS: Haloperidol Lactate 5 MG/ML VIAL IM (16:58)
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
[2021-06-21 17:50] VITALS: BP 134/93; PULSE 106; RESP 18; TEMP 37.3; O2SAT 99; BMI 45.3
--- NOTE | 2021-06-21 17:52 | PHA.MEDREC ---
Pharmacy Consult ? Medication Reconciliation Pharmacy has completed the medication reconciliation.
[2021-06-21 18:24] LABS: COVID-19 Test Negative (Negative); IDNOW Serial# 16C4AD1C
[2021-06-22 01:52] LABS: MANUAL DIFF FLAG NO
[2021-06-22 01:53] LABS: Basophils Percent Auto 0.4 % (0-2); Eosinophils Absolute Auto 0.1 X10*3/uL (0.0-0.4); Eosinophils Percent Auto 1.8 % (0-4); Hematocrit 37.1 % (37.0-47.0); Hemoglobin 12.1 g/dl (12.0-16.0); Imm Gran Abs Auto 0.02 X10*3/uL (0.00-0.03); Imm Gran Pct Auto 0.4 % (0.0-0.4); Lymphocytes Absolute Auto 2.7 X10*3/uL (1.2-4.9); Mean Corpuscular HGB Conc 32.6 g/dl (31.0-35.0); Mean Corpuscular Hemoglobin 28.1 pg (27.0-33.0); Mean Corpuscular Volume 86.1 fL (80.0-98.0); Mean Platelet Volume 9.3 fL (9.4-12.3); Monocytes Absolute Auto 0.6 X10*3/uL (0.1-1.2); Monocytes Percent Auto 9.9 % (2-11); Neutrophils Absolute Auto 2.2 x10*3/uL (2.0-8.3); Neutrophils Percent Auto 39.5 % (45-73); Platelet Count 231 X10*3/uL (160-400); Red Blood Count 4.31 X10*6/uL (4.20-5.50); White Blood Count 5.6 X10*3/uL (4.8-10.8)
[2021-06-22 01:59] VITALS: BP 128/66; PULSE 94; RESP 18; TEMP 37.2; O2SAT 97
[2021-06-22 02:05] LABS: Ethanol < 10 mg/dL
[2021-06-22 02:08] LABS: Acetaminophen LAB < 1 mcg/mL (<30); Anion Gap 12 (12-20); Blood Urea Nitrogen 9 mg/dL (9-16); Calcium 9.3 mg/dL (8.4-10.2); Carbon Dioxide 22 mmol/L (22-29); Chloride 108 mmol/L (96-108); Creatinine Clr Calc Pharmacy 106.6; Estimated Glomerular Filt Rate > 60; Glucose Random 99 mg/dL (60-115); Salicylate < 5.0 mg/dL (15-30); Sodium 138 mmol/L (135-145)
[2021-06-22 05:48] LABS: Appearance Urine HAZY; Color Urine YELLOW; Glucose Urine UA NEG (NEG); Leukocyte Esterase Urine NEG (NEG); Nitrite Urine NEG (NEG); Specific Gravity - Urine >= 1.030 (1.005-1.025); Urine Blood NEG (NEG); Urine Ketones NEG (NEG); Urine Protein TRACE MG/DL (NEG-TRACE)
[2021-06-22 06:05] LABS: Amphetamine Screen Urine Not Detected (Not Detect); Barbiturates, Urine Not Detected (Not Detect); Benzodiazepines Screen Urine Not Detected (Not Detect); Cannabinoid Screen Urine Not Detected (Not Detect); Cocaine Screen Urine Not Detected (Not Detect); Fentanyl, urine Not Detected (Not Detect); Opiate Screen Urine Not Detected (Not Detect); Phencyclidine Screen Urine Not Detected (Not Detect)
--- NOTE | 2021-06-22 06:37 | PC.NURSE ---
Patient slept through the night, no distress observed/reported, patient was S/P medication restraint, [facility] referral completed/confirmed/pending ETA, patient was briefly up for bathroom use, provided urine sample, snacked/refreshed and back to bed, med rec completed/pending provider's approval, VSS, affect flat mood depressed, responses delayed, will continue to monitor.
--- NOTE | 2021-06-22 07:43 | PC.NURSE ---
patient appears to remain asleep at present respirations are even and unlabored patient appears in no distress
--- NOTE | 2021-06-22 09:37 | PC.NURSE ---
patients chd worker checked in and left her phone number [email or web address] [phone]
[2021-06-22] MEDS: Sertraline HCL 100 MG TABLET 200 MG PO (10:28)
[2021-06-22] MEDS: Benztropine Mesylate 1 MG TABLET PO ×2 (10:29→21:13)
[2021-06-22] MEDS: carBAMazepine ER 200 MG TAB.ER.12H 400 MG PO (15:40)
[2021-06-22] MEDS: HaloperidoL 5 MG TABLET PO (15:40)
[2021-06-22 19:30] VITALS: BP 122/73; PULSE 91; RESP 18; TEMP 37.3; O2SAT 96
[2021-06-22] MEDS: Naltrexone HCl 50 MG TABLET PO (21:17)
[2021-06-22] MEDS: chlorproMAZINE HCl 25 MG TABLET 150 MG PO (21:18)
--- NOTE | 2021-06-22 22:56 | PC.NURSE ---
Patient complaint with medication, patient intermittently was found hitting her head with hand, not hard to harm herself, but refused to tell what triggers those action, currently in bed calm and quiet, will continue to monitor.
--- NOTE | 2021-06-23 | ECG_ITS ---
Test Reason : QTC CHECK Blood Pressure : / mmHG Vent. Rate : 092 BPM Atrial Rate : 092 BPM P-R Int : 140 ms QRS Dur : 068 ms QT Int : 352 ms P-R-T Axes : 035 016 024 degrees QTc Int : 435 ms Normal sinus rhythm Normal ECG When compared with ECG of 12-JAN-2021 00:06, No significant change was found Referred By: Stanton Sullivan Electronically Signed By:SWATHI CLEMONS MD
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
[2021-06-23 01:04] VITALS: BP 125/76; PULSE 99; RESP 16; TEMP 36.8; O2SAT 99
[2021-06-23] MEDS: Sertraline HCL 100 MG TABLET 200 MG PO (09:52)
[2021-06-23] MEDS: Benztropine Mesylate 1 MG TABLET PO ×2 (09:52→21:15)
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
[2021-06-23 11:27] LABS: UPreg QC Valid YES; Urine Pregnancy NEGATIVE (NEGATIVE)
[2021-06-23 12:06] LABS: Cholesterol 151 mg/dL; HDL Cholesterol 26 mg/dL; LDL Cholesterol Calculated 77 mg/dl; Triglycerides 243 mg/dL
[2021-06-23 12:14] LABS: Estimated Average Glucose 134 mg/dL; Hemoglobin A1C 150.2658 umol/L; Hemoglobin A1c % 6.3 %
[2021-06-23] MEDS: HaloperidoL 5 MG TABLET PO ×3 (12:27→21:18)
[2021-06-23 13:59] LABS: Reflex LDLD? No
[2021-06-23] MEDS: carBAMazepine ER 200 MG TAB.ER.12H 400 MG PO ×2 (16:22→21:17)
[2021-06-23] MEDS: chlorproMAZINE HCl 25 MG TABLET 150 MG PO (21:16)
[2021-06-23] MEDS: Naltrexone HCl 50 MG TABLET PO (21:19)
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
[2021-06-24] MEDS: carBAMazepine ER 200 MG TAB.ER.12H 400 MG PO ×3 (10:25→20:56)
[2021-06-24] MEDS: Sertraline HCL 100 MG TABLET 200 MG PO (10:25)
[2021-06-24] MEDS: Benztropine Mesylate 1 MG TABLET PO ×2 (10:25→20:56)
--- NOTE | 2021-06-24 14:06 | PC.NURSE ---
Pt declined nicotine replacement while in the hospital.
[2021-06-24] MEDS: HaloperidoL 5 MG TABLET PO ×2 (16:37→20:59)
[2021-06-24 18:00] VITALS: BP 118/78; PULSE 110; RESP 18; TEMP 36.7; O2SAT 97
[2021-06-24] MEDS: traZODone HCL 50 MG TABLET PO (20:57)
[2021-06-24] MEDS: Naltrexone HCl 50 MG TABLET PO (20:57)
[2021-06-24] MEDS: hydrOXYzine HCL 25 MG TABLET PO (20:57)
[2021-06-24] MEDS: chlorproMAZINE HCl 25 MG TABLET 150 MG PO (20:57)
[2021-06-25] MEDS: HaloperidoL 5 MG TABLET PO ×2 (16:09→20:50)
[2021-06-25] MEDS: carBAMazepine ER 200 MG TAB.ER.12H 400 MG PO ×2 (16:10→20:45)
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
[2021-06-25 18:00] VITALS: BP 138/90; PULSE 102; RESP 18; TEMP 36.5; O2SAT 97
[2021-06-25] MEDS: Benztropine Mesylate 1 MG TABLET PO (20:44)
[2021-06-25] MEDS: chlorproMAZINE HCl 25 MG TABLET 150 MG PO (20:46)
[2021-06-25] MEDS: Naltrexone HCl 50 MG TABLET PO (20:51)
[2021-06-26] MEDS: Sertraline HCL 100 MG TABLET 200 MG PO (09:55)
[2021-06-26] MEDS: Benztropine Mesylate 1 MG TABLET PO ×2 (09:55→22:12)
[2021-06-26] MEDS: carBAMazepine ER 200 MG TAB.ER.12H 400 MG PO ×3 (09:55→22:12)
[2021-06-26] MEDS: HaloperidoL 5 MG TABLET PO ×2 (14:20→22:18)
--- NOTE | 2021-06-26 17:24 | P.PNPSI_ITS ---
Subjective Subjective Date of Service: 06/26/21 Reason For Visit: mood disorder Interim History: Patient says hello but otherwise reticent. No complaints, no requests remains an appropriate behavioral control. Adherent with medication. Mostly isolative Mental Status Exam Mental Status Exam Narrative: Pt is alert and oriented; behavior is marginally cooperative; dressed in hospital gown with adequate hygiene; mood is described as good and affect constricted; better eye contact; Speech is more spontaneous, less latency; normal volume; no psychomotor agitation/retardation present; thought process is more organized and goal directed; Thought content is on her mood; pt is internal ly preoccupied; denies any SI/HI. denies AH; less thought blocking.? Patients insight and judgment are impaired but improving. Diagnostics Vital Signs (24Hr): Vital Signs - 24 hr 06/25/21 18:00 Temperature 97.7 F Pulse Rate 102 H Respiratory Rate 18 Blood Pressure 138/90 H Pulse Oximetry 97 BMI result Body Mass Index 45.3 Labs Results: 06/22/21 01:46 06/22/21 01:46 Medications Medications Current Medications Acetaminophen (Acetaminophen 325 Mg Tablet) 650 mg PO Q6H PRN PRN Reason: Headache/Pain Mild Scale (1-3) Al Hydroxide/Mg Hydroxide (Magnesium Hydrox/Alum Hydrox 30 Ml Oral.Susp) 30 ml PO Q6H PRN PRN Reason: Heartburn/Nausea Benztropine Mesylate (Benztropine Mesylate 1 Mg Tablet) 1 mg PO BID [facility] Last Admin: 06/26/21 09:55 Dose: 1 mg Documented by: Carbamazepine (Carbamazepine Er 200 Mg Tab.Er.12h) 400 mg PO TID [facility] Last Admin: 06/26/21 17:02 Dose: 400 mg Documented by: Chlorpromazine HCl (Chlorpromazine Hcl 25 Mg Tablet) 150 mg PO BEDTIME [facility] Last Admin: 06/25/21 20:46 Dose: 150 mg Documented by: Diphenhydramine HCl (Diphenhydramine Hcl 25 Mg Tablet) 50 mg PO Q4H PRN PRN Reason: agitation Haloperidol (Haloperidol 5 Mg Tablet) 5 mg PO Q4H PRN PRN Reason: agitation Haloperidol (Haloperidol 5 Mg Tablet) 5 mg PO TID PRN PRN Reason: moderate agitation Last Admin: 06/23/21 12:27 Dose: 5 mg Documented by: Haloperidol (Haloperidol 5 Mg Tablet) 5 mg PO BID@1600,2100 [facility] Last Admin: 06/25/21 20:50 Dose: 5 mg Documented by: Hydroxyzine HCl (Hydroxyzine Hcl 25 Mg Tablet) 25 mg PO BEDTIME PRN PRN Reason: Anxiety Last Admin: 06/24/21 20:57 Dose: 25 mg Documented by: Lorazepam (Lorazepam 1 Mg Tablet) 2 mg PO Q4H PRN PRN Reason: agitation Magnesium Hydroxide (Milk Of Magnesia 30 Ml Oral.Susp) 30 ml PO DAILY PRN PRN Reason: Constipation Naltrexone HCl (Naltrexone Hcl 50 Mg Tablet) 50 mg PO BEDTIME [facility] Last Admin: 06/25/21 20:51 Dose: 50 mg Documented by: Pharmacy Consult (Consult Rx Perform Med Rec) 1 each MISCELLANE ONCE PRN PRN Reason: Consult order Sertraline HCl (Sertraline Hcl 100 Mg Tablet) 200 mg PO DAILY [facility] Last Admin: 06/26/21 09:55 Dose: 200 mg Documented by: Trazodone HCl (Trazodone Hcl 50 Mg Tablet) 50 mg PO BEDTIME PRN PRN Reason: Insomnia Last Admin: 06/24/21 20:57 Dose: 50 mg Documented by: Allergies Allergies Allergy/AdvReac Type Severity Reaction Status Date / Time No Known Allergies Allergy Unverified 11/06/19 19:53 [No Known Allergies*] Assessment & Plan Assessment & Plan (1) Schizoaffective disorder, depressive type: Status: Acute Code(s): F25.1 - Schizoaffective disorder, depressive type (2) alcohol syndrome: Status: Acute Code(s): Q86.0 - alcohol syndrome (dysmorphic) (3) Borderline personality disorder: Status: Acute Code(s): F60.3 - Borderline personality disorder (4) Obesities, morbid: Status: Acute Code(s): E66.01 - Morbid (severe) obesity due to excess calories Plan Patient is a 25-year-old female who carries a diagnosis of Schizoaffective disorder, borderline personality disorder, alcohol syndrome, with history of aggression and assaultive staff who presents to the ED for mood dysregulation. Patient is a limited historian and is difficult to engage. -this is the 3rd time patient has presented to the emergency room wanting help, Although she has trouble articulating what she needs. It is unclear what medication changes were recently made however she says that her Tegretol and Haldol doses were lowered and if true may account for worsening mood dysregulation. Patient agrees to increase them. -patient a little more present, willing to engage though still guarded. Tolerating medication increase. Less thought blocking and less speech latency. / patient still guarded and mostly reticent. Overall in good behavioral control and mostly keeps to herself staying isolated in her room. Denies complaints of requests. Plan: CV q15min checks 1:1 for now given her history Continue home meds with following changes Increased to Haldol 5 mg to b.i.d. (was on 5mg BID at last admission) Increased to Tegretol 400 mg TID (was on 400mg TID at last admission) QTc WNL HBA1C 6.3 Lipids WNL UPT negative (on birthcontrol) I spent minutes with the patient and/or on the patient floor today, greater than?50% of which was spent counseling/coordinating care. Reason for contiued inpatient stay Substantial Risk for: rapid decompensation
[2021-06-26] MEDS: chlorproMAZINE HCl 25 MG TABLET 150 MG PO (22:05)
[2021-06-26] MEDS: Naltrexone HCl 50 MG TABLET PO (22:13)
[2021-06-27] MEDS: Sertraline HCL 100 MG TABLET 200 MG PO (11:03)
[2021-06-27] MEDS: carBAMazepine ER 200 MG TAB.ER.12H 400 MG PO ×3 (11:03→21:36)
[2021-06-27] MEDS: Benztropine Mesylate 1 MG TABLET PO ×2 (11:03→21:35)
[2021-06-27] MEDS: HaloperidoL 5 MG TABLET PO ×2 (16:33→21:51)
--- NOTE | 2021-06-27 17:10 | P.PNPSI_ITS ---
Subjective Subjective Date of Service: 06/27/21 Reason For Visit: mood disorder Interim History: Patient difficult to engage. Musical Therapist observed her talking normally with other staff. However when administrative underwriter approached she seemed to have speech latency. Then she says, I'm alright. Two days ago I was not all right but I'm alright. I'm All right. Two days ago I was not all right but I'm all right. I am all right. She then turned our attention to getting she shampoo from other staff. Mental Status Exam Mental Status Exam Narrative: Pt is alert and oriented; behavior is marginally cooperative; dressed in hospital gown with adequate hygiene; mood is described as I'm alright and af fect constricted; better eye contact; Speech is more spontaneous, less latency overall; normal volume; no psychomotor agitation/retardation present; thought process is more organized and goal directed; Thought content is on her mood; pt at times seems internally preoccupied but denies AVH; denies any SI/HI.? Patients insight and judgment are impaired but improving. Diagnostics Vital Signs (24Hr): BMI result Body Mass Index 45.3 Labs Results: 06/22/21 01:46 06/22/21 01:46 Medications Medications Current Medications Acetaminophen (Acetaminophen 325 Mg Tablet) 650 mg PO Q6H PRN PRN Reason: Headache/Pain Mild Scale (1-3) Al Hydroxide/Mg Hydroxide (Magnesium Hydrox/Alum Hydrox 30 Ml Oral.Susp) 30 ml PO Q6H PRN PRN Reason: Heartburn/Nausea Benztropine Mesylate (Benztropine Mesylate 1 Mg Tablet) 1 mg PO BID [facility] Last Admin: 06/27/21 11:03 Dose: 1 mg Documented by: Carbamazepine (Carbamazepine Er 200 Mg Tab.Er.12h) 400 mg PO TID [facility] Last Admin: 06/27/21 16:32 Dose: 400 mg Documented by: Chlorpromazine HCl (Chlorpromazine Hcl 25 Mg Tablet) 150 mg PO BEDTIME [facility] Last Admin: 06/26/21 22:05 Dose: 150 mg Documented by: Diphenhydramine HCl (Diphenhydramine Hcl 25 Mg Tablet) 50 mg PO Q4H PRN PRN Reason: agitation Haloperidol (Haloperidol 5 Mg Tablet) 5 mg PO Q4H PRN PRN Reason: agitation Haloperidol (Haloperidol 5 Mg Tablet) 5 mg PO TID PRN PRN Reason: moderate agitation Last Admin: 06/23/21 12:27 Dose: 5 mg Documented by: Haloperidol (Haloperidol 5 Mg Tablet) 5 mg PO BID@1600,2100 [facility] Last Admin: 06/27/21 16:33 Dose: 5 mg Documented by: Hydroxyzine HCl (Hydroxyzine Hcl 25 Mg Tablet) 25 mg PO BEDTIME PRN PRN Reason: Anxiety Last Admin: 06/24/21 20:57 Dose: 25 mg Documented by: Lorazepam (Lorazepam 1 Mg Tablet) 2 mg PO Q4H PRN PRN Reason: agitation Magnesium Hydroxide (Milk Of Magnesia 30 Ml Oral.Susp) 30 ml PO DAILY PRN PRN Reason: Constipation Naltrexone HCl (Naltrexone Hcl 50 Mg Tablet) 50 mg PO BEDTIME [facility] Last Admin: 06/26/21 22:13 Dose: 50 mg Documented by: Pharmacy Consult (Consult Rx Perform Med Rec) 1 each MISCELLANE ONCE PRN PRN Reason: Consult order Sertraline HCl (Sertraline Hcl 100 Mg Tablet) 200 mg PO DAILY [facility] Last Admin: 06/27/21 11:03 Dose: 200 mg Documented by: Trazodone HCl (Trazodone Hcl 50 Mg Tablet) 50 mg PO BEDTIME PRN PRN Reason: Insomnia Last Admin: 06/24/21 20:57 Dose: 50 mg Documented by: Allergies Allergies Allergy/AdvReac Type Severity Reaction Status Date / Time No Known Allergies Allergy Unverified 11/06/19 19:53 [No Known Allergies*] Assessment & Plan Assessment & Plan (1) Schizoaffective disorder, depressive type: Status: Acute Code(s): F25.1 - Schizoaffective disorder, depressive type (2) alcohol syndrome: Status: Acute Code(s): Q86.0 - alcohol syndrome (dysmorphic) (3) Borderline personality disorder: Status: Acute Code(s): F60.3 - Borderline personality disorder (4) Obesities, morbid: Status: Acute Code(s): E66.01 - Morbid (severe) obesity due to excess calories Plan Patient is a 25-year-old female who carries a diagnosis of Schizoaffective disorder, borderline personality disorder, alcohol syndrome, with history of aggression and assaultive staff who presents to the ED for mood dysregulation. Patient is a limited historian and is difficult to engage. -this is the 3rd time patient has presented to the emergency room wanting help, Although she has trouble articulating what she needs. It is unclear what medication changes were recently made however she says that her Tegretol and Haldol doses were lowered and if true may account for worsening mood dysregulation. Patient agrees to increase them. -patient a little more present, willing to engage though still guarded. Tolerating medication increase. Less thought blocking and less speech latency. 06/25 patient still guarded and mostly reticent. Overall in good behavioral control and mostly keeps to herself staying isolated in her room. Denies complaints of requests. 06/27 difficult to engage, and somewhat different presentations depending on staff. Plan: CV q15min checks 1:1 for now given her history Continue home meds with following changes Increased to Haldol 5 mg to b.i.d. (was on 5mg BID at last admission) Increased to Tegretol 400 mg TID (was on 400mg TID at last admission) QTc WNL HBA1C 6.3 Lipids WNL UPT negative (on birthcontrol) I spent minutes with the patient and/or on the patient floor today, greater than?50% of which was spent counseling/coordinating care. Informed Consent: further education needed Reason for contiued inpatient stay Substantial Risk for: rapid decompensation
[2021-06-27] MEDS: Naltrexone HCl 50 MG TABLET PO (21:35)
[2021-06-27] MEDS: chlorproMAZINE HCl 25 MG TABLET 150 MG PO (21:36)
[2021-06-28] MEDS: Benztropine Mesylate 1 MG TABLET PO ×2 (09:59→21:11)
[2021-06-28] MEDS: carBAMazepine ER 200 MG TAB.ER.12H 400 MG PO ×3 (09:59→21:10)
[2021-06-28] MEDS: Sertraline HCL 100 MG TABLET 200 MG PO (09:59)
--- NOTE | 2021-06-28 13:57 | P.PNPSI_ITS ---
Subjective Subjective Date of Service: 06/28/21 Reason For Visit: mood disorder Interim History: Patient shared that although she is outwardly appearing calm, internally she is feeling emotional and revved up but she is trying to control herself and not act out. Otherwise, Patient remains difficult to engage with contract technical writer. Mental Status Exam Mental Status Exam Narrative: Pt is alert and oriented; behavior is marginally cooperative; dressed in hospital gown with adequate hygiene; mood is described as irritable and affect constricted; better eye contact; Speech is more spontaneous, less latency overall; normal volume; no psychomotor agitation/retardation present; thought process is more organized and goal directed; Thought content is on her mood; pt at times seems internally preoccupied but denies AVH; denies any SI/HI.? Patients insight and judgment are impaired but improving. Diagnostics Vital Signs (24Hr): BMI result Body Mass Index 45.3 Labs Results: 06/22/21 01:46 06/22/21 01:46 Medications Medications Current Medications Acetaminophen (Acetaminophen 325 Mg Tablet) 650 mg PO Q6H PRN PRN Reason: Headache/Pain Mild Scale (1-3) Al Hydroxide/Mg Hydroxide (Magnesium Hydrox/Alum Hydrox 30 Ml Oral.Susp) 30 ml PO Q6H PRN PRN Reason: Heartburn/Nausea Benztropine Mesylate (Benztropine Mesylate 1 Mg Tablet) 1 mg PO BID [facility] Last Admin: 06/28/21 09:59 Dose: 1 mg Documented by: Carbamazepine (Carbamazepine Er 200 Mg Tab.Er.12h) 400 mg PO TID [facility] Last Admin: 06/28/21 09:59 Dose: 400 mg Documented by: Chlorpromazine HCl (Chlorpromazine Hcl 25 Mg Tablet) 150 mg PO BEDTIME [facility] Last Admin: 06/27/21 21:36 Dose: 150 mg Documented by: Diphenhydramine HCl (Diphenhydramine Hcl 25 Mg Tablet) 50 mg PO Q4H PRN PRN Reason: agitation Haloperidol (Haloperidol 5 Mg Tablet) 5 mg PO Q4H PRN PRN Reason: agitation Haloperidol (Haloperidol 5 Mg Tablet) 5 mg PO TID PRN PRN Reason: moderate agitation Last Admin: 06/23/21 12:27 Dose: 5 mg Documented by: Haloperidol (Haloperidol 5 Mg Tablet) 5 mg PO BID@1600,2100 [facility] Last Admin: 06/27/21 21:51 Dose: 5 mg Documented by: Hydroxyzine HCl (Hydroxyzine Hcl 25 Mg Tablet) 25 mg PO BEDTIME PRN PRN Reason: Anxiety Last Admin: 06/24/21 20:57 Dose: 25 mg Documented by: Magnesium Hydroxide (Milk Of Magnesia 30 Ml Oral.Susp) 30 ml PO DAILY PRN PRN Reason: Constipation Naltrexone HCl (Naltrexone Hcl 50 Mg Tablet) 50 mg PO BEDTIME [facility] Last Admin: 06/27/21 21:35 Dose: 50 mg Documented by: Pharmacy Consult (Consult Rx Perform Med Rec) 1 each MISCELLANE ONCE PRN PRN Reason: Consult order Sertraline HCl (Sertraline Hcl 100 Mg Tablet) 200 mg PO DAILY [facility] Last Admin: 06/28/21 09:59 Dose: 200 mg Documented by: Trazodone HCl (Trazodone Hcl 50 Mg Tablet) 50 mg PO BEDTIME PRN PRN Reason: Insomnia Last Admin: 06/24/21 20:57 Dose: 50 mg Documented by: Allergies Allergies Allergy/AdvReac Type Severity Reaction Status Date / Time No Known Allergies Allergy Unverified 11/06/19 19:53 [No Known Allergies*] Assessment & Plan Assessment & Plan (1) Schizoaffective disorder, depressive type: Status: Acute Code(s): F25.1 - Schizoaffective disorder, depressive type (2) alcohol syndrome: Status: Acute Code(s): Q86.0 - alcohol syndrome (dysmorphic) (3) Borderline personality disorder: Status: Acute Code(s): F60.3 - Borderline personality disorder (4) Obesities, morbid: Status: Acute Code(s): E66.01 - Morbid (severe) obesity due to excess calories Plan Patient is a 25-year-old female who carries a diagnosis of Schizoaffective disorder, borderline personality disorder, alcohol syndrome, with history of aggression and assaultive staff who presents to the ED for mood dysregulation. Patient is a limited historian and is difficult to engage. -this is the 3rd time patient has presented to the emergency room wanting help, Although she has trouble articulating what she needs. It is unclear what medication changes were recently made however she says that her Tegretol and Haldol doses were lowered and if true may account for worsening mood dysregulation. Patient agrees to increase them. -patient a little more present, willing to engage though still guarded. Tolerating medication increase. Less thought blocking and less speech latency. 06/25 patient still guarded and mostly reticent. Overall in good behavioral control and mostly keeps to herself staying isolated in her room. Denies c omplaints of requests. 06/27 difficult to engage, and somewhat different presentations depending on s taff. Plan: CV q15min checks 1:1 for now given her history Continue home meds with following changes Increased to Haldol 5 mg to b.i.d. (was on 5mg BID at last admission) Increased to Tegretol 400 mg TID (was on 400mg TID at last admission) QTc WNL HBA1C 6.3 Lipids WNL UPT negative (on birthcontrol) I spent minutes with the patient and/or on the patient floor today, greater than?50% of which was spent counseling/coordinating care. Reason for contiued inpatient stay Substantial Risk for: rapid decompensation
[2021-06-28] MEDS: HaloperidoL 5 MG TABLET PO ×2 (16:33→21:10)
[2021-06-28 21:00] VITALS: BP 112/67; PULSE 96; TEMP 36.8; O2SAT 96
[2021-06-28] MEDS: chlorproMAZINE HCl 25 MG TABLET 150 MG PO (21:11)
[2021-06-28] MEDS: Naltrexone HCl 50 MG TABLET PO (21:11)
[2021-06-29] MEDS: carBAMazepine ER 200 MG TAB.ER.12H 400 MG PO ×3 (09:18→21:19)
[2021-06-29] MEDS: Sertraline HCL 100 MG TABLET 200 MG PO (09:18)
[2021-06-29] MEDS: Benztropine Mesylate 1 MG TABLET PO ×2 (09:18→21:19)
[2021-06-29] MEDS: HaloperidoL 5 MG TABLET PO ×2 (16:03→22:21)
--- NOTE | 2021-06-29 16:52 | HO.PSYCHPN ---
Subjective Subjective Date of Service: 06/29/21 Reason For Visit: mood disorder Interim History: Today met with patient and social work instructor to see if patient would be a more open to talking with automatic typewriter inspector which she was. She shared that she misses the day program she was going to and that it is hard to be here on the unit. However she attributes the fact that she has remained in behavioral control, despite it being hard on the unit, to the fact that the medications were increased. At this time she feels like the dosing is appropriate and does not feel a need for more medication changes. She denies any SI or HI and is overall feeling more in control. Patient shared some about events leading up to this admission and how she took extra pills to feel good, not as an overdose. She also shared that she started smoking cannabis a little bit with some peers but does not see this as contributory. Patient says she misses home and hopes to discharge soon however understands that outpatient team will come to meet and discuss plan this coming Sunday. Mental Status Exam Mental Status Exam Narrative: Pt is alert and oriented; behavior is cooperative; dressed in hospital gown with adequate hygiene; mood is described as ok and affect constricted; intermittent eye contact; Speech is more spontaneous but she is still reticent with some latency; othwerwise normal volume; no psychomotor agitation/retardation present; thought process is organized and goal directed; Thought content is on discharge; pt at times seems internally preoccupied but denies AVH; denies any SI/HI.? Patients insight and judgment are impaired but improving and may be at baseline. Diagnostics Vital Signs (24Hr): Vital Signs - 24 hr 06/28/21 21:00 Temperature 98.3 F Pulse Rate 96 Blood Pressure 112/67 Pulse Oximetry 96 BMI result Body Mass Index 45.3 Labs Results: 06/22/21 01:46 06/22/21 01:46 Medications Medications Current Medications Acetaminophen (Acetaminophen 325 Mg Tablet) 650 mg PO Q6H PRN PRN Reason: Headache/Pain Mild Scale (1-3) Al Hydroxide/Mg Hydroxide (Magnesium Hydrox/Alum Hydrox 30 Ml Oral.Susp) 30 ml PO Q6H PRN PRN Reason: Heartburn/Nausea Benztropine Mesylate (Benztropine Mesylate 1 Mg Tablet) 1 mg PO BID [facility] Last Admin: 06/29/21 09:18 Dose: 1 mg Documented by: Carbamazepine (Carbamazepine Er 200 Mg Tab.Er.12h) 400 mg PO TID [facility] Last Admin: 06/29/21 15:59 Dose: 400 mg Documented by: Chlorpromazine HCl (Chlorpromazine Hcl 25 Mg Tablet) 150 mg PO BEDTIME [facility] Last Admin: 06/28/21 21:11 Dose: 150 mg Documented by: Diphenhydramine HCl (Diphenhydramine Hcl 25 Mg Tablet) 50 mg PO Q4H PRN PRN Reason: agitation Haloperidol (Haloperidol 5 Mg Tablet) 5 mg PO Q4H PRN PRN Reason: agitation Haloperidol (Haloperidol 5 Mg Tablet) 5 mg PO TID PRN PRN Reason: moderate agitation Last Admin: 06/23/21 12:27 Dose: 5 mg Documented by: Haloperidol (Haloperidol 5 Mg Tablet) 5 mg PO BID@1600,2100 [facility] Last Admin: 06/29/21 16:03 Dose: 5 mg Documented by: Hydroxyzine HCl (Hydroxyzine Hcl 25 Mg Tablet) 25 mg PO BEDTIME PRN PRN Reason: Anxiety Last Admin: 06/24/21 20:57 Dose: 25 mg Documented by: Magnesium Hydroxide (Milk Of Magnesia 30 Ml Oral.Susp) 30 ml PO DAILY PRN PRN Reason: Constipation Naltrexone HCl (Naltrexone Hcl 50 Mg Tablet) 50 mg PO BEDTIME [facility] Last Admin: 06/28/21 21:11 Dose: 50 mg Documented by: Pharmacy Consult (Consult Rx Perform Med Rec) 1 each MISCELLANE ONCE PRN PRN Reason: Consult order Sertraline HCl (Sertraline Hcl 100 Mg Tablet) 200 mg PO DAILY [facility] Last Admin: 06/29/21 09:18 Dose: 200 mg Documented by: Trazodone HCl (Trazodone Hcl 50 Mg Tablet) 50 mg PO BEDTIME PRN PRN Reason: Insomnia Last Admin: 06/24/21 20:57 Dose: 50 mg Documented by: Allergies Allergies Allergy/AdvReac Type Severity Reaction Status Date / Time No Known Allergies Allergy Unverified 11/06/19 19:53 [No Known Allergies*] Assessment & Plan Assessment & Plan (1) Schizoaffective disorder, depressive type: Status: Acute Code(s): F25.1 - Schizoaffective disorder, depressive type (2) alcohol syndrome: Status: Acute Code(s): Q86.0 - alcohol syndrome (dysmorphic) (3) Borderline personality disorder: Status: Acute Code(s): F60.3 - Borderline personality disorder (4) Obesities, morbid: Status: Acute Code(s): E66.01 - Morbid (severe) obesity due to excess calories Plan Patient is a 25-year-old female who carries a diagnosis of Schizoaffective disorder, borderline personality disorder, alcohol syndrome, with history of aggression and assaultive staff who presents to the ED for mood dysregulation. Patient is a limited historian and is difficult to engage. -this is the 3rd time patient has presented to the emergency room wanting help, Although she has trouble articulating what she needs. It is unclear what medication changes were recently made however she says that her Tegretol and Haldol doses were lowered and if true may account for worsening mood dysregulation. Patient agrees to increase them. -patient a little more present, willing to engage though still guarded. Tolerating medication increase. Less thought blocking and less speech latency. 06/25 patient still guarded and mostly reticent. Overall in good behavioral control and mostly keeps to herself staying isolated in her room. Denies complaints of requests. 06/27 difficult to engage, and somewhat different presentations depending on staff. 06/29 Patient shares that medication regimen seems to be helpful and she attributes the adjustment to her being able to stay in behavioral control despite not really liking being on the unit. Denies SI or HI. Denies AVH. Still speech latency and perhaps thought blocking however Staff who know her thinks that she is likely close or at baseline Plan: CV q15min checks 1:1 for now given her history Continue home meds with following changes Increased to Haldol 5 mg to b.i.d. (was on 5mg BID at last admission) Increased to Tegretol 400 mg TID (was on 400mg TID at last admission) QTc WNL HBA1C 6.3 Lipids WNL UPT negative (on birthcontrol) I spent minutes with the patient and/or on the patient floor today, greater than?50% of which was spent counseling/coordinating care. Patient educated on: medication risk/benefits Informed Consent: understands Reason for contiued inpatient stay Substantial Risk for: rapid decompensation
[2021-06-29] MEDS: Naltrexone HCl 50 MG TABLET PO (21:19)
[2021-06-29] MEDS: chlorproMAZINE HCl 25 MG TABLET 150 MG PO (21:19)
[2021-06-30] MEDS: Sertraline HCL 100 MG TABLET 200 MG PO (10:21)
[2021-06-30] MEDS: Benztropine Mesylate 1 MG TABLET PO ×2 (10:21→21:08)
[2021-06-30] MEDS: carBAMazepine ER 200 MG TAB.ER.12H 400 MG PO ×3 (10:21→21:10)
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
[2021-06-30] MEDS: HaloperidoL 5 MG TABLET PO ×2 (16:26→21:09)
[2021-06-30 18:23] VITALS: TEMP 36.9
[2021-06-30] MEDS: chlorproMAZINE HCl 25 MG TABLET 150 MG PO (21:09)
[2021-06-30] MEDS: Naltrexone HCl 50 MG TABLET PO (21:15)
[2021-07-01 00:27] LABS: Appearance Urine CLEAR; Color Urine YELLOW; Glucose Urine UA NEG (NEG); Leukocyte Esterase Urine NEG (NEG); Nitrite Urine NEG (NEG); Specific Gravity - Urine 1.015 (1.005-1.025); UACC Culture Trigger NO; Urine Blood 1+ (NEG); Urine Ketones NEG (NEG); Urine Protein NEG (NEG-TRACE)
[2021-07-01 00:40] LABS: Calcium Phosphate Crystals Ur TRACE /LPF; RBC Urine 0 /HPF (0); Squamous Epithelial Cell Urine 2+ /LPF; WBC Urine 0 /HPF (0-4)
[2021-07-01] MEDS: carBAMazepine ER 200 MG TAB.ER.12H 400 MG PO ×3 (10:11→22:25)
[2021-07-01] MEDS: Sertraline HCL 100 MG TABLET 200 MG PO (10:11)
[2021-07-01] MEDS: Benztropine Mesylate 1 MG TABLET PO ×2 (10:12→22:12)
[2021-07-01] MEDS: HaloperidoL 5 MG TABLET PO ×2 (16:22→22:12)
[2021-07-01 22:10] VITALS: BP 122/74; PULSE 105; TEMP 36.9
[2021-07-01] MEDS: Naltrexone HCl 50 MG TABLET PO (22:11)
[2021-07-01] MEDS: chlorproMAZINE HCl 25 MG TABLET 150 MG PO (22:13)
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
--- NOTE | 2021-07-02 00:19 | PC.NURSE ---
PPD, 5 units tuberculin, planted intradermal in left forearm at 2235 07/01/21.
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
[2021-07-02] MEDS: carBAMazepine ER 200 MG TAB.ER.12H 400 MG PO ×3 (10:14→21:23)
[2021-07-02] MEDS: Sertraline HCL 100 MG TABLET 200 MG PO (10:14)
[2021-07-02] MEDS: Benztropine Mesylate 1 MG TABLET PO ×2 (10:14→21:21)
[2021-07-02] MEDS: HaloperidoL 5 MG TABLET PO ×2 (16:07→21:21)
[2021-07-02 21:20] VITALS: BP 124/81; PULSE 105
[2021-07-02] MEDS: Naltrexone HCl 50 MG TABLET PO (21:21)
[2021-07-02] MEDS: chlorproMAZINE HCl 25 MG TABLET 150 MG PO (21:21)
[2021-07-03] MEDS: carBAMazepine ER 200 MG TAB.ER.12H 400 MG PO ×3 (08:49→21:11)
[2021-07-03] MEDS: Sertraline HCL 100 MG TABLET 200 MG PO (08:49)
[2021-07-03] MEDS: Benztropine Mesylate 1 MG TABLET PO ×2 (08:49→21:10)
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
--- NOTE | 2021-07-03 14:29 | PC.NURSE ---
pt asked to speak to charge nurse. she requests female staff to do 1:1 with her. very uncomfortable around males especially when she is sleeping and wakes up to a male in her room. pt agreed if only a male sitter present its ok if they watch her from outside her room. she is aware we will do our best to accomodate female staff.
[2021-07-03] MEDS: HaloperidoL 5 MG TABLET PO ×2 (16:06→21:10)
[2021-07-03] MEDS: chlorproMAZINE HCl 25 MG TABLET 150 MG PO (21:10)
[2021-07-03] MEDS: Naltrexone HCl 50 MG TABLET PO (21:11)
[2021-07-03 21:50] VITALS: RESP 16
--- NOTE | 2021-07-03 22:01 | PC.NURSE ---
PPD, 5 units tuberculin, planted intradermal in left forearm at 2235 07/01/21. PPD reading at 22:02 on 07/03/20 , no induration visible.
[2021-07-04] MEDS: Benztropine Mesylate 1 MG TABLET PO ×2 (09:33→21:26)
[2021-07-04] MEDS: Sertraline HCL 100 MG TABLET 200 MG PO (09:33)
[2021-07-04] MEDS: carBAMazepine ER 200 MG TAB.ER.12H 400 MG PO ×3 (09:33→21:33)
[2021-07-04] MEDS: HaloperidoL 5 MG TABLET PO ×2 (16:08→21:26)
[2021-07-04 16:25] VITALS: BP 133/94; PULSE 111; TEMP 36.6; O2SAT 96
--- NOTE | 2021-07-04 16:31 | P.PNPSI_ITS ---
Subjective Subjective Date of Service: 07/04/21 Reason For Visit: mood disorder Interim History: Patient with noticeably brighter affect today and actually smiled it technical writer and editor. She said that she was good and denies any SI or AVH. She said she is sleeping well and ready to go home tomorrow and see her dogs. Mental Status Exam Mental Status Exam Narrative: Pt is alert and oriented; behavior is cooperative; dressed in hospital gown with adequate hygiene; mood is described as good and affect congruent, warmer; adequate eye contact; Speech is still latent, but overall more spontaneous than on admission; otherwise normal volume; no psychomotor agitation/retardation present; thought process is goal directed; Thought content is on discharge; pt at times seems internally preoccupied but denies AVH; denies any SI/HI.? Patients insight and judgment are impaired but fair, adequate and at her baseline. Diagnostics Vital Signs (24Hr): Vital Signs - 24 hr 07/03/21 21:50 Respiratory Rate 16 BMI result Body Mass Index 45.3 Labs Results: 06/22/21 01:46 06/22/21 01:46 Medications Medications Current Medications Acetaminophen (Acetaminophen 325 Mg Tablet) 650 mg PO Q6H PRN PRN Reason: Headache/Pain Mild Scale (1-3) Al Hydroxide/Mg Hydroxide (Magnesium Hydrox/Alum Hydrox 30 Ml Oral.Susp) 30 ml PO Q6H PRN PRN Reason: Heartburn/Nausea Benztropine Mesylate (Benztropine Mesylate 1 Mg Tablet) 1 mg PO BID [facility] Last Admin: 07/04/21 09:33 Dose: 1 mg Documented by: Carbamazepine (Carbamazepine Er 200 Mg Tab.Er.12h) 400 mg PO DAILY@0900,1600,2100 [facility] Last Admin: 07/04/21 16:07 Dose: 400 mg Documented by: Chlorpromazine HCl (Chlorpromazine Hcl 25 Mg Tablet) 150 mg PO BEDTIME [facility] Last Admin: 07/03/21 21:10 Dose: 150 mg Documented by: Diphenhydramine HCl (Diphenhydramine Hcl 25 Mg Tablet) 50 mg PO Q4H PRN PRN Reason: agitation Haloperidol (Haloperidol 5 Mg Tablet) 5 mg PO Q4H PRN PRN Reason: agitation Haloperidol (Haloperidol 5 Mg Tablet) 5 mg PO TID PRN PRN Reason: moderate agitation Last Admin: 06/23/21 12:27 Dose: 5 mg Documented by: Haloperidol (Haloperidol 5 Mg Tablet) 5 mg PO BID@1600,2100 [facility] Last Admin: 07/04/21 16:08 Dose: 5 mg Documented by: Hydroxyzine HCl (Hydroxyzine Hcl 25 Mg Tablet) 25 mg PO BEDTIME PRN PRN Reason: Anxiety Last Admin: 06/24/21 20:57 Dose: 25 mg Documented by: Magnesium Hydroxide (Milk Of Magnesia 30 Ml Oral.Susp) 30 ml PO DAILY PRN PRN Reason: Constipation Naltrexone HCl (Naltrexone Hcl 50 Mg Tablet) 50 mg PO BEDTIME [facility] Last Admin: 07/03/21 21:11 Dose: 50 mg Documented by: Pharmacy Consult (Consult Rx Perform Med Rec) 1 each MISCELLANE ONCE PRN PRN Reason: Consult order Sertraline HCl (Sertraline Hcl 100 Mg Tablet) 200 mg PO DAILY [facility] Last Admin: 07/04/21 09:33 Dose: 200 mg Documented by: Trazodone HCl (Trazodone Hcl 100 Mg Tablet) 100 mg PO BEDTIME PRN PRN Reason: Insomnia Allergies Allergies Allergy/AdvReac Type Severity Reaction Status Date / Time No Known Allergies Allergy Unverified 11/06/19 19:53 [No Known Allergies*] Assessment & Plan Assessment & Plan (1) Schizoaffective disorder, depressive type: Status: Acute Code(s): F25.1 - Schizoaffective disorder, depressive type (2) alcohol syndrome: Status: Acute Code(s): Q86.0 - alcohol syndrome (dysmorphic) (3) Borderline personality disorder: Status: Acute Code(s): F60.3 - Borderline personality disorder (4) Obesities, morbid: Status: Acute Code(s): E66.01 - Morbid (severe) obesity due to excess calories Plan Patient is a 25-year-old female who carries a diagnosis of Schizoaffective disorder, borderline personality disorder, alcohol syndrome, with history of aggression and assaultive staff who presents to the ED for mood dysregulation. Patient is a limited historian and is difficult to engage. -this is the 3rd time patient has presented to the emergency room wanting help, Although she has trouble articulating what she needs. It is unclear what medication changes were recently made however she says that her Tegretol and Haldol doses were lowered and if true may account for worsening mood dysregulation. Patient agrees to increase them. -patient a little more present, willing to engage though still guarded. Tolerating medication increase. Less thought blocking and less speech latency. 06/25 patient still guarded and mostly reticent. Overall in good behavioral control and mostly keeps to herself staying isolated in her room. Denies complaints of requests. 06/27 difficult to engage, and somewhat different presentations depending on staff. 06/29 Patient shares that medication regimen seems to be helpful and she attributes the adjustment to her being able to stay in behavioral control despite not really liking being on the unit. Denies SI or HI. Denies AVH. St ill speech latency and perhaps thought blocking however Staff who know her thinks that she is likely close or at baseline 06/30 no change, patient in behavioral control, denies SI/HI. Hoping to discha rge Saturday 07/01 no change to current tx, on 1:1 07/04 patient remains stable as she has throughout this admission. Patient has not demonstrated any dangerous behaviors to self or others and has remained with overall good behavioral and impulse control throughout her entire admission. She says she is in a good mood and continues to deny any SI, HI or AVH. She feels the medications working well and would like to continue with the increased dose of both Haldol and Tegretol. She has no complaints and no requests and is looking forward to discharging tomorrow. Patient has a long history of mood lability and poor impulse control and she remains vulnerable to at some point decompensating in the future. However as mentioned she has remained in good behavioral control throughout her entire admission and she is not in imminent risk for harm to self or others. Her request for discharge honored Plan: CV q15min checks 1:1 for now given her history Continue home meds with following changes Increased to Haldol 5 mg to b.i.d. (was on 5mg BID at last admission) Increased to Tegretol 400 mg TID (was on 400mg TID at last admission) QTc WNL HBA1C 6.3 Lipids WNL UPT negative (on birthcontrol) 07/02/2021 continue current regimen and plans. Increase trazodone to 100 mg 07/03/2021: Continue current regimen and plans I spent minutes with the patient and/or on the patient floor today, greater than?50% of which was spent counseling/coordinating care. Reason for contiued inpatient stay Substantial Risk for: stable for discharge
--- NOTE | 2021-07-04 16:37 | PM.PSYDC ---
DS: Providers Provider Date of Service: 07/05/21 Date of admission: 06/23/21 00:13 Date of discharge: 07/05/21 Primary care physician: Unknown Physician Attending physician on admission: Stanton Sullivan Attending physician on discharge: Stanton Sullivan DS: Diagnosis Discharge Diagnosis (1) Schizoaffective disorder, depressive type: Status: Acute (2) alcohol syndrome: Status: Acute (3) Borderline personality disorder: Status: Acute (4) Obesities, morbid: Status: Acute DS: Medications Discharge Medications Home Medications: Home Medications Medication Instructions Recorded Confirmed medroxyprogesterone 150 mg/mL 1 ml IM [id number] 11/17/20 06/21/21 intramuscular suspension Previous Rx's Medication Instructions Recorded benztropine 1 mg tablet 1 tab PO BID 30 Days #60 tab 02/02/21 chlorpromazine 50 mg tablet 150 mg PO BEDTIME 30 Days #90 tab 02/02/21 naltrexone 50 mg tablet 1 tab PO BEDTIME 30 Days #30 tab 02/02/21 sertraline 100 mg tablet 2 tab PO QAM 30 Days #60 tab 02/02/21 carbamazepine 200 mg 400 mg PO TID 30 Days #180 tab 07/04/21 tablet,extended release,12 hr haloperidol 5 mg tablet 5 mg PO BID 30 Days #60 tab 07/04/21 Mental Status Exam Mental Status Exam Narrative: Pt is alert and oriented; behavior is cooperative; dressed in hospital gown with adequate hygiene; mood is described as good and affect congruent, warmer; adequate eye contact; Speech is still latent, but overall more spontaneous than on admission; otherwise normal volume; no psychomotor agitation/retardation present; thought process is goal directed; Thought content is on discharge; pt at times seems internally preoccupied but denies AVH; denies any SI/HI.? Patients insight and judgment are impaired but fair, adequate and at her baseline. Data Data Completed and Pending Completed studies during hospitalization [Text1]: 06/30/21 23:20 Urine Color YELLOW Urine Appearance CLEAR Urine pH 6.0 Ur Specific [place] 1.015 Urine Protein NEG Urine Glucose (UA) NEG Urine Ketones NEG Urine Blood 1+ H Urine Nitrite NEG Ur Leukocyte Esterase NEG Urine RBC 0 Urine WBC 0 Ur Squamous Epith Cells 2+ Calcium Phosphate Cryst TRACE Urine Bacteria NONE DS: Summary Hospital Course Hospital Course: Patient is a 25-year-old female who carries a diagnosis of Schizoaffective disorder, borderline personality disorder, alcohol syndrome, with history of aggression and assaultive staff who presents to the ED for mood dysregulation.? Patient is a limited historian and is difficult to engage.? On admission and throughout much of her time in the unit, patient was difficult to engage. She had some thought blocking and was with speech latency. She told web content writer that she had some mood trouble and was feeling angrier more easily. She agreed to increase Tegretol back to 3 times a day and Haldol back to twice a day as they had been recently lowered. Patient remained on a one-to-one given her past behaviors on the unit. However throughout her stay on the unit, she remained in good behavioral and impulse control; she mostly kept to herself and when in the milieu would attend to her own activity, however she had no dangerous or inappropriate behavior towards self or others. Patient commented how the change in medications has been helpful, saying that although she does not like being on the unit and it is not easy for her being here, she has been able to keep herself in good behavioral control anyway. Patient continued to deny any SI or HI. She also denied AVH, though she did remain internally preoccupied. Credit Analysis Manager and social problems specialist addressed that patient had smoked cannabis recently with which patient does not seem to think it is a big issue and was noncontributory to her mood change. Patient's outpatient team met with her and started discharge planning and pt said she was ready and eager to return home. As discharge approached, patient maintained that she is in a good mood and without any SI, HI or AVH.? She feels the medications working well and would like to continue with the increased dose of both Haldol and Tegretol.? ? Patient does have a long history of mood lability and poor impulse control and she of course remains vulnerable to at some point decompensating in the future.? However this is a chronic issue that will not resolve with longer stay on inpatient unit; as mentioned she has remained in good behavioral control throughout this entire admission and she is not in imminent risk for harm to self or others. Her request for discharge honored Time spent discussing smoking cessation with patient: 3 to 10 minutes Status at Discharge Functional status at discharge: independent ambulation Overall status at discharge: patient is back to baseline Time Spent with Patient Time attestation: Total time spent providing and/or coordinating discharge services: Time spent: Less than 30 minutes Discharge Plan Discharge Patient Disposition: Home, Self-Care Discharge Diagnosis: Schizoaffective disorder, depressive type Referrals: Psych Prescriber:Kiran Casper([employer]) [Other] - 07/25/21 2:00 pm (Telehealth ) Therapist: Vane Gramajo ([employer]) [Other] - 07/06/21 10:00 am (*In office* ) Physician,Unknown J [Primary Care Provider] - 1 Week Discharge Medications: New carbamazepine 200 mg Tablet Extended Release 12 Hr 400 mg PO TID 30 Days Qty: 180 0RF Rx Instructions: Take at 7am, 2pm and 9pm haloperidol 5 mg Tablet 5 mg PO BID 30 Days Qty: 60 0RF Rx Instructions: Take at 2pm and 9pm Continued medroxyprogesterone 150 mg/mL suspension 1 ml IM [id number] naltrexone 50 mg tablet 1 tab PO BEDTIME 30 Days Qty: 30 0RF sertraline 100 mg tablet 2 tab PO QAM 30 Days Qty: 60 0RF benztropine 1 mg tablet 1 tab PO BID 30 Days Qty: 60 0RF chlorpromazine 50 mg tablet 150 mg PO BEDTIME 30 Days Qty: 90 0RF Discontinued haloperidol 5 mg Tablet 5 mg PO DAILY@1600 30 Days Qty: 30 0RF carbamazepine 200 mg Tablet Extended Release 12 Hr 400 mg PO DAILY@1600 30 Days Qty: 60 0RF Discharge Orders: Discharge Order (Routine); Ordered 07/05/21 Ordered By: Stanton Sullivan Diet: regular diet Activity on Discharge: As tolerated Stand Alone Forms: Patient Portal Discharge page Care Plan Goals: Maintain mood and safe behaviors Take medications as prescribed Practice coping skills Continue with outpatient providers and reach out to them as needed Health Concerns: Mood stability and behaviors Plan of Treatment: Follow up with your PCP, psychiatric provider and other outpatient providers regarding above concerns Take medications as prescribed Assessment: Risk assessment at time of discharge:? Patient was interviewed prior to discharge and found to be fully oriented and without any SI or HI. Patient has insight and demonstrates good judgment in terms of wanting to pursue treatment. Patient is not in imminent risk of harm to self or others and has a safety plan that includes presenting to the closest ER or calling 911 if feeling unsafe.? Patient has been observed closely by nursing and unit staff throughout admission; patient has not engaged in any behaviors that suggest dangerousness to self or others and has demonstrated appropriate behaviors and impulse control
[2021-07-04] MEDS: chlorproMAZINE HCl 25 MG TABLET 150 MG PO (21:26)
[2021-07-04] MEDS: Naltrexone HCl 50 MG TABLET PO (21:26)
[2021-07-04] MEDS: traZODone HCL 100 MG TABLET PO (23:11)
[2021-07-05] MEDS: diphenhydrAMINE HCL 25 MG TABLET 50 MG PO (02:00)
[2021-07-05 06:00] VITALS: BP 132/82; PULSE 89; RESP 16; TEMP 36.6; O2SAT 96
[2021-07-05] MEDS: Sertraline HCL 100 MG TABLET 200 MG PO (13:04)
[2021-07-05] MEDS: Benztropine Mesylate 1 MG TABLET PO (13:04)
[2021-07-05] MEDS: carBAMazepine ER 200 MG TAB.ER.12H 400 MG PO ×2 (13:05→15:52)
[2021-07-05] MEDS: HaloperidoL 5 MG TABLET PO (15:52)
[2021-07-05 17:02] VITALS: BP 132/82; PULSE 89; RESP 16; TEMP 36.6; O2SAT 96
== END 2021-07-05 18:52 | disposition home or self-care (01) | DRG 885 ==
LOC: HO.ED 06-22 02:12 → HO.PM5 06-23 00:18
PROVIDERS: Physician Assistant; Admitting Provider Psychiatry & Neurology Psychiatry; Emergency Provider Emergency Medicine; Visit Provider Psychiatry & Neurology Psychiatry
DX: F25.1 Schizoaffective disorder, depressive type (principal); Z68.42 Body mass index [BMI] 45.0-49.9, adult; Q86.0 Fetal alcohol syndrome (dysmorphic); Z20.822 Contact with and (suspected) exposure to COVID-19; Z79.899 Other long term (current) drug therapy; Z91.14 Patient's other noncompliance with medication regimen; F60.3 Borderline personality disorder; E66.01 Morbid (severe) obesity due to excess calories
CPT/HCPCS: 36415; 80048; 80061; 80143; 80179; 80307; 81001; 81003; 81025; 82077; 83036; 85025; 87635; 93005; 96372; 99285; J1200; J2060; Q0163

== ENCOUNTER 2021-10-08 21:41 | Emergency (ER) | payer OTHER, SELFPAY ==
--- NOTE | ~2021-10-08 | XR_ITS ---
EXAMINATION: XR CHEST XR ABDOMEN CLINICAL INFORMATION: Swallowed paper clip COMPARISON: None TECHNIQUE: Single view of the chest, single view of the abdomen FINDINGS: Radiopaque paper clip noted at the level of the stomach. Bilateral low lung volumes. No focal consolidation. No pneumothorax. Trachea is midline. Cardiac mediastinal silhouette is not enlarged. No large pleural effusion. Bowel gas is nonobstructive. Mild fecal loading of the colon. Osseous structures are intact. Soft tissues are unremarkable. XR/XR abdomen 1V IMPRESSION: Radiopaque paper clip noted at the level of the stomach.
--- NOTE | ~2021-10-08 | XR_ITS ---
EXAMINATION: XR CHEST XR ABDOMEN CLINICAL INFORMATION: Swallowed paper clip COMPARISON: None TECHNIQUE: Single view of the chest, single view of the abdomen FINDINGS: Radiopaque paper clip noted at the level of the stomach. Bilateral low lung volumes. No focal consolidation. No pneumothorax. Trachea is midline. Cardiac mediastinal silhouette is not enlarged. No large pleural effusion. Bowel gas is nonobstructive. Mild fecal loading of the colon. Osseous structures are intact. Soft tissues are unremarkable. XR/XR chest 1V IMPRESSION: Radiopaque paper clip noted at the level of the stomach.
[2021-10-08 21:52] VITALS: BP 152/99; PULSE 108; RESP 18; TEMP 37.3; O2SAT 96; BMI 32.5
[2021-10-08 22:28] LABS: Appearance Urine Clear; Color Urine Yellow; Glucose Urine UA Negative (Negative); Leukocyte Esterase Urine Negative (Negative); Nitrite Urine Negative (Negative); PH 5.5 (5.0-8.0); Specific Gravity - Urine >= 1.030 (1.005-1.025); Urine Blood Trace (Negative); Urine Ketones Trace mg/dL (Negative); Urine Protein Negative (Neg-Trace)
[2021-10-08 22:30] LABS: UPreg QC Valid YES; Urine Pregnancy NEGATIVE (NEGATIVE)
[2021-10-08 22:41] LABS: COVID-19 Test Negative (Negative); IDNOW Serial# 08D9AD1C
--- NOTE | 2021-10-08 22:45 | ED.PSYCH ---
HPI - Psych General Chief Complaint: Psychiatric Symptoms Stated Complaint: Wants to be seen by psych SI Time Seen by Provider: 10/08/21 22:45 Source: patient Mode of arrival: ambulatory Limitations: no limitations History of Present Illness HPI Narrative: 26-year-old female history of alcohol syndrome, borderline personality disorder, schizoaffective disorder, depressive type presenting to the emergency depart with complaints of anxiety, depression and suicidal ideation without a plan x4 days worsening. Patient tells me she had an inciting event that triggered all this however she is unwilling to disclose with this event was. At this time patient denies visual, auditory and tactile hallucinations. Denies drugs, alcohol and tobacco. Denies medical complaints. Tells me she is taking all medications as prescribed. MD complaint: suicidal ideation, feels depressed and anxiety Onset (ago): day(s) (4) Duration: constant History of same: Yes Related Data Home Medications Medication Instructions Recorded Confirmed medroxyprogesterone 150 mg/mL 1 ml IM [id number] 11/17/20 10/08/21 intramuscular suspension benztropine 1 mg tablet 1 tab PO BID 10/08/21 10/08/21 carbamazepine 400 mg 1 tab PO TID 10/08/21 10/08/21 tablet,extended release,12 hr chlorpromazine 50 mg tablet 3 tab PO BEDTIME 10/08/21 10/08/21 haloperidol 5 mg tablet 1 tab PO BID 10/08/21 10/08/21 sertraline 100 mg tablet 2 tab PO QAM 10/08/21 10/08/21 Previous Rx's Medication Instructions Recorded naltrexone 50 mg tablet 1 tab PO BEDTIME 30 days #30 tabs 02/02/21 Allergies Allergy/AdvReac Type Severity Reaction Status Date / Time No Known Allergies Allergy Unverified 11/06/19 19:53 [No Known Allergies*] Review of Systems Review of Systems: Constitutional : No Fever, No Chills ENT/Mouth : No Ear Pain, No Nasal Congestion, No sore throat Eyes: No Eye Pain, No Swelling, No Redness Cardiovascular : No Chest Pain, No SOB Respiratory : No Cough, No Sputum, No Dyspnea Gastrointestinal : No Nausea, No Vomiting, No Diarrhea, No Hematochezia, No Melena Genitourinary : No Dysuria, No Urinary Frequency, No Hematuria Musculoskeletal : No Myalgias Skin : No Skin Lesions, No rash Neuro : No Weakness, No Numbness, No Paresthesias, No Dizziness, No Headache Psych : positive Anxiety, positive Depression, positive SI/HI All other systems reviewed and are negative Yes all other systems are reviewed and are negative [facility] Past Medical History Attestation statement: The following information was validated with the patient. Source: old records reviewed and nursing notes reviewed Medical History Borderline personality disorder alcohol syndrome Obesities, morbid Schizoaffective disorder, depressive type Social History Social History Household Members: Unknown / Unable to assess Household Members Other:: 1 Housing: Unknown / Unable to assess Do you presently have visiting nurse or other home services: Yes (once a month) Unable to assess alcohol history related to: Refusing to respond Patient Tobacco Use Status: Never used Tobacco e-Cigarette/Vaping Use: Never Used Second Hand Smoke Exposure: No Substance Use Type: Marijuana Advance Directives: No Advance Directives Information Provided: No service: No Sexual orientation: Did not discuss/unknown Physical Exam Vital Signs: Vital Signs: Last Vital Signs Temp 99.2 F 10/08/21 21:52 Pulse 108 H 10/08/21 21:52 Resp 18 10/08/21 21:52 BP 152/99 H 10/08/21 21:52 Pulse Ox 96 10/08/21 21:52 O2 Del Method 10/08/21 21:52 BMI result Body Mass Index 32.5 vss Appearance: Alert.? Oriented X3.? No acute distress.? Head: Normocephalic, atraumatic, no step-offs or deformities Eyes: Pupils equal, round and reactive to light.? ENT: Pharynx normal.? Neck: Normal inspection.? Neck supple.? CVS: Normal heart rate and rhythm.? Pulses normal.? Respiratory: No respiratory distress.? Breath sounds normal.? Abdomen: Soft and nontender.? Skin: Skin warm and dry.? Normal skin color.? Normal skin turgor.? Extremities: No lower extremity edema.? No calf ttp. 5/5 strength to bilateral upper and lower extremities Neuro: Oriented X 3.? No motor deficit.? No sensory deficit. CN 2-12 intact Course Reevaluation(s) Reevaluation #1: CBC within normal limits. Chemistry with no acute electrolyte abnormalities requiring intervention. UA without infection. Urine negative. Urine toxicology negative. COVID negative. At around 00:30 this patient tried to cut herself with the metal portion of her mass. Patient trying to strangle herself. Immediately when this was happening, nurse intervened, patient was placed on a one-to-one for close observation due to suicidal ideation with plan at this time. Patient placed on a Section 12 by . Time: 01:05 Reevaluation #2: time patient will be placed into physician observation to allow more time to be evaluated by the behavioral health team. At time observation was started patient on a 1-1 with close observation, cooperative no acute distress stable vital signs. Will continue to monitor. Time: 01:50 MDM - Psych MDM Narrative Medical decision making narrative: 2146 26-year-old female presents with suicidal ideation, anxiety, depression x4 days Physical exam benign Plan at this time is medical clearance and evaluation by the behavioral team. Medical Records Attestation: I reviewed the patient's medical records. Lab Data Attestation: I reviewed the patient's lab results. Result diagrams: 10/08/21 23:23 10/08/21 23:23 Labs: Lab Results 10/08/21 10/08/21 10/08/21 Range/Units 22:19 22:19 22:19 WBC (4.8-10.8) X10*3/uL RBC (4.20-5.50) X10*6/uL Hgb (12.0-16.0) g/dl Hct (37.0-47.0) % MCV (80.0-98.0) fL MCH (27.0-33.0) pg MCHC (31.0-35.0) g/dl RDW (11.0-16.0) % Plt Count (160-400) X10*3/uL MPV (9.4-12.3) fL Immature Gran % (Auto) (0.0-0.4) % Neut % (Auto) (45-73) % Lymph % (Auto) (20-40) % Crook % (Auto) (2-11) % Eos % (Auto) (0-4) % Baso % (Auto) (0-2) % Lymph # (Auto) (1.2-4.9) X10*3/uL Crook # (Auto) (0.1-1.2) X10*3/uL Eos # (Auto) (0.0-0.4) X10*3/uL Baso # (Auto) (0.0-0.2) X10*3/uL Abs Immat Gran (auto) (0.00-0.03) X10*3/uL Absolute Neuts (auto) (2.0-8.3) x10*3/uL Absolute Nucleated RBC (0.0-0.012) X10*3/uL Nucleated RBC % (auto) (0.0-0.2) /100WBC Sodium (135-145) mmol/L Potassium (3.3-5.1) mmol/L Chloride (96-108) mmol/L Carbon Dioxide (22-29) mmol/L Anion Gap (12-20) BUN (9-16) mg/dL Creatinine (0.5-1.4) mg/dL Estim Creat Clear Calc Estimated GFR Random Glucose (60-115) mg/dL Calcium (8.4-10.2) mg/dL Total Bilirubin (0.0-1.0) mg/dL AST (5-31) U/L ALT (0-31) U/L Alkaline Phosphatase (39-117) U/L Total Protein (6.5-8.0) g/dL Albumin (3.5-5.0) g/dL Urine Color Yellow Urine Appearance Clear Urine pH 5.5 (5.0-8.0) Ur Specific [place] >= 1.030 H (1.005-1.025) Urine Protein Negative (Neg-Trace) mg/dL Urine Glucose (UA) Negative (Negative) mg/dL Urine Ketones Trace (Negative) mg/dL Urine Blood Trace (Negative) Urine Nitrite Negative (Negative) Ur Leukocyte Esterase Negative (Negative) Urine Test (NEGATIVE) Urine Opiates Screen Not Detected (Not Detect) Urine Fentanyl Screen Not Detected (Not Detect) Ur Barbiturates Screen Not Detected (Not Detect) Ur Phencyclidine Scrn Not Detected (Not Detect) Ur Amphetamines Screen Not Detected (Not Detect) U Benzodiazepines Scrn Not Detected (Not Detect) Urine Cocaine Screen Not Detected (Not Detect) U Marijuana (THC) Screen Not Detected (Not Detect) COVID-19 (ROLO) Negative (Negative) COVID-19 Clin Com See Note 10/08/21 10/08/21 10/08/21 Range/Units 22:19 23:23 23:23 WBC 5.8 (4.8-10.8) X10*3/uL RBC 4.26 (4.20-5.50) X10*6/uL Hgb 12.5 (12.0-16.0) g/dl Hct 36.1 L (37.0-47.0) % MCV 84.7 (80.0-98.0) fL MCH 29.3 (27.0-33.0) pg MCHC 34.6 (31.0-35.0) g/dl RDW 12.5 (11.0-16.0) % Plt Count 234 (160-400) X10*3/uL MPV 9.1 L (9.4-12.3) fL Immature Gran % (Auto) 0.2 (0.0-0.4) % Neut % (Auto) 51.5 (45-73) % Lymph % (Auto) 35.5 (20-40) % Crook % (Auto) 9.4 (2-11) % Eos % (Auto) 3.1 (0-4) % Baso % (Auto) 0.3 (0-2) % Lymph # (Auto) 2.1 (1.2-4.9) X10*3/uL [place] # (Auto) 0.6 (0.1-1.2) X10*3/uL Eos # (Auto) 0.2 (0.0-0.4) X10*3/uL Baso # (Auto) 0.0 (0.0-0.2) X10*3/uL Abs Immat Gran (auto) 0.01 (0.00-0.03) X10*3/uL Absolute Neuts (auto) 3.0 (2.0-8.3) x10*3/uL Absolute Nucleated RBC 0.000 (0.0-0.012) X10*3/uL Nucleated RBC % (auto) 0.0 (0.0-0.2) /100WBC Sodium 139 (135-145) mmol/L Potassium 4.1 (3.3-5.1) mmol/L Chloride 107 (96-108) mmol/L Carbon Dioxide 21 L (22-29) mmol/L Anion Gap 15 (12-20) BUN 9 (9-16) mg/dL Creatinine 0.96 (0.5-1.4) mg/dL Estim Creat Clear Calc 93.5 Estimated GFR > 60 Random Glucose 118 H (60-115) mg/dL Calcium 9.1 (8.4-10.2) mg/dL Total Bilirubin 0.2 (0.0-1.0) mg/dL AST 22 (5-31) U/L ALT 28 (0-31) U/L Alkaline Phosphatase 101 D (39-117) U/L Total Protein 7.4 (6.5-8.0) g/dL Albumin 4.1 (3.5-5.0) g/dL Urine Color Urine Appearance Urine pH (5.0-8.0) Ur Specific [place] (1.005-1.025) Urine Protein (Neg-Trace) mg/dL Urine Glucose (UA) (Negative) mg/dL Urine Ketones (Negative) mg/dL Urine Blood (Negative) Urine Nitrite (Negative) Ur Leukocyte Esterase (Negative) Urine Test NEGATIVE (NEGATIVE) Urine Opiates Screen (Not Detect) Urine Fentanyl Screen (Not Detect) Ur Barbiturates Screen (Not Detect) Ur Phencyclidine Scrn (Not Detect) Ur Amphetamines Screen (Not Detect) U Benzodiazepines Scrn (Not Detect) Urine Cocaine Screen (Not Detect) U Marijuana (THC) Screen (Not Detect) COVID-19 (ROLO) (Negative) COVID-19 Clin Com Critical Care Time Critical Care Time Critical Care Time: No Discharge Plan Discharge Clinical Impression: Borderline personality disorder, Schizoaffective disorder, depressive type Patient Disposition: Still a Patient Prescriptions: No Action sertraline 100 mg tablet 2 tab PO QAM carbamazepine 400 mg tablet extended release 12 hr 1 tab PO TID benztropine 1 mg tablet 1 tab PO BID haloperidol 5 mg tablet 1 tab PO BID chlorpromazine 50 mg tablet 3 tab PO BEDTIME medroxyprogesterone 150 mg/mL suspension 1 ml IM [id number] naltrexone 50 mg tablet 1 tab PO BEDTIME 30 Days Qty: 30 0RF
[2021-10-08 22:47] LABS: Amphetamine Screen Urine Not Detected (Not Detect); Barbiturates, Urine Not Detected (Not Detect); Benzodiazepines Screen Urine Not Detected (Not Detect); Cannabinoid Screen Urine Not Detected (Not Detect); Cocaine Screen Urine Not Detected (Not Detect); Fentanyl, urine Not Detected (Not Detect); Opiate Screen Urine Not Detected (Not Detect); Phencyclidine Screen Urine Not Detected (Not Detect)
[2021-10-08] MEDS: LORazepam 1 MG TABLET PO (22:52)
[2021-10-08 23:27] LABS: MANUAL DIFF FLAG NO
[2021-10-08 23:28] LABS: Basophils Percent Auto 0.3 % (0-2); Eosinophils Absolute Auto 0.2 X10*3/uL (0.0-0.4); Eosinophils Percent Auto 3.1 % (0-4); Hematocrit 36.1 % (37.0-47.0); Hemoglobin 12.5 g/dl (12.0-16.0); Imm Gran Abs Auto 0.01 X10*3/uL (0.00-0.03); Imm Gran Pct Auto 0.2 % (0.0-0.4); Lymphocytes Absolute Auto 2.1 X10*3/uL (1.2-4.9); Lymphocytes Percent Auto 35.5 % (20-40); Mean Corpuscular HGB Conc 34.6 g/dl (31.0-35.0); Mean Corpuscular Hemoglobin 29.3 pg (27.0-33.0); Mean Corpuscular Volume 84.7 fL (80.0-98.0); Mean Platelet Volume 9.1 fL (9.4-12.3); Monocytes Absolute Auto 0.6 X10*3/uL (0.1-1.2); Monocytes Percent Auto 9.4 % (2-11); Neutrophils Percent Auto 51.5 % (45-73); Platelet Count 234 X10*3/uL (160-400); Red Blood Count 4.26 X10*6/uL (4.20-5.50); Red Cell Distribution Width 12.5 % (11.0-16.0); White Blood Count 5.8 X10*3/uL (4.8-10.8)
[2021-10-08 23:54] LABS: Alanine Aminotransferase 28 U/L (0-31); Albumin Level 4.1 g/dL (3.5-5.0); Alkaline Phosphatase 101 U/L (39-117); Anion Gap 15 (12-20); Aspartate Amino Transferase 22 U/L (5-31); Bilirubin Total 0.2 mg/dL (0.0-1.0); Blood Urea Nitrogen 9 mg/dL (9-16); Calcium 9.1 mg/dL (8.4-10.2); Carbon Dioxide 21 mmol/L (22-29); Chloride 107 mmol/L (96-108); Creatinine Clr Calc Pharmacy 93.5; Estimated Glomerular Filt Rate > 60; Glucose Random 118 mg/dL (60-115); Potassium 4.1 mmol/L (3.3-5.1); Sodium 139 mmol/L (135-145); Total Protein 7.4 g/dL (6.5-8.0)
[2021-10-09] MEDS: chlorproMAZINE HCl 25 MG TABLET 50 MG PO ×2 (00:32→20:20)
[2021-10-09] MEDS: HaloperidoL 5 MG TABLET PO ×4 (00:32→20:20)
[2021-10-09] MEDS: Benztropine Mesylate 1 MG TABLET PO ×3 (00:33→20:20)
[2021-10-09] MEDS: chlorproMAZINE HCl 100 MG TABLET PO ×2 (00:33→20:20)
[2021-10-09] MEDS: carBAMazepine ER 200 MG TAB.ER.12H 400 MG PO ×4 (00:33→20:20)
--- NOTE | 2021-10-09 02:00 | PC.NURSE ---
Patient was scratching her left middle knuckle with aluminium wire which she pulled out of the mask, there is dime size abraded skin bleeding, are cleansed with NS/pat dry/applied bacitracin ointment/secured with bandaid, just after that patient was found with mask strings wrapped around her neck, security called/provider notified/patient was placed on 1:1 observation for safety @ 0145, VSS, medication compliant, [facility] referral completed/confirmed/pending ETA, will continue to monitor.
[2021-10-09] MEDS: LORazepam 1 MG TABLET 2 MG PO (02:27)
[2021-10-09] MEDS: Sertraline HCL 100 MG TABLET 200 MG PO (10:03)
--- NOTE | 2021-10-09 17:10 | PC.NURSE ---
Patient remains 1:1 was able to rip small metal button off gown and swallow it. CARMEN Lundy and Mary notified and stated to continue to monitor patient. No distress or difficulty breathing at this time.
[2021-10-09] MEDS: Naltrexone HCl 50 MG TABLET PO (20:24)
[2021-10-10 05:33] VITALS: BP 149/94; PULSE 96; RESP 17; TEMP 37.3; O2SAT 97
--- NOTE | 2021-10-10 06:42 | PC.NURSE ---
Patient slept through the night, no distress observed/reported, had a good evening with appropriate behavior control, patient showered, medication compliant, no self harm behavior exhibited, patient is on 1:1 for safety observation due to self harm ideation, VSS, will continue to monitor.
[2021-10-10] MEDS: carBAMazepine ER 200 MG TAB.ER.12H 400 MG PO ×3 (08:57→20:35)
[2021-10-10] MEDS: Benztropine Mesylate 1 MG TABLET PO ×2 (08:57→20:35)
[2021-10-10] MEDS: Sertraline HCL 100 MG TABLET 200 MG PO (08:57)
--- NOTE | 2021-10-10 09:00 | PC.NURSE ---
THIS JAPANESE PROFESSOR ASSUMED CARE OF THIS PT AT 0700. PT ASLEEP AT THE TIME OF ASSUMING CARE. PT CURRENTLY AWAKE. PT REPORTS SI WITHOUT A PLAN, DENIES HI. SHE REQUESTED HER MEDS BUT QUESTIONED WHETHER/NOT TO TAKE THEM, STATED I TAKE THEM AT 07OO AT HOME SO WHY AM I GETTING THEM 2 HRS LATE, IT WILL THROW MY BODY OFF WHEN I GET HOME. Y'ALL DON'T KNOW WHAT YOU'RE DOING . NO BEHAVIORAL ISSUES OBSERVED/REPORTED. SHE DENIES PAIN. PT DECLINED BREAKFAST. WILL CONTINUE TO OBSERVE.
[2021-10-10] MEDS: HaloperidoL 5 MG TABLET PO ×2 (14:45→20:35)
[2021-10-10 15:09] LABS: COVID-19 Test Negative (Negative); IDNOW Serial# 9DB6401D
[2021-10-10] MEDS: LORazepam 1 MG TABLET 2 MG PO (18:17)
[2021-10-10] MEDS: chlorproMAZINE HCl 25 MG TABLET 50 MG PO (20:34)
[2021-10-10] MEDS: Naltrexone HCl 50 MG TABLET PO (20:35)
[2021-10-10] MEDS: chlorproMAZINE HCl 100 MG TABLET PO (20:35)
--- NOTE | 2021-10-11 | ECG_ITS ---
Test Reason : med clearance Blood Pressure : / mmHG Vent. Rate : 091 BPM Atrial Rate : 091 BPM P-R Int : 148 ms QRS Dur : 070 ms QT Int : 366 ms P-R-T Axes : 040 019 020 degrees QTc Int : 450 ms Normal sinus rhythm Normal ECG When compared with ECG of 23-JUN-2021 13:18, No significant change was found Referred By: Geeta Brar Electronically Signed By:REINALDO DOCKERY
--- NOTE | 2021-10-11 06:41 | PC.NURSE ---
Patient slept through the night, no distress observed/reported, patient is on 1:1 while awake, medication compliant, patient was re-assessed by N, disposition continues Section 12 Inpatient bed search, patient showered during evening shift, patient briefly engaged self harm behavior but was redirectable, VSS, will continue to monitor.
[2021-10-11 06:53] VITALS: RESP 16
--- NOTE | 2021-10-11 07:19 | PC.NURSE ---
patient appears to remain asleep maintained on 1:1 respirations are even and unlabored patient appears in no distress
[2021-10-11] MEDS: Sertraline HCL 100 MG TABLET 200 MG PO (09:24)
[2021-10-11] MEDS: Benztropine Mesylate 1 MG TABLET PO ×2 (09:24→20:04)
[2021-10-11] MEDS: carBAMazepine ER 200 MG TAB.ER.12H 400 MG PO ×3 (09:24→20:04)
[2021-10-11] MEDS: LORazepam 1 MG TABLET 2 MG PO (11:31)
[2021-10-11] MEDS: HaloperidoL 5 MG TABLET PO ×2 (14:10→20:04)
--- NOTE | 2021-10-11 15:57 | MHC.CARE ---
Admission to M[facility] is cancelled, pt has been cleared for discharge by psychotherapist social worker Mare Israel. [facility] has assigned a clinician to complete a mental status update re: disposition and discharge planning.
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
[2021-10-11] MEDS: chlorproMAZINE HCl 100 MG TABLET PO ×2 (16:29→20:04)
--- NOTE | 2021-10-11 18:59 | MHC.CARE ---
Call received from [facility] semiconductor packages tester, Bryanna, who reports that pt's adult foster placement is not willing to take her back without a safety plan that includes pt's outpatient providers. Per [facility] plan if for [facility] clinician to come to the ED in the morning to facilitate a discharge plan with pt and adult foster placement along with [facility] team.
[2021-10-11] MEDS: Naltrexone HCl 50 MG TABLET PO (20:04)
[2021-10-11] MEDS: chlorproMAZINE HCl 25 MG TABLET 50 MG PO (20:04)
--- NOTE | 2021-10-12 06:22 | PC.NURSE ---
Patient slept through the night, no distress observed/reported, patient was cleared by [facility] for discharge, awaiting her roommate to pick her up, care team is coordinating the discharge, medication compliant, patient is on one to one while awake, behavior non concerning except picking her skin intermittently, will continue to monitor.
[2021-10-12] MEDS: Sertraline HCL 100 MG TABLET 200 MG PO (09:50)
[2021-10-12] MEDS: Benztropine Mesylate 1 MG TABLET PO ×2 (09:51→22:11)
[2021-10-12] MEDS: carBAMazepine ER 200 MG TAB.ER.12H 400 MG PO ×3 (09:51→22:12)
--- NOTE | 2021-10-12 12:44 | MHC.CARE ---
Per Luz from [facility] crisis services she made over 5 attempts to shared living provider and pt's outpatient providers without response. Luz will contact CARE Team once a plan comes together for pt's discharge back to shared living provider. [facility] does not feel that pt meet IPLOC.
--- NOTE | 2021-10-12 14:39 | MHC.CARE ---
CARE Team leaves a messaged for shared living provider in order to support communication for discharge. N has also reached out.
[2021-10-12 14:59] VITALS: BP 138/84; PULSE 118; TEMP 36.7; O2SAT 96
[2021-10-12] MEDS: HaloperidoL 5 MG TABLET PO ×2 (15:33→22:12)
--- NOTE | 2021-10-12 16:05 | MHC.CARE ---
A second VM is left for shared living provider.
--- NOTE | 2021-10-12 18:00 | MHC.CARE ---
CARE Team receives a call from Luz from [facility] demetrice who reports that she has been working throughout the day on pt's case, advocating for discharge. She reports that she was not contacted until after business hours, but was just contacted by Yvette from [facility] who reports that pt's shared living provider is not willing to take pt back to her home at this time. CARE Team contacts Yvette [phone] who reports that [facility] would like to have a discharge meeting in the morning. CARE Team states that pt is medically and psychiatrically cleared for today and has been ready for discharge since last night. CARE Team receives a call from [facility] code enforcement supervisor, Kell, who reports that [facility] and shared living provider will not take pt back into the community without a safety plan meeting. Kell agrees to update CARE Team after the 10:20 meeting with the outcome.
[2021-10-12] MEDS: chlorproMAZINE HCl 25 MG TABLET 50 MG PO (22:12)
[2021-10-12] MEDS: Naltrexone HCl 50 MG TABLET PO (22:12)
[2021-10-12] MEDS: chlorproMAZINE HCl 100 MG TABLET PO (22:12)
--- NOTE | 2021-10-12 23:30 | PC.NURSE ---
PATIENT REFUSED VITALS AT THIS TIME. PT STATED NO, LEAVE ME ALONE.
--- NOTE | 2021-10-13 07:11 | PC.NURSE ---
Patient slept through the night, no distress observed/reported, patient was cleared by N for discharge, pending discharge and care team coordinating it, medication compliant, patient is on one to one while awake, behavior non concerning, will continue to monitor.
[2021-10-13 10:42] VITALS: RESP 15
[2021-10-13] MEDS: carBAMazepine ER 200 MG TAB.ER.12H 400 MG PO ×2 (10:56→17:22)
[2021-10-13] MEDS: Sertraline HCL 100 MG TABLET 200 MG PO (10:56)
[2021-10-13] MEDS: Benztropine Mesylate 1 MG TABLET PO (10:56)
--- NOTE | 2021-10-13 11:57 | MHC.CARE ---
CARE Team called provider Yvette- with no answer. I then called Shared Living Provider Margaret who answered and informed this brief writer that there is a meeting at 1:00. I requested someone from the team/meeting call the CARE Team with a plan. I then received a call from Kell who stated that the meeting is at 1:00 and wants someone from [facility] to attend. This information was passed on to CARE medical services coordinator Letty Melara.
[2021-10-13 14:23] VITALS: RESP 16
[2021-10-13] MEDS: diphenhydrAMINE HCL 50 MG/ML VIAL IM (14:23)
[2021-10-13] MEDS: Haloperidol Lactate 5 MG/ML VIAL 10 MG IM (14:23)
--- NOTE | 2021-10-13 14:27 | PC.NURSE ---
pt refused haldol 5m po stating that she wanted her haldol at the same time as her tegretol
--- NOTE | 2021-10-13 14:28 | PC.NURSE ---
pt amb () gait steady to the food cart with eaten lunch trays and took out a plastic fork. this rn tried to verbal redirect pt to return the plastic fork. pt started to use the plastic for to agitate an open area that she has on her l hand which is approximately a dime size. security was called. pt ran out of the her room and open the nursing station door and grabbed a container filled with crayon pencils and paper clip(s). a (may) was able to obtain the crayon pencils but pt placed 3 paper clips into her mouth which staff including security were able to retrieve. md at bedside, pt was given versed 2mg im (r deltoid), haldol 10mg im and benadryl 50mg im (l deltoid). pt is sleeping at this time. no injuries to pt noted.
[2021-10-13 14:38] VITALS: BP 130/89; PULSE 101; RESP 16; O2SAT 95
[2021-10-13 14:53] VITALS: BP 115/73; PULSE 103; RESP 16; O2SAT 94
[2021-10-13 15:08] VITALS: BP 123/71; PULSE 101; RESP 14; O2SAT 94
[2021-10-13 15:23] VITALS: BP 122/84; PULSE 101; RESP 16; O2SAT 95
[2021-10-13] MEDS: Midazolam HCl/PF 2 MG/2 ML VIAL IM (15:31)
--- NOTE | 2021-10-13 16:16 | PC.NURSE ---
No tegratol in pyxis. Pharmacy notified.
--- NOTE | 2021-10-13 18:04 | MHC.CARE ---
CARE Team participates in meeting at 1300 with pt's shared living provider Margaret, [facility] clinician Yvette, [facility] LEAD CARE MANAGER Kell, [facility] fabric coating supervisor Mihaela Baltazar and psych provider Mare Israel. In this meeting discharge planning is discussed. Pt was cleared for needing a higher level of care by ARMOND through multiple assessments and by Mare Israel. CARE Team is not clinically evaluating pt, but is acting as liaison between [facility] [place] [facility], and outpatient team. Shared living provider and CHD request safety plan in order to take pt back to shared living program and safety strategies are reviewed. Referral to [facility] is also discussed. CARE Team reaches out to PHP ([facility] sends clinical to [facility]) and secures intake for this coming Tuesday 10/17. PHP agrees to reach out to shared living provider tomorrow. At the end of the call, CHD and shared living provider report that they will discuss a plan for pt and let the ED know. Kell calls and reports that Margaret is off work at 4p and will come fruit picker machine operator pt after that. During the time after the meeting this morning, pt becomes dysregulated and requires IM medications. Margaret is updated by TW regarding pt recieving medications and struggling with baseline behaviors today. Margaret agrees to come fruit picker machine operator pt and pt is discharged.
== END 2021-10-13 18:00 | disposition home or self-care (01) ==
PROVIDERS: Emergency Medicine; Internal Medicine; Emergency Provider Emergency Medicine Emergency Medical Services
DX: F60.3 Borderline personality disorder (principal); F25.1 Schizoaffective disorder, depressive type; T18.2XXA Foreign body in stomach, initial encounter; X83.8XXA Intentional self-harm by other specified means, initial encounter; R45.851 Suicidal ideations; F41.9 Anxiety disorder, unspecified; Z20.822 Contact with and (suspected) exposure to COVID-19; E66.01 Morbid (severe) obesity due to excess calories; Z68.32 Body mass index [BMI] 32.0-32.9, adult; Z79.899 Other long term (current) drug therapy; Y93.9 Activity, unspecified; Y92.230 Patient room in hospital as the place of occurrence of the external cause; Y99.9 Unspecified external cause status
CPT/HCPCS: 36415; 71045; 74018; 80053; 80307; 81003; 81025; 85025; 87635; 93005; 96372; 99285; J1200; J2250

== ENCOUNTER 2022-09-05 19:43 | Emergency (ER) | payer OTHER, SELFPAY ==
[2022-09-05 19:52] VITALS: BP 124/78; BP 127/86; PULSE 104; PULSE 98; RESP 18; TEMP 37.3; O2SAT 97; O2SAT 98; BMI 46.1
--- NOTE | 2022-09-05 20:13 | PC.NURSE ---
pt changed over [id number] no apparent distress calm/cooperative at this time care plan in chart informed by MD- pt extremely impulsive and aggressive 1:1 at bedside security informed of pt behavior- standby during change agent pt will not endorse nor deny whether she is HI or not MD aware call ochoa within reach of pt
--- NOTE | 2022-09-05 20:38 | PC.NURSE ---
REQUESTED FOOD/JERONIMO provided resting quietly while watching tv 1:1 sitter remains at bedside
--- NOTE | 2022-09-05 20:41 | ED_ITS ---
HPI - Psych General Chief Complaint: Psychiatric Symptoms Stated Complaint: psych, cutting left forearm, per ems Time Seen by Provider: 09/05/22 19:55 Source: patient Mode of arrival: EMS Limitations: no limitations History of Present Illness HPI Narrative: Patient comes to the emergency room complaining of self-induced superficial lacerations to the arms. Patient coming from detention. Patient complaining of suicidal ideation. Patient denies homicidal ideation. Patient states that she does not want to discuss the details. Related Data Home Medications Medication Instructions Recorded Confirmed amlodipine 5 mg tablet 5 mg PO DAILY 09/05/22 09/05/22 benztropine 1 mg tablet 1 mg PO DAILY 09/05/22 09/05/22 carbamazepine 400 mg 400 mg PO 09/05/22 tablet,extended release,12 hr chlorpromazine 50 mg tablet 50 mg PO TID 09/05/22 09/05/22 haloperidol 5 mg tablet 5 mg PO 09/05/22 hydroxyzine HCl 25 mg tablet 25 mg PO 09/05/22 lithium carbonate 150 mg capsule mg PO 09/05/22 lithium carbonate 300 mg tablet 450 mg PO BID 09/05/22 09/05/22 medroxyprogesterone 150 mg/mL 150 mg IM [id number] 09/05/22 09/05/22 intramuscular suspension metformin 500 mg tablet 500 mg PO DAILY 09/05/22 09/05/22 naltrexone 50 mg tablet 50 mg PO DAILY 09/05/22 09/05/22 sertraline 100 mg tablet 100 mg PO BID 09/05/22 09/05/22 Allergies Allergy/AdvReac Type Severity Reaction Status Date / Time No Known Allergies Allergy Verified 09/05/22 21:25 [No Known Allergies*] Review of Systems Review of Systems: Constitutional : No Weight loss, No Fever, No Chills, No Night Sweats, No Fatigue, No Malaise ENT/Mouth : No Hearing loss, No Ear Pain, No Nasal Congestion, No Sinus Pain, No Hoarseness, No sore throat, No Rhinorrhea, No Swallowing Difficulty Eyes: No Eye Pain, No Swelling, No Redness, No Foreign Body, No Discharge, No Vision Changes Cardiovascular : No Chest Pain, No SOB, No Dyspnea on Exertion, No Orthopnea, No Edema, No Palpitations Respiratory : No Cough, No Sputum, No Wheezing, No Smoke Exposure, No Dyspnea Gastrointestinal : No Nausea, No Vomiting, No Diarrhea, No Constipation, No abdominal Pain, No Hematochezia, No Melena Genitourinary : no irregular bleeding, No Dysuria, No Urinary Frequency, No Hematuria, No Urinary Incontinence, No Urgency, No Flank Pain, No Urinary Flow Changes, No Hesitancy Musculoskeletal : No joint pain, No Myalgias, No Joint Swelling Skin : Superficial lacerations to both arms Neuro : No Weakness, No Numbness, No Paresthesias, No Loss of Consciousness, No Dizziness, No Headache Psych : A day anxiety, depression, SI, no HI Heme/Lymph: No Bruising, No Bleeding,No Lymphadenopathy Endocrine : No Polyuria, No Polydipsia, No Temperature Intolerance [facility] Past Medical History Medical History Borderline personality disorder alcohol syndrome Obesities, morbid Schizoaffective disorder, depressive type Social History Social History Household Members: Unknown / Unable to assess Household Members Other:: 1 Housing: Unknown / Unable to assess Do you presently have visiting nurse or other home services: Yes (once a month) Unable to assess alcohol history related to: Refusing to respond Alcohol intake: never Patient Tobacco Use Status: Never used Tobacco Smoked in Last 30 Days: Yes e-Cigarette/Vaping Use: Never Used Second Hand Smoke Exposure: No Use of substances other than those prescribed or required for medical reasons: No Substance Use Type: Marijuana Advance Directives: No Advance Directives Information Provided: No Patient : No (per pt) service: No Sexual orientation: Did not discuss/unknown Physical Exam Vital Signs: Vital Signs: Last Vital Signs Temp 99.1 F 09/05/22 19:52 Pulse 98 09/05/22 19:52 Resp 18 09/05/22 19:52 BP 127/86 09/05/22 19:52 Pulse Ox 97 09/05/22 19:52 O2 Del Method Room Air 09/05/22 19:52 BMI result Body Mass Index 46.1 Const: Other: Appearance: Alert. Oriented X3. No acute distress. Eyes: Pupils equal, round and reactive to light. ENT: Pharynx normal. Neck: Normal inspection. Neck supple. No lymph nodes noted. No crepitus CVS: Normal heart rate and rhythm. Pulses normal. Normal S1 and S2 Respiratory: No respiratory distress. Breath sounds normal. No Wheezing. No rales Abdomen: Soft and nontender. No rigidity. No distention. Skin: Skin warm and dry. Multiple superficial abrasions to the forearms, no bleeding Extremities: No lower extremity edema. No Lacerations. No Rash Neuro: Oriented X 3. No motor deficit. No sensory deficit. Moving all extremities. No slurred speech. CN 2 through 12 grossly intact Psych: calm, cooperative, normal affect Course Course Course Narrative: -all of patient's labs pending -care team consult pending -physician observation started at 20:45 Discharge Plan Discharge Clinical Impression: Suicidal ideation, Multiple lacerations Patient Disposition: Still a Patient Prescriptions: No Action metformin 500 mg tablet 500 mg PO DAILY haloperidol 5 mg tablet 5 mg PO naltrexone 50 mg tablet 50 mg PO DAILY sertraline 100 mg tablet 100 mg PO BID lithium carbonate 150 mg capsule PO amlodipine 5 mg tablet 5 mg PO DAILY carbamazepine 400 mg tablet extended release 12 hr 400 mg PO benztropine 1 mg tablet 1 mg PO DAILY hydroxyzine HCl 25 mg tablet 25 mg PO lithium carbonate 300 mg tablet 450 mg PO BID medroxyprogesterone 150 mg/mL suspension 150 mg IM [id number] chlorpromazine 50 mg tablet 50 mg PO TID Interventions: [place]-Suicide Risk Severity Scale Last Done: 09/05/22 19:52
[2022-09-05 21:29] LABS: MANUAL DIFF FLAG NO
--- NOTE | 2022-09-05 21:30 | PC.NURSE ---
med rec completed with pt
[2022-09-05 21:31] LABS: Basophils Percent Auto 0.5 % (0-2); Eosinophils Absolute Auto 0.1 X10*3/uL (0.0-0.4); Eosinophils Percent Auto 2.1 % (0-4); Hematocrit 38.1 % (37.0-47.0); Hemoglobin 12.3 g/dl (12.0-16.0); Imm Gran Abs Auto 0.05 X10*3/uL (0.00-0.03); Imm Gran Pct Auto 0.8 % (0.0-0.4); Lymphocytes Absolute Auto 2.2 X10*3/uL (1.2-4.9); Lymphocytes Percent Auto 32.3 % (20-40); Mean Corpuscular HGB Conc 32.3 g/dl (31.0-35.0); Mean Corpuscular Hemoglobin 28.3 pg (27.0-33.0); Mean Corpuscular Volume 87.8 fL (80.0-98.0); Mean Platelet Volume 8.9 fL (9.4-12.3); Monocytes Absolute Auto 0.6 X10*3/uL (0.1-1.2); Neutrophils Absolute Auto 3.7 x10*3/uL (2.0-8.3); Neutrophils Percent Auto 55.3 % (45-73); Platelet Count 256 X10*3/uL (160-400); Red Blood Count 4.34 X10*6/uL (4.20-5.50); White Blood Count 6.7 X10*3/uL (4.8-10.8)
[2022-09-05 21:50] LABS: Alanine Aminotransferase 20 U/L (0-31); Albumin Level 3.8 g/dL (3.5-5.0); Alkaline Phosphatase 84 U/L (39-117); Anion Gap 13 (12-20); Aspartate Amino Transferase 18 U/L (5-31); Bilirubin Direct < 0.2 mg/dL (0.0-0.5); Bilirubin Total 0.2 mg/dL (0.0-1.0); Blood Urea Nitrogen 7 mg/dL (9-16); COVID-19 Test Negative (Negative); Calcium 9.6 mg/dL (8.4-10.2); Carbon Dioxide 22 mmol/L (22-29); Chloride 107 mmol/L (96-108); Creatinine Clr Calc Pharmacy 137.6; Estimated Glomerular Filt Rate > 60; Ethanol < 10 mg/dL; Glucose Random 87 mg/dL (60-115); IDNOW Serial# 55D5AD1C; Potassium 3.8 mmol/L (3.3-5.1); Sodium 138 mmol/L (135-145); Total Protein 7.3 g/dL (6.5-8.0)
[2022-09-05 22:44] VITALS: BP 122/71; PULSE 97; RESP 15; O2SAT 98
--- NOTE | 2022-09-05 23:22 | PC.NURSE ---
Pt requesting something for sleep. Provider Aldair made aware.
--- NOTE | 2022-09-06 00:24 | PC.NURSE ---
pt requesting meds to help her sleep MD aware
[2022-09-06 00:29] VITALS: BP 125/75; PULSE 99; RESP 18; O2SAT 97
--- NOTE | 2022-09-06 00:54 | PC.NURSE ---
pt states she does not take sertraline, carbam, haldol this late- refused meds aware calm/cooperative no apparent distress 1:1 sitter remains at bedside
[2022-09-06 02:00] VITALS: RESP 16
[2022-09-06] MEDS: Melatonin 3 MG TABLET 9 MG PO (02:34)
--- NOTE | 2022-09-06 02:44 | PC.NURSE ---
pt resting quietly while watching tv no apparent distress will ctm
[2022-09-06 04:00] VITALS: RESP 16
--- NOTE | 2022-09-06 04:09 | PC.NURSE ---
resting quietly, no apparent distress 1:1 sitter remains at bedside
--- NOTE | 2022-09-06 04:40 | PC.NURSE ---
pt sleeping respirations even and unlabored
[2022-09-06 06:04] VITALS: RESP 15
--- NOTE | 2022-09-06 06:24 | PC.NURSE ---
Patient was just transferred to ED POD from main ED, gait independent, med rec completed/APR active, HS medication was administered in Ed due to patient sleeping, care consult ordered/pending evaluation, behavior non concerning at this time but unpredictable, VSS, will continue to monitor.
[2022-09-06] MEDS: Ondansetron ODT 4 MG TAB.RAPDIS TRANSLINGU (06:46)
[2022-09-06 06:56] VITALS: BP 133/96; PULSE 95; RESP 18; TEMP 36.6; O2SAT 97
--- NOTE | 2022-09-06 08:21 | PHA.MEDREC ---
Pharmacy Consult ? Medication Reconciliation Pharmacy has reviewed the medication reconciliation done [email or web address].
[2022-09-06 08:47] LABS: Appearance Urine Clear; Color Urine Yellow; Glucose Urine UA Negative (Negative); Leukocyte Esterase Urine Trace (Negative); Nitrite Urine Negative (Negative); Specific Gravity - Urine 1.015 (1.005-1.025); UMIC TRIGGER UACC YES; Urine Blood Negative (Negative); Urine Ketones Negative (Negative); Urine Protein Negative (Neg-Trace)
[2022-09-06 08:49] LABS: UPreg QC Valid YES; Urine Pregnancy NEGATIVE (NEGATIVE)
[2022-09-06 08:52] LABS: Bacteria Urine 1+ (None Seen); Hyaline Casts Urine 0-2 /LPF (0-2); RBC Urine 0-2 /HPF (0-2); WBC Urine 0-5 /HPF (0-5)
[2022-09-06 08:53] LABS: Amphetamine Screen Urine Not Detected (Not Detect); Barbiturates, Urine Not Detected (Not Detect); Benzodiazepines Screen Urine Not Detected (Not Detect); Cannabinoid Screen Urine Not Detected (Not Detect); Cocaine Screen Urine Not Detected (Not Detect); Fentanyl, urine Not Detected (Not Detect); Opiate Screen Urine Not Detected (Not Detect); Phencyclidine Screen Urine Not Detected (Not Detect)
[2022-09-06 09:30] LABS: Lithium 0.33 mmol/L (0.60-1.20)
--- NOTE | 2022-09-06 10:33 | PC.NURSE ---
pt sleeping at this time, respirations even and unlabored.
--- NOTE | 2022-09-06 12:21 | PC.NURSE ---
taking over care of pt at 11:30. Pts AM meds were not given previously, pt is not happy with current scheduling of meds. Called pharmacy to reschedule, awaiting reschedule to give pt meds
[2022-09-06] MEDS: Naltrexone HCl 50 MG TABLET PO (12:44)
[2022-09-06] MEDS: Lithium Carbonate 300 MG TABLET 450 MG PO (12:45)
[2022-09-06] MEDS: Sertraline HCL 100 MG TABLET 200 MG PO (12:45)
[2022-09-06] MEDS: Benztropine Mesylate 1 MG TABLET PO (12:45)
--- NOTE | 2022-09-06 12:51 | PC.NURSE ---
medications retimed by pharmacy per pt request. pt was getting agitated by meds not being timed as she likes at home.
--- NOTE | 2022-09-06 12:52 | PC.NURSE ---
charted against meds that pt did not take this morning with previous nurse.
--- NOTE | 2022-09-06 14:33 | MHC.CARE ---
Patient evaluated by the CARE Team, she does not require a psychiatric admission at this time. [facility]. Provider updated. Written assessment to follow.
== END 2022-09-06 15:07 | disposition home or self-care (01) ==
PROVIDERS: Emergency Provider Emergency Medicine
DX: S41.111A Laceration without foreign body of right upper arm, initial encounter (principal); S41.112A Laceration without foreign body of left upper arm, initial encounter; R45.851 Suicidal ideations; X78.1XXA Intentional self-harm by knife, initial encounter; Y93.9 Activity, unspecified; Y92.9 Unspecified place or not applicable; Y99.9 Unspecified external cause status; Z20.822 Contact with and (suspected) exposure to COVID-19; Z20.828 Contact with and (suspected) exposure to other viral communicable diseases; Z79.899 Other long term (current) drug therapy
CPT/HCPCS: 36415; 80048; 80076; 80178; 80307; 81001; 81025; 85025; 87635; 99285; S9485

== ENCOUNTER 2022-10-19 18:58 | Emergency (ER) | payer OTHER, SELFPAY ==
[2022-10-19 19:04] VITALS: BMI 36.9
[2022-10-19] MEDS: metFORMIN HCl 500 MG TABLET PO (19:44)
[2022-10-19 19:45] LABS: Appearance Urine Cloudy; Color Urine Yellow; Glucose Urine UA Negative (Negative); Leukocyte Esterase Urine Negative (Negative); Nitrite Urine Negative (Negative); Urine Blood Negative (Negative); Urine Ketones Negative (Negative); Urine Protein Negative (Neg-Trace)
[2022-10-19 19:46] LABS: UPreg QC Valid YES; Urine Pregnancy NEGATIVE (NEGATIVE)
[2022-10-19 19:47] LABS: Amphetamine Screen Urine Not Detected (Not Detect); Barbiturates, Urine Not Detected (Not Detect); Benzodiazepines Screen Urine Not Detected (Not Detect); Cannabinoid Screen Urine Not Detected (Not Detect); Cocaine Screen Urine Not Detected (Not Detect); Fentanyl, urine Not Detected (Not Detect); Opiate Screen Urine Not Detected (Not Detect); Phencyclidine Screen Urine Not Detected (Not Detect)
--- NOTE | 2022-10-19 20:23 | ED_ITS ---
HPI - Psych General Chief Complaint: Psychiatric Symptoms Stated Complaint: SI THREAT/ SUPERFICIAL LAC TO L WRIST Time Seen by Provider: 10/19/22 18:59 Source: EMS and RN notes reviewed Mode of arrival: EMS Limitations: other History of Present Illness HPI Narrative: Patient comes to the emergency room via ambulance from a nursing home. Patient is in her room, calm, unwilling to speak at all. Per EMS, something happened at the patient's nursing home that got the patient upset. EMS was called, patient grabbed a rock and started rubbing it against her left forearm. Patient was brought to the emergency room. Related Data Home Medications Medication Instructions Recorded Confirmed amlodipine 5 mg tablet 5 mg PO DAILY 10/19/22 10/19/22 benztropine 1 mg tablet 1 mg PO QAM 10/19/22 10/19/22 carbamazepine 400 mg 400 mg PO TID 10/19/22 10/19/22 tablet,extended release,12 hr chlorpromazine 100 mg tablet 150 mg PO BEDTIME 10/19/22 10/19/22 haloperidol 5 mg tablet 7.5 mg PO BID 10/19/22 10/19/22 hydroxyzine HCl 25 mg tablet 25 - 50 mg PO TID PRN Anxiety 10/19/22 10/19/22 lithium carbonate 150 mg capsule 450 mg PO BID 10/19/22 10/19/22 metformin 500 mg tablet 500 mg PO DAILY@1800 10/19/22 10/19/22 naltrexone 50 mg tablet 50 mg PO QAM 10/19/22 10/19/22 sertraline 100 mg tablet 200 mg PO QAM 10/19/22 10/19/22 Allergies Allergy/AdvReac Type Severity Reaction Status Date / Time No Known Allergies Allergy Verified 09/05/22 21:25 [No Known Allergies*] Review of Systems Review of Systems: Yes Other (Patient unwilling to talk) [facility] Past Medical History Medical History Borderline personality disorder alcohol syndrome Obesities, morbid Schizoaffective disorder, depressive type Social History Social History Household Members: Unknown / Unable to assess Household Members Other:: 1 Housing: Unknown / Unable to assess Do you presently have visiting nurse or other home services: Yes (once a month) Unable to assess alcohol history related to: Refusing to respond Alcohol intake: never Patient Tobacco Use Status: Never used Tobacco e-Cigarette/Vaping Use: Never Used Second Hand Smoke Exposure: No Substance Use Type: Marijuana Advance Directives: No Advance Directives Information Provided: No service: No Sexual orientation: Did not discuss/unknown Physical Exam Vital Signs: Vital Signs: BMI result Body Mass Index 36.9 Const: Other: Appearance: Alert. No acute distress. Eyes: Pupils equal, round and reactive to light. ENT: Pharynx normal. Neck: Normal inspection. Neck supple. No lymph nodes noted. No crepitus CVS: Normal heart rate and rhythm. Pulses normal. Normal S1 and S2 Respiratory: No respiratory distress. Breath sounds normal. No Wheezing. No rales Abdomen: Soft and nontender. No rigidity. No distention. Skin: Skin warm and dry. Normal skin color. Normal skin turgor. Extremities: No lower extremity edema. No Lacerations. No Rash Neuro: Moving all extremities. No slurred speech. CN 2 through 12 grossly intact Psych: calm, cooperative, following directions, unwilling to talk Course Course Course Narrative: -all of patient's labs pending -care team consult pending -patient has a small abrasion to the forearm on the left, abrasion was cleaned, no signs of infection -physician observation started at 20:25 Medications Administered Discontinued Medications Generic Name Dose Route Start Last Admin Trade Name Freq PRN Reason Stop Dose Admin Metformin HCl 500 mg 10/19/22 19:41 10/19/22 19:44 Metformin Hcl 500 Mg Tablet PO 10/19/22 19:42 500 mg ONCE ONE Administration Medical Decision Making Medical Decision Making [facility] Narrative: -the care team evaluated the patient, it will be a follow-up for morning of October 20. The visual basic programmer of the nursing home is agreeable to take the patient back. Lab Data 10/19/22 20:34 10/19/22 20:34 Labs: Lab Results 10/19/22 10/19/22 10/19/22 Range/Units 19:26 19:26 19:26 WBC (4.8-10.8) X10*3/uL RBC (4.20-5.50) X10*6/uL Hgb (12.0-16.0) g/dl Hct (37.0-47.0) % MCV (80.0-98.0) fL MCH (27.0-33.0) pg MCHC (31.0-35.0) g/dl RDW (11.0-16.0) % Plt Count (160-400) X10*3/uL MPV (9.4-12.3) fL Immature Gran % (Auto) (0.0-0.4) % Neut % (Auto) (45-73) % Lymph % (Auto) (20-40) % [place] % (Auto) (2-11) % Eos % (Auto) (0-4) % Baso % (Auto) (0-2) % Lymph # (Auto) (1.2-4.9) X10*3/uL [place] # (Auto) (0.1-1.2) X10*3/uL Eos # (Auto) (0.0-0.4) X10*3/uL Baso # (Auto) (0.0-0.2) X10*3/uL Abs Immat Gran (auto) (0.00-0.03) X10*3/uL Absolute Neuts (auto) (2.0-8.3) x10*3/uL Absolute Nucleated RBC (0.0-0.012) X10*3/uL Nucleated RBC % (auto) (0.0-0.2) /100WBC Sodium (135-145) mmol/L Potassium (3.3-5.1) mmol/L Chloride (96-108) mmol/L Carbon Dioxide (22-29) mmol/L Anion Gap (12-20) BUN (9-16) mg/dL Creatinine (0.5-1.4) mg/dL Estim Creat Clear Calc Estimated GFR Random Glucose (60-115) mg/dL Calcium (8.4-10.2) mg/dL Total Bilirubin (0.0-1.0) mg/dL AST (5-31) U/L ALT (0-31) U/L Alkaline Phosphatase (39-117) U/L Total Protein (6.5-8.0) g/dL Albumin (3.5-5.0) g/dL Urine Color Yellow Urine Appearance Cloudy Urine pH 7.0 (5.0-9.0) Ur Specific [place] 1.010 (1.005-1.025) Urine Protein Negative (Neg-Trace) mg/dL Urine Glucose (UA) Negative (Negative) mg/dL Urine Ketones Negative (Negative) mg/dL Urine Blood Negative (Negative) Urine Nitrite Negative (Negative) Ur Leukocyte Esterase Negative (Negative) Urine Test NEGATIVE (NEGATIVE) Salicylates (15-30) mg/dL Urine Opiates Screen Not Detected (Not Detect) Urine Fentanyl Screen Not Detected (Not Detect) Acetaminophen (<30) mcg/mL Ur Barbiturates Screen Not Detected (Not Detect) Ur Phencyclidine Scrn Not Detected (Not Detect) Ur Amphetamines Screen Not Detected (Not Detect) U Benzodiazepines Scrn Not Detected (Not Detect) Spencer (0.60-1.20) mmol/L Urine Cocaine Screen Not Detected (Not Detect) U Marijuana (THC) Screen Not Detected (Not Detect) Ethyl Alcohol mg/dL 10/19/22 10/19/22 10/19/22 Range/Units 20:34 20:34 20:34 WBC 7.5 (4.8-10.8) X10*3/uL RBC 4.21 (4.20-5.50) X10*6/uL Hgb 12.0 (12.0-16.0) g/dl Hct 36.9 L (37.0-47.0) % MCV 87.6 (80.0-98.0) fL MCH 28.5 (27.0-33.0) pg MCHC 32.5 (31.0-35.0) g/dl RDW 13.2 (11.0-16.0) % Plt Count 247 (160-400) X10*3/uL MPV 8.8 L (9.4-12.3) fL Immature Gran % (Auto) 0.8 H (0.0-0.4) % Neut % (Auto) 57.5 (45-73) % Lymph % (Auto) 28.2 (20-40) % [place] % (Auto) 10.8 (2-11) % Eos % (Auto) 2.0 (0-4) % Baso % (Auto) 0.7 (0-2) % Lymph # (Auto) 2.1 (1.2-4.9) X10*3/uL [place] # (Auto) 0.8 (0.1-1.2) X10*3/uL Eos # (Auto) 0.2 (0.0-0.4) X10*3/uL Baso # (Auto) 0.1 (0.0-0.2) X10*3/uL Abs Immat Gran (auto) 0.06 H (0.00-0.03) X10*3/uL Absolute Neuts (auto) 4.3 (2.0-8.3) x10*3/uL Absolute Nucleated RBC 0.000 (0.0-0.012) X10*3/uL Nucleated RBC % (auto) 0.0 (0.0-0.2) /100WBC Sodium 137 (135-145) mmol/L Potassium 3.8 (3.3-5.1) mmol/L Chloride 108 (96-108) mmol/L Carbon Dioxide 18 L (22-29) mmol/L Anion Gap 15 (12-20) BUN 11 (9-16) mg/dL Creatinine 0.82 (0.5-1.4) mg/dL Estim Creat Clear Calc 115.8 Estimated GFR > 60 Random Glucose 123 H (60-115) mg/dL Calcium 9.5 (8.4-10.2) mg/dL Total Bilirubin 0.2 (0.0-1.0) mg/dL AST 20 (5-31) U/L ALT 21 (0-31) U/L Alkaline Phosphatase 80 (39-117) U/L Total Protein 7.6 (6.5-8.0) g/dL Albumin 4.2 (3.5-5.0) g/dL Urine Color Urine Appearance Urine pH (5.0-9.0) Ur Specific [place] (1.005-1.025) Urine Protein (Neg-Trace) mg/dL Urine Glucose (UA) (Negative) mg/dL Urine Ketones (Negative) mg/dL Urine Blood (Negative) Urine Nitrite (Negative) Ur Leukocyte Esterase (Negative) Urine Test (NEGATIVE) Salicylates < 5.0 L (15-30) mg/dL Urine Opiates Screen (Not Detect) Urine Fentanyl Screen (Not Detect) Acetaminophen < 17 (<30) mcg/mL Ur Barbiturates Screen (Not Detect) Ur Phencyclidine Scrn (Not Detect) Ur Amphetamines Screen (Not Detect) U Benzodiazepines Scrn (Not Detect) Spencer (0.60-1.20) mmol/L Urine Cocaine Screen (Not Detect) U Marijuana (THC) Screen (Not Detect) Ethyl Alcohol < 10 mg/dL 10/19/22 Range/Units 20:34 WBC (4.8-10.8) X10*3/uL RBC (4.20-5.50) X10*6/uL Hgb (12.0-16.0) g/dl Hct (37.0-47.0) % MCV (80.0-98.0) fL MCH (27.0-33.0) pg MCHC (31.0-35.0) g/dl RDW (11.0-16.0) % Plt Count (160-400) X10*3/uL MPV (9.4-12.3) fL Immature Gran % (Auto) (0.0-0.4) % Neut % (Auto) (45-73) % Lymph % (Auto) (20-40) % Otero % (Auto) (2-11) % Eos % (Auto) (0-4) % Baso % (Auto) (0-2) % Lymph # (Auto) (1.2-4.9) X10*3/uL [place] # (Auto) (0.1-1.2) X10*3/uL Eos # (Auto) (0.0-0.4) X10*3/uL Baso # (Auto) (0.0-0.2) X10*3/uL Abs Immat Gran (auto) (0.00-0.03) X10*3/uL Absolute Neuts (auto) (2.0-8.3) x10*3/uL Absolute Nucleated RBC (0.0-0.012) X10*3/uL Nucleated RBC % (auto) (0.0-0.2) /100WBC Sodium (135-145) mmol/L Potassium (3.3-5.1) mmol/L Chloride (96-108) mmol/L Carbon Dioxide (22-29) mmol/L Anion Gap (12-20) BUN (9-16) mg/dL Creatinine (0.5-1.4) mg/dL Estim Creat Clear Calc Estimated GFR Random Glucose (60-115) mg/dL Calcium (8.4-10.2) mg/dL Total Bilirubin (0.0-1.0) mg/dL AST (5-31) U/L ALT (0-31) U/L Alkaline Phosphatase (39-117) U/L Total Protein (6.5-8.0) g/dL Albumin (3.5-5.0) g/dL Urine Color Urine Appearance Urine pH (5.0-9.0) Ur Specific [place] (1.005-1.025) Urine Protein (Neg-Trace) mg/dL Urine Glucose (UA) (Negative) mg/dL Urine Ketones (Negative) mg/dL Urine Blood (Negative) Urine Nitrite (Negative) Ur Leukocyte Esterase (Negative) Urine Test (NEGATIVE) Salicylates (15-30) mg/dL Urine Opiates Screen (Not Detect) Urine Fentanyl Screen (Not Detect) Acetaminophen (<30) mcg/mL Ur Barbiturates Screen (Not Detect) Ur Phencyclidine Scrn (Not Detect) Ur Amphetamines Screen (Not Detect) U Benzodiazepines Scrn (Not Detect) Spencer 0.40 L (0.60-1.20) mmol/L Urine Cocaine Screen (Not Detect) U Marijuana (THC) Screen (Not Detect) Ethyl Alcohol mg/dL Discharge Plan Discharge Clinical Impression: Borderline personality disorder Patient Disposition: Still a Patient Prescriptions: No Action metformin 500 mg tablet 500 mg PO DAILY@1800 haloperidol 5 mg tablet 7.5 mg PO BID chlorpromazine 100 mg tablet 150 mg PO BEDTIME naltrexone 50 mg tablet 50 mg PO QAM sertraline 100 mg tablet 200 mg PO QAM lithium carbonate 150 mg capsule 450 mg PO BID amlodipine 5 mg tablet 5 mg PO DAILY carbamazepine 400 mg tablet extended release 12 hr 400 mg PO TID benztropine 1 mg tablet 1 mg PO QAM hydroxyzine HCl 25 mg tablet 25 - 50 mg PO TID PRN (Reason: Anxiety) Interventions: [place]-Suicide Risk Severity Scale Last Done: 10/19/22 20:27
[2022-10-19 20:38] LABS: MANUAL DIFF FLAG NO
[2022-10-19 20:40] LABS: Basophils Absolute Auto 0.1 X10*3/uL (0.0-0.2); Basophils Percent Auto 0.7 % (0-2); Eosinophils Absolute Auto 0.2 X10*3/uL (0.0-0.4); Hematocrit 36.9 % (37.0-47.0); Imm Gran Abs Auto 0.06 X10*3/uL (0.00-0.03); Imm Gran Pct Auto 0.8 % (0.0-0.4); Lymphocytes Absolute Auto 2.1 X10*3/uL (1.2-4.9); Lymphocytes Percent Auto 28.2 % (20-40); Mean Corpuscular HGB Conc 32.5 g/dl (31.0-35.0); Mean Corpuscular Hemoglobin 28.5 pg (27.0-33.0); Mean Corpuscular Volume 87.6 fL (80.0-98.0); Mean Platelet Volume 8.8 fL (9.4-12.3); Monocytes Absolute Auto 0.8 X10*3/uL (0.1-1.2); Monocytes Percent Auto 10.8 % (2-11); Neutrophils Absolute Auto 4.3 x10*3/uL (2.0-8.3); Neutrophils Percent Auto 57.5 % (45-73); Platelet Count 247 X10*3/uL (160-400); Red Blood Count 4.21 X10*6/uL (4.20-5.50); Red Cell Distribution Width 13.2 % (11.0-16.0); White Blood Count 7.5 X10*3/uL (4.8-10.8)
[2022-10-19 21:01] LABS: Acetaminophen LAB < 17 mcg/mL (<30); Alanine Aminotransferase 21 U/L (0-31); Albumin Level 4.2 g/dL (3.5-5.0); Alkaline Phosphatase 80 U/L (39-117); Anion Gap 15 (12-20); Aspartate Amino Transferase 20 U/L (5-31); Bilirubin Total 0.2 mg/dL (0.0-1.0); Blood Urea Nitrogen 11 mg/dL (9-16); Calcium 9.5 mg/dL (8.4-10.2); Carbon Dioxide 18 mmol/L (22-29); Chloride 108 mmol/L (96-108); Creatinine Clr Calc Pharmacy 115.8; Estimated Glomerular Filt Rate > 60; Ethanol < 10 mg/dL; Glucose Random 123 mg/dL (60-115); Potassium 3.8 mmol/L (3.3-5.1); Salicylate < 5.0 mg/dL (15-30); Sodium 137 mmol/L (135-145); Total Protein 7.6 g/dL (6.5-8.0)
--- NOTE | 2022-10-19 23:19 | PC.NURSE ---
Patient currently in bed appears sleeping, no distress observed/reported, behavior unpredictable at time exhibits self harm behavior by slapping herself or pull her hairs, med rec competed/pending provider's approval, patient was seen by care team, disposition is pending, LENKA follow up in the morning, patient is adamantly refusing vital signs, labs completed/resulted, will continue to monitor.
--- NOTE | 2022-10-20 07:19 | MHC.CARE ---
Yvette justice [facility] team ([phone] or [phone]) calls with collateral information, she reports that yesterday patient appeared to have a good day at her day program. She attended an art show, selling dog treats she made. She did not appear distressed. Patient returned to the group living environment and web developer programmer noticed patient was outside with a rock, cutting herself and upset. Yvette reports that patient transferred to the [facility] from a shared living provider situation with a woman named Ivania approximately 1.5 months ago. Transfer occurred due to patient repeatedly telling Ivania that she wanted to kill herself. When web developer programmer asked for the rock to be returned, patient refused. Unknown triggers, her birthday was two days ago and her lithium level was low, at .40. Yvette believes patient has been compliant however the patient self administers the meds observed by staff. No suspected report of cheeking, historically, rather than cheek the patient will flat out refuse to take the meds. Her last suicide attempt is reported to have been 7 months ago when she tried to run in front of a car. Yvette describes patient as both guarded and impulsive.
[2022-10-20 08:15] VITALS: BP 137/93; PULSE 100; RESP 20; TEMP 36.6; O2SAT 97
[2022-10-20 08:26] LABS: Glucose, Whole Blood 140 mg/dL (60-115)
--- NOTE | 2022-10-20 08:31 | PHA.MEDREC ---
Pharmacy Consult ? Medication Reconciliation Pharmacy has reviewed the medication reconciliation done by RN
--- NOTE | 2022-10-20 08:53 | PC.NURSE ---
Pt banging head against wall, able to redirect. Pt then noted with plastic scratching left forearm, needing redirection to take back piece of plastic. Security called to room to search room. Are cleansed, pt denies dressing to area. Eating PB and J in front of nsg station.
[2022-10-20] MEDS: amLODIPine Besylate 5 MG TABLET PO (09:02)
[2022-10-20] MEDS: Benztropine Mesylate 1 MG TABLET PO ×2 (09:02→09:14)
[2022-10-20] MEDS: Naltrexone HCl 50 MG TABLET PO ×2 (09:03→09:14)
[2022-10-20] MEDS: Sertraline HCL 100 MG TABLET 200 MG PO ×2 (09:03→09:15)
[2022-10-20] MEDS: Lithium Carbonate 300 MG TABLET 450 MG PO (09:03)
[2022-10-20] MEDS: HaloperidoL 5 MG TABLET 7.5 MG PO (09:24)
[2022-10-20] MEDS: LORazepam 1 MG TABLET 2 MG PO (09:25)
--- NOTE | 2022-10-20 09:41 | PC.NURSE ---
Pt with increased agitation noted to be looking for things around pod to touch or ingest. Tatiana MHT at bedside at this time redirecting pt with good effect. Pt medicated with PO Ativan, laying down at this time, lights off.
--- NOTE | 2022-10-20 10:18 | PC.NURSE ---
Tegretol not yet received from pharmacy, pt asleep s/p Ativan given, will hold Tegretol, Dr Brar aware (next dose 1500)
--- NOTE | 2022-10-20 12:41 | PC.NURSE ---
Pt awaken by Arianna from psych, evaluating at this time
[2022-10-20] MEDS: OLANZapine 10 MG VIAL 5 MG IM (13:00)
[2022-10-20] MEDS: LORazepam 2 MG/ML VIAL IM (13:00)
--- NOTE | 2022-10-20 13:00 | PC.NURSE ---
Pt now increasingly agitated looking around POD for anything to harm self. 1:1 initiated and security to bedside attempting to deescalate pt without effect. Medicated as charted and 1:1 maintained.
--- NOTE | 2022-10-20 13:13 | MHC.CARE ---
CARE Team attempted to reached [facility] ([phone]) and was not able to leave voicekyil. Plan for CARE Team to continue to follow up to get in contact home with [facility].
--- NOTE | 2022-10-20 13:31 | MHC.CARE ---
CARE Team left VM for Yvette Lucas- [facility] clinician regarding discharge planning
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
--- NOTE | 2022-10-20 14:01 | MHC.CARE ---
CARE Team spoke with Yvette and made them aware recommendations from psychiatric provider is to discharge home. Pt appears to be presenting at her baseline level of functioning.? Pt appears to continuing to adjusting to her new living environment. Pt is supported in the community by providers a through [facility].
[2022-10-20 14:20] VITALS: RESP 16
--- NOTE | 2022-10-20 14:21 | MHC.CARE ---
[facility] will be picking up Pt at around 430pm
--- NOTE | 2022-10-20 15:58 | PC.NURSE ---
Assumed care of patient at 1500, patient sleeping at this time, respirations even and unlabored, skin pwd, no apparent distress. Plan of care for discharge around 1630
== END 2022-10-20 16:45 | disposition home or self-care (01) ==
PROVIDERS: Emergency Provider Emergency Medicine
DX: F60.3 Borderline personality disorder (principal); R45.1 Restlessness and agitation; F25.1 Schizoaffective disorder, depressive type; E66.01 Morbid (severe) obesity due to excess calories; Z68.36 Body mass index [BMI] 36.0-36.9, adult; F12.90 Cannabis use, unspecified, uncomplicated; Z79.899 Other long term (current) drug therapy
CPT/HCPCS: 36415; 80053; 80143; 80178; 80179; 80307; 81003; 81025; 82947; 85025; 99284; J2060; S9485

== ENCOUNTER → 2022-10-19 19:20 | Outpatient (BNV) | payer OTHER, SELFPAY | PROVIDERS: Emergency Provider Emergency Medicine; Visit Provider Social Worker | DX: F60.3 Borderline personality disorder (principal) | CPT/HCPCS: 99231 ==

== ENCOUNTER 2023-02-13 21:33 | Inpatient (IN) | payer OTHER, SELFPAY ==
--- NOTE | ~2023-02-13 | XR_ITS ---
EXAMINATION: XR CHEST CLINICAL INFORMATION: Patient swallowed a pen cap. COMPARISON: Chest radiograph 10/13/2021. TECHNIQUE: Frontal view of the chest was obtained. FINDINGS: Evaluation is limited secondary to patient body habitus and low lung volumes. No discrete unexpected radiopaque foreign bodies are seen. Normal appearance of the cardiomediastinal silhouette. No focal airspace opacities, pleural effusion or pneumothorax. No acute osseous findings. XR/XR chest 1V IMPRESSION: 1. No unexpected radiopaque foreign bodies, although evaluation is limited due to patient body habitus. 2. No acute cardiopulmonary findings.
[2023-02-13 21:39] VITALS: BP 161/105; PULSE 101; O2SAT 97; BMI 37.8
--- OUTSIDE RECORDS SUMMARY | 2023-02-13 21:47 | XMS_ITS | Continuity of Care Document ---
Author Name Unknown Organization [facility] ter Address [address] [place] [id number] Care Team Providers Care Highwall Drill Operator Name Role Phone Not on Staff, PCP Primary Care Physician Unavail able Encounter [facility] Date(s): 02/07/19 - 02/07/[address] [id number]- [facility] Discharge Disposition: A-D/C Home Attending Physician: Delfin Linton MD Admitting Physician: Delfin Linton MD Referring Physician: Not on Staff, Referring MD Allergies, Adverse Reactions, Alerts Substance Reaction Severity Status NKA Active Immunizations Not Given Vaccine Date Status Refusal Reason influenza virus vaccine, inactivated 12/18/18 Not Given Patient Refuses Medications cholecalciferol 1000 intl units oral tablet 2 tablet = 2,000 International_Units, By Mouth, Daily, # 30 tablet, 1 Refills, Maintenance, 01/14/19 9:00:31 EST, Tablet Start Date: 01/14/19 Status: Ordered clozapine 100 mg oral tablet See Instructions, Take one and a half tablets ( = 150 mg ) twice daily - antipsychotic, # 30 tablet, 2 Refills, Maintenance, 01/14/19 9:05:24 EST, Tablet Start Date: 01/14/19 Status: Ordered divalproex sodium 500 mg oral enteric coated tablet = 500 mg, By Mouth, 2 times a day, mood stabilizer, # 20 tablet, 2 Refills, Maintenance, 01/14/19 9:07:38 EST, Tablet Start Date: 01/14/19 Status: Ordered ferrous sulfate 325 mg oral enteric coated tablet 325 mg, By Mouth, Daily, # 10 tablet, Refills 2, Tot. Refills 2, Maintenance, 01/14/19 9:09:34 EST,Route to Pharmacy Electronically, [id number], [facility]/pharmacy #[id number] Start Date: 01/14/19 Status: Ordered Flonase 50 mcg/inh nasal spray 2 sprays = 100 mcg, Nares, Both, Daily at bedtime, # 16 Gm, 1 Refills, Maintenance, 01/14/19 9:11:48 EST, Nasal [place], 2 sprays Nares, Both Daily at bedtime Start Date: 01/14/19 Status: Ordered hydrOXYzine pamoate 50 mg oral capsule See Instructions, Take 1 capsule up to twice daily as needed for anxiety, # 20 capsule, 2 Refills, Maintenance, 01/14/19 9:26:02 EST, Capsule Start Date: 01/14/19 Status: Ordered Keflex monohydrate 500 mg oral capsule 1 capsule = 500 mg, By Mouth, 4 times a day, for 7 days, # 28 capsule, 0 Refills, Acute 02/14/19 16:37:00 EST, 02/07/19 16:37:00 EST, Capsule, [facility]/pharmacy #[id number], 163, cm, 02/07/19 16:21:00 EST, Height, 116, kg, 02/07/19 16:21:00 EST, Dry Weight Start Date: 02/07/19 Stop Date: 02/14/19 Status: Ordered lithium 450 mg oral tablet, extended release 1 tablet = 450 mg, By Mouth, 2 times a day, mood stabilizer, # 20 tablet, 2 Refills, Maintenance, 01/14/19 9:12:09 EST, CR Tablet Start Date: 01/14/19 Status: Ordered metFORMIN 500 mg oral tablet 1 each = 500 mg, By Mouth, Daily, # 10 tablet, 2 Refills, Maintenance, 01/14/19 9:20:22 EST, Tablet Start Date: 01/14/19 Status: Ordered multivitamin Multiple Vitamins oral tablet 1 tablet, By Mouth, Daily, # 30 tablet, 0 Refills, Maintenance, 01/14/19 9:15:50 EST, Tablet, 1 tablet By Mouth Daily Start Date: 01/14/19 Status: Ordered Nicoderm C-Q Clear 21 mg/24 hr transdermal film, extended release 1 patch, Topically, Daily, # 30 patch, 1 Refills, Maintenance, 01/14/19 9:16:45 EST, Patch Start Date: 01/14/19 Status: Ordered PROzac 20 mg oral capsule 20 mg, 1, capsule, By Mouth, Daily, for mood/anxiety, # 10 capsule, Refills 2, Tot. Refills 2, Maintenance, 01/14/19 9:09:57 EST, Route to Pharmacy Electronically, [id number], [facility]/pharmacy #[id number] Start Date: 01/14/19 Status: Ordered traZODone 100 mg oral tablet 100 mg, 1, tablet, By Mouth, Daily at bedtime, for sleep, # 10 tablet, Refills 2, Tot. Refills 2, Maintenance, 01/14/19 9:22:42 EST, Route to Pharmacy Electronically, [id number], [facility]/pharmacy #[id number] Start Date: 01/14/19 Status: Ordered Tylenol 325 mg oral tablet 650 mg, By Mouth, Every 6 hours, PRN, Refills 0, Maintenance, Pain , Moderate Temperature, 12/25/18 13:38:34 EST Start Date: 12/25/18 Status: Ordered Problem List Condition Effective Dates Status Health Status Inform ant PTSD (post-traumatic stress disorder)(Confirmed) Active Psychosis(Confirmed) Active Results Radiology Reports * Exam Date Time Procedure Performing Provider Status 02/07/19 1:08 PM Chest 2 Views Frontal and Lat Hanna Baker (Verified) Notes: (Chest 2 Views Frontal and Lat) Reason For Exam: Shortness of Breath, Fever;Other: RESULT: Chest 2 Views Frontal and Lat Chest 2 Views Frontal and Lat INDICATION / CLINICAL QUESTION: Status post seizure COMPARISON: None. FINDINGS: LINES AND TUBES: None. LUNGS AND PLEURA: Clear lungs. Normal pulmonary vascularity. No pleural effusion. No pneumothorax. HEART, MEDIASTINUM AND GERMAN: Normal. BONES AND SOFT TISSUES: Normal. IMPRESSION: Normal. WSN: [id number] Dictated By: Tien Mitchell MD Dictated Date/Time: 02/07/19 1:09 pm Reviewed By: Tien Mitchell MD Signed By: Tien Mitchell MD Signed Date/Time: 02/07/19 1:09 pm Transcribed By: DIMA Transcribed Date/Time: 02/07/19 1:08 pm Vital Signs Most recent to oldest [Reference Range]: 1 2 3 Height 163 cm (02/07/19 5:19 PM) 163 cm (02/07/19 4:21 PM) 163 cm (02/07/19 1:39 PM) Weight 116.0 kg (02/07/19 5:19 PM) 116.0 kg (02/07/19 4:21 PM) 116.0 kg (02/07/19 1:39 PM) Oxygen Saturation [94-100 %] 100 % (02/07/19 5:19 PM) 97 % (02/07/19 4:21 PM) 100 % (02/07/19 1:39 PM) Pulse Rate [55-90 bpm] 110 bpm *H* (02/07/19 5:19 PM) 103 bpm *H* (02/07/19 4:21 PM) 106 bpm *H* (02/07/19 1:39 PM) Body Mass Index [18.5-24.99] 43.66 *>HHI* (02/07/19 5:19 PM) 43.66 *>HHI* (02/07/19 4:21 PM) 43.66 *>HHI* (02/07/19 1:39 PM) Blood Pressure [90-138/55-84 mm Hg] 145/97mm Hg *H* (02/07/19 5:19 PM) 130/87mm Hg (02/07/19 4:21 PM) 150/104mm Hg *H* (02/07/19 1:39 PM) Respiratory Rate [16-30 br/min] 17 br/min (02/07/19 5:19 PM) 16 br/min (02/07/19 4:21 PM) 16 br/min (02/07/19 1:39 PM) Temperature [96.8-100.4 DegF] 98.3 DegF (02/07/19 11:44 AM) Mode of Delivery (Oxygen) Room air (02/07/19 5:19 PM) Room air (02/07/19 4:21 PM) Room air (02/07/19 1:39 PM) Blood pressure sites Arm, left (02/07/19 5:19 PM) Arm, left (02/07/19 4:21 PM) Arm, left (02/07/19 1:39 PM) Temperature Route Oral (02/07/19 11:44 AM) Dry Weight 116.0 kg (02/07/19 5:19 PM) 116.0 kg (02/07/19 4:21 PM) 116.0 kg (02/07/19 1:39 PM) Weight Obtained Via Patient/family state d (02/07/19 11:44 AM) Dry Weight Obtained Via Patient/family s tated (02/07/19 11:44 AM)
--- OUTSIDE RECORDS SUMMARY | 2023-02-13 21:47 | XMS_ITS | Continuity of Care Document ---
Author Name Unknown Organization [facility] ter Address [address] [place] [id number]- Care Team Providers Care Operations Manager Name Role Phone Not on Staff, PCP Primary Care Physician Unavail able [place] [facility] Date[place]s): 10/18/21 - 10/29/[address] [address]- Encounter Diagnosis Chest pain(Final) - 10/18/21 Disorganized behavior(Final) - 10/18/21 Discharge Disposition: Transfer to [facility] Facility Attending Physician: Geovani Garner MD Admitting Physician: Geovani Garner MD Referring Physician: Mouna Ramires MD Allergies, Adverse Reactions, Alerts No Known Allergies Immunizations Not Given Vaccine Date Status Refusal Reason influenza virus vaccine, inactivated 12/18/18 Not Given Patient Refuses Medications benztropine 1 mg oral tablet TAKE 1 TABLET BY MOUTH two (2) times a day Start Date: 10/18/21 Status: Ordered carBAMazepine 400 mg oral tablet, extended release TAKE 1 TABLET BY MOUTH 3 (THREE) TIMES A DAY Start Date: 10/18/21 Status: Ordered chlorproMAZINE 50 mg oral tablet TAKE 3 TABLETS BY MOUTH AT BEDTIME Start Date: 10/18/21 Status: Ordered haloperidol 2 mg oral tablet Take one (1) tablet by mouth every afternoon Start Date: 10/18/21 Status: Ordered haloperidol 5 mg oral tablet TAKE 1 TABLET BY MOUTH two (2) times a day Start Date: 10/18/21 Status: Ordered naltrexone 50 mg oral tablet TAKE 1 TABLET BY MOUTH AT BEDTIME Start Date: 10/18/21 Status: Ordered sertraline 100 mg oral tablet TAKE 2 TABLETS BY MOUTH IN THE MORNING Start Date: 10/18/21 Status: Ordered Problem List Condition Effective Dates Status Health Status Inform ant PTSD (post-traumatic stress disorder)(Confirmed) Active Psychosis(Confirmed) Active Results Radiology Reports * Exam Date Time Procedure Performing Provider Status 10/21/21 1:45 PM Hand Min 3 Views Right Nam Gifford ; Lia (Verified) Notes: (Hand Min 3 Views Right) Reason For Exam: with Pain;Trauma RESULT: Hand Min 3 Views Right Hand Min 3 Views Right, 3 views HX OF PRESENT ILLNESS: Pt from day program- concerns for lethargy, pt not acting herself - pt intecting appropriately with EMS and nurse upon arrival, appears somewhat withdrawn- endorses generalized weakness, reporting soreness in her mid-back,; Reason: Trauma; with Pain; Clinical Question(s): Fracture COMPARISON: None. FINDINGS: No fractures or bone lesions. No arthritic changes. Normal soft tissues. IMPRESSION: Normal. WSN: [id number] Ordering Physician: Mouna Ramires Dictated By: Remington Huffman MD Dictated Date/Time: 10/21/21 1:47 pm Reviewed By: Remington Huffman MD Signed By: Remington Huffman MD Signed Date/Time: 10/21/21 1:47 pm Transcribed By: DIMA Transcribed Date/Time: 10/21/21 1:46 pm Vital Signs Most recent to oldest [Reference Range]: 1 2 3 Oxygen Saturation [94-100 %] 99 % (10/29/21 10:56 AM) 98 % (10/29/21 6:30 AM) 98 % (10/28/21 10:28 PM) Pulse Rate [55-90 bpm] 85 bpm (10/29/21 10:56 AM) 90 bpm (10/29/21 6:30 AM) 77 bpm (10/28/21 10:28 PM) Blood Pressure [90-138/55-84 mm Hg] 129/71mm Hg (10/29/21 6:30 AM) 137/80mm Hg (10/28/21 10:28 PM) 131/84mm Hg (10/28/21 3:44 PM) Respiratory Rate [16-30 br/min] 17 br/min (10/29/21 10:56 AM) 16 br/min (10/29/21 6:30 AM) 16 br/min (10/28/21 10:28 PM) Temperature [96.8-100.4 DegF] 98.5 DegF (10/29/21 6:30 AM) 97.8 DegF (10/28/21 10:28 PM) 97.5 DegF (10/28/21 3:44 PM) Liters per Minute 0 L/min (10/18/21 5:45 PM) Mode of Delivery (Oxygen) Room air (10/29/21 10:56 AM) Room air (10/29/21 6:30 AM) Room air (10/28/21 10:28 PM) Blood pressure sites Arm, right (10/29/21 6:30 AM) Arm, right (10/28/21 10:28 PM) Arm, right (10/28/21 3:44 PM) Temperature Route Oral (10/29/21 6:30 AM) Oral (10/28/21 10:28 PM) Oral (10/28/21 3:44 PM) Note * [facility] , CIS S: TRANSCRIBE Remington Huffman MD: VERIFY Event Display: Result: Authored Date: Hand Min 3 Views Right, 3 views HX OF PRESENT ILLNESS: Pt from day program- concerns for lethargy, pt not acting herself - pt intecting appropriately with EMS and nurse upon arrival, appears somewhat withdrawn- endorses generalized weakness, reporting soreness in her mid-back,; Reason: Trauma; with Pain; Clinical Question(s): Fracture COMPARISON: None. FINDINGS: No fractures or bone lesions. No arthritic changes. Normal soft tissues. IMPRESSION: Normal. WSN: [id number] Ordering Physician: Mouna Ramires Dictated By: Remington Huffman MD Dictated Date/Time: 10/21/21 1:47 pm Reviewed By: Remington Huffman MD Signed By: Remington Huffman MD Signed Date/Time: 10/21/21 1:47 pm Transcribed By: DIMA Transcribed Date/Time: 10/21/21 1:46 pm Care Team Personnel Name: Not on Staff, PCP
--- OUTSIDE RECORDS SUMMARY | 2023-02-13 21:47 | XMS_ITS | Continuity of Care Document ---
Author Name Unknown Organization [facility] Address [address] [place] [address]- Care Team Providers Care Director Print Name Role Phone Sheldon Montesinos DO Primary Care Physician Encounter [facility] Date(s): 01/08/23 - 01/09/[address] [address]- Discharge Disposition: A-D/C Home Attending Physician: Nam Clayton DO Admitting Physician: Nam Clayton DO Referring Physician: Not on Staff, Referring MD Allergies, Adverse Reactions, Alerts No Known Allergies Medications benztropine 1 mg oral tablet TAKE 1 TABLET BY MOUTH two (2) times a day Start Date: 10/18/21 Status: Ordered benztropine 1 mg oral tablet 1 mg, 1, tablet, By Mouth, Daily in AM, # 30 tablet, Refills 0, Tot. Refills 0, Maintenance, 12/15/21 15:11:00 EDT, Route to Pharmacy Electronically, [facility] [phone], Partial fill upon patient request if the prescription... Start Date: 12/15/21 Status: Ordered carBAMazepine 400 mg oral tablet, extended release TAKE 1 TABLET BY MOUTH 3 (THREE) TIMES A DAY Start Date: 10/18/21 Status: Ordered cephalexin monohydrate 500 mg oral capsule 1 capsule = 500 mg, By Mouth, 4 times a day, for 7 days, # 28 capsule, 0 Refills, Acute 01/16/23 1:22:00 EST, 01/09/23 1:22:00 EST, Capsule, [facility] [id number], Partial fill upon patient request if the prescription is for a... Start Date: 01/09/23 Stop Date: 01/16/23 Status: Ordered chlorproMAZINE 50 mg oral tablet TAKE 3 TABLETS BY MOUTH AT BEDTIME Start Date: 10/18/21 Status: Ordered chlorproMAZINE 50 mg oral tablet 3 tablet = 150 mg, By Mouth, Daily at bedtime, # 90 tablet, 0 Refills, Maintenance, 12/15/21 15:09:00 EDT, Tablet, [place], [place] - [id number], Partial fill upon patient request ifthe prescription is for a schedule II opioid drug. Start Date: 12/15/21 Status: Ordered chlorproMAZINE 50 mg oral tablet 1 tablet = 50 mg, By Mouth, 2 times a day, # 60 tablet, 0 Refills, Maintenance, 12/15/21 15:10:00 EDT, Tablet, [place], [place] - [id number], Partial fill upon patient request if theprescription is for a schedule II opioid drug. Start Date: 12/15/21 Status: Ordered haloperidol 2 mg oral tablet Take one (1) tablet by mouth every afternoon Start Date: 10/18/21 Status: Ordered haloperidol 5 mg oral tablet TAKE 1 TABLET BY MOUTH two (2) times a day Start Date: 10/18/21 Status: Ordered haloperidol 5 mg oral tablet 7.5 mg, 1.5, tablet, By Mouth, 2 times a day, # 90 tablet, Refills 0, Tot. Refills 0, Maintenance, 12/15/21 15:55:00 EDT, Route to Pharmacy Electronically, [place], [place] - [id number], Partial fill upon patient request if the prescr... Start Date: 12/15/21 Status: Ordered [place] By Mouth, Refills 0, Maintenance, 11/12/22 13:01:00 EDT, Partial fill upon patient request if the prescription is for a schedule II opioid drug. Start Date: 11/12/22 Status: Ordered Metformin = 500 mg, By Mouth, 0 Refills, Maintenance, 11/12/22 13:02:00 EDT, Partial fill upon patient request if the prescription is for a schedule II opioid drug. Start Date: 11/12/22 Status: Ordered naltrexone 50 mg oral tablet TAKE 1 TABLET BY MOUTH AT BEDTIME Start Date: 10/18/21 Status: Ordered naltrexone 50 mg oral tablet 1 tablet = 50 mg, By Mouth, Daily in AM, # 30 tablet, 0 Refills, Maintenance, 12/15/21 15:10:00 EDT, Tablet, [place], [place] - [id number], Partial fill upon patient request if the prescription is for a schedule II opioid drug. Start Date: 12/15/21 Status: Ordered Norvasc By Mouth, Daily, 0 Refills, Maintenance, 11/12/22 13:01:00 EDT, Partial fill upon patient request if the prescription is for a schedule II opioid drug. Start Date: 11/12/22 Status: Ordered ondansetron 4 mg oral tablet, disintegrating = 4 mg, By Mouth, Every 6 hours, PRN Nausea & Vomiting, # 15 tablet, 0 Refills, Maintenance, 12/15/21 15:10:00 EDT, Tablet, [facility] [id number], Partial fill upon patient request if the prescription is for a schedule II opio... Start Date: 12/15/21 Status: Ordered sertraline 100 mg oral tablet TAKE 2 TABLETS BY MOUTH IN THE MORNING Start Date: 10/18/21 Status: Ordered sertraline 50 mg oral tablet 4 tablet = 200 mg, By Mouth, Daily in AM, # 120 tablet, 0 Refills, Maintenance, 12/15/21 15:10:00 EDT, Tablet, [facility] [id number], Partial fill upon patient request if theprescription is for a schedule II opioid drug. Start Date: 12/15/21 Status: Ordered Vistaril Capsule Intramuscular, Every 4 hours, 0 Refills, Maintenance, 11/12/22 13:01:00 EDT, Partial fill upon patient request if the prescription is for a schedule II opioid drug. Start Date: 11/12/22 Status: Ordered Problem List Condition Confirmation Course Effective Dates Status Health [facility] Informant PTSD (post-traumatic stress disorder) Confirmed Active Psychosis Confirmed Active Severe obesity Confirmed Active Results Radiology Reports * Exam Date Time Procedure Performing Provider Status 01/09/23 12:[address] Abd/Pelvis W/ IV Contrast Only Lisa Mariscal; Auth (Verified) Notes: (CT Abd/Pelvis W/ IV Contrast Only) Reason For Exam: LLQ abdominal pain;Other: RESULT: CT Abd/Pelvis W/ IV Contrast Only CT Abd/Pelvis W/ IV Contrast Only Hx of Present Illness: Left lower quadrant abdominal pain. TECHNIQUE: Spiral CT through the abdomen and pelvis with IV contrast formatted in 3 planes. 100 cc of Omnipaque 300 was administered intravenously. This study was performed without oral contrast. Weight-based protocol using automatic tube modulation was used to optimize exposure parameters. CTDIvol Body: 28.17 mGy, DLP Body: 1431 mGy*cm. COMPARISON: None. FINDINGS: Pyroglazer View Findings, Lines and Tubes: None. Visualized Chest: Lung bases are clear. No pleural effusion. The heart is normal in size. No pericardial effusion. Diaphragm: Normal. Liver: Mild hepatomegaly. Mild hepatic steatosis diffusely. Gallbladder: No CT evidence of gallbladder pathology. Bile ducts: No biliary ductal dilation. Spleen: Mild splenomegaly. Pancreas: Normal. Adrenal glands: Normal. Kidneys and ureters: No hydronephrosis, stones, or suspicious masses. 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 Bladder: Nondistended. Mild wall thickening. Reproductive organs: Unremarkable. Stomach, small bowel, and large bowel: Normal. Appendix: No evidence for appendicitis. Peritoneum and retroperitoneum: No ascites or pneumoperitoneum. No omental or mesenteric lesions. Lymph nodes: No enlarged lymph nodes. Blood vessels: Normal. No aneurysm. No evidence of venous thrombosis. Abdominal and pelvic wall: Unremarkable. Bones: No acute abnormality. IMPRESSION: No acute abnormality.. Mild hepatosplenomegaly and hepatic steatosis. Mild bladder wall thickening, which can be secondary to nondistention. If clinically questioned: Please correlate with clinical exam or urinalysis to exclude cystitis. This report is concordant with the preliminary vRAD report. WSN: [id number] Ordering Physician: Nam Clayton Dictated By: Betsy Ortiz MD Dictated Date/Time: 01/09/23 10:19 a Reviewed By: Betsy Ortiz MD Signed By: Betsy Ortiz MD Signed Date/Time: 01/09/23 10:19 am Transcribed By: DIMA Transcribed Date/Time: 01/09/23 8:47 am Vital Signs Most recent to oldest [Reference Range]: 1 2 3 Height 163 cm (01/09/23 1:24 AM) 163 cm (01/08/23 9:05 PM) 163 cm (01/08/23 4:36 PM) Weight 122.2 kg (01/09/23 1:24 AM) 122.2 kg (01/08/23 9:05 PM) 122.2 kg (01/08/23 4:36 PM) Oxygen Saturation [94-100 %] 100 % (01/09/23 1:24 AM) 99 % (01/08/23 9:05 PM) 99 % (01/08/23 4:36 PM) Pulse Rate [55-90 bpm] 96 bpm *H* (01/09/23 1:24 AM) 89 bpm (01/08/23 9:05 PM) 85 bpm (01/08/23 4:36 PM) Body Mass Index [18.5-24.99 kg/m2] 45.99 kg/m2 *>HHI* (01/09/23:24 AM) Blood Pressure [90-138/55-84 mm Hg] 134/83mm Hg (01/09/23 1:24 AM) 142/91mm Hg *H* (01/08/23 9:05 PM) 131/87mm Hg (01/08/23 4:36 PM) Respiratory Rate [16-30 br/min] 18 br/min (01/09/23 1:24 AM) 18 br/min (01/08/23 9:05 PM) 18 br/min (01/08/23 4:36 PM) Temperature [96.8-100.4 DegF] 98.8 DegF (01/08/23 9:05 PM) 97.9 DegF (01/08/23 4:36 PM) Mode of Delivery (Oxygen) Room air (01/09/23 1:24 AM) Room air (01/08/23 9:05 PM) Room air (01/08/23 4:36 PM) Blood pressure sites Arm, right (01/09/23 1:24 AM) Arm, left (01/08/23 9:05 PM) Arm, left (01/08/23 4:36 PM) Temperature Route Temporal (01/08/23 9:05 PM) Temporal (01/08/23 4:36 PM) Dry Weight 122.2 kg (01/09/23 1:24 AM) 122.2 kg (01/08/23 9:05 PM) 122.2 kg (01/08/23 4:36 PM) Weight Obtained Via Standing scale (01/08/23 4:36 PM) Dry Weight Obtained Via Standing scale (01/08/23 4:36 PM) Social History Social History Type Response Smoking Status Never (less than 100 in lifetime) entered on: 11/12/22 Sex Patient Care team information Care Team Personnel Name: Jaspal Bill RN Position: [facility] RN Member Role: Primary Care Nurse Name: Jade Dia RN Position: [facility] RN Member Role: Primary Care Nurse Name: Georgie Burgess RN Position: [facility] AMB Nurse Member Role: Primary Care Nurse Name: Hannah Wiseman RN Position: [facility] RN Member Role: Primary Care Nurse Name: Selma Sierra RN Position: [facility] RN Supv Member Role: Primary Care Nurse Name: Mouna Stephens RN Position: [facility] ED RN W/OE and Tasks Member Role: Primary Care Nurse Name: Joseline Thorne RN Position: [facility] RN Member Role: Primary Care Nurse Name: Lenny Osorio RN Position: [facility] RN Member Role: Primary Care Nurse Name: Alisa Baez RN Position: [facility] RN Member Role: Primary Care Nurse Name: Dafne Miles RN Position: [facility] RN Member Role: Primary Care Nurse Name: Matias Ho DO Position: [facility] Renal MD Member Role: Lifetime Consulting Physician Address: Address: [address] [place] [address] [address] [facility] [place] [address]- Name: Karen Fu RN Position: [facility] RN Member Role: Primary Care Nurse Name: Sheldon Montesinos DO Position: [facility] Physician - Primary Care Member Role: PCP Address: Address: [address] [place] [address] [address] [place] [address]- Name: Tommy Almaguer RN Position: [facility] RN Member Role: Primary Care Nurse Name: Alaina Guzman RN Position: [facility] SN RN Member Role: Primary Care Nurse Name: Shruti Montoya RN Position: [facility] RN Member Role: Primary Care Nurse Name: Gerardo Bender RN Position: [facility] RN Member Role: Primary Care Nurse Name: Serenity Barraza Position: [facility] RN Member Role: Primary Care Nurse Name: Shaneka Ogden RN Position: [facility] ED RN W/OE and Tasks Member Role: Thermostat Maker Name: Nam Clayton DO Position: [facility] ED Medicine MD Member Role: ED Attending Physician Address: Address: [address] [place] [address] [place] [address]- Care Team Related Persons Name: KHOI QUINN Address: home [address] [place] [address] Name: BERNARDO CARRILLO Address: home [address] [place] [address]
--- OUTSIDE RECORDS SUMMARY | 2023-02-13 21:48 | XMS_ITS | Continuity of Care Document ---
Author Name Unknown Organization [facility] ter Address [address] [place] [address]- Care Team Providers Care Planning Engineer Name Role Phone Not on Staff, PCP Primary Care Physician Unavail able Encounter [facility] Date(s): 09/07/20 - 09/07/[address] [address]- Discharge Disposition: A-D/C Walkout Attending Physician: Not on Staff, Attending MD Admitting Physician: Not on Staff, Admitting MD Referring Physician: Not on Staff, Referring MD Allergies, Adverse Reactions, Alerts Substance Reaction Severity Status NKA Active Immunizations Not Given Vaccine Date Status Refusal Reason influenza virus vaccine, inactivated 12/18/18 Not Given Patient Refuses Medications albuterol CFC free 90 mcg/inh inhalation aerosol 180 mcg, 2, puffs, Inhalation, Every 4 hours, PRN, # 1 each, Refills 0, Tot. Refills 0, Maintenance, 09/09/19 9:41:00 EDT, Inhaler, Route to Pharmacy Electronically, [id number], [place], [place] -, 162, cm, 0... Start Date: 09/09/19 Status: Ordered benztropine 1 mg oral tablet 1 mg, 1, tablet, By Mouth, Daily at bedtime, blister pack for AM and PM, # 30 tablet, Refills 0, Tot. Refills 0, Maintenance, 10/06/19 13:49:00 EDT, Route to Pharmacy Electronically, [place], [place] - [id number], 162, cm, 09/08/19 19... Start Date: 10/06/19 Status: Ordered chlorproMAZINE 100 mg oral tablet 1.5 tablet = 150 mg, By Mouth, Daily at bedtime, blister pack for am and PM, # 45 tablet, 0 Refills, Maintenance, 10/06/19 13:49:00 EDT, [facility] [place], [place] - [phone], 162, cm, 09/08/19 19:49:00 EDT, Height, 101.5, kg, 08/28/19 12:35:... Start Date: 10/06/19 Status: Ordered diphenhydrAMINE 50 mg oral tablet 1 tablet = 50 mg, By Mouth, 3 times a day, PRN Agitation, Take up to twice daily with Haldol as needed for agitation or anxiety AND Take as needed at bedtime for insomnia, # 60 tablet, 0 Refills, Maintenance, 10/06/19 13:49:00 EDT, Tablet, [facility]... Start Date: 10/06/19 Status: Ordered Flonase 50 mcg/inh nasal spray 2 sprays = 100 mcg, Nares, Both, Daily at bedtime, # 16 Gm, 1 Refills, Maintenance, 09/09/19 9:41:00 EDT, [facility]al [place], [place], [place] -, 2 sprays Nares, Both Daily at bedtime, 162,cm, 09/08/19 19:49:00 EDT, Height, 101.5, kg, 08/27... Start Date: 09/09/19 Status: Ordered Haldol Decanoate decanoate 100 mg/ml injectable solution See Instructions, 100 mg Intramuscular every 28 days. Next due October 23 2019, # 1 each, 0 Refills, Maintenance, 10/06/19 13:49:00 EDT, Injection, [facility] [id number], 162, cm, 09/08/19 19:49:00 EDT, Height, 101.5, kg,... Start Date: 10/06/19 Status: Ordered haloperidol 5 mg oral tablet 5 mg, 1, tablet, By Mouth, 2 times a day, PRN, Take with benadryl for agitation or anxiety blister pack for AM and PM, # 60 tablet, Refills 0, Tot. Refills 0, Maintenance, Agitation, 10/06/19 13:49:00 EDT, Route to Pharmacy Electronically, [facility]... Start Date: 10/06/19 Status: Ordered metFORMIN 500 mg oral tablet 1 each = 500 mg, By Mouth, 2 times a day, # 60 tablet, 0 Refills, Maintenance, 09/08/19 14:06:00 EDT, Tablet, [place], [place] -, 162, cm, 09/08/19 7:44:00 EDT, Height, 101.5, kg, 08/28/19 12:35:00 EDT, Dry Weight Start Date: 09/08/19 Status: Ordered naltrexone 50 mg oral tablet 1 tablet = 50 mg, By Mouth, Daily, blister pack for AM and PM, # 30 tablet, 0 Refills, Maintenance,10/06/19 13:52:00 EDT, Tablet, [place], [place] - [id number], 162, cm, 09/08/19 19:49:00 EDT, Height, 101.5, kg, 08/28/19 12:35:00 EDT... Start Date: 10/06/19 Status: Ordered sertraline 100 mg oral tablet 2 tablet = 200 mg, By Mouth, Daily, blister pack for AM and PM, # 60 tablet, 0 Refills, Maintenance, 10/06/19 13:50:00 EDT, Tablet, [place], [place] - [id number], 162, cm, 09/08/19 19:49:00 EDT, Height, 101.5, kg, 08/28/19 12:35:00 ED... Start Date: 10/06/19 Status: Ordered traZODone 50 mg oral tablet 50 mg, 1, tablet, By Mouth, Daily at bedtime, PRN, blister pack for AM and PM, # 30 tablet, Refills0, Tot. Refills 0, Maintenance, Insomnia, 10/06/19 13:50:00 EDT, Route to Pharmacy Electronically, [place], [place] - [id number], 162,... Start Date: 10/06/19 Status: Ordered vitamin E topical cream See Instructions, Apply to scars up to two times daily, # 1 Unknown, 0 Refills, Maintenance, 09/08/19 14:07:00 EDT, [place], [place] -, Apply to scars up to two times daily, 162, cm,09/08/19 7:44:00 EDT, Height, 101.5, kg, 08/28/19 1... Start Date: 09/08/19 Status: Ordered Problem List Condition Effective Dates Status Health Status Inform ant PTSD (post-traumatic stress disorder)(Confirmed) Active Psychosis(Confirmed) Active Vital Signs Most recent to oldest [Reference Range]: 1 Oxygen Saturation [94-100 %] 100 % (09/07/20 3:11 AM) Pulse Rate [55-90 bpm] 113 bpm *H* (09/07/20 3:11 AM) Blood Pressure [90-138/55-84 mm Hg] 148/ 99mm Hg *H* (09/07/20 3:11 AM) Respiratory Rate [16-30 br/min] 20 br/mi n (09/07/20 3:11 AM) Temperature [96.8-100.4 DegF] 98.1 DegF (09/07/20 3:11 AM) Mode of Delivery (Oxygen) Room air (09/07/20 3:11 AM) Blood pressure sites Arm, right (09/07/20 3:11 AM) Temperature Route Oral (09/07/20 3:11 AM)
--- OUTSIDE RECORDS SUMMARY | 2023-02-13 21:48 | XMS_ITS | Continuity of Care Document ---
Author Name Unknown Organization [facility] ter Address [address] [place] [address]- Care Team Providers Care Driver/Refuse Collector Name Role Phone Not on Staff, PCP Primary Care Physician Unavail able Encounter [facility] Date(s): 12/05/21 - 12/15/[address] [address]- Encounter Diagnosis Suicidal ideation(Final) - 12/05/21 Discharge Disposition: A-D/C Home Attending Physician: Delfin Linton MD Admitting Physician: Delfin Linton MD Referring Physician: Warren Grubbs MD Allergies, Adverse Reactions, Alerts No Known [...] 12/15/21 15:11:00 EDT, Route to Pharmacy Electronically, [facility] [id number], Partial fill upon patient request if the [...] 0 Refills, Maintenance, 12/15/21 15:09:00 EDT, Tablet, [facility] [id number], Partial fill upon patient request ifthe prescription is for a schedule II opioid drug. Start Date: 12/15/21 Status: Ordered chlorproMAZINE 50 mg oral tablet 1 tablet = 50 mg, By Mouth, 2 times a day, # 60 tablet, 0 Refills, Maintenance, 12/15/21 15:10:00 EDT, Tablet, [place], [place] - [id number], Partial fill upon patient request if theprescription [...] 12/15/21 15:55:00 EDT, Route to Pharmacy Electronically, [place], [place] - [id number], Partial fill upon patient request if the prescr... Start Date: 12/15/21 Status: Ordered naltrexone 50 mg oral tablet TAKE 1 TABLET BY MOUTH AT BEDTIME Start Date: 10/18/21 Status: Ordered naltrexone 50 mg oral tablet 1 tablet = 50 mg, By Mouth, Daily in AM, # 30 tablet, 0 Refills, Maintenance, 12/15/21 15:10:00 EDT, Tablet, [facility], [place] - [id number], Partial fill upon patient request if the prescription is for a schedule II opioid drug. Start Date: 12/15/21 Status: Ordered ondansetron 4 mg oral tablet, disintegrating = 4 mg, By Mouth, Every 6 hours, PRN Nausea & Vomiting, # 15 tablet, 0 Refills, Maintenance, 12/15/21 15:10:00 EDT, Tablet, [facility] [place] - [id number], Partial fill upon patient request if the prescription is for a schedule II opio... Start Date: 12/15/21 Status: Ordered sertraline 100 mg oral tablet TAKE 2 TABLETS BY MOUTH IN THE MORNING Start Date: 10/18/21 Status: Ordered sertraline 50 mg oral tablet 4 tablet = 200 mg, By Mouth, Daily in AM, # 120 tablet, 0 Refills, Maintenance, 12/15/21 15:10:00 EDT, Tablet, [facility] [place] [place] - [id number], Partial fill upon patient request if theprescription is for a schedule II opioid drug. Start Date: 12/15/21 Status: Ordered Problem List Condition Confirmation Course Effective Dates Status Health [facility] Informant PTSD (post-traumatic stress disorder) Confirmed Active Psychosis Confirmed Active Results Radiology Reports * Exam Date Time Procedure Performing Provider Status 12/06/21 7:37 PM Abdomen AP Murray Ogden; Auth ([place]) Notes: (Abdomen AP) Reason For Exam: Foreign Body RESULT: XR Abdomen AP XR Abdomen AP 1 view INDICATION/CLINICAL QUESTION: Hx of Present Illness: section 12 by n; Reason: Foreign Body; Clinical Question(s): Foreign Body; Foreign body; ingested pencap and vial cap; Special Instructions: Flat COMPARISON: None FINDINGS: Normal bowel gas pattern. No evidence of obstruction. No evidence of pneumoperitoneum. No organomegaly, masses or calcifications. No acute bone findings. No radiopaque foreign body. IMPRESSION: No radiopaque foreign body. WSN: [id number] Ordering Physician: Warren Grubbs Dictated By: Tony Sheppard MD Dictated Date/Time: 12/06/21 7:42 pm Reviewed By: Tony Sheppard MD Signed By: Tony Sheppard MD Signed Date/Time: 12/06/21 7:42 pm Transcribed By: DIMA Transcribed Date/Time: 12/06/21 7:42 pm * Exam Date Time Procedure Performing Provider Status 12/06/21 7:37 PM Chest Portable Murray Ogden; Auth (V erified) Notes: (Chest Portable) Reason For Exam: Foreign Body RESULT: Chest Portable Chest Portable Hx of Present Illness: Ingested pen cap. COMPARISON: 06/29/2019 FINDINGS: LINES AND TUBES: None. LUNGS AND PLEURA: Patient's hair overlies the left upper lobe. Low lung volumes. No pleural effusion. No pneumothorax. HEART, MEDIASTINUM AND GERMAN: Heart is normal in size. Normal mediastinal and hilar contour. BONES AND SOFT TISSUES: No acute abnormality. IMPRESSION: No radiopaque foreign body. WSN: [id number] Ordering Physician: Warren Grubbs Dictated By: Tony Sheppard MD Dictated Date/Time: 12/06/21 7:42 pm Reviewed By: Tony Sheppard MD Signed By: Tony Sheppard MD Signed Date/Time: 12/06/21 7:42 pm Transcribed By: DIMA Transcribed Date/Time: 12/06/21 7:41 pm Vital Signs Most recent to oldest [Reference Range]: 1 2 3 Oxygen Saturation [94-100 %] 98 % (12/14/21 8:35 PM) 100 % (12/14/21 9:00 AM) 100 % (12/13/21 3:32 PM) Pulse Rate [55-90 bpm] 118 bpm *H* (12/14/21 8:35 PM) 74 bpm (12/14/21 9:00 AM) 80 bpm (12/13/21 3:32 PM) Blood Pressure [90-138/55-84 mm Hg] 123/82mm Hg (12/14/21 8:35 PM) 129/73mm Hg (12/14/21 9:00 AM) 125/80mm Hg (12/13/21 3:32 PM) Respiratory Rate [16-30 br/min] 16 br/min (12/14/21 8:35 PM) 18 br/min (12/14/21 9:00 AM) 18 br/min (12/13/21 3:32 PM) Temperature [96.8-100.4 DegF] 97.8 DegF (12/14/21 8:35 PM) 98.2 DegF (12/14/21 9:00 AM) 98 DegF (12/13/21 3:32 PM) Mode of Delivery (Oxygen) Room air (12/14/21 8:35 PM) Room air (12/13/21 3:32 PM) Room air (12/12/21 4:41 PM) Blood pressure sites Arm, right (12/14/21 8:35 PM) Arm, right (12/13/21 3:32 PM) Arm, right (12/12/21 4:41 PM) Temperature Route Oral (12/14/21 8:35 PM) Oral (12/14/21 9:00 AM) Oral (12/13/21 3:32 PM) Portable XR Chest Views * [facility] , CIS S: TRANSCRIBE Tony Sheppard MD: VERIFY Event Display: Result: Authored Date: [id number] Chest Portable Hx of Present Illness: Ingested pen cap. COMPARISON: 06/29/2019 FINDINGS: LINES AND TUBES: None. LUNGS AND PLEURA: Patient's hair overlies the left upper lobe. Low lung volumes. No pleural effusion. No pneumothorax. HEART, MEDIASTINUM AND GERMAN: Heart is normal in size. Normal mediastinal and hilar contour. BONES AND SOFT TISSUES: No acute abnormality. IMPRESSION: No radiopaque foreign body. WSN: [id number] Ordering Physician: Warren Grubbs Dictated By: Tony Sheppard MD Dictated Date/Time: 12/06/21 7:42 pm Reviewed By: Tony Sheppard MD Signed By: Tony Sheppard MD Signed Date/Time: 12/06/21 7:42 pm Transcribed By: DIMA Transcribed Date/Time: 12/06/21 7:41 pm XR Abdomen AP * [employer] , CIS S: TRANSCRIBE Tony Sheppard MD: VERIFY Event Display: Result: Authored Date: [id number] XR Abdomen AP 1 view INDICATION/CLINICAL QUESTION: Hx of Present Illness: section 12 by n; Reason: Foreign Body; Clinical Question(s): Foreign Body; Foreign body; ingested pencap and vial cap; Special Instructions: Flat COMPARISON: None FINDINGS: Normal bowel gas pattern. No evidence of obstruction. No evidence of pneumoperitoneum. No organomegaly, masses or calcifications. No acute bone findings. No radiopaque foreign body. IMPRESSION: No radiopaque foreign body. WSN: [id number] Ordering Physician: Warren Grubbs Dictated By: Tony Sheppard MD Dictated Date/Time: 12/06/21 7:42 pm Reviewed By: Tony Sheppard MD Signed By: Tony Sheppard MD Signed Date/Time: 12/06/21 7:42 pm Transcribed By: DIMA Transcribed Date/Time: 12/06/21 7:42 pm Patient Care team information Personnel Name: Not on Staff, PCP
--- OUTSIDE RECORDS SUMMARY | 2023-02-13 21:48 | XMS_ITS | Continuity of Care Document ---
Author Name Unknown Organization [facility] ter Address [address] [place] [id number]- Care Team Providers Care Interlocking Pavement Installer Name Role Phone Not on Staff, PCP Primary Care Physician Unavail able [facility]counter [facility] Date[facility]s): 04/18/19 - 04/25/[address] [address]- [facility] Encounter Diagnosis Abdominal seizure(Final) - 04/17/19 Agitation(Final) - 04/17/19 Discharge Disposition: A-D/C Home Attending Physician: Maryanne Nova MD Admitting Physician: Maxi Dobson MD Referring Physician: Not on Staff, Referring MD Allergies, Adverse Reactions, Alerts Substance Reaction Severity Status NKA Active Immunizations Not Given Vaccine Date Status Refusal Reason influenza virus vaccine, inactivated 12/18/18 Not Given Patient Refuses Medications divalproex sodium 500 mg oral enteric coated tablet = 500 mg, By Mouth, 2 times a day, mood stabilizer, # 60 tablet, 2 Refills, Maintenance, 04/25/19 12:42:00 EST, Tablet, [facility] - [place], [place] -, 163, cm, 04/25/19 11:43:00 EST, Height, 113.2, kg, 04/18/19 4:53:00 EST, Dry Weight Start Date: 04/25/19 Stop Date: 07/24/19 Status: Ordered ferrous sulfate 325 mg oral enteric coated tablet 325 mg, By Mouth, Daily, # 10 tablet, Refills 2, Tot. Refills 2, Maintenance, 01/14/19 9:09:34 EST,Route to Pharmacy Electronically, [id number], [facility]/pharmacy #[id number] Start Date: 01/14/19 Status: Ordered Flonase 50 mcg/inh nasal spray 2 sprays = 100 mcg, Nares, Both, Daily at bedtime, # 16 Gm, 1 Refills, Maintenance, 01/14/19 9:11:48 EST, Nasal [place], 2 sprays Nares, Both Daily at bedtime Start Date: 01/14/19 Status: Ordered haloperidol 10 mg oral tablet 10 mg, 1, tablet, By Mouth, 2 times a day, # 180 tablet, Refills 0, Maintenance, 04/21/19 13:17:00 EST Start Date: 04/21/19 Status: Ordered haloperidol decanoate 50 mg/ml injectable solution INJECT INTRAMUSCULARLY THE CONTENT OF 1 VIAL (1ML) ONCE EVERY 28 DAYS Start Date: 04/21/19 Status: Ordered lithium 450 mg oral tablet, [...] EST, Tablet Start Date: 01/14/19 Status: Ordered Tylenol 325 mg oral tablet 650 mg, By Mouth, Every 6 hours, PRN, Refills 0, Maintenance, Pain , Moderate Temperature, 12/25/18 13:38:34 EST Start Date: 12/25/18 Status: Ordered Problem List Condition Effective Dates Status Health Status Inform ant PTSD (post-traumatic stress disorder)(Confirmed) Active Psychosis(Confirmed) Active Results Orders for Microbiology Reports Name Date Urine Culture (URINE CULTURE) 04/21/19 Microbiology Reports TEST:Urine Culture STATUS:Auth (Verified) BODY SITE: SOURCE:URINE COLLECTED DATE/TIME:04/21/19 4:50 PM Urine Culture SPECIMEN DESCRIPTION : URINE CLEAN CATCH/MIDSTREAM SPECIAL REQUESTS : NONE CULTURE : >100,000 COL/ML ESCHERICHIA COLI REPORT STATUS : FINAL 04/23/2019 ORGANISM >100,000 COL/ML ESCHERICHIA COLI METHOD MIN. INHIB. CONC. (MCG/ML) AMPICILLIN RESISTANT AMPICILLIN/SULBACTAM INTERMEDIATE AMOXICILLIN/CLAVULAN SUSCEPTIBLE CEFAZOLIN SUSCEPTIBLE CEFEPIME SUSCEPTIBLE CEFTRIAXONE SUSCEPTIBLE CIPROFLOXACIN SUSCEPTIBLE ERTAPENEM SUSCEPTIBLE GENTAMICIN SUSCEPTIBLE LEVOFLOXACIN SUSCEPTIBLE MEROPENEM SUSCEPTIBLE NITROFURANTOIN SUSCEPTIBLE PIPERACILLIN/TAZOBAC SUSCEPTIBLE TRIMETH/SULFAMETHOX SUSCEPTIBLE TETRACYCLINE SUSCEPTIBLE Radiology Reports * Exam Date Time Procedure Performing Provider Status 04/17/19 10:30 PM Chest 2 Views Frontal and Lat Geovany Melgopal; Lia (Verified) Notes: (Chest 2 Views Frontal and Lat) Reason For Exam: Cough RESULT: Chest 2 Views Frontal and Lat Chest 2 Views Frontal and Lat Reason: Cough; Clinical Question(s): Pneumonia; Hx of Present Illness: SZ?; Other Objective Findings: Pt family states that they think that she had a SZ. she states that she remembers everything thathappened. A O x3. did not loose control of bowel or urine a SZ. she states that she remembers everything that happened. A O x3. did not loose control of bowel or urine par } COMPARISON: 02/07/2019 FINDINGS: LINES AND TUBES: None. LUNGS AND PLEURA: Clear lungs. Normal pulmonary vascularity. No pleural effusion. No pneumothorax. HEART, MEDIASTINUM AND GERMAN: Heart is normal in size. Normal mediastinal and hilar contour. BONES AND SOFT TISSUES: No acute abnormality. IMPRESSION: No acute abnormality. WSN: [id number] Dictated By: Ab Mcneil MD Dictated Date/Time: 04/17/19 11:12 p Reviewed By: Ab Mcneil MD Signed By: Ab Mcneil MD Signed Date/Time: 04/17/19 11:12 pm Transcribed By: DIMA Transcribed Date/Time: 04/17/19 11:11 pm Vital Signs Most recent to oldest [Reference Range]: 1 2 3 Height 163 cm (04/25/19 3:55 PM) 163 cm (04/25/19 11:43 AM) 163 cm (04/25/19 8:48 AM) Weight 113.6 kg (04/22/19 12:34 PM) 113.2 kg (04/18/19 2:00 AM) Oxygen Saturation [94-100 %] 99 % (04/25/19 3:55 PM) 100 % (04/25/19 11:43 AM) 100 % (04/25/19 8:48 AM) Pulse Rate [55-90 bpm] 79 bpm (04/25/19 3:55 PM) 88 bpm (04/25/19 11:43 AM) 80 bpm (04/25/19 8:48 AM) Body Mass Index [18.5-24.99] 42.76 *>HHI* (04/22/19 12:34 PM) 42.61 *>HHI* (04/18/19 2:00 AM) Blood Pressure [90-138/55-84 mm Hg] 115/70mm Hg (04/25/19 3:55 PM) 102/66mm Hg (04/25/19 11:43 AM) 93/61mm Hg (04/25/19 8:48 AM) Respiratory Rate [16-30 br/min] 18 br/min (04/25/19 3:55 PM) 19 br/min (04/25/19 11:43 AM) 19 br/min (04/25/19 8:48 AM) Temperature [96.8-100.4 DegF] 98.4 DegF (04/25/19 3:55 PM) 97.9 DegF (04/25/19 11:43 AM) 98.6 DegF (04/25/19 8:48 AM) Liters per Minute 0 L/min (04/23/19 4:08 PM) 0 L/min (04/22/19 11:28 PM) 0 L/min (04/22/19 7:49 PM) Mode of Delivery (Oxygen) Room air (04/25/19 3:55 PM) Room air (04/25/19 11:43 AM) Room air (04/25/19 8:48 AM) Blood pressure sites Arm, left (04/25/19 3:55 PM) Arm, right (04/25/19 11:43 AM) Arm, left (04/25/19 8:48 AM) Temperature Route Temporal (04/25/19 3:55 PM) Temporal (04/25/19 11:43 AM) Temporal (04/25/19 8:48 AM) Dry Weight 113.2 kg (04/18/19 2:00 AM) 113.2 kg (04/18/19 1:36 AM) 119 kg (04/18/19 12:05 AM) Weight Obtained Via Bed scale (04/22/19 12:00 PM) Dry Weight Obtained Via Bed scale (04/18/19 1:36 AM)
--- OUTSIDE RECORDS SUMMARY | 2023-02-13 21:48 | XMS_ITS | Continuity of Care Document ---
Author Name Unknown Organization [facility] ter Address [address] [place] [address]- Care Team Providers Care High School Music Teacher Name Role Phone Not on Staff, PCP Primary Care Physician Unavail able Encounter [facility] Date(s): 06/03/21 - 06/04/[address] [address]- Encounter Diagnosis Ingestion of toxic substance(Final) - 06/03/21 Discharge Disposition: A-D/C Home Attending Physician: Stanton Weaver MD Admitting Physician: Stanton Weaver MD Referring Physician: Not on Staff, Referring [...] 9:41:00 EDT, Inhaler, Route to Pharmacy Electronically, [id number], [place], [place] -, 162, cm, 0... Start Date: 09/09/19 Status: Ordered benztropine 1 mg oral tablet 1 mg, 1, tablet, By Mouth, Daily at bedtime, blister pack for AM and PM, # 30 tablet, Refills 0, Tot. Refills 0, Maintenance, 10/06/19 13:49:00 EDT, Route to Pharmacy Electronically, [place], [place] - [id number], 162, cm, 09/08/19 19... Start Date: 10/06/19 Status: Ordered chlorproMAZINE 100 mg oral tablet 1.5 tablet = 150 mg, By Mouth, Daily at bedtime, blister pack for am and PM, # 45 tablet, 0 Refills, Maintenance, 10/06/19 13:49:00 EDT, [facility] [place] [place] - [id number], 162, cm, 09/08/19 19:49:00 EDT, Height, 101.5, [...] 1 Refills, Maintenance, 09/09/19 9:41:00 EDT, Nasal [place], [place], [place] -, 2 sprays Nares, Both Daily at bedtime, 162,cm, 09/08/19 19:49:00 EDT, Height, 101.5, kg, 08/27... Start Date: 09/09/19 Status: Ordered Haldol Decanoate decanoate 100 mg/ml injectable solution See Instructions, 100 mg Intramuscular every 28 days. Next due October 23 2019, # 1 each, 0 Refills, Maintenance, 10/06/19 13:49:00 EDT, Injection, [facility] [id number], 162, cm, 09/08/19 19:49:00 EDT, Height, 101.5, [...] 0 Refills, Maintenance, 09/08/19 14:06:00 EDT, Tablet, [place], [place] -, 162, cm, 09/08/19 7:44:00 EDT, Height, 101.5, kg, 08/28/19 12:35:00 EDT, Dry Weight Start Date: 09/08/19 Status: Ordered naltrexone 50 mg oral tablet 1 tablet = 50 mg, By Mouth, Daily, blister pack for AM and PM, # 30 tablet, 0 Refills, Maintenance,10/06/19 13:52:00 EDT, Tablet, [place], [place] - [id number], 162, cm, 09/08/19 19:49:00 EDT, Height, 101.5, kg, 08/28/19 12:35:00 EDT... Start Date: 10/06/19 Status: Ordered sertraline 100 mg oral tablet 2 tablet = 200 mg, By Mouth, Daily, blister pack for AM and PM, # 60 tablet, 0 Refills, Maintenance, 10/06/19 13:50:00 EDT, Tablet, [place], [place] - [id number], 162, cm, 09/08/19 19:49:00 EDT, Height, 101.5, kg, 08/28/19 12:35:00 ED... Start Date: 10/06/19 Status: Ordered traZODone 50 mg oral tablet 50 mg, 1, tablet, By Mouth, Daily at bedtime, PRN, blister pack for AM and PM, # 30 tablet, Refills0, Tot. Refills 0, Maintenance, Insomnia, 10/06/19 13:50:00 EDT, Route to Pharmacy Electronically, [place], [place] - [id number], 162,... Start Date: 10/06/19 Status: Ordered vitamin E topical cream See Instructions, Apply to scars up to two times daily, # 1 Unknown, 0 Refills, Maintenance, 09/08/19 14:07:00 EDT, [place], [place] -, Apply to scars up to two times daily, 162, cm,09/08/19 7:44:00 EDT, Height, 101.5, kg, 08/28/19 1... Start Date: 09/08/19 Status: Ordered Problem List Condition Effective Dates Status Health Status Inform ant PTSD (post-traumatic stress disorder)(Confirmed) Active Psychosis(Confirmed) Active Vital Signs Most recent to oldest [Reference Range]: 1 2 Oxygen Saturation [94-100 %] 97 % (06/03/21 9:48 PM) 100 % (06/03/21 6:18 PM) Pulse Rate [55-90 bpm] 101 bpm *H* (06/03/21 9:48 PM) 104 bpm *H* (06/03/21 6:18 PM) Blood Pressure [90-138/55-84 mm Hg] 127/ 79mm Hg (06/03/21 9:48 PM) 153/96mm Hg *H* (06/03/21 6:18 PM) Respiratory Rate [16-30 br/min] 20 br/mi n (06/03/21 9:48 PM) 20 br/min (06/03/21 6:18 PM) Temperature [96.8-100.4 DegF] 98.3 DegF (06/03/21 9:48 PM) 98.1 DegF (06/03/21 6:18 PM) Mode of Delivery (Oxygen) Room air (06/03/21 9:48 PM) Room air (06/03/21 6:18 PM) Blood pressure sites Arm, right (06/03/21 9:48 PM) Arm, right (06/03/21 6:18 PM) Temperature Route Oral (06/03/21 9:48 PM) Oral (06/03/21 6:18 PM)
--- OUTSIDE RECORDS SUMMARY | 2023-02-13 21:48 | XMS_ITS | Continuity of Care Document ---
Author Name Unknown Organization [facility] ter Address [address] [place] [id number]- Care Team Providers Care Electrician Name Role Phone Not on Staff, PCP Primary Care Physician Unavail able [facility] Date(s): 02/28/19 - 03/07/[address] [address]- [facility] Discharge Disposition: Transfer to [facility] Attending Physician: Serafin Doyle MD Admitting Physician: Serafin Doyle MD Referring Physician: Not on Staff, Referring [...] Maintenance, 01/14/19 9:09:34 EST,Route to Pharmacy Electronically, [id number], [facility]/pharmacy #[id number] Start Date: 01/14/19 Status: Ordered Flonase 50 mcg/inh nasal spray 2 sprays = 100 mcg, Nares, Both, Daily at bedtime, # 16 Gm, 1 Refills, Maintenance, 01/14/19 9:11:48 EST, Nasal [place], 2 sprays Nares, Both Daily at bedtime Start Date: 01/14/19 Status: Ordered hydrOXYzine pamoate 50 mg oral capsule See Instructions, Take 1 capsule up to twice daily as needed for anxiety, # 20 capsule, 2 Refills, Maintenance, 01/14/19 9:26:02 EST, Capsule Start Date: 01/14/19 Status: Ordered lithium 450 mg oral tablet, [...] 01/14/19 9:09:57 EST, Route to Pharmacy Electronically, [id number], [facility]/pharmacy #[id number] Start Date: 01/14/19 Status: Ordered traZODone 100 mg oral tablet 100 mg, 1, tablet, By Mouth, Daily at bedtime, for sleep, # 10 tablet, Refills 2, Tot. Refills 2, Maintenance, 01/14/19 9:22:42 EST, Route to Pharmacy Electronically, [id number], [facility]/pharmacy #[id number] Start Date: 01/14/19 Status: Ordered Tylenol [...] 3 Oxygen Saturation [94-100 %] 99 % (03/07/19 11:00 AM) 99 % (03/06/19 10:42 PM) 99 % (03/06/19 3:28 PM) Pulse Rate [55-90 bpm] 68 bpm (03/07/19 11:00 AM) 103 bpm *H* (03/06/19 10:42 PM) 104 bpm *H* (03/06/19 3:28 PM) Blood Pressure [90-138/55-84 mm Hg] 117/68mm Hg (03/07/19 11:00 AM) 139/79mm Hg *H* (03/06/19 10:42 PM) 142/86mm Hg *H* (03/06/19 3:28 PM) Respiratory Rate [16-30 br/min] 18 br/min (03/06/19 6:08 AM) 16 br/min (03/05/19 8:07 PM) 16 br/min (03/05/19 4:20 PM) Temperature [96.8-100.4 DegF] 97 DegF (03/07/19 11:00 AM) 98.2 DegF (03/06/19 10:42 PM) 98.6 DegF (03/06/19 3:28 PM) Mode of Delivery (Oxygen) Room air (03/07/19 11:00 AM) Room air (03/06/19 10:42 PM) Room air (03/06/19 3:28 PM) Blood pressure sites Arm, left (03/06/19 10:42 PM) Arm, left (03/06/19 3:28 PM) Arm, right (03/06/19 6:08 AM) Temperature Route Oral (03/06/19 10:42 PM) Oral (03/06/19 3:28 PM) Oral (03/06/19 6:08 AM)
--- OUTSIDE RECORDS SUMMARY | 2023-02-13 21:48 | XMS_ITS | Continuity of Care Document ---
Author Name Unknown Organization [facility] ter Address [address] [place] [id number]- Care Team Providers Care Automotive Shop Foreman Name Role Phone Not on Staff, PCP Primary Care Physician Unavail able [facility] Date(s): 07/02/19 - 07/14/[address] [address] Disposition: Transfer to [facility] Facility Attending Physician: Elizabeth Butterfield MD Admitting Physician: Jules Vargas MD Referring Physician: Mickey Condon DO Allergies, Adverse Reactions, Alerts Substance Reaction Severity Status NKA Active Immunizations Not Given Vaccine Date Status Refusal Reason influenza virus vaccine, inactivated 12/18/18 Not Given Patient Refuses Medications albuterol CFC free 90 mcg/inh inhalation aerosol 180 mcg, 2, puffs, Inhalation, Every 4 hours, PRN, Refills 0, Maintenance, 07/14/19 18:51:00 EDT, Inhaler Start Date: 07/14/19 Status: Ordered Bacitracin Topical Oint 1 applicator, Topically, 2 times a day, 0 Refills, Maintenance, Ointment Start Date: 07/14/19 Status: Ordered chlorproMAZINE 50 mg oral tablet 2 tablet = 100 mg, By Mouth, Daily at bedtime, 0 Refills, Maintenance, 07/14/19 18:51:00 EDT, Tablet Start Date: 07/14/19 Status: Ordered Colace sodium 100 mg oral capsule 100 mg, 1, capsule, By Mouth, 2 times a day, PRN, Refills 0, Maintenance, Constipation, 07/14/19 18:52:00 EDT Start Date: 07/14/19 Status: Ordered Flonase 50 mcg/inh nasal spray 2 sprays = 100 mcg, Nares, Both, Daily at bedtime, # 16 Gm, 1 Refills, Maintenance, 01/14/19 9:11:48 EST, Nasal [place], 2 sprays Nares, Both Daily at bedtime Start Date: 01/14/19 Status: Ordered haloperidol 5 mg oral tablet 5 mg, 1, tablet, By Mouth, Every 6 hours, PRN, Refills 0, Maintenance, Anxiety, 07/14/19 18:51:00 EDT Start Date: 07/14/19 Status: Ordered KlonoPIN 1 mg oral tablet 1 tablet = 1 mg, By Mouth, 2 times a day, 0 Refills, Maintenance, 07/14/19 18:52:00 EDT, Tablet Start Date: 07/14/19 Status: Ordered Maalox Plus Liquid 15 mL, By Mouth, 4 times a day, PRN Dyspepsia, 0 Refills, Maintenance, 07/14/19 18:51:00 EDT, Suspension Start Date: 07/14/19 Status: Ordered MiraLax Powder 1 pack/packet = 17 Gm, By Mouth, Daily, 0 Refills, Maintenance, 07/14/19 18:52:00 EDT, Powder Start Date: 07/14/19 Status: Ordered naltrexone 50 mg oral tablet 1 tablet = 50 mg, By Mouth, Daily, 0 Refills, Maintenance, 07/14/19 18:52:00 EDT, Tablet Start Date: 07/14/19 Status: Ordered perphenazine 2 mg oral tablet 6 mg, 3, tablet, By Mouth, 2 times a day, Refills 0, Maintenance, 07/14/19 18:52:00 EDT Start Date: 07/14/19 Status: Ordered Senna 8.6 mg oral tablet 17.2 mg, 2, tablet, By Mouth, Daily, Refills 0, Maintenance, 07/14/19 18:52:00 EDT, Tablet Start Date: 07/14/19 Status: Ordered sertraline 50 mg oral tablet 1 tablet = 50 mg, By Mouth, Daily, 0 Refills, Maintenance, 07/14/19 18:52:00 EDT, Tablet Start Date: 07/14/19 Status: Ordered simethicone 80 mg oral tablet, chewable 80 mg, 1, tablet, Chew, 3 times a day, PRN, Refills 0, Maintenance, Gas, 07/14/19 18:53:00 EDT Start Date: 07/14/19 Status: Ordered topiramate 200 mg oral tablet 1 tablet = 200 mg, By Mouth, Daily at bedtime, 0 Refills, Maintenance, 07/14/19 18:53:00 EDT, Tablet Start Date: 07/14/19 Status: Ordered Tylenol 325 mg oral tablet 650 mg, By Mouth, Every 6 hours, PRN, Refills 0, Maintenance, Pain , Moderate Temperature, 12/25/18 13:38:34 EST Start Date: 12/25/18 Status: Ordered Problem List Condition Effective Dates Status Health Status Inform ant PTSD (post-traumatic stress disorder)(Confirmed) Active Psychosis(Confirmed) Active Results Orders for Microbiology Reports Name Date Blood Culture 06/27/19 Blood Culture #2 06/27/19 Microbiology Reports TEST:Blood Culture, Second Order STATUS:Auth (Verified) BODY SITE: SOURCE:Blood COLLECTED DATE/TIME:06/27/19 9:21 AM Blood Culture, Second Order SPECIMEN DESCRIPTION : BLOOD RAC SPECIAL REQUESTS : NONE CULTURE : NO GROWTH 5 DAYS. REPORT STATUS : FINAL 07/02/2019 TEST:Blood Culture STATUS:Auth (Verified) BODY SITE: SOURCE:Blood COLLECTED DATE/TIME:06/27/19 8:30 AM Blood Culture SPECIMEN DESCRIPTION : BLOOD LAC SPECIAL REQUESTS : NONE CULTURE : NO GROWTH 5 DAYS. REPORT STATUS : FINAL 07/02/2019 Radiology Reports * Exam Date Time Procedure Performing Provider Status 06/29/19 9:28 PM Chest Portable Janie Hoskins; Auth (Verified) Notes: (Chest Portable) Reason For Exam: Shortness of Breath, Fever;Other: RESULT: Chest Portable Chest Portable Refer to EMR; Reason: Other:; Shortness of Breath, Fever; Clinical Question(s): Pneumonia; Hx of Present Illness: ? HAllucination, pt does not know why she is here, denies any Pain discomfort; Other Objective Findings: Pt Alert and oriented, appears to be talking to someone who is not there and responding to internal stimuli, eyes appeas wild and pt kept dating from side to side as though she is l COMPARISON: 06/27/2019. FINDINGS: LINES AND TUBES: None. LUNGS AND PLEURA: Low lung volumes with mild basilar atelectasis. Lungs are otherwise clear with no consolidation. No pleural effusion. No pneumothorax. HEART, MEDIASTINUM AND GERMAN: Heart is normal in size. Normal mediastinal and hilar contour. BONES AND SOFT TISSUES: No acute abnormality. IMPRESSION: No acute abnormality. WSN: [id number] Ordering Physician: Savannah Renee Dictated By: Remington Morrow MD Dictated Date/Time: 06/29/19 9:29 pm Reviewed By: Remington Morrow MD Signed By: Remington Morrow MD Signed Date/Time: 06/29/19 9:29 pm Transcribed By: DIMA Transcribed Date/Time: 06/29/19 9:29 pm * Exam Date Time Procedure Performing Provider Status 06/27/19 12:04 PM Chest 2 Views Frontal and Lat Lana Max; Auth (Verified) Notes: (Chest 2 Views Frontal and Lat) Reason For Exam: Shortness of Breath, Fever;Other: RESULT: Chest 2 Views Frontal and Lat Chest 2 Views Frontal and Lat Refer to EMR; Reason: Other:; Shortness of Breath, Fever; Clinical Question(s): Pneumonia; Hx of Present Illness: ? HAllucination, pt does not know why she is here, denies any Pain discomfort COMPARISON: 04/17/2019 FINDINGS: LINES AND TUBES: None. LUNGS AND PLEURA: Clear lungs. Normal pulmonary vascularity. No pleural effusion. No pneumothorax. HEART, MEDIASTINUM AND GERMAN: Heart is normal in size. Normal mediastinal and hilar contour. BONES AND SOFT TISSUES: No acute abnormality. IMPRESSION: Normal chest. WSN: [id number] Ordering Physician: Mickey Condon Dictated By: Kiran Juarez MD Dictated Date/Time: 06/27/19 12:06 p Reviewed By: Kiran Juarez MD Signed By: Kiran Juarez MD Signed Date/Time: 06/27/19 12:06 pm Transcribed By: DIMA Transcribed Date/Time: 06/27/19 12:04 pm Vital Signs Most recent to oldest [Reference Range]: 1 2 3 Height 162.56 cm (07/14/19 7:50 PM) 162.56 cm (07/14/19 6:34 PM) 162.56 cm (07/14/19 7:49 AM) Weight 109 kg (07/02/19 11:58 AM) 109 kg (07/02/19 6:11 AM) 109 kg (07/02/19 3:07 AM) Oxygen Saturation [94-100 %] 95 % (07/14/19 7:50 PM) 95 % (07/14/19 6:34 PM) 98 % (07/14/19 7:49 AM) Pulse Rate [55-90 bpm] 108 bpm *H* (07/14/19 7:50 PM) 96 bpm *H* (07/14/19 6:34 PM) 86 bpm (07/14/19 7:49 AM) Body Mass Index [18.5-24.99] 41.25 *>HHI* (07/02/19 11:58 AM) 41.25 *>HHI* (07/02/19 6:11 AM) 41.25 *>HHI* (07/02/19 3:07 AM) Blood Pressure [90-138/55-84 mm Hg] 132/78mm Hg (07/14/19 7:50 PM) 116/70mm Hg (07/14/19 6:34 PM) 126/78mm Hg (07/14/19 7:49 AM) Respiratory Rate [16-30 br/min] 17 br/min (07/14/19 7:50 PM) 20 br/min (07/14/19 6:34 PM) 20 br/min (07/14/19 7:49 AM) Temperature [96.8-100.4 DegF] 97.2 DegF (07/14/19 7:50 PM) 97.4 DegF (07/14/19 6:34 PM) 97.4 DegF (07/14/19 7:49 AM) Mode of Delivery (Oxygen) Room air (07/14/19 7:50 PM) Room air (07/14/19 6:34 PM) Room air (07/14/19 7:49 AM) Blood pressure sites Arm, right (07/14/19 7:50 PM) Arm, right (07/14/19 6:34 PM) Arm, right (07/14/19 7:49 AM) Temperature Route Temporal (07/14/19 7:50 PM) Temporal (07/14/19 6:34 PM) Temporal (07/14/19 7:49 AM) Dry Weight 109 kg (07/02/19 11:58 AM) 109 kg (07/02/19 6:11 AM) 109 kg (07/02/19 3:07 AM)
[2023-02-13 22:17] VITALS: BP 146/88; PULSE 103; RESP 18; TEMP 36.7; O2SAT 98
--- NOTE | 2023-02-13 22:44 | ED.PSYCH ---
HPI - Psych General Chief Complaint: Psychiatric Symptoms Stated Complaint: Sec 12 Time Seen by Provider: 02/13/23 21:49 Source: patient and EMS Mode of arrival: EMS Limitations: no limitations History of Present Illness HPI Narrative: Patient is a 27-year-old female who presents emergency department via EMS on a Section 12 she was evaluated by N in the community. She endorses auditory and visual hallucinations of suicidal ideations and thoughts to end her life. She does not provide any specific plan in regards to this. She was unable to contract for safety in the community. She states that she was recently hospitalized a couple of weeks ago, does not recall the name of the hospital, states she was there for a couple Related Data Home Medications Medication Instructions Recorded Confirmed amlodipine 5 mg tablet 5 mg PO DAILY 10/19/22 10/19/22 benztropine 1 mg tablet 1 mg PO QAM 10/19/22 10/19/22 carbamazepine 400 mg 400 mg PO TID 10/19/22 10/19/22 tablet,extended release,12 hr chlorpromazine 100 mg tablet 150 mg PO BEDTIME 10/19/22 10/19/22 haloperidol 5 mg tablet 7.5 mg PO BID 10/19/22 10/19/22 hydroxyzine HCl 25 mg tablet 25 - 50 mg PO TID PRN Anxiety 10/19/22 10/19/22 lithium carbonate 150 mg capsule 450 mg PO BID 10/19/22 10/19/22 metformin 500 mg tablet 500 mg PO DAILY@1800 10/19/22 10/19/22 naltrexone 50 mg tablet 50 mg PO QAM 10/19/22 10/19/22 sertraline 100 mg tablet 200 mg PO QAM 10/19/22 10/19/22 Allergies Allergy/AdvReac Type Severity Reaction Status Date / Time No Known Allergies Allergy Verified 09/05/22 21:25 [No Known Allergies*] [facility] Past Medical History Medical History (Updated 02/14/23 @ 01:57 by Edie Quiñones CNP) Obesities, morbid alcohol syndrome Borderline personality disorder Social History Social History Household Members: Unknown / Unable to assess Household Members Other:: 1 Housing: Unknown / Unable to assess Do you presently have visiting nurse or other home services: Yes (once a month) Unable to assess alcohol history related to: Refusing to respond Alcohol intake: never Comment: 5 minute checks Patient Tobacco Use Status: Never used Tobacco e-Cigarette/Vaping Use: Never Used Second Hand Smoke Exposure: No Substance Use Type: Marijuana Advance Directives: No Advance Directives Information Provided: No service: No Sexual orientation: Did not discuss/unknown Physical Exam Vital Signs: Vital Signs: Last Vital Signs Temp 98.0 F 02/13/23 22:17 Pulse 103 H 02/13/23 22:17 Resp 18 02/13/23 22:17 BP 146/88 H 02/13/23 22:17 Pulse Ox 98 02/13/23 22:17 O2 Del Method Room Air 02/13/23 22:17 BMI result Body Mass Index 37.8 Appearance: Alert.?Oriented to person, place and time. No acute distress.?Normal affect. Eyes: Pupils equal, round and reactive to light.? ENT: Pharynx normal.?? Neck: Normal inspection.? Neck supple.?? CVS: Heart sounds normal. Normal heart rate and rhythm.? Pulses normal.?? Respiratory: No respiratory distress.? Lung sounds clear to auscultation bilaterally?? Abdomen: Soft and non-tender. Normoactive bowel sounds. Skin: Skin warm and dry.? Normal skin color.?? Extremities: No lower extremity edema.? ? Neuro: Moves all extremities spontaneously. Sensation intact bilaterally. CN II-XII intact. No focal neuro deficits. Ambulates with normal steady gait. Medical Decision Making Medical Decision Making MDM Narrative: Patient is a 27-year-old female with past medical history of borderline personality disorder, alcohol syndrome, obesity, hypertension who presents emergency department on a Section 12 for auditory and visual hallucinations with suicidal ideation is. The time my examination she is overall, the, she does appear to be responding to internal stimuli with delayed responses to questioning. Her physical examination is benign. Will obtain basic labs and medical clearance and refer to CARE team, suspect that she has already been made an inpatient bed search from the community. Differential Diagnosis Differential Diagnoses: The differential diagnosis associated with the presentation includes (Auditory and visual hallucinations, suicidal ideations, depression. Less likely acute metabolic cause.) Admission/Observation Consideration of admission/observation: Escalation of care including admission/observation considered (Patient requires physician observation since that further care team evaluation/bed search can ensue) Consult Healthcare Provider Management of the patient was discussed with: Behavioral Health Provider (As noted above) Lab Data MDM Lab Attestation statement: I reviewed the patient's lab results. CBC is without leukocytosis or anemia. CMP overall unremarkable. Elevated glucose, she did consume food and drink just prior to labs having been obtained. Urinalysis without evidence of infection. Toxicology testing negative. [place] level within normal range. 02/13/23 22:54 02/13/23 22:54 Labs: Lab Results 02/13/23 02/13/23 Range/Units 22:45 22:54 WBC 9.5 (4.8-10.8) X10*3/uL RBC 4.57 (4.20-5.50) X10*6/uL Hgb 12.9 (12.0-16.0) g/dl Hct 39.4 (37.0-47.0) % MCV 86.2 (80.0-98.0) fL MCH 28.2 (27.0-33.0) pg MCHC 32.7 (31.0-35.0) g/dl RDW 13.2 (11.0-16.0) % Plt Count 327 D (160-400) X10*3/uL MPV 8.8 L (9.4-12.3) fL Immature Gran % (Auto) 0.3 (0.0-0.4) % Neut % (Auto) 55.0 (45-73) % Lymph % (Auto) 30.8 (20-40) % [place] % (Auto) 6.3 (2-11) % Eos % (Auto) 7.3 H (0-4) % Baso % (Auto) 0.3 (0-2) % Lymph # (Auto) 2.9 (1.2-4.9) X10*3/uL [place] # (Auto) 0.6 (0.1-1.2) X10*3/uL Eos # (Auto) 0.7 H (0.0-0.4) X10*3/uL Baso # (Auto) 0.0 (0.0-0.2) X10*3/uL Abs Immat Gran (auto) 0.03 (0.00-0.03) X10*3/uL Absolute Neuts (auto) 5.2 (2.0-8.3) x10*3/uL Absolute Nucleated RBC 0.000 (0.0-0.012) X10*3/uL Nucleated RBC % (auto) 0.0 (0.0-0.2) /100WBC Sodium 140 (135-145) mmol/L Potassium 3.8 (3.3-5.1) mmol/L Chloride 107 (96-108) mmol/L Carbon Dioxide 24 (22-29) mmol/L Anion Gap 13 (12-20) BUN 8 L (9-16) mg/dL Creatinine 0.92 (0.5-1.4) mg/dL Estim Creat Clear Calc 104.5 Estimated GFR > 60 Random Glucose 192 H (60-115) mg/dL Calcium 9.7 (8.4-10.2) mg/dL Total Bilirubin 0.2 (0.0-1.0) mg/dL Direct Bilirubin < 0.2 (0.0-0.5) mg/dL AST 16 (5-31) U/L ALT 14 (0-31) U/L Alkaline Phosphatase 79 (39-117) U/L Total Protein 7.6 (6.5-8.0) g/dL Albumin 4.2 (3.5-5.0) g/dL Urine Color Yellow Urine Appearance Clear Urine pH 6.5 (5.0-9.0) Ur Specific [place] 1.015 (1.005-1.025) Urine Protein Negative (Neg-Trace) mg/dL Urine Glucose (UA) Negative (Negative) mg/dL Urine Ketones Negative (Negative) mg/dL Urine Blood Negative (Negative) Urine Nitrite Negative (Negative) Ur Leukocyte Esterase Negative (Negative) Urine Opiates Screen Not Detected (Not Detect) Urine Fentanyl Screen Not Detected (Not Detect) Ur Barbiturates Screen Not Detected (Not Detect) Ur Phencyclidine Scrn Not Detected (Not Detect) Ur Amphetamines Screen Not Detected (Not Detect) U Benzodiazepines Scrn Not Detected (Not Detect) [place] 0.88 (0.60-1.20) mmol/L Urine Cocaine Screen Not Detected (Not Detect) U Marijuana (THC) Screen Not Detected (Not Detect) Ethyl Alcohol < 10 mg/dL Independent Historian Clinical information obtained from an independent historian. History obtained from or confirmed by: EMS External Record Review External record reviewed: Outpatient record and Other (Section 12) Discharge Plan Discharge Clinical Impression: Suicidal ideation, Auditory hallucination Patient Disposition: Still a Patient Prescriptions: No Action metformin 500 mg tablet 500 mg PO DAILY@1800 haloperidol 5 mg tablet 7.5 mg PO BID chlorpromazine 100 mg tablet 150 mg PO BEDTIME naltrexone 50 mg tablet 50 mg PO QAM sertraline 100 mg tablet 200 mg PO QAM lithium carbonate 150 mg capsule 450 mg PO BID amlodipine 5 mg tablet 5 mg PO DAILY carbamazepine 400 mg tablet extended release 12 hr 400 mg PO TID benztropine 1 mg tablet 1 mg PO QAM hydroxyzine HCl 25 mg tablet 25 - 50 mg PO TID PRN (Reason: Anxiety)
[2023-02-13 22:52] LABS: Appearance Urine Clear; Color Urine Yellow; Glucose Urine UA Negative (Negative); Leukocyte Esterase Urine Negative (Negative); Nitrite Urine Negative (Negative); PH 6.5 (5.0-9.0); Specific Gravity - Urine 1.015 (1.005-1.025); Urine Blood Negative (Negative); Urine Ketones Negative (Negative); Urine Protein Negative (Neg-Trace)
[2023-02-13 22:58] LABS: MANUAL DIFF FLAG NO
[2023-02-13 22:59] LABS: Amphetamine Screen Urine Not Detected (Not Detect); Barbiturates, Urine Not Detected (Not Detect); Benzodiazepines Screen Urine Not Detected (Not Detect); Cannabinoid Screen Urine Not Detected (Not Detect); Cocaine Screen Urine Not Detected (Not Detect); Fentanyl, urine Not Detected (Not Detect); Opiate Screen Urine Not Detected (Not Detect); Phencyclidine Screen Urine Not Detected (Not Detect)
[2023-02-13 23:00] LABS: Basophils Percent Auto 0.3 % (0-2); Eosinophils Absolute Auto 0.7 X10*3/uL (0.0-0.4); Eosinophils Percent Auto 7.3 % (0-4); Hematocrit 39.4 % (37.0-47.0); Hemoglobin 12.9 g/dl (12.0-16.0); Imm Gran Abs Auto 0.03 X10*3/uL (0.00-0.03); Imm Gran Pct Auto 0.3 % (0.0-0.4); Lymphocytes Absolute Auto 2.9 X10*3/uL (1.2-4.9); Lymphocytes Percent Auto 30.8 % (20-40); Mean Corpuscular HGB Conc 32.7 g/dl (31.0-35.0); Mean Corpuscular Hemoglobin 28.2 pg (27.0-33.0); Mean Corpuscular Volume 86.2 fL (80.0-98.0); Mean Platelet Volume 8.8 fL (9.4-12.3); Monocytes Absolute Auto 0.6 X10*3/uL (0.1-1.2); Monocytes Percent Auto 6.3 % (2-11); Neutrophils Absolute Auto 5.2 x10*3/uL (2.0-8.3); Platelet Count 327 X10*3/uL (160-400); Red Blood Count 4.57 X10*6/uL (4.20-5.50); Red Cell Distribution Width 13.2 % (11.0-16.0); White Blood Count 9.5 X10*3/uL (4.8-10.8)
[2023-02-13 23:07] LABS: Lithium 0.88 mmol/L (0.60-1.20)
[2023-02-13 23:11] LABS: Ethanol < 10 mg/dL
[2023-02-13 23:15] LABS: Alanine Aminotransferase 14 U/L (0-31); Albumin Level 4.2 g/dL (3.5-5.0); Alkaline Phosphatase 79 U/L (39-117); Anion Gap 13 (12-20); Aspartate Amino Transferase 16 U/L (5-31); Bilirubin Direct < 0.2 mg/dL (0.0-0.5); Bilirubin Total 0.2 mg/dL (0.0-1.0); Blood Urea Nitrogen 8 mg/dL (9-16); Calcium 9.7 mg/dL (8.4-10.2); Carbon Dioxide 24 mmol/L (22-29); Chloride 107 mmol/L (96-108); Creatinine Clr Calc Pharmacy 104.5; Estimated Glomerular Filt Rate > 60; Glucose Random 192 mg/dL (60-115); Potassium 3.8 mmol/L (3.3-5.1); Sodium 140 mmol/L (135-145); Total Protein 7.6 g/dL (6.5-8.0)
--- NOTE | 2023-02-13 23:27 | PC.NURSE ---
pharmacy not open at this time. Pt reports long term gave all home medications before she left.
--- NOTE | 2023-02-14 | ECG_ITS ---
Test Reason : CHECK QT INTERVAL Blood Pressure : / mmHG Vent. Rate : 088 BPM Atrial Rate : 088 BPM P-R Int : 156 ms QRS Dur : 068 ms QT Int : 384 ms P-R-T Axes : 034 010 022 degrees QTc Int : 464 ms Normal sinus rhythm Normal ECG When compared with ECG of 11-OCT-2021 11:56, No significant change was found Referred By: Leonard Alonso Electronically Signed By:LANCE WEINSTEIN
--- NOTE | 2023-02-14 00:09 | PC.NURSE ---
pt refusing to answer suicidal questions on worklist.
--- NOTE | 2023-02-14 05:17 | MHC.EDTECH ---
PT refused vital signs this morning. RN made aware
[2023-02-14 05:45] VITALS: RESP 18
--- NOTE | 2023-02-14 08:19 | PC.NURSE ---
late entry for resume of care at 0700, pt remains sleeping at this time, Q`5 min safety checks maintained, all safety measures in place awaiting dispo plan at this time
--- NOTE | 2023-02-14 10:40 | PC.NURSE ---
Contacted pharmacy to verify medications; pharmacy to fax over medication list for med rec.
[2023-02-14] MEDS: Sertraline HCL 100 MG TABLET 200 MG PO (11:25)
[2023-02-14] MEDS: amLODIPine Besylate 5 MG TABLET PO (11:25)
[2023-02-14] MEDS: Naltrexone HCl 50 MG TABLET PO (11:25)
[2023-02-14] MEDS: hydrOXYzine HCL 50 MG TABLET PO (11:25)
[2023-02-14] MEDS: Benztropine Mesylate 1 MG TABLET PO (11:25)
[2023-02-14 11:48] LABS: COVID-19 Test Negative (Negative); IDNOW Serial# 08D9AD1C
--- NOTE | 2023-02-14 12:08 | PC.NURSE ---
Pt found to have fork in bathroom; fork removed from pt person; pt did not sustain harm to self upon assessment. Pt requesting 1:1 sitter or she will harm herself. driver service technician now supervising pt.
[2023-02-14] MEDS: HaloperidoL 5 MG TABLET 7.5 MG PO (12:27)
[2023-02-14] MEDS: carBAMazepine ER 200 MG TAB.ER.12H 400 MG PO ×2 (15:36→21:04)
--- NOTE | 2023-02-14 16:12 | PHA.MEDREC ---
Pharmacy Consult ? Medication Reconciliation Pharmacy has reviewed the medication reconciliation completed by Yvette. Lithum is 3 tab in AM and 4 tabs at bedtime instead of 450 mg BID. There are multiple script for Haldol, called [facility] to confirm. Pharmacy report that Haldol 7.5 mg BID has been discontinue and patient is on Haldol 5 mg at bedtime. Marta Davis, PharmD
[2023-02-14] MEDS: Ondansetron ODT 4 MG TAB.RAPDIS TRANSLINGU (18:45)
[2023-02-14] MEDS: Lithium Carbonate 300 MG CAPSULE 600 MG PO (21:00)
[2023-02-15] MEDS: Naltrexone HCl 50 MG TABLET PO (11:04)
[2023-02-15] MEDS: Lithium Carbonate 300 MG TABLET 450 MG PO (11:04)
[2023-02-15] MEDS: Benztropine Mesylate 1 MG TABLET PO (11:05)
[2023-02-15] MEDS: amLODIPine Besylate 5 MG TABLET PO (11:05)
[2023-02-15] MEDS: carBAMazepine ER 200 MG TAB.ER.12H 400 MG PO ×3 (11:05→22:17)
[2023-02-15] MEDS: Sertraline HCL 100 MG TABLET 200 MG PO (11:05)
[2023-02-15] MEDS: HaloperidoL 5 MG TABLET PO ×2 (11:35→18:19)
[2023-02-15 11:52] VITALS: RESP 16
--- NOTE | 2023-02-15 12:04 | PC.NURSE ---
awoke a little after 11. went to the bathroom, steady gait, ate a couple peanut butter and jelly sandwiches and took meds as ordered, she had refused haldol last night but asked for it this am, she states she takes it in the morning, given and changed by pharmacy
--- NOTE | 2023-02-15 13:26 | MHC.CARE ---
Call to [facility], spoke to Dave to change admission date from 02/14 to 02/15. Same auth number and review date on 02/20/22
[2023-02-15] MEDS: hydrOXYzine HCL 50 MG TABLET PO (14:41)
[2023-02-15 16:30] VITALS: BP 136/91; PULSE 88; TEMP 36.8; O2SAT 97
[2023-02-15] MEDS: metFORMIN HCl 500 MG TABLET PO (17:35)
[2023-02-15] MEDS: LORazepam 1 MG TABLET PO ×2 (18:15→23:48)
[2023-02-15] MEDS: Lithium Carbonate 300 MG CAPSULE 600 MG PO (22:17)
[2023-02-15] MEDS: traZODone HCL 50 MG TABLET PO (23:48)
--- NOTE | 2023-02-16 01:55 | PC.ADMIT ---
Patient is a 27 year old single Kazakh speaking admitted as a CV admission to at 1615 on February 15, 2023 and placed on 15 minute safety checks. Patient was medically cleared in the [facility] ED and had been evaluated by both N and the CARE team at [facility] and deemed in need of IPLOC secondary to depression, anxiety, agitation, AVH and vague plan to suicide. Patient has a long history of IPLOC in psychiatric facilities, including . Patient has a documented history of Schizoaffective disorder, borderline personality disorder and alcohol syndrome. She has a history of being aggressive towards others as well as exhibiting self-harming behaviors. Per the intake information, patient has a history of self harm by cutting. She has also wrapped things around her neck, ingested pills and told others she has tried to jump in front of a car. The report also mentions a history of noncompliance with medications. Patient did not want to participate in the admission process and said she was not able to contract for safety. She had a piece of plastic and tried to scratch her arms. Provider, Mae Markham notified and patient safety checks changed to 1:1 safety checks. Patient took a shower with staff monitoring her. She took her medications and said she did not want to sign any papers or talk. Patient appeared internally preoccupied and at times seemed to be looking at something , in her side vision, before she would respond.
--- NOTE | 2023-02-16 02:11 | PC.NURSE ---
At 1800, a call alarm from room 507 rang out. This insurance writer went to pt's room finding pt with 1:1 staff. Pt was sitting on bed facing window and with small piece of plastic in her hand. Staff was trying to get pt to turn over plastic to staff. Pt refused to turn over plastic piece and began to scrape plastic across area of wrist and forearm. Pt continued to make self harm gestures and refused to turn over the plastic. Staff called security, who arrived on scene promptly. This insurance writer pulled PRN medications to offer pt. Upon return to room, pt was now chewing on the plastic piece. Pt initially declined medications, but did accept them with education. Pt was able to rinse mouth out of chewed plastic pieces with staff encouragement and did take PRN haldol 5mg PO and PRN Ativan 1mg PO with some good effect. Pt was able to remain in behavioral control for rest of evening.
[2023-02-16] MEDS: LORazepam 1 MG TABLET PO ×3 (08:37→21:51)
[2023-02-16] MEDS: carBAMazepine ER 200 MG TAB.ER.12H 400 MG PO ×3 (08:37→20:33)
[2023-02-16] MEDS: Naltrexone HCl 50 MG TABLET PO (08:37)
[2023-02-16] MEDS: Lithium Carbonate 300 MG TABLET 450 MG PO (08:37)
[2023-02-16] MEDS: HaloperidoL 5 MG TABLET PO ×3 (08:38→21:51)
[2023-02-16] MEDS: amLODIPine Besylate 5 MG TABLET PO (08:38)
[2023-02-16] MEDS: Benztropine Mesylate 1 MG TABLET PO (08:38)
[2023-02-16] MEDS: Sertraline HCL 100 MG TABLET 200 MG PO (08:38)
[2023-02-16 09:10] LABS: Glucose, Whole Blood 143 mg/dL (60-115)
[2023-02-16 10:09] LABS: Cholesterol 187 mg/dL (<200); HDL Cholesterol 33 mg/dL (>40); Magnesium 2.1 mg/dL (1.6-2.6); Triglycerides 500 mg/dL (<150)
[2023-02-16 10:18] LABS: Estimated Average Glucose 134 mg/dL; Hemoglobin A1c % 6.3 % (<6.0)
[2023-02-16 10:24] LABS: Free T4 (Free Thyroxine) 0.72 ng/dL (0.71-1.85); Thyroid Stimulating Hormone 3.78 uIU/mL (0.32-4.0)
[2023-02-16 10:35] LABS: Folate 7.2 ng/mL (> or = 4.0); Vitamin B12 385 pg/mL (200-900)
[2023-02-16] MEDS: diphenhydrAMINE HCL 25 MG CAPSULE PO (12:05)
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
[2023-02-16 18:28] LABS: Glucose, Whole Blood 151 mg/dL (60-115)
[2023-02-16] MEDS: metFORMIN HCl 500 MG TABLET PO (18:44)
[2023-02-16] MEDS: Lithium Carbonate 300 MG CAPSULE 600 MG PO (20:32)
[2023-02-16] MEDS: traZODone HCL 50 MG TABLET PO (20:33)
[2023-02-16] MEDS: HaloperidoL 5 MG TABLET 7.5 MG PO (20:39)
--- NOTE | 2023-02-16 21:48 | HO.PSYEVENT2 ---
Documented by User: Jennifer Sam APRN 02/16/23 21:50 Event Note Date of Service: 02/16/23 Psych On-Call Event Note: Pt with behavioral dyscontrol, sx of pica-swallowed a cap to a pen and a cribbage game piece. Hospitalist consult and x rays ordered to follow. Haldol 5 mg and Ativan 1 mg ordered Pt continues on one to one. Time Spent With Patient Time: Total time managing care of this patient today ____ minutes. Documented by User: Kyree Stacy MD 02/19/23 12:38 Event Note Date of Service: 02/19/23
--- NOTE | 2023-02-17 02:36 | PC.NURSE ---
Pt was in sanchez with 1:1 staff at 1900. This senior copywriter was alerted by 1:1 staff that pt had a plastic pen cap with intent to self harm. Staff attempted to remove pen cap, but pt put it in her mouth. At about 1904 pt intentionally swallowed the object. Pt appeared to have another potential sharp in her hand and would not give it to staff, so security was called. Pt was found to have no other sharps on her person and her room was searched by security. OnCall provider was informed and orders were obtained for X-ray and hospitalist consult. Pt refused offer of PRN meds and was uncommunicative when staff asked her how we can help her be safe on the unit. Staff reported to this senior copywriter at 2104 that pt had a cribbage game piece approximately one inch long in her mouth and another in her hand. Pt was in kitchen with her 1:1 staff and other staff. Pt was verbally non-communicative and refused to cooperate with staff. Staff called security. Pt swallowed game piece prior to security arriving. Security was able to remove game piece from hand. OnCall provider was informed at 2117 and order obtained. After discussion, it was determined that pt needs to be banned from kitchen and get a paper safety tray set up for time being to ensure pt safety. Pt able to settle with SOFIYA Montañoivan and rosa that pt was able to take willingly. X-ray was negative.
[2023-02-17 08:15] LABS: Glucose, Whole Blood 144 mg/dL (60-115)
[2023-02-17 08:54] VITALS: BP 135/84; PULSE 100; RESP 16; TEMP 36.4; O2SAT 97
[2023-02-17] MEDS: Ondansetron ODT 4 MG TAB.RAPDIS TRANSLINGU (09:07)
[2023-02-17] MEDS: Sertraline HCL 100 MG TABLET 200 MG PO (09:40)
[2023-02-17] MEDS: Lithium Carbonate 300 MG TABLET 450 MG PO (09:40)
[2023-02-17] MEDS: Benztropine Mesylate 1 MG TABLET PO (09:40)
[2023-02-17] MEDS: amLODIPine Besylate 5 MG TABLET PO (09:40)
[2023-02-17] MEDS: carBAMazepine ER 200 MG TAB.ER.12H 400 MG PO ×3 (09:40→21:52)
[2023-02-17] MEDS: HaloperidoL 5 MG TABLET 7.5 MG PO ×2 (09:40→21:51)
[2023-02-17] MEDS: Naltrexone HCl 50 MG TABLET PO (09:40)
--- NOTE | 2023-02-17 19:06 | HO.PM.IMCN ---
History of Present Illness Data of Consult Service Date: 02/17/23 Requesting physician: Jennifer Sam Primary Care Provider: Unknown Physician HPI Reason for consult: swallowed pen cap 27-year-old female with history of schizoaffective disorder, borderline personality disorder, behavioral dyscontrol with sx pica admitted to Psychiatry with consult placed hospitalist service due to patient intentionally swallowing the cap of the pen as well as a game piece. Apparently has a tendency to swallow game pieces including puzzle pieces and also swallowed a cribbage board piece last night in attempt to self harm. She is now on 1:1. See pen cap below. CXR at that time did not reveal any unexpected radiopaque foreign bodies though evaluation limited due to body habitus and there were no acute cardiopulmonary findings. . Patient is currently resting comfortably in bed in isolation 1:1 observation. She denies any difficulty swallowing or breathing. No abd pain, nausea, vomiting. Has not yet moved her bowels today. Review of Systems Review of Systems: General: No fevers, malaise, unintentional weight loss Cardiovascular: No chest pain Respiratory: No shortness of breath, cough GI: No abdominal pain, nausea, vomiting, diarrhea, constipation, melena, hematochezia [facility] Medical History Foreign body ingestion Schizoaffective disorder Obesities, morbid alcohol syndrome Borderline personality disorder Social History Household Members: Other Household Members Other:: 1 Housing: Other Housing Other:: pen[facility]iary Do you presently have visiting nurse or other home services: Yes (once a month) Unable to assess alcohol history related to: Unable to respond Alcohol intake: never Comment: 5 minute checks Patient Tobacco Use Status: Never used Tobacco Smoked in Last 30 Days: No e-Cigarette/Vaping Use: Never Used Second Hand Smoke Exposure: No Use of substances other than those prescribed or required for medical reasons: Unknown Substance Use Type: Marijuana Currently Displaying Signs/Symptoms of Drug Intoxication Withdrawal: No Any prior treatment program specific to substance use: No Spiritual Healthcare Practices: none Islam Healthcare Practices: none Cultural Healthcare Practices: none Advance Directives: No Advance Directives Information Provided: No Healthcare Proxy: No Guardian: No Do you have thoughts of harming others: None Do you have a plan to hurt others: No Plan Recently lost weight without trying: Unsure Eating poorly because of decreased appetite: No Nutrition Risks: No Nutritional Risk Patient : No : No Poor oral hygiene: No service: No Sexual orientation: Did not discuss/unknown Meds Allergies Allergy/AdvReac Type Severity Reaction Status Date / Time No Known Allergies Allergy Verified 09/05/22 21:25 [No Known Allergies*] Active Medications: Current Medications Acetaminophen (Acetaminophen 325 Mg Tablet) 650 mg PO Q6H PRN PRN Reason: Headache/Pain Mild Scale (1-3) Al Hydroxide/Mg Hydroxide (Magnesium Hydrox/Alum Hydrox 30 Ml Oral.Susp) 30 ml PO Q6H PRN PRN Reason: Heartburn/Nausea Amlodipine Besylate (Amlodipine Besylate 5 Mg Tablet) 5 mg PO DAILY [facility]; Protocol Last Admin: 02/17/23 09:40 Dose: 5 mg Benztropine Mesylate (Benztropine Mesylate 1 Mg Tablet) 1 mg PO DAILY@0900 [facility] Last Admin: 02/17/23 09:40 Dose: 1 mg Carbamazepine (Carbamazepine Er 200 Mg Tab.Er.12h) 400 mg PO TID [facility] Last Admin: 02/17/23 15:33 Dose: 400 mg Haloperidol (Haloperidol 5 Mg Tablet) 5 mg PO TID PRN PRN Reason: psychosis, agitation Last Admin: 02/15/23 18:19 Dose: 5 mg Haloperidol (Haloperidol 5 Mg Tablet) 7.5 mg PO BID [facility] Last Admin: 02/17/23 09:40 Dose: 7.5 mg Hydroxyzine HCl (Hydroxyzine Hcl 50 Mg Tablet) 50 mg PO TID PRN PRN Reason: Anxiety Last Admin: 02/15/23 14:41 Dose: 50 mg Hydroxyzine HCl (Hydroxyzine Hcl 25 Mg Tablet) 25 mg PO Q6H PRN PRN Reason: Anxiety [place] Carbonate ([place] Carbonate 300 Mg Tablet) 450 mg PO DAILY [facility] Last Admin: 02/17/23 09:40 Dose: 450 mg [place] Carbonate ([place] Carbonate 300 Mg Capsule) 600 mg PO BEDTIME [facility] Last Admin: 02/16/23 20:32 Dose: 600 mg Lorazepam (Lorazepam 1 Mg Tablet) 1 mg PO Q4H PRN PRN Reason: agitation Last Admin: 02/16/23 08:37 Dose: 1 mg Magnesium Hydroxide (Milk Of Magnesia 30 Ml Oral.Susp) 30 ml PO DAILY PRN PRN Reason: Constipation Metformin HCl (Metformin Hcl 500 Mg Tablet) 500 mg PO DAILY@1800 [facility] Last Admin: 02/17/23 18:46 Dose: 500 mg Naltrexone HCl (Naltrexone Hcl 50 Mg Tablet) 50 mg PO DAILY@0900 [facility] Last Admin: 02/17/23 09:40 Dose: 50 mg Ondansetron HCl (Ondansetron Odt 4 Mg Tab.Rapdis) 4 mg TRANSLINGU Q6H PRN PRN Reason: Nausea and Vomiting Last Admin: 02/17/23 09:07 Dose: 4 mg Sertraline HCl (Sertraline Hcl 100 Mg Tablet) 200 mg PO DAILY@09 [facility] Last Admin: 02/17/23 09:40 Dose: 200 mg Trazodone HCl (Trazodone Hcl 50 Mg Tablet) 50 mg PO BEDTIME MRX1 PRN PRN Reason: Insomnia Last Admin: 02/16/23 20:33 Dose: 50 mg Home Medications Medication Instructions Recorded Confirmed Last Taken Type amlodipine 5 mg tablet 5 mg PO DAILY 10/19/22 02/14/23 12/14/22 History benztropine 1 mg tablet 1 mg PO QAM 10/19/22 02/14/23 02/13/23 History carbamazepine 400 mg 400 mg PO TID 10/19/22 02/14/23 02/13/23 History tablet,extended release,12 hr chlorpromazine 100 mg tablet 50 mg PO BEDTIME 10/19/22 02/14/23 02/13/23 History haloperidol 5 mg tablet 5 mg PO BEDTIME 10/19/22 02/14/23 02/13/23 History hydroxyzine HCl 25 mg tablet 25 - 50 mg PO TID PRN Anxiety 10/19/22 02/14/23 02/13/23 History lithium carbonate 150 mg capsule 450 mg PO DAILY 10/19/22 02/14/23 02/13/23 History metformin 500 mg tablet 500 mg PO DAILY@1800 10/19/22 02/14/23 02/13/23 History naltrexone 50 mg tablet 50 mg PO QAM 10/19/22 02/14/23 02/13/23 History sertraline 100 mg tablet 200 mg PO QAM 10/19/22 02/14/23 02/13/23 History lithium carbonate 150 mg capsule 600 mg PO BEDTIME 02/14/23 02/14/23 02/13/23 History Physical Exam Vital Signs and Narrative: Vital Signs: Last Vital Signs Temp 97.6 F 02/17/23 08:54 Pulse 100 02/17/23 08:54 Resp 16 02/17/23 08:54 BP 135/84 02/17/23 08:54 Pulse Ox 97 02/17/23 08:54 O2 Del Method Room Air 02/17/23 08:54 BMI result Body Mass Index 37.8 Constitutional - Awake and Alert, No apparent distress Eyes - PERRLA, EOMI Cardiovascular - S1S2, RRR, No edema Respiratory - Normal lung expansion, Normal respiratory effort, No respiratory distress, CTA bilaterally. No drooling, stridor noted Gastrointestinal - mild ttp in rlq without any guarding or rebound. ND, +BS Extremities - no calf tenderness bilaterally, no swelling Skin - Warm/Dry Neurological - Alert & oriented x3 Psychological - Appropriate affect Results Labs 02/13/23 22:54 02/13/23 22:54 Labs: Laboratory Results - last 24 hr 02/17/23 08:02 POC Glucose 144 H Imaging Radiologist's Impressions: Impressions Chest X-Ray 02/16/23 20:15 IMPRESSION: 1. No unexpected radiopaque foreign bodies, although evaluation is limited due to patient body habitus. 2. No acute cardiopulmonary findings. Assessment and Plan (1) Foreign body ingestion: Qualifiers: Encounter type: initial encounter Qualified Code(s): T18.9XXA - Foreign body of alimentary tract, part unspecified, initial encounter Status: Acute Plan 27-year-old female with history of schizoaffective disorder, borderline personality disorder, behavioral dyscontrol with sx pica admitted to Psychiatry with consult placed hospitalist service due to patient intentionally swallowing the cap of the pen as well as a game piece. #Intentional foreign body ingestion -ingested plastic pen cap without clip and cribbage game piece last night -airway patent and no distress -cxr negative for FB or cardiopulmonary abn. further imaging not indicated at this time given absence of any radiopaque foreign body - abdominal exam benign - plastic pieces will likely pass through the GI tract into the stool without causing any complication - will add Metamucil as a bulking agent to help facilitate process - monitor stool output Thank you for allowing me to participate in this consult. Signing off at this time. Please do not hesitate to call for further questions or for any worsening symptoms immediately.
[2023-02-17] MEDS: LORazepam 1 MG TABLET PO (21:51)
[2023-02-17] MEDS: Lithium Carbonate 300 MG CAPSULE 600 MG PO (21:51)
[2023-02-17] MEDS: traZODone HCL 50 MG TABLET PO (21:51)
[2023-02-17] MEDS: Psyllium seed 3.7 GM PACKET PO (21:53)
--- NOTE | 2023-02-17 23:17 | P.PNPSI_ITS ---
Subjective Subjective Date of Service: 02/17/23 Reason For Visit: Sec 12 Interim History: cc: I dont need anything On 1:1 obs. Denies any issues aside from nausea, is agreeable to Zofran. Denies vomiting, stomach pain, fever, chills, SOB. She does not want to discuss nausea further or contributing factors (she intentionally swallowed some small objects yesterday (was seen by medicine, XR was normal. Per chart patient has chronic SI issues and was recently referred to GI). Reports mood is I dont know ambivalently denies SI, HI, AH, VH. Per staff lots of eating of objects, SIB, and attention seeking behaviors, sleep, appetite intact, no major events today. MSE:? Alert, oriented, in no acute distress. Disheveled. Poor hygiene. Calm, minimally cooperative, guarded, evasive. Eye contact avoidant. Mood depressed, affect flat. Normal normal. Thought process linear, coherent, some paucity but without FOI or RICK. Thought content relevant to stressors. Denies SI or HI, intention, urge or plan. Denies AH or VH. No evidence of perceptual disturbance. Sensorium clear. Insight and judgment poor/fair Medication Compliance: Yes Side effects from medications: No Diagnostics Vital Signs (24Hr): Vital Signs - 24 hr 02/17/23 08:54 Temperature 97.6 F Pulse Rate 100 Respiratory Rate 16 Blood Pressure 135/84 Pulse Oximetry 97 Oxygen Delivery Method Room Air BMI result Body Mass Index 37.8 Labs 02/13/23 22:54 02/13/23 22:54 Labs: Laboratory Results - last 48 hr 02/16/23 02/16/23 02/16/23 09:03 09:06 18:19 POC Glucose 143 H 151 H Estimat Average Glucose 134 Hemoglobin A1c % 6.3 H Magnesium 2.1 Triglycerides 500 H Cholesterol 187 LDL Cholesterol, Calc TNP HDL Cholesterol 33 L Vitamin B12 385 Folate 7.2 TSH 3.78 Free T4 0.72 02/17/23 08:02 POC Glucose 144 H Estimat Average Glucose Hemoglobin A1c % Magnesium Triglycerides Cholesterol LDL Cholesterol, Calc HDL Cholesterol Vitamin B12 Folate TSH Free T4 Imaging Radiology Impressions: ITS Impressions Chest X-Ray 02/16/23 20:15 IMPRESSION: 1. No unexpected radiopaque foreign bodies, although evaluation is limited due to patient body habitus. 2. No acute cardiopulmonary findings. Medications Medications Current Medications Acetaminophen (Acetaminophen 325 Mg Tablet) 650 mg PO Q6H PRN PRN Reason: Headache/Pain Mild Scale (1-3) Al Hydroxide/Mg Hydroxide (Magnesium Hydrox/Alum Hydrox 30 Ml Oral.Susp) 30 ml PO Q6H PRN PRN Reason: Heartburn/Nausea Amlodipine Besylate (Amlodipine Besylate 5 Mg Tablet) 5 mg PO DAILY [facility]; Protocol Last Admin: 02/17/23 09:40 Dose: 5 mg Benztropine Mesylate (Benztropine Mesylate 1 Mg Tablet) 1 mg PO DAILY@0900 [facility] Last Admin: 02/17/23 09:40 Dose: 1 mg Carbamazepine (Carbamazepine Er 200 Mg Tab.Er.12h) 400 mg PO TID [facility] Last Admin: 02/17/23 21:52 Dose: 400 mg Haloperidol (Haloperidol 5 Mg Tablet) 5 mg PO TID PRN PRN Reason: psychosis, agitation Last Admin: 02/15/23 18:19 Dose: 5 mg Haloperidol (Haloperidol 5 Mg Tablet) 7.5 mg PO BID [facility] Last Admin: 02/17/23 21:51 Dose: 7.5 mg Hydroxyzine HCl (Hydroxyzine Hcl 50 Mg Tablet) 50 mg PO TID PRN PRN Reason: Anxiety Last Admin: 02/15/23 14:41 Dose: 50 mg Hydroxyzine HCl (Hydroxyzine Hcl 25 Mg Tablet) 25 mg PO Q6H PRN PRN Reason: Anxiety [place] Carbonate ([place] Carbonate 300 Mg Tablet) 450 mg PO DAILY [facility] Last Admin: 02/17/23 09:40 Dose: 450 mg [place] Carbonate ([place] Carbonate 300 Mg Capsule) 600 mg PO BEDTIME [facility] Last Admin: 02/17/23 21:51 Dose: 600 mg Lorazepam (Lorazepam 1 Mg Tablet) 1 mg PO Q4H PRN PRN Reason: agitation Last Admin: 02/17/23 21:51 Dose: 1 mg Magnesium Hydroxide (Milk Of Magnesia 30 Ml Oral.Susp) 30 ml PO DAILY PRN PRN Reason: Constipation Metformin HCl (Metformin Hcl 500 Mg Tablet) 500 mg PO DAILY@1800 [facility] Last Admin: 02/17/23 19:13 Dose: Not Given Naltrexone HCl (Naltrexone Hcl 50 Mg Tablet) 50 mg PO DAILY@0900 [facility] Last Admin: 02/17/23 09:40 Dose: 50 mg Ondansetron HCl (Ondansetron Odt 4 Mg Tab.Rapdis) 4 mg TRANSLINGU Q6H PRN PRN Reason: Nausea and Vomiting Last Admin: 02/17/23 09:07 Dose: 4 mg Psyllium Hydrophilic Mucilloid (Psyllium Seed 3.7 Gm Packet) 3.7 gm PO BEDTIME [facility] Stop: 02/19/23 21:01 Last Admin: 02/17/23 21:53 Dose: 3.7 gm Sertraline HCl (Sertraline Hcl 100 Mg Tablet) 200 mg PO DAILY@0900 [facility] Last Admin: 02/17/23 09:40 Dose: 200 mg Trazodone HCl (Trazodone Hcl 50 Mg Tablet) 50 mg PO BEDTIME MRX1 PRN PRN Reason: Insomnia Last Admin: 02/17/23 21:51 Dose: 50 mg Allergies Allergies Allergy/AdvReac Type Severity Reaction Status Date / Time No Known Allergies Allergy Verified 09/05/22 21:25 [No Known Allergies*] Assessment & Plan Assessment & Plan (1) Foreign body ingestion: Qualifiers: Encounter type: initial encounter Qualified Code(s): T18.9XXA - Foreign body of alimentary tract, part unspecified, initial encounter Status: Acute Code(s): T18.9XXA - Foreign body of alimentary tract, part unspecified, initial encounter Plan 27-year-old female with history of schizoaffective disorder, borderline personality disorder, behavioral dyscontrol with sx pica admitted to Psychiatry with consult placed hospitalist service due to patient intentionally swallowing the cap of the pen as well as a game piece. #Intentional foreign body ingestion -ingested plastic pen cap without clip and cribbage game piece last night -airway patent and no distress -cxr negative for FB or cardiopulmonary abn. further imaging not indicated at this time given absence of any radiopaque foreign body - abdominal exam benign - plastic pieces will likely pass through the GI tract into the stool without causing any complication - will add Metamucil as a bulking agent to help facilitate process - monitor stool output Thank you for allowing me to participate in this consult. Signing off at this time. Please do not hesitate to call for further questions or for any worsening symptoms immediately. Reason for continued inpatient stay Substantial Risk for: harm to others, inability to function, rapid decompensation and med/psych decompensation Time Spent With Patient Time: Total time managing care of this patient today ____ minutes.
[2023-02-18 02:28] LABS: Glucose, Whole Blood 120 mg/dL (60-115)
[2023-02-18 07:33] LABS: Lithium 0.67 mmol/L (0.60-1.20)
[2023-02-18] MEDS: carBAMazepine ER 200 MG TAB.ER.12H 400 MG PO ×2 (13:24→21:11)
[2023-02-18] MEDS: Ondansetron ODT 4 MG TAB.RAPDIS TRANSLINGU ×2 (13:24→15:03)
[2023-02-18] MEDS: HaloperidoL 5 MG TABLET 7.5 MG PO ×2 (13:33→21:12)
--- NOTE | 2023-02-18 13:35 | PC.NURSE ---
Pt slept through morning med pass. Upon waking she stated that she would not take 9am meds at 1pm because I'm not stupid. After prompting from doctor, she agreed to take haldol 7.5mg and tegretol 400mg at 1:30. She responded well to verbal descalation
[2023-02-18] MEDS: hydrOXYzine HCL 50 MG TABLET PO (18:26)
[2023-02-18] MEDS: LORazepam 1 MG TABLET PO (21:13)
[2023-02-18] MEDS: Lithium Carbonate 300 MG CAPSULE 600 MG PO (21:13)
[2023-02-18] MEDS: traZODone HCL 50 MG TABLET PO (21:14)
--- NOTE | 2023-02-18 22:54 | HO.PSYCHPN ---
Subjective Subjective Date of Service: 02/18/23 Reason For Visit: Sec 12 Subjective Notes: Section 12B Interim History: cc: This is Bull*&^t! On 1:1 obs. Has been intermittently hostile throughout the day. 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 One event patient threw cake at nursing window and dish and food fell to floor (bc she received 'finger foods') Patient tends to walk away from altercations, standing alone in hallway, glaring angrily and expressing her frustrations, especially about staff and the general hospital care a number of times today. She ultimately returns to room to de-escalate Patient took only hydroxyzine this morning. She woke late and was angry at staff for not waking her earlier and complains of missing her 9am meds but is refusing to take them (except for hydroxyzine) even though they were available and offered by RN. She ultimately agreed to taking 2pm Tegretol and Haldol together but remains highly irritable and demanding for remainder of shift. She is particularly angry about not being allowed to go to groups (specifically OT group) where she had swallowed a couple of small objects 2 days ago. c/o nausea and Zofran 4 mg only works for an hour. SI, HI, AH, VH unobtainable as patient refused to respond to inquiry. cc: I dont need anything On 1:1 obs. Denies any issues aside from nausea, is agreeable to Zofran. Denies vomiting, stomach pain, fever, chills, SOB. She does not want to discuss nausea further or contributing factors (she intentionally swallowed some small objects yesterday (was seen by medicine, XR was normal. Per chart patient has chronic SI issues and was recently referred to GI). Reports mood is I dont know ambivalently denies SI, HI, AH, VH. Per staff lots of eating of objects, SIB, and attention seeking behaviors, sleep, appetite intact, no major events today. MSE:? Alert, oriented, in no acute distress. Disheveled. Poor hygiene. Angry, belligerent, uncooperative, guarded. Eye contact momentarily intense/glaring otherwise avoidant. Mood pissed off , affect flat, angry. Normal loud without pressured speech. Thought process linear, coherent, some disorganization but without FOI or RICK. Thought content relevant to complaints. No mention of SI or HI, intention, urge or plan. Upon inquiry, unable to obtain status AH or VH. No evidence of perceptual disturbance. Sensorium clear. Insight and judgment poor. Diagnostics Vital Signs (24Hr): BMI result Body Mass Index 37.8 Labs 02/13/23 22:54 02/13/23 22:54 Labs: Laboratory Results - last 48 hr 02/17/23 02/17/23 02/18/23 08:02 22:14 07:18 POC Glucose 144 H 120 H [place] 0.67 Imaging Radiology Impressions: ITS Impressions Chest X-Ray 02/16/23 20:15 IMPRESSION: 1. No unexpected radiopaque foreign bodies, although evaluation is limited due to patient body habitus. 2. No acute cardiopulmonary findings. Medications Medications Current Medications Acetaminophen (Acetaminophen 325 Mg Tablet) 650 mg PO Q6H PRN PRN Reason: Headache/Pain Mild Scale (1-3) Al Hydroxide/Mg Hydroxide (Magnesium Hydrox/Alum Hydrox 30 Ml Oral.Susp) 30 ml PO Q6H PRN PRN Reason: Heartburn/Nausea Amlodipine Besylate (Amlodipine Besylate 5 Mg Tablet) 5 mg PO DAILY [facility]; Protocol Last Admin: 02/18/23 13:07 Dose: Not Given Benztropine Mesylate (Benztropine Mesylate 1 Mg Tablet) 1 mg PO DAILY@0900 [facility] Last Admin: 02/18/23 13:07 Dose: Not Given Carbamazepine (Carbamazepine Er 200 Mg Tab.Er.12h) 400 mg PO TID [facility] Last Admin: 02/18/23 21:11 Dose: 400 mg Haloperidol (Haloperidol 5 Mg Tablet) 5 mg PO TID PRN PRN Reason: psychosis, agitation Last Admin: 02/15/23 18:19 Dose: 5 mg Haloperidol (Haloperidol 5 Mg Tablet) 7.5 mg PO BID [facility] Last Admin: 02/18/23 21:12 Dose: 7.5 mg Hydroxyzine HCl (Hydroxyzine Hcl 50 Mg Tablet) 50 mg PO TID PRN PRN Reason: Anxiety Last Admin: 02/18/23 18:26 Dose: 50 mg Hydroxyzine HCl (Hydroxyzine Hcl 25 Mg Tablet) 25 mg PO Q6H PRN PRN Reason: Anxiety [place] Carbonate ([place] Carbonate 300 Mg Tablet) 450 mg PO DAILY [facility] Last Admin: 02/18/23 13:07 Dose: Not Given [place] Carbonate ([place] Carbonate 300 Mg Capsule) 600 mg PO BEDTIME [facility] Last Admin: 02/18/23 21:13 Dose: 600 mg Lorazepam (Lorazepam 1 Mg Tablet) 1 mg PO Q4H PRN PRN Reason: agitation Last Admin: 02/18/23 21:13 Dose: 1 mg Magnesium Hydroxide (Milk Of Magnesia 30 Ml Oral.Susp) 30 ml PO DAILY PRN PRN Reason: Constipation Metformin HCl (Metformin Hcl 500 Mg Tablet) 500 mg PO DAILY@1800 [facility] Last Admin: 02/18/23 18:17 Dose: Not Given Naltrexone HCl (Naltrexone Hcl 50 Mg Tablet) 50 mg PO DAILY@0900 [facility] Last Admin: 02/18/23 13:08 Dose: Not Given Ondansetron HCl (Ondansetron Odt 4 Mg Tab.Rapdis) 8 mg TRANSLINGU Q4H PRN PRN Reason: Nausea and Vomiting Psyllium Hydrophilic Mucilloid (Psyllium Seed 3.7 Gm Packet) 3.7 gm PO BEDTIME [facility] Stop: 02/19/23 21:01 Last Admin: 02/18/23 22:12 Dose: Not Given Sertraline HCl (Sertraline Hcl 100 Mg Tablet) 200 mg PO DAILY@0900 [facility] Last Admin: 02/18/23 13:08 Dose: Not Given Trazodone HCl (Trazodone Hcl 50 Mg Tablet) 50 mg PO BEDTIME MRX1 PRN PRN Reason: Insomnia Last Admin: 02/18/23 21:14 Dose: 50 mg Allergies Allergies Allergy/AdvReac Type Severity Reaction Status Date / Time No Known Allergies Allergy Verified 09/05/22 21:25 [No Known Allergies*] Assessment & Plan Assessment & Plan (1) Foreign body ingestion: Qualifiers: Encounter type: initial encounter Qualified Code(s): T18.9XXA - Foreign body of alimentary tract, part unspecified, initial encounter Status: Acute Code(s): T18.9XXA - Foreign body of alimentary tract, part unspecified, initial encounter Plan 27-year-old female with history of schizoaffective disorder, borderline personality disorder, behavioral dyscontrol with sx pica admitted to Psychiatry with consult placed hospitalist service due to patient intentionally swallowing the cap of the pen as well as a game piece. #Intentional foreign body ingestion -ingested plastic pen cap without clip and cribbage game piece last night -airway patent and no distress -cxr negative for FB or cardiopulmonary abn. further imaging not indicated at this time given absence of any radiopaque foreign body - abdominal exam benign - plastic pieces will likely pass through the GI tract into the stool without causing any complication - will add Metamucil as a bulking agent to help facilitate process - monitor stool output Thank you for allowing me to participate in this consult. Signing off at this time. Please do not hesitate to call for further questions or for any worsening symptoms immediately. Reason for continued inpatient stay Substantial Risk for: harm to self, harm to others, inability to function, rapid decompensation and med/psych decompensation Time Spent With Patient Time: Total time managing care of this patient today ____ minutes.
[2023-02-19] MEDS: Lithium Carbonate 300 MG TABLET 450 MG PO (08:56)
[2023-02-19] MEDS: Naltrexone HCl 50 MG TABLET PO (08:56)
[2023-02-19] MEDS: Benztropine Mesylate 1 MG TABLET PO (08:56)
[2023-02-19] MEDS: HaloperidoL 5 MG TABLET 7.5 MG PO ×2 (08:56→21:44)
[2023-02-19] MEDS: carBAMazepine ER 200 MG TAB.ER.12H 400 MG PO ×2 (08:57→22:08)
[2023-02-19] MEDS: Sertraline HCL 100 MG TABLET 200 MG PO (08:57)
[2023-02-19] MEDS: amLODIPine Besylate 5 MG TABLET PO (08:57)
[2023-02-19] MEDS: Ondansetron ODT 4 MG TAB.RAPDIS 8 MG TRANSLINGU (13:26)
[2023-02-19] MEDS: Lithium Carbonate 300 MG CAPSULE 600 MG PO (21:43)
--- NOTE | 2023-02-19 22:10 | HO.PSYCHPN ---
Subjective Subjective Date of Service: 02/19/23 Reason For Visit: Sec 12 Interim History: Patient on 1:1 obs. She spent most of the day in her room. She was lying in bed with eyes closed when I approached her. She did not respond to being addressed, but could be heard breathing, appeared to be comfortable. Sitter informed me she had been sleeping on and off today. I had seen her briefly and she appears with flat, withdrawn, slightly irritable, but mostly isolative. She was seen out of her room in the morning for AM medications and ate breakfast but returned to bed. uncooperative to interview. Eyes closed. Mood, thought process and content unobtainable currently. Affect flat throughout day, irritable, no lability noted. Better impulse control today. No events today thus far. No complaints to staff. She took one dose of Zofran around lunchtime. Sun: cc: This is Bull*&^t! On 1:1 obs. Has been intermittently hostile throughout the day. Several events on milieu, a couple of spontaneous unprovoked altercations with specific staff members, 1:1 internet sales consultant, and a few peers ,that were de-escalated with much effort from staff. One event patient threw cake at nursing window and dish and food fell to floor (bc she received 'finger foods') Patient tends to walk away from altercations, standing alone in hallway, glaring angrily and expressing her frustrations, especially about staff and the general hospital care a number of times today. She ultimately returns to room to de-escalate Patient took only hydroxyzine this morning. She woke late and was angry at staff for not waking her earlier and complains of missing her 9am meds but is refusing to take them (except for hydroxyzine) even though they were available and offered by RN. She ultimately agreed to taking 2pm Tegretol and Haldol together but remains highly irritable and demanding for remainder of shift. She is particularly angry about not being allowed to go to groups (specifically OT group) where she had swallowed a couple of small objects 2 days ago. c/o nausea and Zofran 4 mg only works for an hour. SI, HI, AH, VH unobtainable as patient refused to respond to inquiry. cc: I dont need anything On 1:1 obs. Denies any issues aside from nausea, is agreeable to Zofran. Denies vomiting, stomach pain, fever, chills, SOB. She does not want to discuss nausea further or contributing factors (she intentionally swallowed some small objects yesterday (was seen by medicine, XR was normal. Per chart patient has chronic SI issues and was recently referred to GI). Reports mood is I dont know ambivalently denies SI, HI, AH, VH. Per staff lots of eating of objects, SIB, and attention seeking behaviors, sleep, appetite intact, no major events today. Alert, oriented, in no acute distress. Disheveled. Poor hygiene. Angry, belligerent, uncooperative, guarded. Eye contact momentarily intense/glaring otherwise avoidant. Mood pissed off , affect flat, angry. Normal loud without pressured speech. Thought process linear, coherent, some disorganization but without FOI or IRCK. Thought content relevant to complaints. No mention of SI or HI, intention, urge or plan. Upon inquiry, unable to obtain status AH or VH. No evidence of perceptual disturbance. Sensorium clear. Insight and judgment poor. Diagnostics Vital Signs (24Hr): BMI result Body Mass Index 37.8 Labs 02/13/23 22:54 02/13/23 22:54 Labs: Laboratory Results - last 48 hr 02/17/23 02/18/23 22:14 07:18 POC Glucose 120 H [place] 0.67 Imaging Radiology Impressions: ITS Impressions Chest X-Ray 02/16/23 20:15 IMPRESSION: 1. No unexpected radiopaque foreign bodies, although evaluation is limited due to patient body habitus. 2. No acute cardiopulmonary findings. Medications Medications Current Medications Acetaminophen (Acetaminophen 325 Mg Tablet) 650 mg PO Q6H PRN PRN Reason: Headache/Pain Mild Scale (1-3) Al Hydroxide/Mg Hydroxide (Magnesium Hydrox/Alum Hydrox 30 Ml Oral.Susp) 30 ml PO Q6H PRN PRN Reason: Heartburn/Nausea Amlodipine Besylate (Amlodipine Besylate 5 Mg Tablet) 5 mg PO DAILY [facility]; Protocol Last Admin: 02/19/23 08:57 Dose: 5 mg Benztropine Mesylate (Benztropine Mesylate 1 Mg Tablet) 1 mg PO DAILY@0900 [facility] Last Admin: 02/19/23 08:56 Dose: 1 mg Carbamazepine (Carbamazepine Er 200 Mg Tab.Er.12h) 400 mg PO TID [facility] Last Admin: 02/19/23 22:08 Dose: 400 mg Haloperidol (Haloperidol 5 Mg Tablet) 5 mg PO TID PRN PRN Reason: psychosis, agitation Last Admin: 02/15/23 18:19 Dose: 5 mg Haloperidol (Haloperidol 5 Mg Tablet) 7.5 mg PO BID [facility] Last Admin: 02/19/23 21:44 Dose: 7.5 mg Hydroxyzine HCl (Hydroxyzine Hcl 50 Mg Tablet) 50 mg PO TID PRN PRN Reason: Anxiety Last Admin: 02/18/23 18:26 Dose: 50 mg Hydroxyzine HCl (Hydroxyzine Hcl 25 Mg Tablet) 25 mg PO Q6H PRN PRN Reason: Anxiety [place] Carbonate ([place] Carbonate 300 Mg Tablet) 450 mg PO DAILY [facility] Last Admin: 02/19/23 08:56 Dose: 450 mg [place] Carbonate ([place] Carbonate 300 Mg Capsule) 600 mg PO BEDTIME [facility] Last Admin: 02/19/23 21:43 Dose: 600 mg Lorazepam (Lorazepam 1 Mg Tablet) 1 mg PO Q4H PRN PRN Reason: agitation Last Admin: 02/18/23 21:13 Dose: 1 mg Magnesium Hydroxide (Milk Of Magnesia 30 Ml Oral.Susp) 30 ml PO DAILY PRN PRN Reason: Constipation Metformin HCl (Metformin Hcl 500 Mg Tablet) 500 mg PO DAILY@1800 [facility] Last Admin: 02/19/23 18:13 Dose: Not Given Naltrexone HCl (Naltrexone Hcl 50 Mg Tablet) 50 mg PO DAILY@0900 [facility] Last Admin: 02/19/23 08:56 Dose: 50 mg Ondansetron HCl (Ondansetron Odt 4 Mg Tab.Rapdis) 8 mg TRANSLINGU Q4H PRN PRN Reason: Nausea and Vomiting Last Admin: 02/19/23 13:26 Dose: 8 mg Sertraline HCl (Sertraline Hcl 100 Mg Tablet) 200 mg PO DAILY@0900 [facility] Last Admin: 02/19/23 08:57 Dose: 200 mg Trazodone HCl (Trazodone Hcl 50 Mg Tablet) 50 mg PO BEDTIME MRX1 PRN PRN Reason: Insomnia Last Admin: 02/18/23 21:14 Dose: 50 mg Allergies Allergies Allergy/AdvReac Type Severity Reaction Status Date / Time No Known Allergies Allergy Verified 09/05/22 21:25 [No Known Allergies*] Assessment & Plan Assessment & Plan (1) Foreign body ingestion: Qualifiers: Encounter type: initial encounter Qualified Code(s): T18.9XXA - Foreign body of alimentary tract, part unspecified, initial encounter Status: Acute Code(s): T18.9XXA - Foreign body of alimentary tract, part unspecified, initial encounter Plan 27-year-old female with history of schizoaffective disorder, borderline personality disorder, behavioral dyscontrol with sx pica admitted to Psychiatry with consult placed hospitalist service due to patient intentionally swallowing the cap of the pen as well as a game piece. #Intentional foreign body ingestion -ingested plastic pen cap without clip and cribbage game piece last night -airway patent and no distress -cxr negative for FB or cardiopulmonary abn. further imaging not indicated at this time given absence of any radiopaque foreign body - abdominal exam benign - plastic pieces will likely pass through the GI tract into the stool without causing any complication - will add Metamucil as a bulking agent to help facilitate process - monitor stool output Thank you for allowing me to participate in this consult. Signing off at this time. Please do not hesitate to call for further questions or for any worsening symptoms immediately. Reason for continued inpatient stay Substantial Risk for: harm to self, harm to others, inability to function, rapid decompensation and med/psych decompensation Time Spent With Patient Time: Total time managing care of this patient today ____ minutes.
--- NOTE | 2023-02-20 00:46 | PC.NURSE ---
Patient declined POC on 2nd shift and also refused Metformin.
[2023-02-20] MEDS: LORazepam 1 MG TABLET PO ×2 (05:33→19:27)
[2023-02-20] MEDS: hydrOXYzine HCL 50 MG TABLET PO ×2 (05:33→19:27)
--- NOTE | 2023-02-20 08:28 | PC.NURSE ---
pt refused creatinine lab draw this morning - provider CAW notified via tiger text
[2023-02-20] MEDS: carBAMazepine ER 200 MG TAB.ER.12H 400 MG PO ×2 (09:45→21:28)
[2023-02-20] MEDS: Naltrexone HCl 50 MG TABLET PO (09:46)
[2023-02-20] MEDS: Sertraline HCL 100 MG TABLET 200 MG PO (09:46)
[2023-02-20] MEDS: HaloperidoL 5 MG TABLET 7.5 MG PO ×2 (09:47→21:28)
[2023-02-20] MEDS: Benztropine Mesylate 1 MG TABLET PO (09:48)
[2023-02-20] MEDS: Lithium Carbonate 300 MG TABLET 450 MG PO (09:55)
--- NOTE | 2023-02-20 17:18 | HO.PSYCHPN ---
Subjective Subjective Date of Service: 02/20/23 Reason For Visit: Sec 12 Subjective Notes: Conditional Voluntary Healthcare Proxy: No Guardianship: No Medical Problems Affecting Mental Status: No Interim History: Team reports irritable, hostile, with some aggression, behavioral dyscontrol and poor modulation over the weekend. Some med refusals. On 02/16 evening pt reportedly ate a pen cap and a cribbage game piece. She was seen by the hospitalist team, had radiology intervention as well. She remains on one to one. Today, she agreed to meet with team. When asked what she would like to learn from this hospitalization she replied to have a more consistent mood . To not feel over medicated or overtired . Cites feeling tired today as she took Trazodone and Ativan too early this a.m. and they are still effective. Pt also believes she has a binge eating disorder, I eat when I am full . She has interest in a [place] referral when stable to begin to work on this. States she feels I never have enough food on my tray . Review of meds-asks to make a change of antidepressant as she finds Sertraline is not helpful. I also need a therapist . Asks to transfer to a different [facility] office. Reviewed med options to assist with depression/binge eating. She is willing to review handouts. Asks for a change of out pt prescriber as well. Discussed most recent admission to [facility] which she found to be very difficult. They just pushed Haldol. Medication Compliance: Intermittent Side effects from medications: No Attending Groups: No Review of Systems Acute medical concerns: No Medical Review of Systems: unchanged Review of Systems Review of Systems Yes all other systems are reviewed and are negative (denies) Mental Status Exam Mental Status Exam Patient Appearance: Appropriate Patient Orientation: Person, Place, Time and Situation Level of Consciousness: Alert Patient Behavior: Talkative, Cooperative, Anxious and Distractible Mood Description: Anxious and Apprehensive Affect Description: Anxious and Apprehensive Patient Cognition Impaired: No Ability to Follow Directions: Good Speech Pattern: Spontaneous Speech, Soft-Spoken, Delayed and Long Pauses Memory Description: Episodic Impaired Hallucinations: None (denies, however, appears distracted and may be experiencing) Delusions: Not Present Perceptual Disturbances: Depersonalization and Derealization Thought Process: Distracted and Rumination Thought Content: positive for Circumstantial and positive for Tangential Depressive Symptoms: Increased Anxiety and Difficulty Concentrating Judgement: Fair Diagnostics Vital Signs (24Hr): BMI result Body Mass Index 37.8 Labs 02/13/23 22:54 02/13/23 22:54 Imaging Radiology Impressions: ITS Impressions Chest X-Ray 02/16/23 20:15 IMPRESSION: 1. No unexpected radiopaque foreign bodies, although evaluation is limited due to patient body habitus. 2. No acute cardiopulmonary findings. Medications Medications Current Medications Acetaminophen (Acetaminophen 325 Mg Tablet) 650 mg PO Q6H PRN PRN Reason: Headache/Pain Mild Scale (1-3) Al Hydroxide/Mg Hydroxide (Magnesium Hydrox/Alum Hydrox 30 Ml Oral.Susp) 30 ml PO Q6H PRN PRN Reason: Heartburn/Nausea Amlodipine Besylate (Amlodipine Besylate 5 Mg Tablet) 5 mg PO DAILY [facility]; Protocol Last Admin: 02/20/23 09:56 Dose: Not Given Benztropine Mesylate (Benztropine Mesylate 1 Mg Tablet) 1 mg PO DAILY@0900 [facility] Last Admin: 02/20/23 09:48 Dose: 1 mg Carbamazepine (Carbamazepine Er 200 Mg Tab.Er.12h) 400 mg PO TID [facility] Last Admin: 02/20/23 14:38 Dose: Not Given Haloperidol (Haloperidol 5 Mg Tablet) 5 mg PO TID PRN PRN Reason: psychosis, agitation Last Admin: 02/15/23 18:19 Dose: 5 mg Haloperidol (Haloperidol 5 Mg Tablet) 7.5 mg PO BID [facility] Last Admin: 02/20/23 09:47 Dose: 7.5 mg Hydroxyzine HCl (Hydroxyzine Hcl 50 Mg Tablet) 50 mg PO TID PRN PRN Reason: Anxiety Last Admin: 02/20/23 05:33 Dose: 50 mg Hydroxyzine HCl (Hydroxyzine Hcl 25 Mg Tablet) 25 mg PO Q6H PRN PRN Reason: Anxiety [place] Carbonate ([place] Carbonate 300 Mg Tablet) 450 mg PO DAILY [facility] Last Admin: 02/20/23 09:55 Dose: 450 mg [place] Carbonate ([place] Carbonate 300 Mg Capsule) 600 mg PO BEDTIME [facility] Last Admin: 02/19/23 21:43 Dose: 600 mg Lorazepam (Lorazepam 1 Mg Tablet) 1 mg PO Q4H PRN PRN Reason: agitation Last Admin: 02/20/23 05:33 Dose: 1 mg Magnesium Hydroxide (Milk Of Magnesia 30 Ml Oral.Susp) 30 ml PO DAILY PRN PRN Reason: Constipation Metformin HCl (Metformin Hcl 500 Mg Tablet) 500 mg PO DAILY@1800 [facility] Last Admin: 02/19/23 18:13 Dose: Not Given Naltrexone HCl (Naltrexone Hcl 50 Mg Tablet) 50 mg PO DAILY@0900 [facility] Last Admin: 02/20/23 09:46 Dose: 50 mg Ondansetron HCl (Ondansetron Odt 4 Mg Tab.Rapdis) 8 mg TRANSLINGU Q4H PRN PRN Reason: Nausea and Vomiting Last Admin: 02/19/23 13:26 Dose: 8 mg Sertraline HCl (Sertraline Hcl 100 Mg Tablet) 200 mg PO DAILY@0900 [facility] Last Admin: 02/20/23 09:46 Dose: 200 mg Trazodone HCl (Trazodone Hcl 50 Mg Tablet) 50 mg PO BEDTIME MRX1 PRN PRN Reason: Insomnia Last Admin: 02/18/23 21:14 Dose: 50 mg Allergies Allergies Allergy/AdvReac Type Severity Reaction Status Date / Time No Known Allergies Allergy Verified 09/05/22 21:25 [No Known Allergies*] Assessment & Plan Assessment & Plan (1) Schizoaffective disorder: Status: Acute Code(s): F25.9 - Schizoaffective disorder, unspecified (2) Borderline personality disorder: Status: Acute Code(s): F60.3 - Borderline personality disorder Plan 27-year-old female with history of schizoaffective disorder, borderline personality disorder, behavioral dyscontrol with sx pica admitted to Psychiatry with consult placed hospitalist service due to patient intentionally swallowing the cap of the pen as well as a game piece. 02/20/23: Pt active and participatory today in her team meeting, offering her insight as to changes she would find helpful, medicine efficacy and treatment planning. Intermittent behavioral issues with indicator that one to one should remain in place at this time. Continue current plan of care and regime. Pt will be given medication teaching sheets to review as she would like a change in her antidepressant. Patient educated on: medication risk/benefits and therapeutic strategies Informed Consent: further education needed Reason for continued inpatient stay Substantial Risk for: rapid decompensation Time Spent With Patient Time: Total time managing care of this patient today ____ minutes.
[2023-02-20] MEDS: HaloperidoL 5 MG TABLET PO (19:27)
[2023-02-20 19:45] VITALS: RESP 18
[2023-02-20] MEDS: Milk of Magnesia 30 ML ORAL.SUSP PO (19:59)
[2023-02-20] MEDS: Lithium Carbonate 300 MG CAPSULE 600 MG PO (21:28)
[2023-02-20 22:23] LABS: Glucose, Whole Blood 164 mg/dL (60-115)
[2023-02-21] MEDS: traZODone HCL 50 MG TABLET PO ×2 (00:38→22:23)
[2023-02-21] MEDS: LORazepam 1 MG TABLET PO (00:38)
[2023-02-21] MEDS: carBAMazepine ER 200 MG TAB.ER.12H 400 MG PO ×3 (08:53→22:11)
[2023-02-21] MEDS: Benztropine Mesylate 1 MG TABLET PO (08:53)
[2023-02-21] MEDS: amLODIPine Besylate 5 MG TABLET PO (08:53)
[2023-02-21] MEDS: HaloperidoL 5 MG TABLET 7.5 MG PO (08:53)
[2023-02-21] MEDS: Naltrexone HCl 50 MG TABLET PO (08:53)
[2023-02-21] MEDS: Sertraline HCL 100 MG TABLET 200 MG PO (08:53)
[2023-02-21] MEDS: Lithium Carbonate 300 MG TABLET 450 MG PO (08:55)
--- NOTE | 2023-02-21 15:51 | HO.PSYCHPN ---
Subjective Subjective Date of Service: 02/21/23 Reason For Visit: Sec 12 Subjective Notes: Conditional Voluntary Healthcare Proxy: No Guardianship: No Medical Problems Affecting Mental Status: No Interim History: Pt remains on one to one. She accepted and reviewed medication teaching sheets. She asks to begin a low dose of Wellbutrin to address depressive sx and assist with appetite mgt. Discussed med options for binge eating sx and availability post discharge as all are not on [facility] [place]. She was interested and interactive with [facility] therapy dog today and spent a considerable amount of time with positive, appropriate interaction with the dog and offering her connection. Medication Compliance: Intermittent Side effects from medications: No Attending Groups: No Review of Systems Acute medical concerns: No Medical Review of Systems: unchanged Review of Systems Review of Systems Told team at one point today she was not feeling well. Refused labs Reports to team of feeling weakness. Yes all other systems are reviewed and are negative Mental Status Exam Mental Status Exam Patient Appearance: Appropriate Patient Orientation: Person, Place, Time and Situation Level of Consciousness: Alert Patient Behavior: Talkative, Cooperative, Anxious and Distractible Mood Description: Anxious and Apprehensive Affect Description: Anxious and Apprehensive Patient Cognition Impaired: No Ability to Follow Directions: Good Speech Pattern: Spontaneous Speech, Soft-Spoken, Delayed and Long Pauses Memory Description: Episodic Impaired Hallucinations: None (denies, however, appears distracted and may be experiencing) Delusions: Not Present Perceptual Disturbances: Depersonalization and Derealization Thought Process: Distracted and Rumination Thought Content: positive for Circumstantial and positive for Tangential Depressive Symptoms: Increased Anxiety and Difficulty Concentrating Judgement: Fair Diagnostics Vital Signs (24Hr): Vital Signs - 24 hr 02/20/23 19:45 Respiratory Rate 18 BMI result Body Mass Index 37.8 Labs 02/13/23 22:54 02/13/23 22:54 Labs: Laboratory Results - last 48 hr 02/20/23 02/21/23 21:33 10:02 POC Glucose 164 H 199 H Imaging Radiology Impressions: ITS Impressions Chest X-Ray 02/16/23 20:15 IMPRESSION: 1. No unexpected radiopaque foreign bodies, although evaluation is limited due to patient body habitus. 2. No acute cardiopulmonary findings. Medications Medications Current Medications Acetaminophen (Acetaminophen 325 Mg Tablet) 650 mg PO Q6H PRN PRN Reason: Headache/Pain Mild Scale (1-3) Al Hydroxide/Mg Hydroxide (Magnesium Hydrox/Alum Hydrox 30 Ml Oral.Susp) 30 ml PO Q6H PRN PRN Reason: Heartburn/Nausea Amlodipine Besylate (Amlodipine Besylate 5 Mg Tablet) 5 mg PO DAILY [facility]; Protocol Last Admin: 02/21/23 08:53 Dose: 5 mg Benztropine Mesylate (Benztropine Mesylate 1 Mg Tablet) 1 mg PO DAILY@0900 [facility] Last Admin: 02/21/23 08:53 Dose: 1 mg Carbamazepine (Carbamazepine Er 200 Mg Tab.Er.12h) 400 mg PO TID [facility] Last Admin: 02/21/23 15:07 Dose: 400 mg Haloperidol (Haloperidol 5 Mg Tablet) 5 mg PO TID PRN PRN Reason: psychosis, agitation Last Admin: 02/20/23 19:27 Dose: 5 mg Haloperidol (Haloperidol 5 Mg Tablet) 7.5 mg PO BID [facility] Last Admin: 02/21/23 08:53 Dose: 7.5 mg Hydroxyzine HCl (Hydroxyzine Hcl 50 Mg Tablet) 50 mg PO TID PRN PRN Reason: Anxiety Last Admin: 02/20/23 19:27 Dose: 50 mg Hydroxyzine HCl (Hydroxyzine Hcl 25 Mg Tablet) 25 mg PO Q6H PRN PRN Reason: Anxiety [place] Carbonate ([place] Carbonate 300 Mg Tablet) 450 mg PO DAILY [facility] Last Admin: 02/21/23 08:55 Dose: 450 mg [place] Carbonate ([place] Carbonate 300 Mg Capsule) 600 mg PO BEDTIME [facility] Last Admin: 02/20/23 21:28 Dose: 600 mg Lorazepam (Lorazepam 1 Mg Tablet) 1 mg PO Q4H PRN PRN Reason: agitation Last Admin: 02/21/23 00:38 Dose: 1 mg Magnesium Hydroxide (Milk Of Magnesia 30 Ml Oral.Susp) 30 ml PO DAILY PRN PRN Reason: Constipation Last Admin: 02/20/23 19:59 Dose: 30 ml Metformin HCl (Metformin Hcl 500 Mg Tablet) 500 mg PO DAILY@1800 [facility] Last Admin: 02/20/23 20:10 Dose: Not Given Naltrexone HCl (Naltrexone Hcl 50 Mg Tablet) 50 mg PO DAILY@0900 [facility] Last Admin: 02/21/23 08:53 Dose: 50 mg Ondansetron HCl (Ondansetron Odt 4 Mg Tab.Rapdis) 8 mg TRANSLINGU Q4H PRN PRN Reason: Nausea and Vomiting Last Admin: 02/19/23 13:26 Dose: 8 mg Sertraline HCl (Sertraline Hcl 100 Mg Tablet) 200 mg PO DAILY@0900 [facility] Last Admin: 02/21/23 08:53 Dose: 200 mg Trazodone HCl (Trazodone Hcl 50 Mg Tablet) 50 mg PO BEDTIME MRX1 PRN PRN Reason: Insomnia Last Admin: 02/21/23 00:38 Dose: 50 mg Allergies Allergies Allergy/AdvReac Type Severity Reaction Status Date / Time No Known Allergies Allergy Verified 09/05/22 21:25 [No Known Allergies*] Assessment & Plan Assessment & Plan (1) Schizoaffective disorder: Status: Acute Code(s): F25.9 - Schizoaffective disorder, unspecified (2) Borderline personality disorder: Status: Acute Code(s): F60.3 - Borderline personality disorder Plan 27-year-old female with history of schizoaffective disorder, borderline personality disorder, behavioral dyscontrol with sx pica admitted to Psychiatry with consult placed hospitalist service due to patient intentionally swallowing the cap of the pen as well as a game piece. 02/20/23: Pt active and participatory today in her team meeting, offering her insight as to changes she would find helpful, medicine efficacy and treatment planning. Intermittent behavioral issues with indicator that one to one should remain in place at this time. Continue current plan of care and regime. Pt will be given medication teaching sheets to review as she would like a change in her antidepressant. 02/21/23: Begin Wellbutrin 37.5 mg a.m. Patient educated on: medication risk/benefits Informed Consent: further education needed Reason for continued inpatient stay Substantial Risk for: rapid decompensation Time Spent With Patient Time: Total time managing care of this patient today ____ minutes.
[2023-02-21] MEDS: Lithium Carbonate 300 MG CAPSULE 600 MG PO (22:11)
[2023-02-22] MEDS: carBAMazepine ER 200 MG TAB.ER.12H 400 MG PO ×2 (10:19→15:19)
[2023-02-22] MEDS: Lithium Carbonate 300 MG TABLET 450 MG PO (10:19)
[2023-02-22] MEDS: Benztropine Mesylate 1 MG TABLET PO (10:20)
--- NOTE | 2023-02-22 16:31 | HO.PSYCHPN ---
Subjective Subjective Date of Service: 02/22/23 Reason For Visit: Sec 12 Interim History: Pt continues on one to one. She is interactive with one to one, yet isolative from milieu. Some refusal of vital signs, diagnostics, sertraline. Accepted new trial of Wellbutrin. Team reports pt slept ~7 hours last evening. She overall appears brigher and with a more consistent affect and mood. Residential team has not visited. Team is making contact to discuss what pt needs in order to return. Reports today no adverse effect from Wellbutrin, denies SE as well. Medication Compliance: Intermittent Side effects from medications: No Attending Groups: No Review of Systems Acute medical concerns: No Medical Review of Systems: unchanged Review of Systems Review of Systems Yes all other systems are reviewed and are negative (denies) Mental Status Exam Mental Status Exam Patient Appearance: Appropriate Patient Orientation: Person, Place, Time and Situation Level of Consciousness: Alert Patient Behavior: Talkative, Cooperative, Anxious and Distractible Mood Description: Anxious and Apprehensive Affect Description: Anxious and Apprehensive Patient Cognition Impaired: No Ability to Follow Directions: Good Speech Pattern: Spontaneous Speech, Soft-Spoken, Delayed and Long Pauses Memory Description: Episodic Impaired Hallucinations: None (denies, however, appears distracted and may be experiencing) Delusions: Not Present Perceptual Disturbances: Depersonalization and Derealization Thought Process: Distracted and Rumination Thought Content: positive for Circumstantial and positive for Tangential Depressive Symptoms: Increased Anxiety and Difficulty Concentrating Judgement: Fair Diagnostics Vital Signs (24Hr): BMI result Body Mass Index 37.8 Labs 02/13/23 22:54 02/13/23 22:54 Labs: Laboratory Results - last 48 hr 02/20/23 02/21/23 02/21/23 21:33 10:02 22:21 POC Glucose 164 H 199 H 122 H Imaging Radiology Impressions: ITS Impressions Chest X-Ray 02/16/23 20:15 IMPRESSION: 1. No unexpected radiopaque foreign bodies, although evaluation is limited due to patient body habitus. 2. No acute cardiopulmonary findings. Medications Medications Current Medications Acetaminophen (Acetaminophen 325 Mg Tablet) 650 mg PO Q6H PRN PRN Reason: Headache/Pain Mild Scale (1-3) Al Hydroxide/Mg Hydroxide (Magnesium Hydrox/Alum Hydrox 30 Ml Oral.Susp) 30 ml PO Q6H PRN PRN Reason: Heartburn/Nausea Amlodipine Besylate (Amlodipine Besylate 5 Mg Tablet) 5 mg PO DAILY [facility]; Protocol Last Admin: 02/22/23 10:27 Dose: Not Given Benztropine Mesylate (Benztropine Mesylate 1 Mg Tablet) 1 mg PO DAILY@0900 [facility] Last Admin: 02/22/23 10:20 Dose: 1 mg Bupropion HCl (Bupropion Hcl 75 Mg Tablet) 37.5 mg PO DAILY [facility] Last Admin: 02/22/23 10:19 Dose: 37.5 mg Carbamazepine (Carbamazepine Er 200 Mg Tab.Er.12h) 400 mg PO TID [facility] Last Admin: 02/22/23 15:19 Dose: 400 mg Gemfibrozil (Gemfibrozil 600 Mg Tablet) 600 mg PO BIDAC [facility] Haloperidol (Haloperidol 5 Mg Tablet) 5 mg PO TID PRN PRN Reason: psychosis, agitation Last Admin: 02/20/23 19:27 Dose: 5 mg Haloperidol (Haloperidol 5 Mg Tablet) 7.5 mg PO BID [facility] Last Admin: 02/22/23 10:52 Dose: 7.5 mg Hydroxyzine HCl (Hydroxyzine Hcl 50 Mg Tablet) 50 mg PO TID PRN PRN Reason: Anxiety Last Admin: 02/20/23 19:27 Dose: 50 mg Hydroxyzine HCl (Hydroxyzine Hcl 25 Mg Tablet) 25 mg PO Q6H PRN PRN Reason: Anxiety Lennox Carbonate (Lennox Carbonate 300 Mg Tablet) 450 mg PO DAILY [facility] Last Admin: 02/22/23 10:19 Dose: 450 mg Lennox Carbonate (Lennox Carbonate 300 Mg Capsule) 600 mg PO BEDTIME [facility] Last Admin: 02/21/23 22:11 Dose: 600 mg Lorazepam (Lorazepam 1 Mg Tablet) 1 mg PO Q4H PRN PRN Reason: agitation Last Admin: 02/21/23 00:38 Dose: 1 mg Magnesium Hydroxide (Milk Of Magnesia 30 Ml Oral.Susp) 30 ml PO DAILY PRN PRN Reason: Constipation Last Admin: 02/20/23 19:59 Dose: 30 ml Metformin HCl (Metformin Hcl 500 Mg Tablet) 500 mg PO BID [facility] Naltrexone HCl (Naltrexone Hcl 50 Mg Tablet) 50 mg PO DAILY@0900 [facility] Last Admin: 02/22/23 10:19 Dose: 50 mg Ondansetron HCl (Ondansetron Odt 4 Mg Tab.Rapdis) 8 mg TRANSLINGU Q4H PRN PRN Reason: Nausea and Vomiting Last Admin: 02/19/23 13:26 Dose: 8 mg Sertraline HCl (Sertraline Hcl 100 Mg Tablet) 200 mg PO DAILY@0900 [facility] Last Admin: 02/22/23 10:27 Dose: Not Given Trazodone HCl (Trazodone Hcl 50 Mg Tablet) 50 mg PO BEDTIME MRX1 PRN PRN Reason: Insomnia Last Admin: 02/21/23 22:23 Dose: 50 mg Allergies Allergies Allergy/AdvReac Type Severity Reaction Status Date / Time No Known Allergies Allergy Verified 09/05/22 21:25 [No Known Allergies*] Assessment & Plan Assessment & Plan (1) Schizoaffective disorder: Status: Acute Code(s): F25.9 - Schizoaffective disorder, unspecified (2) Borderline personality disorder: Status: Acute Code(s): F60.3 - Borderline personality disorder Plan 27-year-old female with history of schizoaffective disorder, borderline personality disorder, behavioral dyscontrol with sx pica admitted to Psychiatry with consult placed hospitalist service due to patient intentionally swallowing the cap of the pen as well as a game piece. 02/20/23: Pt active and participatory today in her team meeting, offering her insight as to changes she would find helpful, medicine efficacy and treatment planning. Intermittent behavioral issues with indicator that one to one should remain in place at this time. Continue current plan of care and regime. Pt will be given medication teaching sheets to review as she would like a change in her antidepressant. 02/21/23: Begin Wellbutrin 37.5 mg a.m. 02/22/23: Continue current regime Team is attempting to connect with residential to begin to plan return. Patient educated on: medication risk/benefits Informed Consent: understands and further education needed Reason for continued inpatient stay Substantial Risk for: harm to self, harm to others and rapid decompensation Time Spent With Patient Time: Total time managing care of this patient today ____ minutes.
--- NOTE | 2023-02-22 16:58 | PC.NURSE ---
Patient refused Lopid.
[2023-02-22 19:35] VITALS: BP 130/80; PULSE 86; RESP 16; TEMP 37.1; O2SAT 99
[2023-02-22] MEDS: Lithium Carbonate 300 MG CAPSULE 600 MG PO (20:57)
[2023-02-22] MEDS: traZODone HCL 50 MG TABLET PO (20:59)
--- NOTE | 2023-02-22 22:26 | PC.NURSE ---
Patient declined POC and Metformin this shift. She also mentioned that she is due for a Depo-Provera shot tomorrow and wonders how she will get that done while she is on M5.
[2023-02-23] MEDS: LORazepam 1 MG TABLET PO ×2 (02:23→20:08)
[2023-02-23] MEDS: Lithium Carbonate 300 MG TABLET 450 MG PO (08:57)
[2023-02-23] MEDS: Benztropine Mesylate 1 MG TABLET PO (08:58)
[2023-02-23] MEDS: amLODIPine Besylate 5 MG TABLET PO (08:59)
[2023-02-23] MEDS: Milk of Magnesia 30 ML ORAL.SUSP PO (09:05)
[2023-02-23 09:14] VITALS: BP 119/79; PULSE 88; TEMP 36.1; O2SAT 99
--- NOTE | 2023-02-23 14:03 | HO.PSYCHPN ---
Subjective Subjective Date of Service: 02/23/23 Reason For Visit: Sec 12 Subjective Notes: Conditional Voluntary Healthcare Proxy: No Guardianship: No Medical Problems Affecting Mental Status: No Interim History: Intermittent medication refusal. Pt slept through our meeting time today. She tells her one to one she slept from 3am-7am and was feeling tired. Meeting 02/26 with residential team. Refuses to taper Sertraline-discontinued. Refuses Lopid-difficult as triglycerides are 500+, risk of pancreatitis Biola level ordered for 02/25. Medication Compliance: Intermittent Side effects from medications: No Attending Groups: No Review of Systems Acute medical concerns: No Medical Review of Systems: unchanged Review of Systems Review of Systems Yes Unobtainable due to mental status Mental Status Exam Mental Status Exam Patient Appearance: Appropriate Patient Orientation: Person, Place, Time and Situation Level of Consciousness: Alert Patient Behavior: Talkative, Cooperative, Asleep, Anxious and Distractible Mood Description: Anxious and Apprehensive Affect Description: Anxious and Apprehensive Patient Cognition Impaired: No Ability to Follow Directions: Good Speech Pattern: Spontaneous Speech, Soft-Spoken, Delayed and Long Pauses Memory Description: Episodic Impaired Hallucinations: None (denies, however, appears distracted and may be experiencing) Delusions: Not Present Perceptual Disturbances: Depersonalization and Derealization Thought Process: Distracted and Rumination Thought Content: positive for Circumstantial and positive for Tangential Depressive Symptoms: Increased Anxiety and Difficulty Concentrating Judgement: Fair Diagnostics Vital Signs (24Hr): Vital Signs - 24 hr 02/22/23 19:35 02/23/23 09:14 Temperature 98.7 F 97.0 F Pulse Rate 86 88 Respiratory Rate 16 Blood Pressure 130/80 119/79 Pulse Oximetry 99 99 Oxygen Delivery Method Room Air Room Air BMI result Body Mass Index 37.8 Labs 02/13/23 22:54 02/13/23 22:54 Labs: Laboratory Results - last 48 hr 02/21/23 02/23/23 22:21 08:39 POC Glucose 122 H 137 H Imaging Radiology Impressions: ITS Impressions Chest X-Ray 02/16/23 20:15 IMPRESSION: 1. No unexpected radiopaque foreign bodies, although evaluation is limited due to patient body habitus. 2. No acute cardiopulmonary findings. Medications Medications Current Medications Acetaminophen (Acetaminophen 325 Mg Tablet) 650 mg PO Q6H PRN PRN Reason: Headache/Pain Mild Scale (1-3) Al Hydroxide/Mg Hydroxide (Magnesium Hydrox/Alum Hydrox 30 Ml Oral.Susp) 30 ml PO Q6H PRN PRN Reason: Heartburn/Nausea Amlodipine Besylate (Amlodipine Besylate 5 Mg Tablet) 5 mg PO DAILY [facility]; Protocol Last Admin: 02/23/23 08:59 Dose: 5 mg Benztropine Mesylate (Benztropine Mesylate 1 Mg Tablet) 1 mg PO DAILY@0900 [facility] Last Admin: 02/23/23 08:58 Dose: 1 mg Bupropion HCl (Bupropion Hcl 75 Mg Tablet) 37.5 mg PO DAILY [facility] Last Admin: 02/23/23 08:58 Dose: 37.5 mg Carbamazepine (Carbamazepine Er 200 Mg Tab.Er.12h) 400 mg PO TID [facility] Last Admin: 02/23/23 08:57 Dose: 400 mg Gemfibrozil (Gemfibrozil 600 Mg Tablet) 600 mg PO BIDAC [facility] Last Admin: 02/23/23 09:10 Dose: Not Given Haloperidol (Haloperidol 5 Mg Tablet) 5 mg PO TID PRN PRN Reason: psychosis, agitation Last Admin: 02/20/23 19:27 Dose: 5 mg Haloperidol (Haloperidol 5 Mg Tablet) 7.5 mg PO BID [facility] Last Admin: 02/23/23 08:56 Dose: 7.5 mg Hydroxyzine HCl (Hydroxyzine Hcl 50 Mg Tablet) 50 mg PO TID PRN PRN Reason: Anxiety Last Admin: 02/20/23 19:27 Dose: 50 mg Hydroxyzine HCl (Hydroxyzine Hcl 25 Mg Tablet) 25 mg PO Q6H PRN PRN Reason: Anxiety Biola Carbonate (Biola Carbonate 300 Mg Tablet) 450 mg PO DAILY [facility] Last Admin: 02/23/23 08:57 Dose: 450 mg Biola Carbonate (Biola Carbonate 300 Mg Capsule) 600 mg PO BEDTIME [facility] Last Admin: 02/22/23 20:57 Dose: 600 mg Lorazepam (Lorazepam 1 Mg Tablet) 1 mg PO Q4H PRN PRN Reason: agitation Last Admin: 02/23/23 02:23 Dose: 1 mg Magnesium Hydroxide (Milk Of Magnesia 30 Ml Oral.Susp) 30 ml PO DAILY PRN PRN Reason: Constipation Last Admin: 02/23/23 09:05 Dose: 30 ml Metformin HCl (Metformin Hcl 500 Mg Tablet) 500 mg PO BID [facility] Last Admin: 02/23/23 08:58 Dose: 500 mg Naltrexone HCl (Naltrexone Hcl 50 Mg Tablet) 50 mg PO DAILY@0900 [facility] Last Admin: 02/23/23 08:58 Dose: 50 mg Ondansetron HCl (Ondansetron Odt 4 Mg Tab.Rapdis) 8 mg TRANSLINGU Q4H PRN PRN Reason: Nausea and Vomiting Last Admin: 02/19/23 13:26 Dose: 8 mg Sertraline HCl (Sertraline Hcl 100 Mg Tablet) 200 mg PO DAILY@09 [facility] Last Admin: 02/23/23 09:11 Dose: Not Given Trazodone HCl (Trazodone Hcl 50 Mg Tablet) 50 mg PO BEDTIME MRX1 PRN PRN Reason: Insomnia Last Admin: 02/22/23 20:59 Dose: 50 mg Allergies Allergies Allergy/AdvReac Type Severity Reaction Status Date / Time No Known Allergies Allergy Verified 09/05/22 21:25 [No Known Allergies*] Assessment & Plan Assessment & Plan (1) Schizoaffective disorder: Status: Acute Code(s): F25.9 - Schizoaffective disorder, unspecified (2) Borderline personality disorder: Status: Acute Code(s): F60.3 - Borderline personality disorder Plan 27-year-old female with history of schizoaffective disorder, borderline personality disorder, behavioral dyscontrol with sx pica admitted to Psychiatry with consult placed hospitalist service due to patient intentionally swallowing the cap of the pen as well as a game piece. 02/20/23: Pt active and participatory today in her team meeting, offering her insight as to changes she would find helpful, medicine efficacy and treatment planning. Intermittent behavioral issues with indicator that one to one should remain in place at this time. Continue current plan of care and regime. Pt will be given medication teaching sheets to review as she would like a change in her antidepressant. 02/21/23: Begin Wellbutrin 37.5 mg a.m. 02/22/23: Continue current regime Team is attempting to connect with residential to begin to plan return. 02/23/23 Discontinue Sertraline Informed Consent: understands Reason for continued inpatient stay Substantial Risk for: med/psych decompensation Time Spent With Patient Time: Total time managing care of this patient today ____ minutes.
--- NOTE | 2023-02-23 16:38 | PC.NURSE ---
Patient refused Tegretol and Lopid.
[2023-02-23 16:53] VITALS: RESP 16
[2023-02-23] MEDS: Lithium Carbonate 300 MG CAPSULE 600 MG PO (20:09)
[2023-02-23] MEDS: traZODone HCL 50 MG TABLET PO (20:09)
[2023-02-24] MEDS: traZODone HCL 50 MG TABLET PO (01:05)
[2023-02-24] MEDS: LORazepam 1 MG TABLET PO ×2 (01:05→12:16)
--- NOTE | 2023-02-24 12:04 | PC.NURSE ---
Per ancillary staff patient in bathroom with brief period of banging head. Support given, patient able to be redirected, accepted AM medication. Continued to express feeling angry she was not woken up at 0900 for meds. States she does not want to be woken up at night but would like to be woken up in the morning.
[2023-02-24] MEDS: Benztropine Mesylate 1 MG TABLET PO (12:16)
[2023-02-24] MEDS: amLODIPine Besylate 5 MG TABLET PO (12:16)
[2023-02-24] MEDS: Lithium Carbonate 300 MG TABLET 450 MG PO (12:16)
--- NOTE | 2023-02-24 15:12 | PC.NURSE ---
Due to late medication administration 3pm Carbamazepine held, to offer later approx 5pm per Elizabeth MARR made aware
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
[2023-02-24 15:55] VITALS: BP 126/79; PULSE 103; TEMP 36.2
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
[2023-02-24] MEDS: Lithium Carbonate 300 MG CAPSULE 600 MG PO (21:59)
[2023-02-25] MEDS: LORazepam 1 MG TABLET PO (01:01)
[2023-02-25] MEDS: Ondansetron ODT 4 MG TAB.RAPDIS 8 MG TRANSLINGU ×2 (05:53→14:31)
--- NOTE | 2023-02-25 11:36 | PC.NURSE ---
RN ATTEMPTED TO WAKE UP PT X3 FOR AM MEDS. PT STATED LATER EACH TIME AND WENT BACK TO SLEEP.
[2023-02-25] MEDS: Lithium Carbonate 300 MG TABLET 450 MG PO (12:50)
[2023-02-25] MEDS: Benztropine Mesylate 1 MG TABLET PO (12:51)
--- NOTE | 2023-02-25 13:16 | PC.NURSE ---
PT WOKE UP AROUND 1100 AND APPROACHED RN STATION. RN ASKED IF SHE WOULD LIKE HER MORNING MEDS (RN ATTEMPTED TO WAKE HER UP 3 TIMES FOR MED ADMINISTRATION). PT STATED WHY THE FUCK WOULD I WANT MY MEDS NOW, 3 HOURS LATE . PT GOT IRRITATED AND BEGAN HITTING HER HEAD AGAINST THE WALL. PT WAS ATTEMPTED TO BE REDIRECTED BUT BEGAN HITTING HER HEAD HARDER ON THE WALL. PROVIDER WAS MADE AWARE AND ORDERED IM MEDS. PT REFUSED TO STEP AWAY FROM FRONT DOORS OF THE UNIT, DESPITE STAFF TRYING TO ENTER THE UNIT. PT WAS ABLE TO BE TALKED TO BY SECURITY AND STAFF. WITH MUCH ENCOURAGEMENT, PT AGREED TO TAKE HER MORNING PO MEDS. IMS WERE NOT NEEDED.
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
[2023-02-25] MEDS: Lithium Carbonate 300 MG CAPSULE 600 MG PO (20:22)
[2023-02-25] MEDS: traZODone HCL 50 MG TABLET PO (20:27)
[2023-02-26 08:30] VITALS: RESP 16
[2023-02-26] MEDS: Benztropine Mesylate 1 MG TABLET PO (08:53)
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
[2023-02-26] MEDS: Ondansetron ODT 4 MG TAB.RAPDIS 8 MG TRANSLINGU (11:35)
[2023-02-26 16:34] VITALS: RESP 16
[2023-02-26] MEDS: Lithium Carbonate 300 MG CAPSULE 600 MG PO (22:16)
[2023-02-26] MEDS: carBAMazepine ER 200 MG TAB.ER.12H 400 MG PO (22:16)
[2023-02-26] MEDS: traZODone HCL 50 MG TABLET PO (22:16)
[2023-02-26] MEDS: HaloperidoL 5 MG TABLET 10 MG PO (22:17)
--- NOTE | 2023-02-27 00:36 | PC.NURSE ---
Patient refused Metformin and her POC was not done.
[2023-02-27] MEDS: hydrOXYzine HCL 25 MG TABLET PO (01:06)
[2023-02-27] MEDS: traZODone HCL 50 MG TABLET PO (01:06)
[2023-02-27] MEDS: Naltrexone HCl 50 MG TABLET PO (08:49)
[2023-02-27] MEDS: carBAMazepine ER 200 MG TAB.ER.12H 400 MG PO (08:49)
[2023-02-27] MEDS: HaloperidoL 5 MG TABLET 10 MG PO (08:49)
[2023-02-27] MEDS: buPROPion HCL 75 MG TABLET PO (08:49)
[2023-02-27] MEDS: Lithium Carbonate 300 MG TABLET 450 MG PO (08:49)
[2023-02-27] MEDS: Escitalopram Oxalate 5 MG TABLET PO (08:49)
[2023-02-27] MEDS: Benztropine Mesylate 1 MG TABLET PO (08:49)
[2023-02-27 08:55] VITALS: RESP 18
[2023-02-27 09:47] LABS: Estimated Glomerular Filt Rate > 60
--- NOTE | 2023-02-27 16:34 | P.DS_ITS ---
DS: Providers Provider Date of Service: 02/27/23 Date of admission: 02/15/23 14:52 Date of discharge: 02/27/23 Primary care physician: Unknown Physician Admitting clinician: Jennifer Sam Attending physician on admission: Kyree Stacy Consults: 02/16/23 17:32 Consult to Endocrinology Routine Consulting Provider: [facility] Reason for consultation: Weight gain, high triglyceride levels Has provider been notified: No Attending physician on discharge: Kyree Stacy Discharging clinician: Jennifer Sam DS: Diagnosis Discharge Diagnosis (1) Schizoaffective disorder: Status: Acute (2) Borderline personality disorder: Status: Acute DS: Medications Discharge Medications Home Medications: Previous Rx's Medication Instructions Recorded amlodipine 5 mg tablet 5 mg PO DAILY #30 tabs 02/26/23 benztropine 1 mg tablet 1 mg PO QAM #30 tabs 02/26/23 bupropion HCl 75 mg tablet 75 mg PO DAILY #30 tabs 02/26/23 carbamazepine 400 mg 400 mg PO TID #90 tabs 02/26/23 tablet,extended release,12 hr escitalopram oxalate 5 mg tablet 5 mg PO DAILY #30 tabs 02/26/23 haloperidol 5 mg tablet 5 mg PO TID PRN psychosis, 02/26/23 agitation #60 tabs haloperidol 5 mg tablet 10 mg (2 x 5 mg) PO BID #60 tabs 02/26/23 hydroxyzine HCl 50 mg tablet 50 mg PO TID PRN Anxiety #60 tabs 02/26/23 lorazepam 1 mg tablet 1 mg PO Q4H PRN agitation #15 tabs 02/26/23 metformin 500 mg tablet 500 mg PO BID #60 tabs 02/26/23 naltrexone 50 mg tablet 50 mg PO QAM #30 tabs 02/26/23 trazodone 50 mg tablet 50 mg PO BEDTIME MRX1 PRN Insomnia 02/26/23 #60 tabs lithium carbonate 150 mg capsule 450 mg (3 x 150 mg) PO DAILY #90 02/27/23 caps lithium carbonate 600 mg capsule 600 mg PO BEDTIME #30 caps 02/27/23 Mental Status Exam Mental Status Exam Patient Appearance: Appropriate Patient Orientation: Person, Place, Time and Situation Level of Consciousness: Alert Patient Behavior: Talkative and Good Eye Contact Mood Description: Anxious and Labile Affect Description: Anxious and Labile Patient Cognition Impaired: No Ability to Follow Directions: Good Speech Pattern: Spontaneous Speech Memory Description: Episodic Impaired Hallucinations: None (denies, however, appears distracted and may be experiencing) Delusions: Not Present Perceptual Disturbances: Depersonalization and Derealization Thought Process: Distracted and Rumination Thought Content: positive for Circumstantial Depressive Symptoms: Increased Anxiety, Increased Irritability, Unhappiness and Difficulty Concentrating Judgement: Good Data Data Completed and Pending Completed studies during hospitalization [Text1]: 02/20/23 02/21/23 02/21/23 21:33 10:02 22:21 Creatinine Estim Creat Clear Calc Estimated GFR POC Glucose 164 H 199 H 122 H [place] 02/23/23 02/25/23 02/27/23 08:39 13:43 09:02 Creatinine 0.89 Estim Creat Clear Calc 108.0 Estimated GFR > 60 POC Glucose 137 H [place] 0.64 Imaging Diagnostic Imaging Impressions Chest X-Ray 02/16/23 20:15 IMPRESSION: 1. No unexpected radiopaque foreign bodies, although evaluation is limited due to patient body habitus. 2. No acute cardiopulmonary findings. DS: Summary Hospital Course Hospital Course: Admission to adult psychiatry for exacerbation of schizoaffective disorder, PTSD, Borderline Personality Disorder. Pt presented via Section 12 with a uditory/visual perceptual alterations and SI. Compliance with medications was an issue prior to admission and during admission. Pt is erratic in compliance. Pt was able to stabilize, utilize the milieu to assist with coping, utilize one to one for added support and structure and will return to her residential program and out patient regime. Status at Discharge Functional status at discharge: independent ambulation Overall status at discharge: patient is progressing back to baseline Time Spent with Patient Time attestation: Total time managing care of this patient today ____ minutes. Time spent: Greater than 30 minutes Discharge Plan Discharge Anticipated Discharge Date/Time: 02/27/23 12:00 Patient Disposition: Home, Self-Care Discharge Diagnosis: Schizoaffective Disorder Referrals: [facility] w Dr. Kiran Sterling [Other] - 03/22/23 9:20 am [facility] Luciana Montoya [Other] - 03/19/23 9:30 am Sheldon Montesinos DO, MD [Physician] - (PT. STATES WILL MAKE HER OWN APPOINTMENT .) Discharge Medications: New metformin 500 mg Tablet 500 mg PO BID Qty: 60 0RF haloperidol 5 mg Tablet 5 mg PO TID PRN (Reason: psychosis, agitation) Qty: 60 0RF haloperidol 5 mg Tablet 10 mg PO BID Qty: 60 0RF trazodone 50 mg Tablet 50 mg PO BEDTIME MRX1 PRN (Reason: Insomnia) Qty: 60 0RF hydroxyzine HCl 50 mg Tablet 50 mg PO TID PRN (Reason: Anxiety) Qty: 60 0RF bupropion HCl 75 mg Tablet 75 mg PO DAILY Qty: 30 0RF lorazepam 1 mg Tablet 1 mg PO Q4H PRN (Reason: agitation) Qty: 15 0RF escitalopram oxalate 5 mg Tablet 5 mg PO DAILY Qty: 30 0RF lithium carbonate 150 mg capsule 450 mg PO DAILY Qty: 90 0RF lithium carbonate 600 mg capsule 600 mg PO BEDTIME Qty: 30 0RF Continued naltrexone 50 mg tablet 50 mg PO QAM Qty: 30 0RF amlodipine 5 mg tablet 5 mg PO DAILY Qty: 30 0RF carbamazepine 400 mg tablet extended release 12 hr 400 mg PO TID Qty: 90 0RF benztropine 1 mg tablet 1 mg PO QAM Qty: 30 0RF Discontinued metformin 500 mg tablet 500 mg PO DAILY@1800 haloperidol 5 mg tablet 5 mg PO BEDTIME chlorpromazine 100 mg tablet 50 mg PO BEDTIME sertraline 100 mg tablet 200 mg PO QAM lithium carbonate 150 mg capsule 450 mg PO DAILY Rx Instructions: 3 tabs in morning, 4 tabs at night time hydroxyzine HCl 25 mg tablet 25 - 50 mg PO TID PRN (Reason: Anxiety) lithium carbonate 150 mg capsule 600 mg PO BEDTIME No Action ondansetron 4 mg tablet,disintegrating 4 mg PO Q6H PRN (Reason: nausea and vomiting) Qty: 14 0RF Discharge Orders: Discharge Order (Routine); Ordered 02/27/23 Ordered By: Jennifer Sam Diet: Advance to usual diet Activity on Discharge: As tolerated Stand Alone Forms: Patient Portal Discharge page, Community Support Care Plan Goals: Mood and Behavioral Stabilization Health Concerns: Mood and Behavioral Stabilization Plan of Treatment: Attend scheduled appointments Take medications as directed Assessment: Scheduled discharge Discharge Date/Time: 02/27/23 14:38
== END 2023-02-27 14:38 | disposition home or self-care (01) | DRG 885 ==
LOC: HO.ED 02-14 13:00 → HO.PM5 02-15 15:04
PROVIDERS: Emergency Medicine; Nurse Practitioner Family; Admitting Provider Clinical Nurse Specialist Psychiatric/Mental Health, Adult; Emergency Provider Emergency Medicine Emergency Medical Services; Visit Provider Clinical Nurse Specialist Psychiatric/Mental Health, Adult
DX: F25.9 Schizoaffective disorder, unspecified (principal); R45.851 Suicidal ideations; F60.3 Borderline personality disorder; Q86.0 Fetal alcohol syndrome (dysmorphic); T18.9XXA Foreign body of alimentary tract, part unspecified, initial encounter; W44.B3XA Plastic toy and toy part entering into or through a natural orifice, initial encounter; F50.89 Other specified eating disorder; Z68.37 Body mass index [BMI] 37.0-37.9, adult; Z20.822 Contact with and (suspected) exposure to COVID-19; Z79.84 Long term (current) use of oral hypoglycemic drugs; Z79.899 Other long term (current) drug therapy
CPT/HCPCS: 36415; 71045; 80053; 80061; 80178; 80307; 81003; 82248; 82565; 82607; 82746; 82947; 83036; 83735; 84439; 84443; 85025; 87635; 93005; 99285; J1630; J2060; S9485

== ENCOUNTER → 2023-02-14 11:23 | Outpatient (BNV) | payer OTHER, SELFPAY | PROVIDERS: Emergency Provider Emergency Medicine Emergency Medical Services; Visit Provider Internal Medicine | DX: I45.89 Other specified conduction disorders (principal) | CPT/HCPCS: 93010 ==

== ENCOUNTER → 2023-02-15 14:52 | Outpatient (BNV) | payer OTHER, SELFPAY | PROVIDERS: Admitting Provider Clinical Nurse Specialist Psychiatric/Mental Health, Adult; Emergency Provider Emergency Medicine Emergency Medical Services; Visit Provider Psychiatry & Neurology Psychiatry | DX: F60.3 Borderline personality disorder (principal); F25.1 Schizoaffective disorder, depressive type | CPT/HCPCS: 90792; 99231; 99232; 99499 ==

== ENCOUNTER → 2023-02-15 14:52 | Outpatient (BNV) | payer OTHER, SELFPAY | PROVIDERS: Admitting Provider Clinical Nurse Specialist Psychiatric/Mental Health, Adult; Emergency Provider Emergency Medicine Emergency Medical Services; Visit Provider Physician Assistant | DX: T18.9XXA Foreign body of alimentary tract, part unspecified, initial encounter (principal); F50.89 Other specified eating disorder | CPT/HCPCS: 99222 ==

== ENCOUNTER → 2023-02-15 14:52 | Outpatient (BNV) | payer OTHER, SELFPAY | PROVIDERS: Admitting Provider Clinical Nurse Specialist Psychiatric/Mental Health, Adult; Emergency Provider Emergency Medicine Emergency Medical Services; Visit Provider Psychiatry & Neurology Psychiatry | DX: F60.3 Borderline personality disorder (principal); F25.1 Schizoaffective disorder, depressive type | CPT/HCPCS: 99238 ==

== ENCOUNTER 2023-03-04 21:36 | Emergency (ER) | payer OTHER, SELFPAY ==
--- NOTE | 2023-03-04 | ECG_ITS ---
Test Reason : CHEST PAIN Blood Pressure : / mmHG Vent. Rate : 099 BPM Atrial Rate : 099 BPM P-R Int : 178 ms QRS Dur : 070 ms QT Int : 364 ms P-R-T Axes : 057 012 028 degrees QTc Int : 467 ms Normal sinus rhythm Normal ECG When compared with ECG of 14-FEB-2023 11:23, No significant change was found Referred By: Leonard Alonso Electronically Signed By:LANCE WEINSTEIN
--- NOTE | 2023-03-04 21:43 | ED_ITS ---
HPI - Psych General Chief Complaint: Psychiatric Symptoms Stated Complaint: SELF HARM,VIOLENT, PD ON BOARD,FROM [facility] Time Seen by Provider: 03/04/23 21:43 Source: EMS and police Mode of arrival: EMS Limitations: other (Not answering questions) History of Present Illness HPI Narrative: 27-year-old female with history of schizoaffective disorder, borderline personality disorder, behavioral dyscontrol with pica brought to emergency department on a Section 12 by EMS and police escort. The patient had a recent psychiatric hospitalization from 02/16 until 02/27/2023 with his heart diagnosis of schizoaffective disorder, borderline personality disorder, auditory hallucinations and suicidal ideation. According to police, the patient's made multiple suicidal statements at her assisted and had several attempts to try to kill herself by wrapping yarn tightly around her neck. She also try to swallow a paper clip. Patient was very combative and required restraints and was transported into the emergency department in handcuffs. Patient was also given Versed 5 mg IM by the paramedics. On presentation to the emergency department the patient is nonverbal, she is awake but does appear to be slightly sedated most likely from the Versed. She was easily transferred from the EMS stretcher to the ER stretcher and was taken out of handcuffs, did not require further restraint and is cooperative at this time. Related Data Previous Rx's Medication Instructions Recorded amlodipine 5 mg tablet 5 mg PO DAILY #30 tabs 02/26/23 benztropine 1 mg tablet 1 mg PO QAM #30 tabs 02/26/23 bupropion HCl 75 mg tablet 75 mg PO DAILY #30 tabs 02/26/23 carbamazepine 400 mg 400 mg PO TID #90 tabs 02/26/23 tablet,extended release,12 hr escitalopram oxalate 5 mg tablet 5 mg PO DAILY #30 tabs 02/26/23 haloperidol 5 mg tablet 5 mg PO TID PRN psychosis, 02/26/23 agitation #60 tabs haloperidol 5 mg tablet 10 mg (2 x 5 mg) PO BID #60 tabs 02/26/23 hydroxyzine HCl 50 mg tablet 50 mg PO TID PRN Anxiety #60 tabs 02/26/23 lorazepam 1 mg tablet 1 mg PO Q4H PRN agitation #15 tabs 02/26/23 metformin 500 mg tablet 500 mg PO BID #60 tabs 02/26/23 naltrexone 50 mg tablet 50 mg PO QAM #30 tabs 02/26/23 trazodone 50 mg tablet 50 mg PO BEDTIME MRX1 PRN Insomnia 02/26/23 #60 tabs lithium carbonate 150 mg capsule 450 mg (3 x 150 mg) PO DAILY #90 02/27/23 caps lithium carbonate 600 mg capsule 600 mg PO BEDTIME #30 caps 02/27/23 Allergies Allergy/AdvReac Type Severity Reaction Status Date / Time No Known Allergies Allergy Verified 09/05/22 21:25 [No Known Allergies*] Review of Systems 2 Review of Systems: Yes Unobtainable due to mental status PMFSH Past Medical History Onset Date is defined in the Problem List Problems that require an onset date and time if occurred within 24 hrs of arrival to the ED Aortic Dissection and Rupture; Neurologic impairment; Cardiopulmonary Arrest; Endotracheal Intubation; Insertion or Replacement of Mechanical Circulatory Assist Device Medical History Foreign body ingestion Schizoaffective disorder Obesities, morbid alcohol syndrome Borderline personality disorder Social History Social History Household Members: Other Household Members Other:: 1 Housing: Other Housing Other:: assisted Do you presently have visiting nurse or other home services: Yes (once a month) Unable to assess alcohol history related to: Refusing to respond Alcohol intake: never Comment: 5 minute checks Patient Tobacco Use Status: Never used Tobacco Smoked in Last 30 Days: No e-Cigarette/Vaping Use: Never Used Second Hand Smoke Exposure: No Use of substances other than those prescribed or required for medical reasons: Refusing to respond Substance Use Type: Marijuana Advance Directives: No Advance Directives Information Provided: No service: No Sexual orientation: Straight/Heterosexual Physical Exam 2 Vital Signs: Vital Signs: Last Vital Signs Pulse 109 H 03/04/23 22:01 Resp 16 03/05/23 00:00 Pulse Ox 98 03/04/23 22:17 O2 Del Method Room Air 03/04/23 22:17 BMI result Body Mass Index 39.0 Exam: General: Patient appears to be somnolent most likely secondary to IM Versed, she does follow commands and is cooperative Head: Normocephalic, atraumatic EENT: PERRL, Lids normal, sclera normal, conjunctiva normal, nose normal , ears normal, throat without erythema or exudates Neck: Supple, no adenopathy, no trachea midline or C-spine tenderness Lung: Wheezing at the end of expiration, no rales or rhonchi Chest: symmetric movement, nontender Heart: regular rate and rhythm, normal S1, S2 no murmurs or rubs Abdomen: soft, obese, non-tender, nondistended, normal bowel sounds Back: no vertebral tenderness, no CVAT Extremities: no deformities, moves all extremities symmetrically Neuro: Somnolent secondary to IM Versed, cooperative, not answering questions, cranial nerves intact, moves all extremities symmetrically Psych: Cooperative Medications Administered Generic Name Dose Route Start Last Admin Trade Name Freq PRN Reason Stop Dose Admin Carbamazepine 400 mg 03/04/23 23:45 03/05/23 00:42 Carbamazepine Er 200 Mg Tab.Er.12h PO Not Given TID MAXWELL Haloperidol 10 mg 03/04/23 23:45 03/05/23 00:42 Haloperidol 5 Mg Tablet PO Not Given BID MAXWELL Meyers Carbonate 600 mg 03/04/23 23:45 03/05/23 00:42 Meyers Carbonate 300 Mg Capsule PO Not Given BEDTIME MAXWELL Metformin HCl 500 mg 03/04/23 23:45 03/05/23 00:42 Metformin Hcl 500 Mg Tablet PO Not Given BIDWM MAXWELL Trazodone HCl 50 mg 03/04/23 23:38 03/05/23 01:34 Trazodone Hcl 50 Mg Tablet PO 50 mg BEDTIME MRX1 PRN Administration Insomnia Discontinued Medications Generic Name Dose Route Start Last Admin Trade Name Freq PRN Reason Stop Dose Admin Albuterol Sulfate 2.5 mg 03/04/23 21:47 03/04/23 22:00 Albuterol Sulfate (0.083%) 2.5 Mg/3 Ml Vial.Neb INHALE 03/04/23 21:48 2.5 mg ONCE ONE Administration Medical Decision Making Medical Decision Making MDM Narrative: 27-year-old female with history of schizoaffective disorder, borderline personality disorder, behavioral dyscontrol with pica brought to emergency department on a Section 12 by EMS and police escort. The patient had a recent psychiatric hospitalization from 02/16 until 02/27/2023 with his heart diagnosis of schizoaffective disorder, borderline personality disorder, auditory hallucinations and suicidal ideation. Patient made multiple suicidal statement at her assisted in try to strangle herself by wrapping yarn tightly around her neck. Patient was combative at the assisted, required Versed 5 mg IM and handcuffed restraints for transport. On presentation the emergency department the patient is somnolent most likely secondary to the IM Versed, she is nonverbal but is following commands in his cooperating. Lung exam did reveal wheezing . Following evaluation was ordered: CBC, CMP, urine drug screen, ethanol level, lipase, urinalysis, urine test, COVID-19 Patient was treated with an albuterol nebulizer 2.5 mg x1. Patient was placed on one-to-one observation 23:40 My interpretation patient's laboratory evaluation is as follows: CBC was normal. CMP revealed an elevated glucose of 147. COVID-19 was negative. Alcohol was below detectable limits. Urine tox screen positive for benzodiazepines. Patient's medications were reconciled and I ordered her outpatient regimen. Patient is medically cleared for evaluation by care team 06:53 Start physician observation The patient's is waiting to be seen by care team, therefore she will be police and physician observation until a disposition can be determined At the end of my shift, patient's care was turned over to my colleague, Dr. Franklin Differential Diagnosis Differential Diagnoses: The differential diagnosis associated with the presentation includes Differential diagnosis includes was not limited to depression, anxiety, suicidal ideation Admission/Observation Consideration of admission/observation: Escalation of care including admission/observation considered Lab Data 03/04/23 22:34 03/04/23 22:34 Labs: Lab Results 03/04/23 03/04/23 Range/Units 22:34 23:01 WBC 8.3 (4.8-10.8) X10*3/uL RBC 4.52 (4.20-5.50) X10*6/uL Hgb 12.7 (12.0-16.0) g/dl Hct 39.1 (37.0-47.0) % MCV 86.5 (80.0-98.0) fL MCH 28.1 (27.0-33.0) pg MCHC 32.5 (31.0-35.0) g/dl RDW 13.2 (11.0-16.0) % Plt Count 292 (160-400) X10*3/uL MPV 8.7 L (9.4-12.3) fL Immature Gran % (Auto) 1.1 H (0.0-0.4) % Neut % (Auto) 58.5 (45-73) % Lymph % (Auto) 27.2 (20-40) % [place] % (Auto) 8.2 (2-11) % Eos % (Auto) 4.5 H (0-4) % Baso % (Auto) 0.5 (0-2) % Lymph # (Auto) 2.3 (1.2-4.9) X10*3/uL [place] # (Auto) 0.7 (0.1-1.2) X10*3/uL Eos # (Auto) 0.4 (0.0-0.4) X10*3/uL Baso # (Auto) 0.0 (0.0-0.2) X10*3/uL Abs Immat Gran (auto) 0.09 H (0.00-0.03) X10*3/uL Absolute Neuts (auto) 4.8 (2.0-8.3) x10*3/uL Absolute Nucleated RBC 0.000 (0.0-0.012) X10*3/uL Nucleated RBC % (auto) 0.0 (0.0-0.2) /100WBC Sodium 139 (135-145) mmol/L Potassium 3.9 (3.3-5.1) mmol/L Chloride 106 (96-108) mmol/L Carbon Dioxide 22 (22-29) mmol/L Anion Gap 15 (12-20) BUN 14 (9-16) mg/dL Creatinine 1.22 (0.5-1.4) mg/dL Estim Creat Clear Calc 77.4 Estimated GFR 52 Random Glucose 147 H (60-115) mg/dL Calcium 9.7 (8.4-10.2) mg/dL Total Bilirubin 0.2 (0.0-1.0) mg/dL AST 16 (5-31) U/L ALT 17 (0-31) U/L Alkaline Phosphatase 88 (39-117) U/L Total Protein 8.1 H (6.5-8.0) g/dL Albumin 4.3 (3.5-5.0) g/dL Lipase 21 (8-78) U/L Urine Color Yellow Urine Appearance Clear Urine pH 6.5 (5.0-9.0) Ur Specific [place] 1.015 (1.005-1.025) Urine Protein Trace (Neg-Trace) mg/dL Urine Glucose (UA) Negative (Negative) mg/dL Urine Ketones Negative (Negative) mg/dL Urine Blood Negative (Negative) Urine Nitrite Negative (Negative) Ur Leukocyte Esterase Negative (Negative) Urine Test NEGATIVE (NEGATIVE) Urine Opiates Screen Not Detected (Not Detect) Urine Fentanyl Screen Not Detected (Not Detect) Ur Barbiturates Screen Not Detected (Not Detect) Ur Phencyclidine Scrn Not Detected (Not Detect) Ur Amphetamines Screen Not Detected (Not Detect) U Benzodiazepines Scrn POSITIVE H (Not Detect) Urine Cocaine Screen Not Detected (Not Detect) U Marijuana (THC) Screen Not Detected (Not Detect) Ethyl Alcohol < 10 mg/dL COVID-19 (ROLO) Negative (Negative) COVID-19 Clin Com See Note Independent Interpretation I performed an independent interpretation of an: EKG Interpretation: My interpretation patient's 12 EKG done at 23:13 hours is as follows: Normal sinus rhythm with a rate of 99, normal [place] interval, QRS duration QTC interval, no ST segment elevation, no ST segment depression, no significant T-wave abnormalities, no PACs, no PVCs-this is a normal EKG. Discharge Plan Discharge Clinical Impression: Suicidal ideations Suicide gesture Qualifiers: Encounter type: initial encounter Qualified Code(s): X83.8XXA - Intentional self-harm by other specified means, initial encounter Patient Disposition: Still a Patient Prescriptions: No Action metformin 500 mg Tablet 500 mg PO BID Qty: 60 0RF haloperidol 5 mg Tablet 5 mg PO TID PRN (Reason: psychosis, agitation) Qty: 60 0RF haloperidol 5 mg Tablet 10 mg PO BID Qty: 60 0RF trazodone 50 mg Tablet 50 mg PO BEDTIME MRX1 PRN (Reason: Insomnia) Qty: 60 0RF hydroxyzine HCl 50 mg Tablet 50 mg PO TID PRN (Reason: Anxiety) Qty: 60 0RF bupropion HCl 75 mg Tablet 75 mg PO DAILY Qty: 30 0RF lorazepam 1 mg Tablet 1 mg PO Q4H PRN (Reason: agitation) Qty: 15 0RF escitalopram oxalate 5 mg Tablet 5 mg PO DAILY Qty: 30 0RF naltrexone 50 mg tablet 50 mg PO QAM Qty: 30 0RF amlodipine 5 mg tablet 5 mg PO DAILY Qty: 30 0RF carbamazepine 400 mg tablet extended release 12 hr 400 mg PO TID Qty: 90 0RF benztropine 1 mg tablet 1 mg PO QAM Qty: 30 0RF lithium carbonate 150 mg capsule 450 mg PO DAILY Qty: 90 0RF lithium carbonate 600 mg capsule 600 mg PO BEDTIME Qty: 30 0RF Interventions: [place]-Suicide Risk Severity Scale Last Done: 03/04/23 23:03
[2023-03-04] MEDS: Albuterol Sulfate (0.083%) 2.5 MG/3 ML VIAL.NEB INHALE (22:00)
[2023-03-04 22:01] VITALS: PULSE 109; RESP 18; O2SAT 97
[2023-03-04 22:17] VITALS: O2SAT 98; BMI 39.0
[2023-03-04 22:40] LABS: MANUAL DIFF FLAG NO
[2023-03-04 22:43] LABS: Basophils Percent Auto 0.5 % (0-2); Eosinophils Absolute Auto 0.4 X10*3/uL (0.0-0.4); Eosinophils Percent Auto 4.5 % (0-4); Hematocrit 39.1 % (37.0-47.0); Hemoglobin 12.7 g/dl (12.0-16.0); Imm Gran Abs Auto 0.09 X10*3/uL (0.00-0.03); Imm Gran Pct Auto 1.1 % (0.0-0.4); Lymphocytes Absolute Auto 2.3 X10*3/uL (1.2-4.9); Lymphocytes Percent Auto 27.2 % (20-40); Mean Corpuscular HGB Conc 32.5 g/dl (31.0-35.0); Mean Corpuscular Hemoglobin 28.1 pg (27.0-33.0); Mean Corpuscular Volume 86.5 fL (80.0-98.0); Mean Platelet Volume 8.7 fL (9.4-12.3); Monocytes Absolute Auto 0.7 X10*3/uL (0.1-1.2); Monocytes Percent Auto 8.2 % (2-11); Neutrophils Absolute Auto 4.8 x10*3/uL (2.0-8.3); Neutrophils Percent Auto 58.5 % (45-73); Platelet Count 292 X10*3/uL (160-400); Red Blood Count 4.52 X10*6/uL (4.20-5.50); Red Cell Distribution Width 13.2 % (11.0-16.0); White Blood Count 8.3 X10*3/uL (4.8-10.8)
[2023-03-04 22:55] LABS: COVID-19 Test Negative (Negative); IDNOW Serial# 6674DD1D
[2023-03-04 23:01] LABS: Alanine Aminotransferase 17 U/L (0-31); Albumin Level 4.3 g/dL (3.5-5.0); Alkaline Phosphatase 88 U/L (39-117); Anion Gap 15 (12-20); Aspartate Amino Transferase 16 U/L (5-31); Bilirubin Total 0.2 mg/dL (0.0-1.0); Blood Urea Nitrogen 14 mg/dL (9-16); Calcium 9.7 mg/dL (8.4-10.2); Carbon Dioxide 22 mmol/L (22-29); Chloride 106 mmol/L (96-108); Creatinine Clr Calc Pharmacy 77.4; Estimated Glomerular Filt Rate 52; Ethanol < 10 mg/dL; Glucose Random 147 mg/dL (60-115); Lipase 21 U/L (8-78); Potassium 3.9 mmol/L (3.3-5.1); Sodium 139 mmol/L (135-145); Total Protein 8.1 g/dL (6.5-8.0)
--- NOTE | 2023-03-04 23:01 | PC.NURSE ---
PT changed over with tech. Lissette
[2023-03-04 23:10] LABS: Appearance Urine Clear; Color Urine Yellow; Glucose Urine UA Negative (Negative); Leukocyte Esterase Urine Negative (Negative); Nitrite Urine Negative (Negative); PH 6.5 (5.0-9.0); Specific Gravity - Urine 1.015 (1.005-1.025); Urine Blood Negative (Negative); Urine Ketones Negative (Negative); Urine Protein Trace mg/dL (Neg-Trace)
[2023-03-04 23:12] LABS: UPreg QC Valid YES; Urine Pregnancy NEGATIVE (NEGATIVE)
[2023-03-04 23:17] LABS: Amphetamine Screen Urine Not Detected (Not Detect); Barbiturates, Urine Not Detected (Not Detect); Benzodiazepines Screen Urine POSITIVE (Not Detect); Cannabinoid Screen Urine Not Detected (Not Detect); Cocaine Screen Urine Not Detected (Not Detect); Fentanyl, urine Not Detected (Not Detect); Opiate Screen Urine Not Detected (Not Detect); Phencyclidine Screen Urine Not Detected (Not Detect)
--- NOTE | 2023-03-04 23:18 | PC.NURSE ---
PT endorsing chest pain, EKG obtained, Dr. Alonso reviewing @ this time.
[2023-03-05] VITALS: RESP 16
--- NOTE | 2023-03-05 00:22 | PC.NURSE ---
D/T significant hx of aggressive psychiatric behaviors and PICA, all equipment and supplies removed from room. Call ochoa/tv remote remains with patient for entertainment diversion. 1:1 sitter at bedside for safety. At this time, pt calm.
--- NOTE | 2023-03-05 00:42 | PC.NURSE ---
PT refused evening medications - did not want to take them this late . Reassured taking them now will not interfere with tomorrow's dose, pt continues to refuse.
[2023-03-05] MEDS: traZODone HCL 50 MG TABLET PO (01:34)
[2023-03-05 10:08] LABS: Glucose, Whole Blood 145 mg/dL (60-115)
[2023-03-05 10:13] VITALS: BP 131/92; PULSE 83; RESP 20; O2SAT 98
[2023-03-05] MEDS: HaloperidoL 5 MG TABLET 10 MG PO (10:16)
[2023-03-05] MEDS: Lithium Carbonate 300 MG TABLET 450 MG PO (10:17)
[2023-03-05] MEDS: Benztropine Mesylate 1 MG TABLET PO (10:17)
[2023-03-05] MEDS: amLODIPine Besylate 5 MG TABLET PO (10:17)
[2023-03-05] MEDS: Escitalopram Oxalate 5 MG TABLET PO (10:18)
[2023-03-05] MEDS: buPROPion HCL 75 MG TABLET PO (10:18)
[2023-03-05] MEDS: carBAMazepine ER 200 MG TAB.ER.12H 400 MG PO (10:18)
[2023-03-05] MEDS: Naltrexone HCl 50 MG TABLET PO (10:18)
[2023-03-05] MEDS: metFORMIN HCl 500 MG TABLET PO (10:18)
--- NOTE | 2023-03-05 12:17 | PC.NURSE ---
late note form 1015: patient took all AM meds. was offered snack but did not want anything we have in department at that time. only wants ensure. diet order placed for patient and called kitchen to see if they could bring down ensure to which they said they would but have not brought as of this time. patient became slightly angry that she took metformin with out having anything she likes to eat. informed patient that ensure will becoming. POC was stable at 135. patient sleeping at this time, lunch tray should be coming shortly for patient with ensure.
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
--- NOTE | 2023-03-05 16:59 | PHA.MEDREC ---
Pharmacy Consult ? Medication Reconciliation Pharmacy has completed the medication reconciliation. Pharmacy has reviewed med rec completed by Gamal. Pt was recently discharged from inpatient Psych unit 02/27/2023. new medications have not shown up on claim history. Utilized the discharge summary. Gladys Jerry CPhT
--- NOTE | 2023-03-05 17:39 | MHC.CARE ---
CARE Team meets with pt at pt's request. She is calm and cooperative in this interaction. She is advocating for return to her skilled nursing. She denies any SI/HI//SIBI. She is agreeable to skilled nursing staff taking away her yard and any other potentially dangerous items. She is vague about what triggered her to tie the yarn around her next. She has had x2 [facility] admissions recently, first at [facility] for a month, then recently on [facility]. CARE Team speaks with Jennifer Wong NP who was treating this pt on M5. Jennifer agrees that there is no further goal for inpt admission at this time and the best plan is to discharge the patient back to the skilled nursing. CARE Team speaks with Yelena about the recommendation for discharge. Yelena states we don't have staff and she can;t come back. CARE Team made it clear that pt is medically and psychiatrically cleared and the exception is that she is discharged from the ED tonight. Yelena states that someone will need to call us back. T/w set the expectation that a call back is placed within the next 30 mins. CARE Team was clear with [facility] earlier today that they should be prepared to take patient back this evening if she was stable in the ED.
--- NOTE | 2023-03-05 18:15 | MHC.CARE ---
Per Kell Leyva from [facility], pt will be picked up tonight, though longterm is opposed to this plan and will return pt to the ED if needed.
--- NOTE | 2023-03-05 20:52 | MHC.EDTECH ---
Called [facility] to book at 2051.
--- NOTE | 2023-03-05 21:13 | PC.NURSE ---
Report given to [facility] crew.
--- NOTE | 2023-03-05 21:53 | MHC.CARE ---
Tw faxed follow up referral form to [facility] for this pt
== END 2023-03-05 21:26 | disposition home or self-care (01) ==
PROVIDERS: Emergency Provider Emergency Medicine Emergency Medical Services
DX: F25.0 Schizoaffective disorder, bipolar type (principal); R45.851 Suicidal ideations; R07.89 Other chest pain; F60.3 Borderline personality disorder; F91.9 Conduct disorder, unspecified; Z79.899 Other long term (current) drug therapy; Z11.52 Encounter for screening for COVID-19
CPT/HCPCS: 80053; 80307; 81003; 81025; 82947; 83690; 85025; 87635; 93005; 94640; 99285; S9485

== ENCOUNTER → 2023-03-04 23:13 | Outpatient (BNV) | payer OTHER, SELFPAY | PROVIDERS: Emergency Provider Emergency Medicine Emergency Medical Services; Visit Provider Internal Medicine | DX: R07.9 Chest pain, unspecified (principal) | CPT/HCPCS: 93010 ==

== ENCOUNTER 2023-03-15 18:39 | Emergency (ER) | payer OTHER, SELFPAY ==
--- NOTE | 2023-03-15 20:31 | ED_ITS ---
HPI - Psych General Stated Complaint: crisis eval Time Seen by Provider: 03/15/23 19:53 Source: patient and old records reviewed Mode of arrival: ambulatory Limitations: other (poor historian) History of Present Illness HPI Narrative: 27 yo patient with PMH of borderline personalilty disorder, schizoaffective disorder here with c/o agitation from [place] [facility] plan was from respite per [facility] but she is here now - at this time she is guarded and states she needs her night medications. SHe is not very forthcoming with information. Will involve CARE team. Group staff dropped her off. MD complaint: feels depressed Onset (ago): day(s) Duration: intermittent History of same: Yes Relieving factors: none Exacerbating factors: other Context: significant life stressor Associated psychiatric symptoms: depression and suicidal ideation Associated symptoms: denies other symptoms Treatments prior to arrival: none Related Data Previous Rx's Medication Instructions Recorded amlodipine 5 mg tablet 5 mg PO DAILY #30 tabs 02/26/23 benztropine 1 mg tablet 1 mg PO QAM #30 tabs 02/26/23 bupropion HCl 75 mg tablet 75 mg PO DAILY #30 tabs 02/26/23 carbamazepine 400 mg 400 mg PO TID #90 tabs 02/26/23 tablet,extended release,12 hr escitalopram oxalate 5 mg tablet 5 mg PO DAILY #30 tabs 02/26/23 haloperidol 5 mg tablet 5 mg PO TID PRN psychosis, 02/26/23 agitation #60 tabs haloperidol 5 mg tablet 10 mg (2 x 5 mg) PO BID #60 tabs 02/26/23 hydroxyzine HCl 50 mg tablet 50 mg PO TID PRN Anxiety #60 tabs 02/26/23 lorazepam 1 mg tablet 1 mg PO Q4H PRN agitation #15 tabs 02/26/23 metformin 500 mg tablet 500 mg PO BID #60 tabs 02/26/23 naltrexone 50 mg tablet 50 mg PO QAM #30 tabs 02/26/23 trazodone 50 mg tablet 50 mg PO BEDTIME MRX1 PRN Insomnia 02/26/23 #60 tabs lithium carbonate 150 mg capsule 450 mg (3 x 150 mg) PO DAILY #90 02/27/23 caps lithium carbonate 600 mg capsule 600 mg PO BEDTIME #30 caps 02/27/23 Allergies Allergy/AdvReac Type Severity Reaction Status Date / Time No Known Allergies Allergy Verified 09/05/22 21:25 [No Known Allergies*] Review of Systems 2 Review of Systems: ROS unable to be obtained due to poor cooperation [facility] Past Medical History Attestation statement: The following information was validated with the patient. Source: old records reviewed Medical History Foreign body ingestion Schizoaffective disorder Obesities, morbid alcohol syndrome Borderline personality disorder Social History Social History Household Members: Other Household Members Other:: 1 Housing: Other Housing Other:: [facility] Do you presently have visiting nurse or other home services: Yes (once a month) Unable to assess alcohol history related to: Refusing to respond Alcohol intake: never Comment: 5 minute checks Patient Tobacco Use Status: Never used Tobacco e-Cigarette/Vaping Use: Never Used Second Hand Smoke Exposure: No Substance Use Type: Marijuana service: No Sexual orientation: Straight/Heterosexual Physical Exam 2 Vital Signs: Vital Signs: Last Vital Signs Temp 98.9 F 03/15/23 20:40 Pulse 98 03/15/23 20:40 Resp 18 03/15/23 20:40 BP 107/56 L 03/15/23 20:40 Pulse Ox 97 03/15/23 20:40 O2 Del Method Room Air 03/15/23 20:40 Appearance: Alert. Oriented X3. No acute distress. Flat affect, pacing, withdrawn Eyes: Pupils equal, round and reactive to light. ENT: Pharynx normal. Neck: Normal inspection. Neck supple. CVS: Normal heart rate and rhythm. Pulses normal. Respiratory: No respiratory distress. Abdomen: atraumatic Skin: Skin warm and dry. Normal skin color. Normal skin turgor. Extremities: No lower extremity edema. Neuro: Oriented X 3. No motor deficit. No sensory deficit. Cn2-12 intact Course Course Course Narrative: Physician observation started at 856pm. Patient placed in physician observation because the patient needed more time for CARE team to assess the need for psych admission. At the time observation was started the patient's vitals were stable, patient is alert and oriented but slightly agitated, Neuro: nonfocal, CV RRR, Lungs clear Medications Administered Discontinued Medications Generic Name Dose Route Start Last Admin Trade Name Freq PRN Reason Stop Dose Admin Haloperidol 10 mg 03/15/23 20:03 03/15/23 20:36 Haloperidol 5 Mg Tablet PO 03/15/23 20:04 10 mg ONCE ONE Administration Haloperidol 5 mg 03/15/23 20:03 03/15/23 20:37 Haloperidol 5 Mg Tablet PO 03/15/23 20:04 5 mg ONCE ONE Administration Sophia Carbonate 600 mg 03/15/23 20:03 03/15/23 20:37 Sophia Carbonate 300 Mg Capsule PO 03/15/23 20:04 600 mg ONCE ONE Administration Lorazepam 2 mg 03/15/23 20:03 03/15/23 20:37 Lorazepam 1 Mg Tablet PO 03/15/23 20:04 2 mg ONCE ONE Administration Medical Decision Making Medical Decision Making MDM Narrative: 27 yo patient with PMH of borderline personalilty disorder, schizoaffective disorder here with already respite search from community per [facility] at this time will need labs, CARE team input and night medications. Differential Diagnosis Differential Diagnoses: The differential diagnosis associated with the presentation includes depression, SI Admission/Observation Consideration of admission/observation: Escalation of care including admission/observation considered Consult Healthcare Provider Management of the patient was discussed with: Behavioral Health Provider Lab Data [facility] Lab Attestation statement: I reviewed the patient's lab results. 03/15/23 20:33 03/15/23 20:33 External Record Review External record reviewed: Inpatient record Discharge Plan Discharge Clinical Impression: Schizoaffective disorder Qualifiers: Schizoaffective disorder type: unspecified Qualified Code(s): F25.9 - Schizoaffective disorder, unspecified Patient Disposition: Still a Patient Prescriptions: No Action metformin 500 mg Tablet 500 mg PO BID Qty: 60 0RF haloperidol 5 mg Tablet 5 mg PO TID PRN (Reason: psychosis, agitation) Qty: 60 0RF haloperidol 5 mg Tablet 10 mg PO BID Qty: 60 0RF trazodone 50 mg Tablet 50 mg PO BEDTIME MRX1 PRN (Reason: Insomnia) Qty: 60 0RF hydroxyzine HCl 50 mg Tablet 50 mg PO TID PRN (Reason: Anxiety) Qty: 60 0RF bupropion HCl 75 mg Tablet 75 mg PO DAILY Qty: 30 0RF lorazepam 1 mg Tablet 1 mg PO Q4H PRN (Reason: agitation) Qty: 15 0RF escitalopram oxalate 5 mg Tablet 5 mg PO DAILY Qty: 30 0RF naltrexone 50 mg tablet 50 mg PO QAM Qty: 30 0RF amlodipine 5 mg tablet 5 mg PO DAILY Qty: 30 0RF carbamazepine 400 mg tablet extended release 12 hr 400 mg PO TID Qty: 90 0RF benztropine 1 mg tablet 1 mg PO QAM Qty: 30 0RF lithium carbonate 150 mg capsule 450 mg PO DAILY Qty: 90 0RF lithium carbonate 600 mg capsule 600 mg PO BEDTIME Qty: 30 0RF
--- NOTE | 2023-03-15 20:34 | PHA.MEDREC ---
Pharmacy Consult ? Medication Reconciliation Pharmacy has reviewed the medication reconciliation completed by Lindsey. Marta Davis, AdamsD
[2023-03-15] MEDS: HaloperidoL 5 MG TABLET 10 MG PO (20:36)
--- NOTE | 2023-03-15 20:36 | MHC.CARE ---
Yelena (correction staff) [phone]- Staff reported patient was assessed by [facility] crisis three days ago and was found appropriate for an [facility] respite admission however there has not been any vacancies. Staff disclosed patient has been increasingly suicidal for the past three days and has been self harming by scratching her skin and head banging. Staff also reported that patient has tied a string around her neck, stole a cheese grater from the kitchen, attempted to cut herself with a butter knife and has been writing suicidal notes. Staff reported patient requested to come to the ED secondary to not feeling safe going to [facility]. According to staff, [facility] was not called due to incident not being a ?life threatening?.
[2023-03-15] MEDS: HaloperidoL 5 MG TABLET PO (20:37)
[2023-03-15] MEDS: Lithium Carbonate 300 MG CAPSULE 600 MG PO (20:37)
[2023-03-15] MEDS: LORazepam 1 MG TABLET 2 MG PO (20:37)
[2023-03-15 20:40] VITALS: BP 107/56; BP 97/48; PULSE 98; RESP 18; TEMP 36.6; TEMP 37.2; O2SAT 97; O2SAT 98; BMI 42.9
[2023-03-15 20:40] LABS: MANUAL DIFF FLAG NO
[2023-03-15 20:42] LABS: Basophils Percent Auto 0.5 % (0-2); Eosinophils Absolute Auto 0.3 X10*3/uL (0.0-0.4); Eosinophils Percent Auto 3.8 % (0-4); Hematocrit 36.3 % (37.0-47.0); Hemoglobin 12.1 g/dl (12.0-16.0); Imm Gran Abs Auto 0.04 X10*3/uL (0.00-0.03); Imm Gran Pct Auto 0.5 % (0.0-0.4); Lymphocytes Absolute Auto 2.5 X10*3/uL (1.2-4.9); Lymphocytes Percent Auto 28.7 % (20-40); Mean Corpuscular HGB Conc 33.3 g/dl (31.0-35.0); Mean Corpuscular Hemoglobin 28.4 pg (27.0-33.0); Mean Corpuscular Volume 85.2 fL (80.0-98.0); Monocytes Absolute Auto 0.7 X10*3/uL (0.1-1.2); Monocytes Percent Auto 7.8 % (2-11); Neutrophils Percent Auto 58.7 % (45-73); Platelet Count 282 X10*3/uL (160-400); Red Blood Count 4.26 X10*6/uL (4.20-5.50); Red Cell Distribution Width 13.2 % (11.0-16.0); White Blood Count 8.6 X10*3/uL (4.8-10.8)
[2023-03-15 20:49] LABS: Lithium 0.47 mmol/L (0.60-1.20); UPreg QC Valid YES; Urine Pregnancy NEGATIVE (NEGATIVE)
[2023-03-15 20:55] LABS: Amphetamine Screen Urine Not Detected (Not Detect); Barbiturates, Urine Not Detected (Not Detect); Benzodiazepines Screen Urine Not Detected (Not Detect); Cannabinoid Screen Urine Not Detected (Not Detect); Cocaine Screen Urine Not Detected (Not Detect); Fentanyl, urine Not Detected (Not Detect); Opiate Screen Urine Not Detected (Not Detect); Phencyclidine Screen Urine Not Detected (Not Detect)
[2023-03-15 20:56] LABS: COVID-19 Test Negative (Negative); IDNOW Serial# 152EDE1D
[2023-03-15 21:04] LABS: Alanine Aminotransferase 16 U/L (0-31); Albumin Level 4.2 g/dL (3.5-5.0); Alkaline Phosphatase 80 U/L (39-117); Anion Gap 17 (12-20); Aspartate Amino Transferase 16 U/L (5-31); Bilirubin Direct < 0.2 mg/dL (0.0-0.5); Bilirubin Total 0.2 mg/dL (0.0-1.0); Blood Urea Nitrogen 12 mg/dL (9-16); Calcium 9.4 mg/dL (8.4-10.2); Carbon Dioxide 18 mmol/L (22-29); Chloride 107 mmol/L (96-108); Creatinine Clr Calc Pharmacy 97.5; Estimated Glomerular Filt Rate > 60; Glucose Random 187 mg/dL (60-115); Magnesium 2.1 mg/dL (1.6-2.6); Potassium 3.9 mmol/L (3.3-5.1); Sodium 138 mmol/L (135-145); Total Protein 7.8 g/dL (6.5-8.0)
--- OUTSIDE RECORDS SUMMARY | 2023-03-15 21:20 | XMS_ITS | Continuity of Care Document ---
Author Name [facility] Address [address] [place] [address] Organization [facility] Address [address] [place] [address] Care Team Providers Care Head Of Mathematics Name Role Phone Pcp-Md Eloisa Primary Care Provider Damon Lopez Emergency Provider Allergies, Adverse Reactions, Alerts No known allergies. Medications No medication information available. Problem List Active Problems Medical Problem Onset Date Status Fall Active Procedures Procedure Date Status Urine Culture January 26, 2023 active Relevant Diagnostic Tests and/or Laboratory Data Laboratory Results Test Date/Time Result Interp. Ref. Range Result Co mment White Blood Count January 26, 2023 10:23pm 6.1 X10 3/uL 4.5-11.0 Red Blood Count January 26, 2023 10:23pm 4.14 X10 6/uL 3.70-5.00 Hemoglobin January 26, 2023 10:23pm 11.7 g/dl 11.0-16.0 Hematocrit January 26, 2023 10:23pm 37.1 % 34.0-45.0 Mean Corpuscular Volume January 26, 2023 10:23pm 89.6 fl 80.0-100.0 Mean Corpuscular Hemoglobin January 26, 2023 10:23pm 28.3 pg 27.0-34.0 Mean Corpuscular Hemoglobin Concent January 26, 2023 10:23pm 31.5 g/dl 31.0-36.0 Red Cell Distribution Width January 26, 2023 10:23pm 12.7 % 11.5-15.0 Platelet Count January 26, 2023 10:23pm 230 X10 3/uL 150-400 Immature Granulocyte % (Auto) January 26, 2023 10:23pm 0.7 % Neutrophils (%) (Auto) January 26, 2023 10:23pm 53.9 % Lymphocytes (%) (Auto) January 26, 2023 10:23pm 29.1 % Monocytes (%) (Auto) January 26, 2023 10:23pm 9.2 % Eosinophils (%) (Auto) January 26, 2023 10:23pm 6.4 % Basophils (%) (Auto) January 26, 2023 10:23pm 0.7 % Immature Granulocyte # (Auto) January 26, 2023 10:23pm 0.04 X10 3/uL 0.00-0.09 Neutrophils # (Auto) January 26, 2023 10:23pm 3.3 X10 3/uL 1.5-7.8 Lymphocytes # (Auto) January 26, 2023 10:23pm 1.8 X10 3/uL 1.0-4.8 Monocytes # (Auto) January 26, 2023 10:23pm 0.6 X10 3/uL 0.0-0.8 Eosinophils # (Auto) January 26, 2023 10:23pm 0.4 X10 3/uL 0.0-0.5 Basophils # (Auto) January 26, 2023 10:23pm 0.0 X10 3/uL 0.0-0.2 Nucleated Red Blood Cells % January 26, 2023 10:23pm 0.0 /100 WBC 0.0-0.0 Urine Color January 26, 2023 10:02pm Yellow Yellow Urine Clarity January 26, 2023 10:02pm Cloudy High Clear Urine pH January 26, 2023 10:02pm 5.5 5.0-8.0 Urine Specific [place] January 26, 2023 10:02pm 1.019 1.005-1.030 Urine Blood January 26, 2023 10:02pm Trace mg/dL Negative Urine Protein January 26, 2023 10:02pm Negative mg/dL Negative Urine Glucose (UA) January 26, 2023 10:02pm Negative mg/dl Negative Urine Ketones January 26, 2023 10:02pm Trace mg/dL Negative Urine Nitrate January 26, 2023 10:02pm Negative Negative Urine Bilirubin January 26, 2023 10:02pm Negative mg/dL Negative Urine Urobilinogen January 26, 2023 10:02pm 0.2 E.U./dL Normal Urine Leukocyte Esterase January 26, 2023 10:02pm Negative mg/dL Negative Urine RBC (Auto) January 26, 2023 10:02pm Not Reportable Urine WBC (Auto) January 26, 2023 10:02pm Not Reportable Urine Epithelial Cells (Auto) January 26, 2023 10:02pm Not Reportable Urine Casts (Auto) January 26, 2023 10:02pm Not Reportable Urine Bacteria (Auto) January 26, 2023 10:02pm Not Reportable Urine RBC January 26, 2023 10:02pm 3-5 /HPF 0-2 Urine WBC January 26, 2023 10:02pm 0-5 /HPF 0-5 Urine Bacteria January 26, 2023 10:02pm Few /HPF None Seen Urine Squamous Epithelial Cells January 26, 2023 10:02pm 0-5 /HPF 0-5 Urine Calcium Oxalate Crystals January 26, 2023 10:02pm Moderate /HPF None Seen Urine Hyaline Casts January 26, 2023 10:02pm None seen /LPF None Seen Sodium Level January 26, 2023 10:23pm 137 mmol/L 137-146 Potassium Level January 26, 2023 10:23pm 4.1 mmol/L 3.5-5.3 Specimen hemolyz ed, results affected Chloride Level January 26, 2023 10:23pm 106 mmol/L 98-107 Carbon Dioxide Level January 26, 2023 10:23pm 21 mmol/L Low 23-32 Anion Gap January 26, 2023 10:23pm 10 mmol/L 5-15 Blood Urea Nitrogen January 26, 2023 10:23pm 6 mg/dl 5-25 Creatinine January 26, 2023 10:23pm 0.7 mg/dL 0.5-1.1 Estimated Creatinine Clearance January 26, 2023 10:23pm Tracer Powder Blender Unable to Calcul ate CRCL,Ht and/or Wt missing Estimat Glomerular Filtration Rate January 26, 2023 10:23pm 121 >90 Reported eGFR is based on the CKD-EPI 2020 equation that does not use a race coefficient. Additional information can be found at: [id number] ([email or web address]) BUN/Creatinine Ratio January 26, 2023 10:23pm 8.6 Low 10.0-20.0 Glucose Level January 26, 2023 10:23pm 160 mg/dL High 70-100 Calcium Level January 26, 2023 10:23pm 8.9 mg/dl 8.6-10.3 Urine HCG, Qualitative January 26, 2023 10:02pm Negative Negative This is only a screening test. Low HCG urine level (<20mIU/ml), in case of a early or dilution of urine, may not be detected with this test. Also high concentration of certain drugs may interfere. If suspicious of early or clinically necessary to confirm, a serum Beta-HCG quantitation test is suggested. Urine Amphetamines Screen January 26, 2023 10:02pm Negative Negative Amphetamines Cut off level 1000 ng/mL. Urine Methadone Screen January 26, 2023 10:02pm Negative Negative Methadone Cutoff level 300 ng/mL Urine Oxycodone Screen January 26, 2023 10:02pm Negative Negative Oxycontin/Oxycod one Cutoff level 100 ng/mL Urine Buprenorphine Screen January 26, 2023 10:02pm Negative Negative Buprenorphine Cutoff level 5 ng/mL Urine Opiates Screen January 26, 2023 10:02pm Negative Negative Opiate Cutoff le jassi 300 ng/mL Oxycontin/Oxycodone is not detected below the threshold of 20,000 ng/mL Urine Fentanyl Screen January 26, 2023 10:02pm Negative Negative Fentanyl Cutoff level 2.0 ng/mL Urine Benzodiazepines Screen January 26, 2023 10:02pm Negative Negative Please note that the current method for benzodiazepines may be less sensitive to lorazapam detection than previously. If this result is negative and you are concerned about a false negative result for lorazepam, additional testing is possible. Please contact the laboratory. Benzodiazepine Cutoff level 200 ng/mL Urine Cocaine Screen January 26, 2023 10:02pm Negative Negative Cocaine Cutoff level 300 ng/mL Urine Cannabinoids Screen January 26, 2023 10:02pm Negative Negative THC Cutoff level 50 ng/mL This report is intended for use in clinical monitoring and management of patients. It is not intended for use in employment related drug testing or court related proceedings. Samples are not routinely tested for adulteration and are assumed to be within the normal physiological pH range of 5 - 8. Advance Directives Advance Directive Response Recorded Date/ Time Advance Directives No January 26 023 9:20pm Health Care Proxy No January 26 9:20pm Pt has Medical Orders for Li fe Sustaining Tx Form (MOLST)? No January 26, 2023 9:20pm Chief Complaint and Reason for Visit Encounter Admit Date Chief Complaint Reason for V isit Departed Emergency January 26, 2023 9:15pm fall Hospital Discharge Instructions No known hospital discharge instructions. Encounters Encounter Facility Location Admit/Visit Date Discharge/Departure Date Attending Provider Departed Emergency [facility] Emergency January 26, 2023 9:15pm January 27, 2023 8:44am Functional Status No known functional status. Immunizations No known immunizations. Plan of Care Instructions ED Fall with Uncertain Cause Patient was reported to have a fall, complaining of some lightheadedness before the fall. Patient stated also have increasing Thorazine dosing, whether that could be the cause of the lightheadedness preceding the fall. Patient's workup in the ED has been negative with normal labs and negative examination. Patient have episode of nausea vomiting, but the abdominal exam is benign, patient no signs of infection, I think is related to the patient's psychiatric diagnosis. Patient have no head injury and no neurological finding. Patient was giving a dose of Zofran with improvement Patient be discharged back to the [facility] 4 continue psychiatric treatment and follow-up Social History Query Response Date Recorded Comment Lives With Caregiver January 26, 2023 9:59pm Living Situation Other January 26, 2023 11:35pm Other Living Situation Inpatient at [facility] 2022 9:59pm Query Response Start Date Stop Date Smoking Status Never tobacco user Vital Signs Vital Reading Result Reference Range Collection Date/Time Weight n/a Temperature 98.1 F 97.6 F-99.6 F January 27 5:46am Pulse 87 BPM 60-90 January 27 3 5:46am Respiration 16 RPM -January 27 3 5:46am Pulse Oximetry 96 % 95-100 January 27 023 5:46am Blood Pressure Systolic 113 90-140 Dece 2022 5:46am Blood Pressure Diastolic 75 60-90 Dec emb2022 5:46am
--- OUTSIDE RECORDS SUMMARY | 2023-03-15 21:20 | XMS_ITS | Continuity of Care Document ---
Author Name [facility] Address [address] [place] [address] Organization [facility] Address [address] [place] [address] Care Team Providers Care Livestock Farmer Name Role Phone Pcp-Md Eloisa Primary Care [...] 26, 2023 10:02pm 5.5 5.0-8.0 Urine Specific [place] January 26, 2023 10:02pm 1.019 1.005-1.030 Urine [...] Estimated Creatinine Clearance January 26, 2023 10:23pm Bulk Station Agent Unable to Calcul ate CRCL,Ht and/or Wt missing Estimat Glomerular Filtration Rate January 26, 2023 10:23pm 121 >90 Reported eGFR is based on the CKD-EPI 2020 equation that does not use a race coefficient. Additional information can be found at: [id number] ([email or web address]) BUN/Creatinine Ratio January 26, 2023 [...] Date Chief Complaint Reason for V isit Registered Emergency January 26, 2023 9:15pm fall Hospital Discharge Instructions No known hospital discharge instructions. Encounters Encounter Facility Location Admit/Visit Date Discharge/Departure Date Attending Provider Registered Emergency [facility] Emergency January 26, 2023 9:15pm Functional Status No known functional status. Immunizations [...] improvement Patient be discharged back to the [facility] 4 continue psychiatric treatment and follow-up Social History Query Response Date Recorded Comment Lives With Caregiver January 26, 2023 9:59pm Living Situation Other January 26, 2023 11:35pm Other Living Situation Inpatient at [facility] 2022 9:59pm Query Response Start Date Stop Date Smoking Status Never tobacco user Vital Signs Vital Reading Result Reference Range Collection Date/Time Weight n/a Temperature 97.6 F 97.6 F-99.6 F January 26 9:31pm Pulse 101 BPM 60-90 January 26 9:31pm Respiration 16 RPM 12-January 26 9:31pm Pulse Oximetry 98 % 95-100 January 26 023 9:31pm Blood Pressure Systolic 136 90-140 Dece mb2022 9:31pm Blood Pressure Diastolic 83 60-90 Dec emb2022 9:31pm
--- OUTSIDE RECORDS SUMMARY | 2023-03-15 21:20 | XMS_ITS | Continuity of Care Document ---
Author Name Unknown Address [address] [place] [id number] Phone Organization [facility] Address [address] [place] [address] Phone Care Team Providers Care Busher Helper Name Role Phone PcpMD Andrew Pace Primary Care Provider MD Damon Lopez Emergency Provider Care Teams Patient Care Team Team Status: Active Member Role Status Dates PcpMD Katelynn Primary Care Provider Active Visit Care Team Team Status: Inactive Member Role Status Dates Pcp-MD Eloisa Primary Care Provider Active St art: January 26, 2023 End: January 27, 2023 Damon Mcguire MD Emergency Provider Active Start : January 26, 2023 End: January 27, 2023 Chief Complaint and Reason for Visit Chief Complaint fall Allergies, Adverse Reactions, Alerts No known allergies Social History Smoking Status Status Start Date End Date Date of Observa tion Unknown if ever smoked Decem 2022 11:35pm Observation Status Observation Response Date of Response Lives With Caregiver January 26 9:59pm Living Situation Other January 26 023 11:35pm Other Living Situation Inpatient at [facility]2022 9:59pm Additional Data Assigned Sex Female Problems Active Problems Medical Problem Onset Date Status Fall Active Procedures Procedure Date Performed Status Urine Culture January 26, 2023 active Relevant Diagnostic Tests and/or Laboratory Data Laboratory Results Test Date/Time Result Interpretation Reference Range Result Comment Performing Site White Blood Count January 26, 2023 10:23pm 6.1 X10 3/uL 4.5-11.0 [facility] [id number] [address] [place] [address] 78935 Red Blood Count January 26, 2023 10:23pm 4.14 X10 6/uL 3.70-5.00 [facility] [id number] [address] [place] [address] 91897 Hemoglobin January 26, 2023 10:23pm 11.7 g/dl 11.0-16.0 [facility] [id number] [address] [place] [address] 61408 Hematocrit January 26, 2023 10:23pm 37.1 % 34.0-45.0 [facility] [id number] [address] [place] [address] 49121 Mean Corpuscular Volume January 26, 2023 10:23pm 89.6 fl 80.0-100.0 [facility] [id number] [address] [place] [address] 74774 Mean Corpuscular Hemoglobin January 26, 2023 10:23pm 28.3 pg 27.0-34.0 [facility] [id number] [address] [place] [address] 92562 Mean Corpuscular Hemoglobin Concent January 26, 2023 10:23pm 31.5 g/dl 31.0-36.0 [facility] [id number] [address] [place] [address] 56768 Red Cell Distribution Width January 26, 2023 10:23pm 12.7 % 11.5-15.0 [facility] [id number] [address] [place] [address] 96839 Platelet Count January 26, 2023 10:23pm 230 X10 3/uL 150-400 [facility] [id number] [address] [place] [address] 26823 Immature Granulocyte % (Auto) January 26, 2023 10:23pm 0.7 % [facility] [id number] [address] [place] [address] 40167 Neutrophils (%) (Auto) January 26, 2023 10:23pm 53.9 % [facility] [id number] [address] [place] [address] 40261 Lymphocytes (%) (Auto) January 26, 2023 10:23pm 29.1 % [facility] [id number] [address] [facility] [address] Monocytes (%) (Auto) January 26, 2023 10:23pm 9.2 % [facility] [id number] [address] [place] [address] 73377 Eosinophils (%) (Auto) January 26, 2023 10:23pm 6.4 % [facility] [id number] [address] [place] [address] 99100 Basophils (%) (Auto) January 26, 2023 10:23pm 0.7 % [facility] [id number] [address] [place] [address] 42682 Immature Granulocyte # (Auto) January 26, 2023 10:23pm 0.04 X10 3/uL 0.00-0.09 [facility] [id number] [address] [place] [address] 95232 Neutrophils # (Auto) January 26, 2023 10:23pm 3.3 X10 3/uL 1.5-7.8 [facility] [id number] [address] [place] [address] 43063 Lymphocytes # (Auto) January 26, 2023 10:23pm 1.8 X10 3/uL 1.0-4.8 [facility] [id number] [address] [place] [address] 93796 Monocytes # (Auto) January 26, 2023 10:23pm 0.6 X10 3/uL 0.0-0.8 [facility] [id number] [address] [place] [address] 08065 Eosinophils # (Auto) January 26, 2023 10:23pm 0.4 X10 3/uL 0.0-0.5 [facility] [id number] [address] [place] [address] 61323 Basophils # (Auto) January 26, 2023 10:23pm 0.0 X10 3/uL 0.0-0.2 [facility] [id number] [address] [place] [address] 75004 Nucleated Red Blood Cells % January 26, 2023 10:23pm 0.0 /100 WBC 0.0-0.0 [facility] [id number] [address] [place] [address] 0[address] Urine Color January 26, 2023 10:02pm Yellow Yellow [facility] [id number] [address] [place] [address] 57567 Urine Clarity January 26, 2023 10:02pm Cloudy Clear [facility] [id number] [address] [place] [address] 90551 Urine pH January 26, 2023 10:02pm 5.5 5.0-8.0 [facility] [id number] [address] [place] [address] 71077 Urine Specific [place] January 26, 2023 10:02pm 1.019 1.005-1.03 0 [facility] [id number] [address] [place] [address] 89990 Urine Blood January 26, 2023 10:02pm Trace mg/dL Negative [facility] [id number] [address] [place] [address] 99125 Urine Protein January 26, 2023 10:02pm Negative mg/dL Negative [facility] [id number] [address] [place] [address] 29742 Urine Glucose (UA) January 26, 2023 10:02pm Negative mg/dl Negative [facility] [id number] [address] [place] [address] 45836 Urine Ketones January 26, 2023 10:02pm Trace mg/dL Negative [facility] [id number] [address] [place] [address] 13548 Urine Nitrate January 26, 2023 10:02pm Negative Negative [facility] [id number] [address] [place] [address] 75404 Urine Bilirubin January 26, 2023 10:02pm Negative mg/dL Negative [facility] [id number] [address] [place] [address] 95666 Urine Urobilinogen January 26, 2023 10:02pm 0.2 E.U./dL Normal [facility] [id number] [address] [place] [address] 75086 Urine Leukocyte Esterase January 26, 2023 10:02pm Negative mg/dL Negative [facility] [id number] [address] [place] [address] 87498 Urine RBC (Auto) January 26, 2023 10:02pm Not Reportable [facility] [id number] [address] [place] [address] 25104 Urine WBC (Auto) January 26, 2023 10:02pm Not Reportable [facility] [id number] [address] [place] [address] 64055 Urine Epithelial Cells (Auto) January 26, 2023 10:02pm Not Reportable [facility] [id number] [address] [place] [address] 83340 Urine Casts (Auto) January 26, 2023 10:02pm Not Reportable [facility] [id number] [address] [place] [address] 81836 Urine Bacteria (Auto) January 26, 2023 10:02pm Not Reportable [facility] [id number] [address] [place] [address] 11848 Urine RBC January 26, 2023 10:02pm 3-5 /HPF 0-2 [facility] [id number] [address] [place] [address] 90499 Urine WBC January 26, 2023 10:02pm 0-5 /HPF 0-5 [facility] [id number] [address] [place] [address] 01149 Urine Bacteria January 26, 2023 10:02pm Few /HPF None Seen [facility] [id number] [address] [place] [address] 75510 Urine Squamous Epithelial Cells January 26, 2023 10:02pm 0-5 /HPF 0-5 [facility] [id number] [address] [place] [address] 46910 Urine Calcium Oxalate Crystals January 26, 2023 10:02pm Moderate /HPF None Seen [facility] [id number] [address] [place] [address] 23232 Urine Hyaline Casts January 26, 2023 10:02pm None seen /LPF None Seen [facility] [id number] [address] [place] [address] 94116 Sodium Level January 26, 2023 10:23pm 137 mmol/L 137-146 [facility] [id number] [address] [place] [address] 99344 Potassium Level January 26, 2023 10:23pm 4.1 mmol/L 3.5-5.3 Specimen hemolyzed, results affected [facility] [id number] [address] [place] [address] 39592 Chloride Level January 26, 2023 10:23pm 106 mmol/L 98-107 [facility] [id number] [address] [place] [address] 36609 Carbon Dioxide Level January 26, 2023 10:23pm 21 mmol/L 23-32 [facility] [id number] [address] [place] [address] 50991 Anion Gap January 26, 2023 10:23pm 10 mmol/L 5-15 [facility] [id number] [address] [place] [address] 40435 Blood Urea Nitrogen January 26, 2023 10:23pm 6 mg/dl 5-25 [facility] [id number] [address] [place] [address] 83066 Creatinine January 26, 2023 10:23pm 0.7 mg/dL 0.5-1.1 [facility] [id number] [address] [place] [address] 80499 Estimated Creatinine Clearance January 26, 2023 10:23pm Plodding Operator Unable to Calculate CRCL,Ht and/or Wt missing [facility] [id number] [address] [place] [address] 29476 Estimat Glomerular Filtration Rate January 26, 2023 10:23pm 121 >90 Reported eGFR is based on the CKD-EPI 2020 equation that does not use a race coefficient. Additional information can be found at:[id number] [email or web address] ([email or web address]) [facility] [id number] [address] [place] [address] 03945 BUN/Creatinin e Ratio January 26, 2023 10:23pm 8.6 10.0-20.0 [facility] [id number] [address] [place] [address] 41580 Glucose Level January 26, 2023 10:23pm 160 mg/dL 70-100 [facility] [id number] [address] [place] [address] 64831 Calcium Level January 26, 2023 10:23pm 8.9 mg/dl 8.6-10.3 [facility] [id number] [address] [place] [address] Urine HCG, Qualitative January 26, 2023 10:02pm Negative Negative This is only a screening test. Low HCG urine level (<20mIU/ml), in case of a early or dilution of urine, may not be detected with this test. Also high concentration of certain drugs may interfere. If suspicious of early or clinically necessary to confirm, a serum Beta-HCG quantitation test is suggested. [facility] [id number] [address] [place] [address] Urine Amphetamines Screen January 26, 2023 10:02pm Negative Negative Amphetamines Cutoff level 1000 ng/mL. [facility] [id number] [address] [place] [address] 07221 Urine Methadone Screen January 26, 2023 10:02pm Negative Negative Methadone Cutoff level 300 ng/mL [facility] [id number] [address] [place] [address] Urine Oxycodone Screen January 26, 2023 10:02pm Negative Negative Oxycontin/Oxyco done Cutoff level 100 ng/mL [facility] [id number] [address] [place] [address] 14282 Urine Buprenorphine Screen January 26, 2023 10:02pm Negative Negative Buprenorphine Cutoff level 5 ng/mL [facility] [id number] [address] [place] [address] 24925 Urine Opiates Screen January 26, 2023 10:02pm Negative Negative Opiate Cutoff level 300 ng/mLOxycontin/ Oxycodone is not detected below the threshold of20,000 ng/mL [facility] [id number] [address] [place] [address] 54039 Urine Fentanyl Screen January 26, 2023 10:02pm Negative Negative Fentanyl Cutoff level 2.0 ng/mL [facility] [id number] [address] [place] [address] Urine Benzodiazepin es Screen January 26, 2023 10:02pm Negative Negative Please note that the current method for benzodiazepines may be less sensitive to lorazapam detection than previously. If this result is negative and you are concerned about a false negative result for lorazepam, additional testing is possible. Please contact the laboratory.Nick odiazepine Cutoff level 200 ng/mL [facility] [id number] [address] [place] [address] 65269 Urine Cocaine Screen January 26, 2023 10:02pm Negative Negative Cocaine Cutoff level 300 ng/mL [facility] [id number] [address] [place] [address] 82301 Urine Cannabinoids Screen January 26, 2023 10:02pm Negative Negative THC Cutoff level 50 ng/mLThis report is intended for use in clinical monitoring and management of patients. It is not intended for use in employment related drug testing or court related proceedings. Samples are not routinely tested for adulteration and are assumed to be within the normal physiological pH range of 5 - 8. [facility] [id number] [address] [place] [address] 31182 Vital Signs Vital Reading Result Reference Range Collection Date/Time Body Temperature 98.1 [degF] 97.6-99.6 January 5:46am Heart Rate 87 /min 60-January 27, 023 5:46am Respiratory rate 16 /min 12-24 January 5:46am Oxygen saturation by Pulse oximetry 96 % 95-100 January 27, 2023 5 :46am BP Systolic 113 mm[Hg] 90-140 January 27, 2 023 5:46am BP Diastolic 75 mm[Hg] 60-90 January 27, 2 023 5:46am Advance Directives Advance Directive Response Recorded Date/ Time Pt has Medical Orders for Li fe Sustaining Tx Form (MOLST)? No January 26, 2023 9:20pm Advance Directives No January 26, 2023 9:20pm Health Care Proxy No January 26, 2023 9:20pm Insurance Providers Guarantor Gabrielle Maople Address [address] [place] [address] Contact Info. Home Phone: Payer Policy Id Coverage Id Subscriber's Name Subscriber Id Effective Date Expiration Date [facility] Required [id number] Gabrielle Massey [id number] Encounters Encounter Location(s) Arrival/Admit Date Discharge/Depart Date Provider(s) Departed Emergency [facility] January 26, 2023 9:15pm January 27, 2023 8:44am null Plan of Treatment Future Tests Future scheduled test information is unavailable Pending Tests Test Name Ordered Date Scheduled Date Urine Culture January 26, 2023 10:58pm Future Visits Future appointment information is unavailable Referrals to Other Providers Reason for Referral Referral Start Date Provider Provider Contact Information Provider Address Pcp-Md ANDREW Amin Future Procedures Future procedure information is unavailable Future Medications Future medication information is unavailable Patient Instructions ED Fall with Uncertain Cause Goals Acute Goals Author Authored Date Patient was reported to have a fall, [...] improvement Patient be discharged back to the [facility] 4 continue psychiatric treatment and follow-up [facility] January 26, 2023 11:28pm Progress Note Author [facility] January 26, 2023 11:35pm Note Date/Time January 26, 2023 9 :59pm [facility] er [address] [place] [address] Emergency Department Document Signed Patient: Gabrielle Massey Medical Record#: [id number] : 1995 Acct:[id number] Age/Sex: 27 / F Admit/Reg Date: 01/26/23 Loc: ED.EM Room: Report Number: [id number] Attending Dr: Damon Mcguire MD Arrival - Arrival ED Triage Note: Patient is a 27 year old female who presents to the ED from [facility].patient was walking down the [address] when she went to her knees and then fell back onto her back. patient was complaining of dizziness as well as bladder pain. Fall HPI - General Nursing note reviewed: Yes Source: patient, old records reviewed Mode of arrival: EMS Limitations: altered mental status (Cooperative but only brief answer) Primary Care Provider: Pcp-None,Md - History of Present Illness MD complaint: fall Onset (ago): hour(s) Fall from: standing Fall witnessed: yes, by living facility staff Place fall occurred: other ([facility]) Loss of consciousness: none Prolonged down time: no Symptoms prior to fall: lightheadedness Location of injury: other (None) - General Chief Complaint: Fall Stated Complaint: fall - History of Present Illness HPI Narrative: Patient was admitted to the [facility] for suicidal ideation. Medication adjustment with increasing Thorazine dose, today patient was walking, fell lightheadedness and went down on the her knees and fall backward, denies any head strike, no LOC, no seizure activity, and no trauma, transferred to the ED by EMS for evaluation. Patient denies any pain, except suprapubic pain with frequency and urgency in urination. Patient have no back pain and no fever (Damon Mcguire) - Related Data Allergies Allergy/AdvReac Type Severity Reaction Status Date / Time No Known Drug Allergies Allergy Verified 01/26/23 21:35 Review of Systems Constitutional: Denies: chills, fever Eyes: Denies: eye pain ENMT: Denies: ear pain Cardiovascular: Denies: chest pain Respiratory: Denies: shortness of breath Gastrointestinal: Reports: see HPI, abdominal pain (Suprapubic). Denies: diarrhea, nausea, vomiting Genitourinary: Reports: frequency. Denies: dysuria, hematuria, pain Musculoskeletal: Denies: back pain, neck pain Integumentary: Denies: rash Neurological: Denies: headache, numbness, weakness Psychiatric: Reports: suicidal Endocrine: Reports: polydipsia. Denies: polyuria Allergic/Immunologic: Denies: frequent infection Past Medical/Surgical History Medical History: Medical History (Last Updated 01/26/23 @ 22:30 by Alaina Monterroso) Borderline personality disorder (Medical) F60.3 Essential hypertension (Medical) I10 MDD (major depressive disorder) (Medical) F32.9 Obesity (Medical) E66.9 Type 2 diabetes mellitus (Medical) E11.9 Family/Social History - Social History Living Situation: Other ([facility]) Smoking Status: Never tobacco user Do you drink alcohol: No Physical Exam General Appearance: NAD, Cooperative Head: Atraumatic, Normocephalic Eyes: PERRL, EOMI Ears: Hearing grossly intact Nose: Normal Mouth/Throat: Mucosa moist Neck: Supple, Non-tender, FROM w/o pain, No post midline tender Chest: Atraumatic, Non-tender Respiratory: No respiratory distress, Lungs clear Cardiovascular: R/R/R, No Murmurs Abdominal: Soft, No guarding, No Rebound tenderness, Tender (Suprapubic mild tenderness) Back: No CVAT Extremity/Musculoskeletal: Non-tender Skin: Warm, Dry Psych: Anxious Neuro: A&O X 3, Nonfocal Triage Vital Signs: Temperature 97.6 F 01/26/23 21:31 Temperature Source Temporal Artery Scan 01/26/23 21:31 Pulse Rate 101 H 01/26/23 21:31 Respiratory Rate 16 01/26/23 21:31 Blood Pressure 136/83 01/26/23 21:31 Blood Pressure Source Automatic Cuff 01/26/23 21:31 Blood Pressure Mean 100 01/26/23 21:31 Blood Pressure Position Supine 01/26/23 21:31 O2 Sat by Pulse Oximetry 98 01/26/23 21:31 Oxygen Delivery Method Room Air 01/26/23 21:31 Pain Intensity 6 01/26/23 21:31 Results/Orders - Results and Orders Result diagrams: 01/26/23 22:23 01/26/23 22:23 - Results and Orders Lab Testing & Results 01/26/23 22:02: Urine Color Yellow, Urine Clarity Cloudy H, Urine pH 5.5, Ur Specific [place] 1.019, Urine Protein Negative, Urine Glucose (UA) Negative, Urine Ketones Trace A, Urine Blood Trace A, Urine Nitrate Negative, Urine Bilirubin Negative, Urine Urobilinogen 0.2, Ur Leukocyte Esterase Negative, Urine WBC (Auto) Not Reportable, Urine RBC (Auto) Not Reportable, Urine Casts (Auto) Not Reportable, U Epithel Cells (Auto) Not Reportable, Urine Bacteria (Auto) Not Reportable, Urine RBC 3-5 A, Urine WBC 0-5, Ur Squamous Epith Cells 0-5, Calcium Oxalate Crystal Moderate A, Urine Bacteria Few A, Hyaline Casts None seen, Urine HCG, Qual Negative, Urine Opiates Screen Negative, Ur Buprenorphine Scrn Negative, Ur Oxycodone Screen Negative, Urine Methadone Screen Negative, Urine Fentanyl Screen Negative, Ur Amphetamines Screen Negative, U Benzodiazepines Scrn Negative, Urine Cocaine Screen Negative, U Cannabinoids Screen Negative 01/26/23 22:23: WBC 6.1, RBC 4.14, Hgb 11.7, Hct 37.1, MCV 89.6, MCH 28.3, MCHC 31.5, RDW 12.7, Plt Count 230, Immature Gran % (Auto) 0.7, Neut % (Auto) 53.9, Lymph % (Auto) 29.1, [place] % (Auto) 9.2, Eos % (Auto) 6.4, Baso % (Auto) 0.7, Neut # (Auto) 3.3, Lymph # (Auto) 1.8, [place] # (Auto) 0.6, Eos # (Auto) 0.4, Baso# (Auto) 0.0, Immature Gran # (Auto) 0.04, Nucleated RBC % 0.0, Sodium 137, Potassium 4.1, Chloride 106, Carbon Dioxide 21 L, Anion Gap 10, BUN 6, Creatinine 0.7, Estimated Creat Clear Plodding Operator, Estimated GFR 121, BUN/Creatinine Ratio 8.6 L, Glucose 160 H, Calcium 8.9 Medications Ordered: Discontinued Medications Sodium Chloride () 1,000 mls @ 10,000 mls/hr IV .Q6M ONE Stop: 01/26/23 22:12 Last Admin: 01/26/23 22:10 Dose: 10,000 mls/hr Documented By: JOHNNY Ondansetron HCl (Ondansetron 4 Mg/2 Ml Inj) 4 mg IV ONCE ONE Stop: 01/26/23 22:24 Last Admin: 01/26/23 22:24 Dose: 4 mg Documented By: JOHNNY Ondansetron HCl (Ondansetron 4 Mg/2 Ml Inj) 4 mg IV ONCE ONE Stop: 01/26/23 23:14 Last Admin: 01/26/23 23:15 Dose: 4 mg Documented By: JOHNNY MCGUIRE/COURSE Vital Signs Temperature 97.6 F 01/26/23 21:31 Pulse Rate 101 H 01/26/23 21:31 Respiratory Rate 16 01/26/23 21:31 Blood Pressure 136/83 01/26/23 21:31 O2 Sat by Pulse Oximetry 98 01/26/23 21:31 Temperature 97.6 F 01/26/23 21:31 Pulse Rate 101 H 01/26/23 21:31 Respiratory Rate 16 01/26/23 21:31 Blood Pressure 136/83 01/26/23 21:31 O2 Sat by Pulse Oximetry 98 01/26/23 21:31 - [facility] Medical decision making narrative: 01/26/23 23:32 Patient status post fall, preceding with some lightheadedness, no trauma, exam is normal. No syncope, and no neurological complaint. Differential diagnosis including mechanical fall, drug reactions that causing lightheadedness, presyncope Evaluation did not show any trauma by examination. Patient complaining of urgency and frequency of urination and suprapubic pain, urinalysis is normal, patient is not Patient have an episode nausea vomiting, examination the abdomen was benign, laboratory finding were normal, treated with Zofran with improvement. Nonspecific complain, no surgical abdomen on exam recommend patient to be follow-up Discharge back to [facility] (Damon Mcguire) Discharge Plan - Discharge Clinical Impression: Fall Disposition: Home or Self-Care Instructions: ED Fall with Uncertain Cause Care Plan Goals: Patient was reported to have a fall, [...] improvement Patient be discharged back to the [facility] 4 continue psychiatric treatment and follow-up Referrals: Pcp-Md Amin MD [Primary Care Provider] - Print Language: Nepalese - Discharge Data Time Seen by Provider: 01/26/23 21:59 Dictated By: Damon Mcguire MD Signed By: Damon Mcguire MD 01/26/23 2335 DD/ 58 TD/TT: 01/26/232158 Broom Bundler: ELVIA cc: KATTY Graham Pcp-MD Eloisa
--- NOTE | 2023-03-15 21:42 | PC.NURSE ---
staff from [facility] called pod i dont know who was trying to reach us (callers name is manuel Jama or a name close to this) but we dont usually stay with the client say if she goes to appointments, etc. notified care team and clinical trucking supervisor of this
[2023-03-15] MEDS: traZODone HCL 50 MG TABLET PO (21:49)
[2023-03-15] MEDS: carBAMazepine ER 200 MG TAB.ER.12H 400 MG PO (21:49)
--- NOTE | 2023-03-15 21:57 | PC.NURSE ---
client used bad language after expressing frustration with wait after lab draw, client gestures with wristband to hurt self not causeing injury, offered medication to help declined.
[2023-03-15 22:15] LABS: Ethanol < 10 mg/dL
== END 2023-03-16 02:24 | disposition home or self-care (01) ==
PROVIDERS: Emergency Provider Emergency Medicine; PCP Internal Medicine
DX: F33.1 Major depressive disorder, recurrent, moderate (principal); R45.851 Suicidal ideations; F25.9 Schizoaffective disorder, unspecified; Z11.52 Encounter for screening for COVID-19; Z79.899 Other long term (current) drug therapy
CPT/HCPCS: 36415; 80048; 80076; 80178; 80307; 81025; 83735; 85025; 87635; 99284; 99285; S9485

== ENCOUNTER 2023-04-22 05:01 | Emergency (ER) | payer OTHER, SELFPAY ==
[2023-04-22 05:11] VITALS: BP 119/72; BP 149/90; PULSE 103; RESP 16; TEMP 37.6; O2SAT 94; O2SAT 96; BMI 48.1
[2023-04-22 05:32] LABS: Basophils Percent Auto 0.2 % (0-2); Eosinophils Absolute Auto 0.1 X10*3/uL (0.0-0.4); Eosinophils Percent Auto 0.6 % (0-4); Hematocrit 36.8 % (37.0-47.0); Hemoglobin 12.2 g/dl (12.0-16.0); Imm Gran Abs Auto 0.05 X10*3/uL (0.00-0.03); Imm Gran Pct Auto 0.6 % (0.0-0.4); Lymphocytes Percent Auto 11.4 % (20-40); MANUAL DIFF FLAG NO; Mean Corpuscular HGB Conc 33.2 g/dl (31.0-35.0); Mean Corpuscular Hemoglobin 28.4 pg (27.0-33.0); Mean Corpuscular Volume 85.6 fL (80.0-98.0); Mean Platelet Volume 8.9 fL (9.4-12.3); Monocytes Absolute Auto 0.7 X10*3/uL (0.1-1.2); Monocytes Percent Auto 7.7 % (2-11); Neutrophils Absolute Auto 7.2 x10*3/uL (2.0-8.3); Neutrophils Percent Auto 79.5 % (45-73); Platelet Count 235 X10*3/uL (160-400); Red Cell Distribution Width 12.9 % (11.0-16.0); White Blood Count 9.1 X10*3/uL (4.8-10.8)
[2023-04-22 05:48] LABS: Alanine Aminotransferase 17 U/L (0-31); Albumin Level 3.9 g/dL (3.5-5.0); Alkaline Phosphatase 82 U/L (39-117); Anion Gap 14 (12-20); Aspartate Amino Transferase 15 U/L (5-31); Bilirubin Total 0.6 mg/dL (0.0-1.0); Blood Urea Nitrogen 10 mg/dL (9-16); Calcium 8.8 mg/dL (8.4-10.2); Carbon Dioxide 23 mmol/L (22-29); Chloride 105 mmol/L (96-108); Creatinine Clr Calc Pharmacy 131.6; Estimated Glomerular Filt Rate > 60; Glucose Random 158 mg/dL (60-115); Lipase 10 U/L (8-78); Potassium 3.5 mmol/L (3.3-5.1); Sodium 138 mmol/L (135-145); Total Protein 7.1 g/dL (6.5-8.0)
[2023-04-22 06:25] VITALS: BP 113/69; PULSE 98; RESP 12; TEMP 37.2; O2SAT 97
--- NOTE | 2023-04-22 07:09 | ED_ITS ---
HPI - Abdominal Pain General Chief Complaint: Abdominal Pain Stated Complaint: ABD PAIN, N/V/D PER EMS Time Seen by Provider: 04/22/23 05:16 Source: patient Mode of arrival: ambulatory Limitations: no limitations History of Present Illness HPI narrative: 27-year-old female history of schizoaffective disorder, obesity, borderline personality disorder presenting to the emergency department for evaluation of nausea, vomiting, diarrhea since yesterday morning with associated body aches and pains and diffuse headache. Reports sometimes she is diffuse abdominal discomfort however no discomfort at this time. She tells me she is coming from a custodial and there are multiple people at the custodial with a GI bug. Still eating and drinking however has less of an appetite than usual. Denies fevers, chills, chest pain, shortness of breath, blood in vomit or stool, visual disturbances, head trauma, weakness, dizziness. Related Data Previous Rx's Medication Instructions Recorded amlodipine 5 mg tablet 5 mg PO DAILY #30 tabs 02/26/23 benztropine 1 mg tablet 1 mg PO QAM #30 tabs 02/26/23 bupropion HCl 75 mg tablet 75 mg PO DAILY #30 tabs 02/26/23 carbamazepine 400 mg 400 mg PO TID #90 tabs 02/26/23 tablet,extended release,12 hr escitalopram oxalate 5 mg tablet 5 mg PO DAILY #30 tabs 02/26/23 haloperidol 5 mg tablet 5 mg PO TID PRN psychosis, 02/26/23 agitation #60 tabs haloperidol 5 mg tablet 10 mg (2 x 5 mg) PO BID #60 tabs 02/26/23 hydroxyzine HCl 50 mg tablet 50 mg PO TID PRN Anxiety #60 tabs 02/26/23 lorazepam 1 mg tablet 1 mg PO Q4H PRN agitation #15 tabs 02/26/23 metformin 500 mg tablet 500 mg PO BID #60 tabs 02/26/23 naltrexone 50 mg tablet 50 mg PO QAM #30 tabs 02/26/23 trazodone 50 mg tablet 50 mg PO BEDTIME MRX1 PRN Insomnia 02/26/23 #60 tabs lithium carbonate 150 mg capsule 450 mg (3 x 150 mg) PO DAILY #90 02/27/23 caps lithium carbonate 600 mg capsule 600 mg PO BEDTIME #30 caps 02/27/23 ondansetron 4 mg disintegrating 4 mg PO Q6H PRN nausea and 04/22/23 tablet vomiting #14 tabs Allergies Allergy/AdvReac Type Severity Reaction Status Date / Time No Known Allergies Allergy Verified 09/05/22 21:25 [No Known Allergies*] [facility] Past Medical History Attestation statement: The following information was validated with the patient. Source: old records reviewed and nursing notes reviewed Medical History Foreign body ingestion Schizoaffective disorder Obesities, morbid alcohol syndrome Borderline personality disorder Social History Social History Household Members: Other Household Members Other:: 1 Housing: Other Housing Other:: custodial Do you presently have visiting nurse or other home services: Yes (once a month) Unable to assess alcohol history related to: Refusing to respond Alcohol intake: never Comment: 5 minute checks Patient Tobacco Use Status: Never used Tobacco Smoked in Last 30 Days: No e-Cigarette/Vaping Use: Never Used Second Hand Smoke Exposure: No Use of substances other than those prescribed or required for medical reasons: No Substance Use Type: Marijuana Advance Directives: No Advance Directives Information Provided: No Patient : No service: No Sexual orientation: Straight/Heterosexual Physical Exam ED Vital Signs: Vital Signs - 24 hr 04/22/23 05:11 04/22/23 06:25 04/22/23 08:00 Temperature 99.7 F 99.0 F 97.9 F Pulse Rate 103 H 98 103 H Respiratory Rate 16 12 18 Blood Pressure 119/72 113/69 132/100 H Pulse Oximetry 96 97 97 Oxygen Delivery Method Room Air Room Air Room Air BMI result Body Mass Index 48.1 vss Appearance: Alert.? Oriented X3.? No acute distress.? Head: Normocephalic, atraumatic, no step-offs or deformities Eyes: Pupils equal, round and reactive to light.? ENT: Pharynx normal.? Neck: Normal inspection.? Neck supple.? CVS: Normal heart rate and rhythm.? Pulses normal.? Respiratory: No respiratory distress.? Breath sounds normal.? Abdomen: Soft and nontender.? Skin: Skin warm and dry.? Normal skin color.? Normal skin turgor.? Extremities: No lower extremity edema.? No calf ttp. 5/5 strength to bilateral upper and lower extremities Neuro: Oriented X 3.? No motor deficit.? No sensory deficit. CN 2-12 intact Course Reevaluation(s) Reevaluation #1: CBC unremarkable. Chemistry without electrolyte abnormalities requiring intervention. Normal lipase. Normal beta hCG. Time: 07:19 Reevaluation #2: UA clean. Flu, COVID, RSV negative. Time: 09:36 Reevaluation #3: On discharge patient is feeling better. Reports diffuse body aches and pains Tylenol given. She did not receive her morning dose of amlodipine therefore her blood pressure is elevated however I did give it to her before she left. She has asymptomatic no headache, vision changes, dizziness or weakness. No signs of hypertensive urgency or emergency. Time: 10:22 Medical Decision Making Medical Decision Making [facility] Narrative: 27-year-old female presents with nausea, vomiting, diarrhea and intermittent abdominal pain since yesterday Physical examination benign Likely viral illness versus gastroenteritis versus food poisoning. Unlikely acute abdomen appendicitis, cholecystitis, diverticulitis, pancreatitis or obstruction. Will rule out and urinary infection although unlikely Plan labs, viral testing, urine Differential Diagnosis Differential Diagnoses: The differential diagnosis associated with the presentation includes Likely viral illness versus gastroenteritis versus food poisoning. Unlikely acute abdomen appendicitis, cholecystitis, diverticulitis, pancreatitis or obstruction. Will rule out and urinary infection although unlikely Admission/Observation Consideration of admission/observation: Escalation of care including admission/observation considered Unlikely Lab Data [facility] Lab Attestation statement: I reviewed the patient's lab results. 04/22/23 05:28 04/22/23 05:28 Labs: Lab Results 04/22/23 04/22/23 Range/Units 05:28 07:38 WBC 9.1 (4.8-10.8) X10*3/uL RBC 4.30 (4.20-5.50) X10*6/uL Hgb 12.2 (12.0-16.0) g/dl Hct 36.8 L (37.0-47.0) % MCV 85.6 (80.0-98.0) fL MCH 28.4 (27.0-33.0) pg MCHC 33.2 (31.0-35.0) g/dl RDW 12.9 (11.0-16.0) % Plt Count 235 (160-400) X10*3/uL MPV 8.9 L (9.4-12.3) fL Immature Gran % (Auto) 0.6 H (0.0-0.4) % Neut % (Auto) 79.5 H (45-73) % Lymph % (Auto) 11.4 L (20-40) % [place] % (Auto) 7.7 (2-11) % Eos % (Auto) 0.6 (0-4) % Baso % (Auto) 0.2 (0-2) % Lymph # (Auto) 1.0 L (1.2-4.9) X10*3/uL [place] # (Auto) 0.7 (0.1-1.2) X10*3/uL Eos # (Auto) 0.1 (0.0-0.4) X10*3/uL Baso # (Auto) 0.0 (0.0-0.2) X10*3/uL Abs Immat Gran (auto) 0.05 H (0.00-0.03) X10*3/uL Absolute Neuts (auto) 7.2 (2.0-8.3) x10*3/uL Absolute Nucleated RBC 0.000 (0.0-0.012) X10*3/uL Nucleated RBC % (auto) 0.0 (0.0-0.2) /100WBC Sodium 138 (135-145) mmol/L Potassium 3.5 (3.3-5.1) mmol/L Chloride 105 (96-108) mmol/L Carbon Dioxide 23 (22-29) mmol/L Anion Gap 14 (12-20) BUN 10 (9-16) mg/dL Creatinine 0.84 (0.5-1.4) mg/dL Estim Creat Clear Calc 131.6 Estimated GFR > 60 Random Glucose 158 H (60-115) mg/dL Calcium 8.8 D (8.4-10.2) mg/dL Total Bilirubin 0.6 (0.0-1.0) mg/dL AST 15 (5-31) U/L ALT 17 (0-31) U/L Alkaline Phosphatase 82 (39-117) U/L Total Protein 7.1 (6.5-8.0) g/dL Albumin 3.9 (3.5-5.0) g/dL Lipase 10 (8-78) U/L Beta HCG, Quant < 2 mIU/mL Urine Color Yellow Urine Appearance Turbid Urine pH 5.5 (5.0-9.0) Ur Specific [place] 1.025 (1.005-1.025) Urine Protein Trace (Neg-Trace) mg/dL Urine Glucose (UA) Negative (Negative) mg/dL Urine Ketones Negative (Negative) mg/dL Urine Blood Negative (Negative) Urine Nitrite Negative (Negative) Ur Leukocyte Esterase Negative (Negative) Influenza Type A (PCR) NEGATIVE (Negative) Influenza Type B (PCR) NEGATIVE (Negative) RSV RNA Qual (PCR) NEGATIVE (Negative) SARS-CoV-2 RNA (RT-PCR) NEGATIVE (Negative) Tests considered The following testing was considered but not selected: No abnormalities on labs, no abdominal tenderness to palpation no indication for imaging. Chronic Conditions Patient?s care impacted by: Other (Psychiatric disorder) Medications Administered Discontinued Medications Generic Name Dose Route Start Last Admin Trade Name Freq PRN Reason Stop Dose Admin Acetaminophen 975 mg 04/22/23 09:54 04/22/23 10:10 Acetaminophen 325 Mg Tablet PO 04/22/23 09:55 975 mg ONCE ONE Administration Amlodipine Besylate 5 mg 04/22/23 09:36 04/22/23 09:54 Amlodipine Besylate 5 Mg Tablet PO 04/22/23 09:37 5 mg ONCE ONE Administration Protocol Ondansetron HCl 4 mg 04/22/23 07:18 04/22/23 07:38 Ondansetron Hcl 4 Mg/2 Ml Vial IVPUSH 04/22/23 07:19 4 mg ONCE ONE Administration Critical Care Time Critical Care Time Critical Care Time: No Discharge Plan Discharge Clinical Impression: Abdominal pain, Viral illness Patient Disposition: Home, Self-Care Instructions: Viral Syndrome (ED), Abdominal Pain (ED) Additional Instructions: Take your medications as prescribed. If you were prescribed antibiotics today, it is important that you take your medication to their entirety, do not skip any doses, do not finish them early. Follow-up with your primary care provider this week. Return to the emergency department with new or worsening symptoms. Such as fevers, chills, chest pain, shortness of breath, nausea, vomiting, dizziness, headache, vision changes, lethargy In case of emergency call 911 Prescriptions: New ondansetron 4 mg tablet,disintegrating 4 mg PO Q6H PRN (Reason: nausea and vomiting) Qty: 14 0RF No Action metformin 500 mg Tablet 500 mg PO BID Qty: 60 0RF haloperidol 5 mg Tablet 5 mg PO TID PRN (Reason: psychosis, agitation) Qty: 60 0RF haloperidol 5 mg Tablet 10 mg PO BID Qty: 60 0RF trazodone 50 mg Tablet 50 mg PO BEDTIME MRX1 PRN (Reason: Insomnia) Qty: 60 0RF hydroxyzine HCl 50 mg Tablet 50 mg PO TID PRN (Reason: Anxiety) Qty: 60 0RF bupropion HCl 75 mg Tablet 75 mg PO DAILY Qty: 30 0RF lorazepam 1 mg Tablet 1 mg PO Q4H PRN (Reason: agitation) Qty: 15 0RF escitalopram oxalate 5 mg Tablet 5 mg PO DAILY Qty: 30 0RF naltrexone 50 mg tablet 50 mg PO QAM Qty: 30 0RF amlodipine 5 mg tablet 5 mg PO DAILY Qty: 30 0RF carbamazepine 400 mg tablet extended release 12 hr 400 mg PO TID Qty: 90 0RF benztropine 1 mg tablet 1 mg PO QAM Qty: 30 0RF lithium carbonate 150 mg capsule 450 mg PO DAILY Qty: 90 0RF lithium carbonate 600 mg capsule 600 mg PO BEDTIME Qty: 30 0RF Referrals: Physician,Unknown J [Primary Care Provider] - 2 days Stand Alone Forms: Work/School Release
[2023-04-22 07:12] LABS: HCG Quantitative < 2 mIU/mL
[2023-04-22] MEDS: ondansetron HCL 4 MG/2 ML VIAL IVPUSH (07:38)
[2023-04-22 07:56] LABS: Appearance Urine Turbid; Color Urine Yellow; Glucose Urine UA Negative (Negative); Leukocyte Esterase Urine Negative (Negative); Nitrite Urine Negative (Negative); PH 5.5 (5.0-9.0); Specific Gravity - Urine 1.025 (1.005-1.025); Urine Blood Negative (Negative); Urine Ketones Negative (Negative); Urine Protein Trace mg/dL (Neg-Trace)
[2023-04-22 08:00] VITALS: BP 132/100; PULSE 103; RESP 18; TEMP 36.6; O2SAT 97
--- NOTE | 2023-04-22 08:00 | MHC.EDTECH ---
Patients BP was 134/100. PA notified and patient stated that she has not taken her BP medication yet this morning.
[2023-04-22 08:31] LABS: Influenza A PCR NEGATIVE (Negative); Influenza B PCR NEGATIVE (Negative); Resp Syncy Virus RNA Qual PCR NEGATIVE (Negative); SARS COV2 PCR INHOUSE NEGATIVE (Negative)
[2023-04-22] MEDS: amLODIPine Besylate 5 MG TABLET PO (09:54)
[2023-04-22] MEDS: Acetaminophen 325 MG TABLET 975 MG PO (10:10)
--- NOTE | 2023-04-22 10:31 | PC.NURSE ---
PT IS ASYMPTOMATIC WITH VS OF 159/105-94. MLP AWARE.
[2023-04-22 10:33] VITALS: PULSE 94; RESP 18
== END 2023-04-22 10:39 | disposition home or self-care (01) ==
PROVIDERS: Physician Assistant; Emergency Provider Internal Medicine
DX: B34.9 Viral infection, unspecified (principal); R11.2 Nausea with vomiting, unspecified; R10.9 Unspecified abdominal pain; Z11.52 Encounter for screening for COVID-19; Z79.899 Other long term (current) drug therapy; Z20.822 Contact with and (suspected) exposure to COVID-19
CPT/HCPCS: 0241U; 36415; 80053; 81003; 83690; 84702; 85025; 96374; 99284; J2405

== ENCOUNTER 2023-05-28 20:32 | Emergency (ER) | payer OTHER, SELFPAY ==
[2023-05-28 20:37] VITALS: BP 143/97; BP 152/100; PULSE 102; PULSE 112; RESP 16; TEMP 36.9; O2SAT 96; O2SAT 98; BMI 30.7
[2023-05-28] MEDS: HaloperidoL 5 MG TABLET PO (21:01)
[2023-05-28] MEDS: LORazepam 1 MG TABLET 2 MG PO (21:01)
[2023-05-28 21:12] LABS: MANUAL DIFF FLAG NO
[2023-05-28 21:15] LABS: Basophils Percent Auto 0.4 % (0-2); Eosinophils Absolute Auto 0.2 X10*3/uL (0.0-0.4); Eosinophils Percent Auto 2.9 % (0-4); Hematocrit 38.4 % (37.0-47.0); Hemoglobin 12.6 g/dl (12.0-16.0); Imm Gran Abs Auto 0.04 X10*3/uL (0.00-0.03); Imm Gran Pct Auto 0.5 % (0.0-0.4); Lymphocytes Absolute Auto 2.3 X10*3/uL (1.2-4.9); Lymphocytes Percent Auto 28.8 % (20-40); Mean Corpuscular HGB Conc 32.8 g/dl (31.0-35.0); Mean Corpuscular Hemoglobin 28.4 pg (27.0-33.0); Mean Corpuscular Volume 86.5 fL (80.0-98.0); Mean Platelet Volume 8.7 fL (9.4-12.3); Monocytes Absolute Auto 0.6 X10*3/uL (0.1-1.2); Monocytes Percent Auto 8.1 % (2-11); Neutrophils Absolute Auto 4.6 x10*3/uL (2.0-8.3); Neutrophils Percent Auto 59.3 % (45-73); Platelet Count 270 X10*3/uL (160-400); Red Blood Count 4.44 X10*6/uL (4.20-5.50); Red Cell Distribution Width 12.7 % (11.0-16.0); White Blood Count 7.8 X10*3/uL (4.8-10.8)
[2023-05-28 21:21] LABS: Amphetamine Screen Urine Not Detected (Not Detect); Barbiturates, Urine Not Detected (Not Detect); Benzodiazepines Screen Urine Not Detected (Not Detect); Cannabinoid Screen Urine Not Detected (Not Detect); Cocaine Screen Urine Not Detected (Not Detect); Fentanyl, urine Not Detected (Not Detect); Lithium 0.52 mmol/L (0.60-1.20); Opiate Screen Urine Not Detected (Not Detect); Phencyclidine Screen Urine Not Detected (Not Detect)
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
[2023-05-28 21:37] LABS: Alanine Aminotransferase 15 U/L (0-31); Albumin Level 4.1 g/dL (3.5-5.0); Alkaline Phosphatase 81 U/L (39-117); Anion Gap 17 (12-20); Aspartate Amino Transferase 15 U/L (5-31); Bilirubin Direct < 0.2 mg/dL (0.0-0.5); Bilirubin Total 0.2 mg/dL (0.0-1.0); Blood Urea Nitrogen 8 mg/dL (9-16); Calcium 9.3 mg/dL (8.4-10.2); Carbon Dioxide 19 mmol/L (22-29); Chloride 108 mmol/L (96-108); Estimated Glomerular Filt Rate > 60; Ethanol < 10 mg/dL; Glucose Random 116 mg/dL (60-115); HCG Quantitative < 2 mIU/mL; Magnesium 2.1 mg/dL (1.6-2.6); Potassium 3.6 mmol/L (3.3-5.1); Sodium 140 mmol/L (135-145); Total Protein 7.8 g/dL (6.5-8.0)
[2023-05-28 21:50] LABS: Influenza A PCR NEGATIVE (Negative); Influenza B PCR NEGATIVE (Negative); Resp Syncy Virus RNA Qual PCR NEGATIVE (Negative); SARS COV2 PCR INHOUSE NEGATIVE (Negative)
[2023-05-28] MEDS: metFORMIN HCl 500 MG TABLET PO (23:01)
[2023-05-28] MEDS: carBAMazepine ER 200 MG TAB.ER.12H 400 MG PO (23:01)
[2023-05-28] MEDS: Lithium Carbonate 300 MG CAPSULE 600 MG PO (23:02)
[2023-05-28] MEDS: HaloperidoL 5 MG TABLET 10 MG PO (23:02)
[2023-05-28] MEDS: cephALEXin 500 MG CAPSULE PO (23:02)
[2023-05-28] MEDS: traZODone HCL 50 MG TABLET PO (23:06)
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
[2023-05-29 06:05] VITALS: BP 132/87; PULSE 82; RESP 16; TEMP 36.6; O2SAT 97
[2023-05-29 08:15] VITALS: RESP 16
--- NOTE | 2023-05-29 08:15 | MHC.EDTECH ---
pt refused vitals at this time, respirations were documented and are uneven and unlabored, no signs of distress, rn aware
[2023-05-29 08:35] LABS: Glucose, Whole Blood 144 mg/dL (60-115)
[2023-05-29] MEDS: HaloperidoL 5 MG TABLET 10 MG PO (08:53)
[2023-05-29] MEDS: Escitalopram Oxalate 5 MG TABLET PO (08:53)
[2023-05-29] MEDS: carBAMazepine ER 200 MG TAB.ER.12H 400 MG PO ×2 (08:53→15:27)
[2023-05-29] MEDS: Benztropine Mesylate 1 MG TABLET PO (08:53)
[2023-05-29] MEDS: amLODIPine Besylate 5 MG TABLET PO (08:54)
[2023-05-29] MEDS: Lithium Carbonate 300 MG TABLET 450 MG PO (08:54)
[2023-05-29] MEDS: buPROPion HCL 75 MG TABLET PO (08:55)
[2023-05-29] MEDS: hydrOXYzine HCL 50 MG TABLET PO (08:55)
[2023-05-29] MEDS: Naltrexone HCl 50 MG TABLET PO (08:55)
--- NOTE | 2023-05-29 09:00 | PC.NURSE ---
PT IS A/O X 3 NO SOB/MAREK NOTED PT SPEAKS IN FULL SENTENCES. PT AMB (I) GAIT STEADY IN HALLWAY, BATHROOM AND BTB. PT'S POC - 144, NO INSULIN COVERAGE INDICATED. PT ADAMANTLY REFUSED METFORMIN AM DOSING STATING I ONLY TAKE THAT AT NIGHT AND I AM NOT TAKING IT . PT ALSO ADAMANTLY REFUSED VS MULTIPLE TIMES. PT MED X 1 WITH HYDROXZINE 50MG PO FOR INCREASE ANXIETY. PT AWARE OF PLAN OF CARE. WILL CONTINUE TO MONITOR.
--- NOTE | 2023-05-29 09:05 | PC.NURSE ---
PT DENIES ANY PAIN/DISC. WHEN ASKED BY THIS RN IF PT WAS +SI/HI, PT REFUSED TO ANSWER. WILL CONTINUE TO MONITOR.
[2023-05-29 15:13] VITALS: RESP 18
--- NOTE | 2023-05-29 15:38 | PC.NURSE ---
PT'S RIDE FROM THE [facility] IS HERE FOR PT'S D/C.
[2023-05-29 15:42] VITALS: BP 000/00; PULSE 0; RESP 16; TEMP -17.7; TEMP 0
== END 2023-05-29 15:55 | disposition home or self-care (01) ==
PROVIDERS: Emergency Medicine; Emergency Provider Emergency Medicine; PCP Internal Medicine
DX: F25.9 Schizoaffective disorder, unspecified (principal); Z91.51 Personal history of suicidal behavior; Z03.818 Encounter for observation for suspected exposure to other biological agents ruled out
CPT/HCPCS: 0241U; 36415; 80048; 80076; 80178; 80307; 82947; 83735; 84702; 85025; 99284; S9485

== ENCOUNTER 2024-01-19 18:56 | Emergency (ER) | payer OTHER, SELFPAY ==
[2024-01-19 19:04] VITALS: BP 160/100; PULSE 86; O2SAT 100
[2024-01-19 19:11] VITALS: BP 144/97; PULSE 95; RESP 16; TEMP 37.3; O2SAT 99; BMI 49.4
--- NOTE | 2024-01-19 19:56 | PC.NURSE ---
Patient refused PO Zofran. Stated I need something stronger, I've tried Zofran before and it doesn't work for me . Awaiting ED provider to evaluate the patient. Given ice chips as requested. Continues to deny pain at this time. Care ongoing.
--- NOTE | 2024-01-19 21:01 | ED_ITS ---
HPI - Weakness General Chief complaint: Weakness Stated complaint: WEAKNESS X 2 DAYS Time Seen by Provider: 01/19/24 20:41 Source: patient Mode of arrival: EMS Limitations: no limitations History of Present Illness ED Provider: Dr. Leonard Alonso HPI Narrative: 27-year-old female with history of schizoaffective disorder, borderline personality disorder, behavioral dyscontrol with pica presents emergency department by ambulance for evaluation of nausea without vomiting, weakness. Patient states that she was at [facility] for proximally 1 week and was released 3 days ago. She states that while she was at [facility] in his she had nausea and they were giving her promethazine with improvement of her symptoms. She states that this evening her nausea got worse. She was feeling weak and fatigued therefore she was sent in from her assisted for evaluation The patient denied fever, chills, rhinorrhea, sore throat, cough, chest pain, shortness of breath. She denied vomiting diarrhea, frequency, urgency or dysuria. Related Data Home Medications ?Medication ?Instructions ?Recorded ?Confirmed cephalexin 500 mg capsule 500 mg PO QID 05/28/23 05/28/23 Previous Rx's ?Medication ?Instructions ?Recorded amlodipine 5 mg tablet 5 mg PO DAILY #30 tabs 02/26/23 benztropine 1 mg tablet 1 mg PO QAM #30 tabs 02/26/23 bupropion HCl 75 mg tablet 75 mg PO DAILY #30 tabs 02/26/23 carbamazepine 400 mg 400 mg PO TID #90 tabs 02/26/23 tablet,extended release,12 hr escitalopram oxalate 5 mg tablet 5 mg PO DAILY #30 tabs 02/26/23 haloperidol 5 mg tablet 5 mg PO TID PRN psychosis, 02/26/23 agitation #60 tabs haloperidol 5 mg tablet 10 mg (2 x 5 mg) PO BID #60 tabs 02/26/23 hydroxyzine HCl 50 mg tablet 50 mg PO TID PRN Anxiety #60 tabs 02/26/23 metformin 500 mg tablet 500 mg PO BID #60 tabs 02/26/23 naltrexone 50 mg tablet 50 mg PO QAM #30 tabs 02/26/23 trazodone 50 mg tablet 50 mg PO BEDTIME MRX1 PRN Insomnia 02/26/23 #60 tabs lithium carbonate 150 mg capsule 450 mg (3 x 150 mg) PO DAILY #90 02/27/23 caps lithium carbonate 600 mg capsule 600 mg PO BEDTIME #30 caps 02/27/23 promethazine 25 mg tablet 25 mg PO Q6H PRN nausea and 01/19/24 vomiting #14 tabs Allergies Allergy/AdvReac Type Severity Reaction Status Date / Time No Known Allergies Allergy Verified 01/19/24 19:14 [No Known Allergies*] Review of Systems 2 Review of Systems: Yes all other systems are reviewed and are negative [facility] Past Medical History Medical History Foreign body ingestion Schizoaffective disorder Obesities, morbid alcohol syndrome Borderline personality disorder Social History Social History Household Members: Other Household Members Other:: 1 Housing: Other Housing Other:: assisted Do you presently have visiting nurse or other home services: Yes (once a month) Unable to assess alcohol history related to: Refusing to respond Alcohol intake: never Comment: 5 minute checks Patient Tobacco Use Status: Never used Tobacco e-Cigarette/Vaping Use: Never Used Second Hand Smoke Exposure: No Use of substances other than those prescribed or required for medical reasons: No Substance Use Type: Marijuana Advance Directives: No Advance Directives Information Provided: No Patient : No service: No Sexual orientation: Straight/Heterosexual Physical Exam 2 Vital Signs: Vital Signs: Last Vital Signs Temp 98.5 F 01/19/24 21:48 Pulse 85 01/19/24 21:48 Resp 16 01/19/24 21:48 BP 147/97 H 01/19/24 21:48 Pulse Ox 100 01/19/24 21:48 O2 Del Method Room Air 01/19/24 21:48 BMI result Body Mass Index 49.4 Vital signs revealed an elevated blood pressure of 144/97 Exam: General: Awake, alert in no distress. Head: Normocephalic, atraumatic EENT: PERRL, Lids normal, sclera normal, conjunctiva normal, nose normal , ears normal, throat without erythema or exudates Neck: Supple, no adenopathy Lung: breath sounds symmetric, no wheezing, rales or rhonchi Chest: symmetric movement, nontender Heart: regular rate and rhythm, normal S1, S2 no murmurs or rubs Abdomen: soft, non-tender, nondistended, normal bowel sounds Back: no vertebral tenderness, no CVAT Extremities: no deformities, moves all extremities symmetrically Neuro: Awake, alert, oriented, normal speech, cranial nerves intact, moves all extremities symmetrically Psych: Pleasant, cooperative Medications Administered Discontinued Medications Generic Name Dose Route Start Last Admin Trade Name Brittney PRN Reason Stop Dose Admin Ondansetron HCl 4 mg 01/19/24 19:47 01/19/24 19:56 Ondansetron Odt 4 Mg Tab.Rapdis TRANSLINGU 01/19/24 19:48 Not Given ONCE ONE Promethazine HCl 25 mg 01/19/24 20:59 01/19/24 21:14 Promethazine Hcl 25 Mg Tablet PO 01/19/24 21:00 25 mg ONCE ONE Administration Medical Decision Making Medical Decision Making [facility] Narrative: 27-year-old female with history of schizoaffective disorder, borderline personality disorder, behavioral dyscontrol with pica presents emergency department by ambulance for evaluation of nausea without vomiting, weakness x1 week, worse this evening. Patient was recently hospitalized at [facility] and released 3 days prior, she states that while she was hospitalized she had nausea and was treated with promethazine. Vital signs revealed an elevated blood pressure otherwise unremarkable. Physical examination was normal. Differential diagnosis: ?Includes but is not limited to viral syndrome, gastritis, pancreatitis, , anemia, electrolyte abnormalities Following evaluation was ordered: CBC, CMP, lipase, urinalysis, urine test Patient was initially treated with the following: Promethazine 25 mg orally Course: My independent interpretation patient's laboratory evaluation as follows: CBC was normal. Bicarb low 20. Glucose elevated 130. LFTs were normal. Quantitative beta-hCG was below detectable limits. Patient states that her nausea did improve with the oral promethazine. She was able to drink raza nadja and eat crackers without any difficulty. The patient will be discharged home with a prescription for promethazine 25 mg every 6 hours as needed for nausea and vomiting. She was given printed and verbal instructions and discharged home. Admission/Observation Consideration of admission/observation: Escalation of care including admission/observation considered (Yes) Lab Data [facility] Lab Attestation statement: I reviewed the patient's lab results. 01/19/24 21:13 01/19/24 21:13 Labs: Lab Results 01/19/24 Range/Units 21:13 WBC 6.2 (4.8-10.8) X10*3/uL RBC 4.20 (4.20-5.50) X10*6/uL Hgb 12.2 (12.0-16.0) g/dl Hct 36.2 L (37.0-47.0) % MCV 86.2 (80.0-98.0) fL MCH 29.0 (27.0-33.0) pg MCHC 33.7 (31.0-35.0) g/dl RDW 12.6 (11.0-16.0) % Plt Count 269 (160-400) X10*3/uL MPV 8.8 L (9.4-12.3) fL Immature Gran % (Auto) 0.3 (0.0-0.4) % Neut % (Auto) 54.7 (45-73) % Lymph % (Auto) 34.1 (20-40) % [place] % (Auto) 6.9 (2-11) % Eos % (Auto) 3.5 (0-4) % Baso % (Auto) 0.5 (0-2) % Lymph # (Auto) 2.1 (1.2-4.9) X10*3/uL [place] # (Auto) 0.4 (0.1-1.2) X10*3/uL Eos # (Auto) 0.2 (0.0-0.4) X10*3/uL Baso # (Auto) 0.0 (0.0-0.2) X10*3/uL Abs Immat Gran (auto) 0.02 (0.00-0.03) X10*3/uL Absolute Neuts (auto) 3.4 (2.0-8.3) x10*3/uL Absolute Nucleated RBC 0.000 (0.0-0.012) X10*3/uL Nucleated RBC % (auto) 0.0 (0.0-0.2) /100WBC Sodium 141 (135-145) mmol/L Potassium 4.1 (3.3-5.1) mmol/L Chloride 108 (96-108) mmol/L Carbon Dioxide 20 L (22-29) mmol/L Anion Gap 17 (12-20) BUN 10 (9-16) mg/dL Creatinine 1.12 (0.5-1.4) mg/dL Estim Creat Clear Calc 99.5 Estimated GFR 58 Random Glucose 130 H (60-115) mg/dL Calcium 9.2 (8.4-10.2) mg/dL Total Bilirubin 0.2 (0.0-1.0) mg/dL AST 26 (5-31) U/L ALT 19 (0-31) U/L Alkaline Phosphatase 78 (39-117) U/L Total Protein 7.7 (6.5-8.0) g/dL Albumin 4.0 (3.5-5.0) g/dL Lipase 24 (8-78) U/L Beta HCG, Quant < 2 mIU/mL Prescription Management I considered prescription management with: Other (Antiemetic-promethazine) Discharge Plan Discharge Clinical Impression: Nausea, Weakness Patient Disposition: Home, Self-Care Instructions: Acute Nausea and Vomiting (ED) Additional Instructions: You had a complete blood count and comprehensive metabolic panel here in the emergency department, these tests were normal. You were treated with promethazine (Phenergan) 25 mg orally with improvement of your nausea. I am prescribing this medication for you. Follow-up with your doctor in 2 days. Please return to the emergency department if your symptoms get worse or if you develop any symptoms that are concerning to you. Prescriptions: New promethazine 25 mg tablet 25 mg PO Q6H PRN (Reason: nausea and vomiting) Qty: 14 0RF No Action cephalexin 500 mg capsule 500 mg PO QID metformin 500 mg Tablet 500 mg PO BID Qty: 60 0RF haloperidol 5 mg Tablet 5 mg PO TID PRN (Reason: psychosis, agitation) Qty: 60 0RF haloperidol 5 mg Tablet 10 mg PO BID Qty: 60 0RF trazodone 50 mg Tablet 50 mg PO BEDTIME MRX1 PRN (Reason: Insomnia) Qty: 60 0RF hydroxyzine HCl 50 mg Tablet 50 mg PO TID PRN (Reason: Anxiety) Qty: 60 0RF bupropion HCl 75 mg Tablet 75 mg PO DAILY Qty: 30 0RF escitalopram oxalate 5 mg Tablet 5 mg PO DAILY Qty: 30 0RF naltrexone 50 mg tablet 50 mg PO QAM Qty: 30 0RF amlodipine 5 mg tablet 5 mg PO DAILY Qty: 30 0RF carbamazepine 400 mg tablet extended release 12 hr 400 mg PO TID Qty: 90 0RF benztropine 1 mg tablet 1 mg PO QAM Qty: 30 0RF lithium carbonate 150 mg capsule 450 mg PO DAILY Qty: 90 0RF lithium carbonate 600 mg capsule 600 mg PO BEDTIME Qty: 30 0RF Print Language: Amharic
[2024-01-19] MEDS: Promethazine HCL 25 MG TABLET PO (21:14)
[2024-01-19 21:18] LABS: MANUAL DIFF FLAG NO
[2024-01-19 21:19] LABS: Basophils Percent Auto 0.5 % (0-2); Eosinophils Absolute Auto 0.2 X10*3/uL (0.0-0.4); Eosinophils Percent Auto 3.5 % (0-4); Hematocrit 36.2 % (37.0-47.0); Hemoglobin 12.2 g/dl (12.0-16.0); Imm Gran Abs Auto 0.02 X10*3/uL (0.00-0.03); Imm Gran Pct Auto 0.3 % (0.0-0.4); Lymphocytes Absolute Auto 2.1 X10*3/uL (1.2-4.9); Lymphocytes Percent Auto 34.1 % (20-40); Mean Corpuscular HGB Conc 33.7 g/dl (31.0-35.0); Mean Corpuscular Volume 86.2 fL (80.0-98.0); Mean Platelet Volume 8.8 fL (9.4-12.3); Monocytes Absolute Auto 0.4 X10*3/uL (0.1-1.2); Monocytes Percent Auto 6.9 % (2-11); Neutrophils Absolute Auto 3.4 x10*3/uL (2.0-8.3); Neutrophils Percent Auto 54.7 % (45-73); Platelet Count 269 X10*3/uL (160-400); Red Cell Distribution Width 12.6 % (11.0-16.0); White Blood Count 6.2 X10*3/uL (4.8-10.8)
[2024-01-19 21:31] LABS: Lipase 24 U/L (8-78)
[2024-01-19 21:36] LABS: Alanine Aminotransferase 19 U/L (0-31); Alkaline Phosphatase 78 U/L (39-117); Anion Gap 17 (12-20); Aspartate Amino Transferase 26 U/L (5-31); Bilirubin Total 0.2 mg/dL (0.0-1.0); Blood Urea Nitrogen 10 mg/dL (9-16); Calcium 9.2 mg/dL (8.4-10.2); Carbon Dioxide 20 mmol/L (22-29); Chloride 108 mmol/L (96-108); Creatinine Clr Calc Pharmacy 99.5; Estimated Glomerular Filt Rate 58; Glucose Random 130 mg/dL (60-115); Potassium 4.1 mmol/L (3.3-5.1); Sodium 141 mmol/L (135-145); Total Protein 7.7 g/dL (6.5-8.0)
[2024-01-19 21:48] VITALS: BP 147/97; PULSE 85; RESP 16; TEMP 36.9; O2SAT 100
[2024-01-19 22:30] LABS: HCG Quantitative < 2 mIU/mL
--- NOTE | 2024-01-19 23:20 | PC.NURSE ---
HCG level negative. Patient arrived from skilled nursing. I spoke with Cherrie Hager (skilled nursing staff member) at the # listed and she said that she is going to attempt to get someone to pick [place] up from the ED, but that there are only 2 skilled nursing staff members on at the moment, so it's unlikely that she'll find someone. I'm awaiting a call back from Cherrie as soon as she knows whether or not someone can provide a ride for Gabrielle back to the skilled nursing. Nursing schedule supervisor (Bertha Kahn) and cnc operator machinist (Elaina Pinedo) also aware.
[2024-01-19 23:32] VITALS: BP 147/97; PULSE 85; RESP 16; TEMP 36.9; O2SAT 100
== END 2024-01-19 23:53 | disposition home or self-care (01) ==
PROVIDERS: Emergency Provider Emergency Medicine Emergency Medical Services; PCP Internal Medicine
DX: R11.0 Nausea (principal); R53.1 Weakness
CPT/HCPCS: 36415; 80053; 83690; 84702; 85025; 99283; 99284